=== PATIENT | male | born 1935 | race Caucasian/White ===

== ENCOUNTER 2017-07-22 10:59 | Emergency (ER) | payer MEDICARE, MEDICAID ==
[~2017-07-22] VITALS: Ht 162.6 cm; Wt 59.0 kg
--- OUTSIDE RECORDS SUMMARY | 2017-07-22 11:26 | XMS REPORT | Clinical Summary ---
Author Author Admin, E Organization [employer] Address Unknown Phone Unavailable Allergies, Adverse Reactions, Alerts Allergy Name Reaction Description Start Date Severity Status Provider NKA Critical Active Trino Richardson MD Conditions or Problems Problem Name Problem Code Onset Date Status Entry Date Provider Comment Standard Description Annotate Inguinal hernia, left 550.90 Resolved Trino Richardson MD Unilateral or unspecified inguinal hernia, without mention of obstruction or gangrene (not specified as recurrent) Tobacco abuse 305.1 Inactive Víctor Payne MD Tobacco use disorder Cigarette smoker 305.1 Active Víctor Payne MD Tobacco use disorder Constipation 564.00 Active Trino Richardson MD Constipation, unspecified Transient ischemic attack 435.9 Active Víctor Payne MD Unspecified transient cerebral ischemia Chest wall pain 786.52 Resolved Trino Richardson MD Painful respiration Bronchitis 490 Resolved Víctor Payne MD Bronchitis, not specified as acute or chronic Back pain, thoracic region 724.1 Active Víctor Payne MD Pain in thoracic spine Dizziness 780.4 Active Shaji Bradshaw MD Dizziness and giddiness Carotid bruit, left 785.9 Inactive Shaji Bradshaw MD Other symptoms involving cardiovascular system Carotid bruit, right 785.9 Inactive Víctor Payne MD Other symptoms involving cardiovascular system Carotid artery disease 433.10 Active Víctor Payne MD Occlusion and stenosis of carotid artery, without mention of cerebral infarction Leukocytosis 288.60 Active Magalys Morgan RMA Leukocytosis, unspecified Hypertension, benign essential 401.1 Active Víctor Payne MD Benign essential hypertension Inguinal hernia, right 550.90 Active 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 Unilateral or unspecified inguinal hernia, without mention of obstruction or gangrene (not specified as recurrent) HEALTH MAINTENANCE EXAM V70.0 Active Víctor Payne MD Routine general medical examination at a health care facility Adjustment disorder with depressed mood 309.0 Active Víctor Payne MD Adjustment disorder with depressed mood Underweight 783.22 Active Víctor Payne MD Underweight Change in bowels 787.99 Active Tanya Tan [employer]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 Other symptoms involving digestive system COPD 496 Active Víctor Payne MD Chronic airway obstruction, not elsewhere classified Supraventricular tachycardia 427.0 Active Víctor Payne MD Paroxysmal supraventricular tachycardia Ceruminosis 380.4 Active New Castro DO Impacted cerumen Hypertension 401.9 Active New Castro DO Unspecified essential hypertension Pneumonia, right upper lobe 486 Active Víctor Payne MD Pneumonia, organism unspecified Back pain, thoracic region 724.1 Active Víctor Payne MD Pain in thoracic spine Pre-procedural laboratory examination V72.63 Active 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 HYDROCODONE-ACETAMINOPHEN 57693336247 Active Víctor Payne MD Active DEBROX 6.5 % OTIC SOLN 5 gtts effected ear(ears) q day CARBAMIDE PEROXIDE 95842686588 Active New Castro DO Active AMLODIPINE BESYLATE 5 MG TABS 1 tablet by mouth daily AMLODIPINE BESYLATE 68847814889 Active New Castro DO Active DOK PLUS 50-8.6 MG ORAL TABS 1 tab twice daily SENNOSIDES-DOCUSATE SODIUM 29842476687 No Longer Active New Castro DO Active DULCOLAX 5 MG ORAL TBEC 1-2 tab hs BISACODYL 81438811404 No Longer Active Víctor Payne MD Active COLACE 100 MG ORAL CAPS 1-2 tab daily no more then 4 DOCUSATE SODIUM 11720119455 No Longer Active Víctor Payne MD Active TYLENOL 325 MG ORAL TABS 1 tab every 4-6 hrs as needed for pain ACETAMINOPHEN 51782766251 No Longer Active Víctor Payne MD Active ASPIRIN 325 MG ORAL TBEC 1 daily ASPIRIN 21768670966 No Longer Active Víctor Payne MD Active SERTRALINE HCL 50 MG TABS 1 daily for depressed mood SERTRALINE HCL 54534778337 No Longer Active Víctor Payne MD Active METOPROLOL TARTRATE 25 MG ORAL TABS 1 tablet twice a day METOPROLOL TARTRATE 69418673463 No Longer Active Trino Richardson MD Active ASPIRIN 81 MG ORAL TABS 2 po qd ASPIRIN 30966255182 No Longer Active Trino Richardson MD Active MECLIZINE HCL 25 MG TAB one 4 times a day as needed for dizziness MECLIZINE HCL 40468526333 No Longer Active Víctor Payne MD Active HYDROCODONE-ACETAMINOPHEN 5-325 MG TABS 1/2 to 1 every 4 hours as needed for back pain HYDROCODONE-ACETAMINOPHEN 76471319694 No Longer Active Víctor Payne MD Active LEVAQUIN 750 MG TABS 1 po qd x 7 days LEVOFLOXACIN 28578122561 No Longer Active Víctor Payne MD Active LIPITOR 10 MG TAB one tablet daily at bedtime ATORVASTATIN CALCIUM 53408900247 No Longer Active Víctor Payne MD Active PLAVIX 75 MG TABS 1 tablet by mouth daily to prevent stroke 11/29 CLOPIDOGREL BISULFATE 76703692074 No Longer Active Víctor Payne MD Active ASPIRIN 325 MG TABS 1 TAB 2X ADAY ASPIRIN 02615487920 No Longer Active France Cohen RN Active PLAVIX 75 MG TABS 1 tablet by mouth daily to prevent stroke 11/29 PLAVIX 75 MG TABS 684493 CLOPIDOGREL BISULFATE Inactive LIPITOR 10 MG TAB one tablet daily at bedtime LIPITOR 10 MG TAB 530875 ATORVASTATIN CALCIUM Inactive LEVAQUIN 750 MG TABS 1 po qd x 7 days LEVAQUIN 750 MG TABS 411238 LEVOFLOXACIN Inactive HYDROCODONE-ACETAMINOPHEN 5-325 MG TABS 1/2 to 1 every 4 hours as needed for back pain HYDROCODONE-ACETAMINOPHEN 5-325 MG TABS 165858 HYDROCODONE-ACETAMINOPHEN Inactive MECLIZINE HCL 25 MG TAB one 4 times a day as needed for dizziness MECLIZINE HCL 25 MG TAB 822263 MECLIZINE HCL Inactive ASPIRIN 81 MG ORAL TABS 2 po qd ASPIRIN 81 MG ORAL TABS 736116 ASPIRIN Inactive METOPROLOL TARTRATE 25 MG ORAL TABS 1 tablet twice a day METOPROLOL TARTRATE 25 MG ORAL TABS 384901 METOPROLOL TARTRATE Inactive SERTRALINE HCL 50 MG TABS 1 daily for depressed mood SERTRALINE HCL 50 MG TABS 337879 SERTRALINE HCL Inactive ASPIRIN 325 MG ORAL TBEC 1 daily ASPIRIN 325 MG ORAL TBEC 318861 ASPIRIN Inactive TYLENOL 325 MG ORAL TABS 1 tab every 4-6 hrs as needed for pain TYLENOL 325 MG ORAL TABS 497180 ACETAMINOPHEN Inactive COLACE 100 MG ORAL CAPS 1-2 tab daily no more then 4 COLACE 100 MG ORAL CAPS 3857921 DOCUSATE SODIUM Inactive DULCOLAX 5 MG ORAL TBEC 1-2 tab hs DULCOLAX 5 MG ORAL TBEC BISACODYL Inactive DOK PLUS 50-8.6 MG ORAL TABS 1 tab twice daily DOK PLUS 50-8.6 MG ORAL TABS 080814 SENNOSIDES-DOCUSATE SODIUM Inactive Immunizations Vaccine Administration Date Value Standard Description pneumococcal immunization administered Pneumovax 23 [CVX33] pneumococcal polysaccharide vaccine, 23 valent Vital Signs Date Name Value Unit Range Description blood pressure, diastolic 73 mm[Hg] BP beauchamp blood pressure, systolic 136 mm[Hg] BP sys pulse rate E&M 65 /min Heart rate temperature E&M 96.9 [degF] Body temperature weight E&M 139.5 [lb_av] Weight Measured blood pressure, diastolic 88 mm[Hg] BP beauchamp blood pressure, systolic 176 mm[Hg] BP sys height E&M 65 [in_us] Bdy height pulse rate E&M 79 /min Heart rate temperature E&M 96.9 [degF] Body temperature weight E&M 134 [lb_av] Weight Measured blood pressure, diastolic 72 mm[Hg] BP beauchamp blood pressure, systolic 137 mm[Hg] BP sys height E&M 6.5 [in_us] Bdy height pulse rate E&M 81 /min Heart rate temperature E&M 96.9 [degF] Body temperature weight E&M 131.5 [lb_av] Weight Measured blood pressure, diastolic 72 mm[Hg] BP beauchamp blood pressure, systolic 136 mm[Hg] BP sys height E&M 6.5 [in_us] Bdy height pulse rate E&M 74 /min Heart rate temperature E&M 97.0 [degF] Body temperature weight E&M 131.5 [lb_av] Weight Measured blood pressure, diastolic 78 mm[Hg] BP beauchamp blood pressure, systolic 150 mm[Hg] BP sys height E&M 65.5 [in_us] Bdy height pulse rate E&M 81 /min Heart rate temperature E&M 97.5 [degF] Body temperature weight E&M 132 [lb_av] Weight Measured Diagnostic Results Date Name Value Unit Range Description Lab Report: CBC, Comp. Metabolic Panel - Chemistry sodium, serum 139 mmol/L 060-983 9606/05/19 carbon dioxide, venous blood 31.9 mmol/L 21.0-32.0 potassium, serum 5.2 mmol/L 3.5-5.2 chloride, serum 105 mmol/L 98-107 blood glucose 97 mg/dL 65-110 urea nitrogen, blood 21 mg/dL 7-18 creatinine, serum 1.22 mg/dL 0.55-1.30 alanine aminotransferase (SGPT), serum 22 U/L 12-78 aspartate aminotransferase (SGOT), serum 17 U/L 15-37 calcium, serum 9.4 mg/dL 8.5-10.1 bilirubin, serum, total 0.30 mg/dL 0.00-1.00 Lab Report: CBC, Comp. Metabolic Panel - Hematology leukocyte count, blood 8.4 10^3/MM^3 10*3/mm3 4.6-10.2 erythrocyte (RBC) count 4.45 10^6/MM^3 10*6/mm3 4.50-6.50 hemoglobin, blood 14.2 g/dL 14.0-18.0 hematocrit, blood 42.7 % 40.0-54.0 mean corpuscular volume, RBC 96 fL 80-97 mean corpuscular hemoglobin, RBC 32.0 pg 27.0-31.2 mean corpuscular hemoglobin concentration, RBC 33.3 G/DL % 31.8- 35.4 red blood cell distribution width 14.1 % 11.6-14.8 platelet count 261 10^3/MM^3 10*3/mm3 142-424 Lab Report: Thyroid Stimulating Hormone (L) - Chemistry TSH 0.50 m[iU]/mL 0.36-3.74 Encounters Code Encounter Date Provider Facility CPT-22390 Level 3 Est. Patient 10:30:37 CDT New Castro DO [facility] CPT-58475 Level 4 Est. Patient 15:40:13 CDT Víctor Payne MD [facility] CPT-96304 Level 3 Est. Patient 16:47:27 CDT Tanya Tan APRN [facility] CPT-75216 Level 3 Est. Patient 10:46:48 CDT Víctor Payne MD [facility] CPT-76824 Level 3 Est. Patient 15:45:17 CDT Trino Richardson MD [facility] CPT-35378 Level 4 New Patient 15:41:12 CDT Trino Richardson MD [facility] CPT-58914 Level 3 Est. 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 Patient 11:54:04 SWEEP PRESS OPERATOR Víctor Payne MD [facility] CPT-90977 Level 3 Est. Patient 15:21:08 SWEEP PRESS OPERATOR Shaji Bradshaw MD [facility] CPT-27450 Level 3 Est. Patient 16:54:23 CDT Víctor Payne MD [facility] CPT-19904 Level 3 Est. Patient 16:10:50 CDT Víctor Payne MD [facility] CPT-93683 Level 4 Est. Patient 14:48:01 CDT Víctor Payne MD [facility] CPT-23060 Level 2 New Patient 14:23:38 SWEEP PRESS OPERATOR Víctor Payne MD [facility] Procedures Code Procedure Name Date Entry Date Standard Description CPT-TCMM Transitional Care Mgmt-Moderate 10:53:28 CDT CPT-14840 Chest 2V Frontal and Lat - XRAY USE ONLY 10:27:29 CDT CPT-04973 Chest 2V Frontal and Lat - XRAY USE ONLY 16:00:05 CDT CPT-G0438 Initial Annual Wellness Exam 10:02:47 CDT CPT-15198 Abd compl w upright 15:47:17 CDT CPT-89408 Venipuncture Draw Fee 10:41:53 SWEEP PRESS OPERATOR CPT-34699 Chest 2V Frontal and Lat 16:22:38 CDT CPT-G0008 Administration of Influenza Virus Vaccine 14:20:57 CDT CPT-57924 Fluzone High-Dose Intramuscular Suspension 14:20:56 CDT CPT-40104 Postop F/U Visit 16:24:54 SWEEP PRESS OPERATOR CPT-OV Office Visit 13:26:00 SWEEP PRESS OPERATOR CPT-73418 Administration 2+ single or combination vaccines inc oral 10:08:59 CDT CPT-95761 Administration single or combination vaccine inc oral 10 :08:59 CDT CPT-61436 Pneumovax 10:08:59 CDT CPT-44727 Influenza High Dose age 65+ 10:08:59 CDT
--- OUTSIDE RECORDS SUMMARY | 2017-07-22 11:27 | XMS REPORT | Clinical Summary ---
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 Unilateral or unspecified inguinal hernia, without mention of obstruction or gangrene (not specified as recurrent) HEALTH MAINTENANCE EXAM V70.0 Active Víctor Payne MD Routine general medical examination at a health care facility Adjustment disorder with depressed mood 309.0 Active Víctor Payne MD Adjustment disorder with depressed mood Underweight 783.22 Active Víctor Payne MD Underweight Change in bowels 787.99 Active Tayna Tan GLASS WASHER Other symptoms involving digestive system COPD 496 Active Vítcor Payne MD Chronic airway obstruction, not elsewhere classified Supraventricular tachycardia 427.0 Active Víctor Payne MD Paroxysmal supraventricular tachycardia Bronchitis ICD-490 Inactive Víctor Payne MD 2015 Inguinal hernia, left ICD-550.90 Inactive Trino Richardson MD Chest wall pain ICD-786.52 Inactive Trino Richardson MD Medication List Medication Instructions Start Date Stop Date Generic Name NDC Status Provider Patient Instruction DOK PLUS 50-8.6 MG ORAL TABS 1 tab twice daily SENNOSIDES- DOCUSATE SODIUM 18477684186 Active Víctor Payne MD Active DULCOLAX 5 MG ORAL TBEC 1-2 tab hs BISACODYL 99557594953 No Longer Active Víctor Payne MD Active COLACE 100 MG ORAL CAPS 1-2 tab daily no more then 4 DOCUSATE SODIUM 86185205471 No Longer Active Víctor Payne MD Active TYLENOL 325 MG ORAL TABS 1 tab every 4-6 hrs as needed for pain ACETAMINOPHEN 32156601503 No Longer Active Víctor Payne MD Active ASPIRIN 325 MG ORAL TBEC 1 daily ASPIRIN 61236304486 No Longer Active Víctor Payne MD Active SERTRALINE HCL 50 MG TABS 1 daily for depressed mood SERTRALINE HCL 38208893821 No Longer Active Víctor Payne MD Active METOPROLOL TARTRATE 25 MG ORAL TABS 1 tablet twice a day METOPROLOL TARTRATE 81358564053 No Longer Active Trino Richardson MD Active ASPIRIN 81 MG ORAL TABS 2 po qd ASPIRIN 19491495018 No Longer Active Trino Richardson MD Active MECLIZINE HCL 25 MG TAB one 4 times a day as needed for dizziness MECLIZINE HCL 54464682975 No Longer Active Víctor Payne MD Active HYDROCODONE-ACETAMINOPHEN 5-325 MG TABS 1/2 to 1 every 4 hours as needed for back pain HYDROCODONE-ACETAMINOPHEN 92959498589 No Longer Active Víctor Payne MD Active LEVAQUIN 750 MG TABS 1 po qd x 7 days LEVOFLOXACIN 06583606987 No Longer Active Víctor Payne MD Active LIPITOR 10 MG TAB one tablet daily at bedtime ATORVASTATIN CALCIUM 57693327637 No Longer Active Víctor Payne MD Active PLAVIX 75 MG TABS 1 tablet by mouth daily to prevent stroke 11/29 CLOPIDOGREL BISULFATE 67033082410 No Longer Active Víctor Payne MD Active ASPIRIN 325 MG TABS 1 TAB 2X ADAY ASPIRIN 73697406376 No Longer Active France Cohen RN Active PLAVIX 75 MG TABS 1 tablet by mouth daily to prevent stroke 11/29 PLAVIX 75 MG TABS 51420569440 CLOPIDOGREL BISULFATE Inactive LIPITOR 10 MG TAB one tablet daily at bedtime LIPITOR 10 MG TAB 242166 ATORVASTATIN CALCIUM Inactive LEVAQUIN 750 MG TABS 1 po qd x 7 days LEVAQUIN 750 MG TABS 042938 LEVOFLOXACIN Inactive HYDROCODONE-ACETAMINOPHEN 5-325 MG TABS 1/2 to 1 every 4 hours as needed for back pain HYDROCODONE-ACETAMINOPHEN 5-325 MG TABS 938354 HYDROCODONE-ACETAMINOPHEN Inactive MECLIZINE HCL 25 MG TAB one 4 times a day as needed for dizziness MECLIZINE HCL 25 MG TAB 669985 MECLIZINE HCL Inactive ASPIRIN 81 MG ORAL TABS 2 po qd ASPIRIN 81 MG ORAL TABS ASPIRIN Inactive METOPROLOL TARTRATE 25 MG ORAL TABS 1 tablet twice a day METOPROLOL TARTRATE 25 MG ORAL TABS 093774 METOPROLOL TARTRATE Inactive SERTRALINE HCL 50 MG TABS 1 daily for depressed mood SERTRALINE HCL 50 MG TABS 540210 SERTRALINE HCL Inactive ASPIRIN 325 MG ORAL TBEC 1 daily ASPIRIN 325 MG ORAL TBEC 278052 ASPIRIN Inactive TYLENOL 325 MG ORAL TABS 1 tab every 4-6 hrs as needed for pain TYLENOL 325 MG ORAL TABS 103743 ACETAMINOPHEN Inactive COLACE 100 MG ORAL CAPS 1-2 tab daily no more then 4 COLACE 100 MG ORAL CAPS 0708261 DOCUSATE SODIUM Inactive DULCOLAX 5 MG ORAL TBEC 1-2 tab hs DULCOLAX 5 MG ORAL TBEC BISACODYL Inactive Immunizations Vaccine Administration Date Value Standard Description pneumococcal immunization administered Pneumovax 23 [CVX33] pneumococcal polysaccharide vaccine, 23 valent Vital Signs Date Name Value Unit Range Description blood pressure, diastolic - 8462-4 72 mm[Hg] BP beauchamp blood pressure, systolic - 8480-6 137 mm[Hg] BP sys height E&M - 8302-2 6.5 [in_us] Bdy height pulse rate E&M - 8867-4 81 /min Heart rate temperature E&M 96.9 [degF] Body temperature weight E&M - 3141-9 131.5 [lb_av] Weight Measured blood pressure, diastolic - 8462-4 72 mm[Hg] BP beauchamp blood pressure, systolic - 8480-6 136 mm[Hg] BP sys height E&M - 8302-2 6.5 [in_us] Bdy height pulse rate E&M - 8867-4 74 /min Heart rate temperature E&M 97.0 [degF] Body temperature weight E&M - 3141-9 131.5 [lb_av] Weight Measured blood pressure, diastolic - 8462-4 78 mm[Hg] BP beauchamp blood pressure, systolic - 8480-6 150 mm[Hg] BP sys height E&M - 8302-2 65.5 [in_us] Bdy height pulse rate E&M - 8867-4 81 /min Heart rate temperature E&M 97.5 [degF] Body temperature weight E&M - 3141-9 132 [lb_av] Weight Measured blood pressure, diastolic - 8462-4 70 mm[Hg] BP beauchamp blood pressure, systolic - 8480-6 135 mm[Hg] BP sys height E&M - 8302-2 65.5 [in_us] Bdy height pulse rate E&M - 8867-4 65 /min Heart rate temperature E&M 97.3 [degF] Body temperature weight E&M - 3141-9 133.5 [lb_av] Weight Measured Diagnostic Results Date Name Value Unit Range Description Lab Report: CBC, Comp. Metabolic Panel - Chemistry sodium, serum 139 mmol/L 588-995 5596/05/19 carbon dioxide, venous blood 31.9 mmol/L 21.0-32.0 [...] 0.36-3.74 Encounters Code Encounter Date Provider Facility CPT-55544 Level 4 Est. Patient 15:40:13 CDT Víctor Payne MD [facility] CPT-10927 Level 3 Est. Patient 16:47:27 CDT Tanya Tan APRN [facility] CPT-91814 Level 3 Est. Patient 10:46:48 CDT Víctor Payne MD [facility] CPT-30517 Level 3 Est. Patient 15:45:17 CDT Trino Richardson MD [facility] CPT-91217 Level 4 New Patient 15:41:12 CDT Trino Richardson MD [facility] CPT-67056 Level 3 Est. Patient 09:44:56 REVIEW CONSULTANT Víctor Payne MD [facility] CPT-74383 Level 4 Est. Patient 11:54:04 REVIEW CONSULTANT Víctor Payne MD [facility] CPT-40980 Level 3 Est. Patient 15:21:08 REVIEW CONSULTANT Shaji Bradshaw MD [facility] CPT-25023 Level 3 Est. Patient 16:54:23 CDT Víctor Payne MD [facility] CPT-89380 Level 3 Est. Patient 16:10:50 CDT Víctor Payne MD [facility] CPT-00685 Level 4 Est. Patient 14:48:01 CDT Víctor Payne MD [facility] CPT-87789 Level 2 New Patient 14:23:38 REVIEW CONSULTANT Víctor Payne MD [facility] Procedures Code Procedure Name Date Entry Date Standard Description CPT-48574 Chest 2V Frontal and Lat - XRAY USE ONLY 16:00:05 CDT CPT-G0438 Initial Annual Wellness Exam 10:02:47 CDT CPT-16661 Abd compl w upright 15:47:17 CDT CPT-10420 Venipuncture Draw Fee 10:41:53 REVIEW CONSULTANT CPT-00369 Chest 2V Frontal and Lat 16:22:38 CDT CPT-G0008 Administration of Influenza Virus Vaccine 14:20:57 CDT CPT-00326 Fluzone High-Dose Intramuscular Suspension 14:20:56 CDT CPT-42569 Postop F/U Visit 16:24:54 REVIEW CONSULTANT CPT-OV Office Visit 13:26:00 REVIEW CONSULTANT CPT-69989 Administration 2+ single or combination vaccines inc oral 10:08:59 CDT CPT-14501 Administration single or combination vaccine inc oral 10 :08:59 CDT CPT-47963 Pneumovax 10:08:59 CDT CPT-85783 Influenza High Dose age 65+ 10:08:59 CDT
--- OUTSIDE RECORDS SUMMARY | 2017-07-22 11:27 | XMS REPORT | Clinical Summary ---
Author Author Admin, E Organization [employer] Address Unknown Phone Unavailable Allergies, Adverse Reactions, [...] hypertension Inguinal hernia, right 550.90 Active Erwinguy Salasjanet CONTROL CABINET ASSEMBLER Unilateral or unspecified inguinal hernia, without mention of obstruction or gangrene (not specified as recurrent) HEALTH MAINTENANCE EXAM V70.0 Active Víctor Payne MD Routine general medical examination at a health care facility Adjustment disorder with depressed mood 309.0 Active Víctor Payne MD Adjustment disorder with depressed mood Underweight 783.22 Active Víctor Payne MD Underweight Change in bowels 787.99 Active Tanya CONTROL CABINET ASSEMBLER Other symptoms involving digestive system Inguinal hernia, left ICD-550.90 Inactive Trino Richardson MD Chest wall pain ICD-786.52 Inactive Trino Richardson MD Bronchitis ICD-490 Inactive Víctor Payne MD 2015 Medication List Medication Instructions Start Date Stop Date Generic Name NDC Status Provider Patient Instruction DULCOLAX 5 MG ORAL TBEC 1-2 tab hs BISACODYL 80568464256 Active DANIEL Chase Active COLACE 100 MG ORAL CAPS 1-2 tab daily no more then 4 DOCUSATE SODIUM 62274542997 Active DANIEL Chase Active TYLENOL 325 MG ORAL TABS 1 tab every 4-6 hrs as needed for pain ACETAMINOPHEN 39995315370 Active DANIEL Chase Active SERTRALINE HCL 50 MG TABS 1 daily for depressed mood SERTRALINE HCL 65021889396 No Longer Active Víctor Payne MD Active METOPROLOL TARTRATE 25 MG ORAL TABS 1 tablet twice a day METOPROLOL TARTRATE 72082908354 No Longer Active Trino Richardson MD Active ASPIRIN 325 MG ORAL TBEC 1 daily ASPIRIN 96022985729 Active Trino Richardson MD Active ASPIRIN 81 MG ORAL TABS 2 po qd ASPIRIN 73543004842 No Longer Active Trino Richardson MD Active MECLIZINE HCL 25 MG TAB one 4 times a day as needed for dizziness MECLIZINE HCL 76768019787 No Longer Active Víctor Payne MD Active HYDROCODONE-ACETAMINOPHEN 5-325 MG TABS 1/2 to 1 every 4 hours as needed for back pain HYDROCODONE-ACETAMINOPHEN 58487249669 No Longer Active Víctor Payne MD Active LEVAQUIN 750 MG TABS 1 po qd x 7 days LEVOFLOXACIN 46401322507 No Longer Active Víctor Payne MD Active LIPITOR 10 MG TAB one tablet daily at bedtime ATORVASTATIN CALCIUM 75748576129 No Longer Active Víctor Payne MD Active PLAVIX 75 MG TABS 1 tablet by mouth daily to prevent stroke 11/29 CLOPIDOGREL BISULFATE 76245960625 No Longer Active Víctor Payne MD Active ASPIRIN 325 MG TABS 1 TAB 2X ADAY ASPIRIN 63377279230 No Longer Active France Cohen RN Active PLAVIX 75 MG TABS 1 tablet by mouth daily to prevent stroke 11/29 PLAVIX 75 MG TABS 16518615248 CLOPIDOGREL BISULFATE Inactive LIPITOR 10 MG TAB one tablet daily at bedtime LIPITOR 10 MG TAB 385282 ATORVASTATIN CALCIUM Inactive LEVAQUIN 750 MG TABS 1 po qd x 7 days LEVAQUIN 750 MG TABS 830785 LEVOFLOXACIN Inactive HYDROCODONE-ACETAMINOPHEN 5-325 MG TABS 1/2 to 1 every 4 hours as needed for back pain HYDROCODONE-ACETAMINOPHEN 5-325 MG TABS 757506 HYDROCODONE-ACETAMINOPHEN Inactive MECLIZINE HCL 25 MG TAB one 4 times a day as needed for dizziness MECLIZINE HCL 25 MG TAB 758682 MECLIZINE HCL Inactive ASPIRIN 81 MG ORAL TABS 2 po qd ASPIRIN 81 MG ORAL TABS ASPIRIN Inactive METOPROLOL TARTRATE 25 MG ORAL TABS 1 tablet twice a day METOPROLOL TARTRATE 25 MG ORAL TABS 883441 METOPROLOL TARTRATE Inactive SERTRALINE HCL 50 MG TABS 1 daily for depressed mood SERTRALINE HCL 50 MG TABS 434606 SERTRALINE HCL Inactive Immunizations Vaccine Administration Date Value Standard [...] E&M - 3141-9 133.5 [lb_av] Weight Measured Encounters Code Encounter Date Provider Facility CPT-42000 Level 3 Est. Patient 16:47:27 CDT Tanya Tan APRN [facility] CPT-76493 Level 3 Est. Patient 10:46:48 CDT Víctor Payne MD [facility] CPT-45320 Level 3 Est. Patient 15:45:17 CDT Trino Richardson MD [facility] CPT-21490 Level 4 New Patient 15:41:12 CDT Trino Richardson MD [facility] CPT-47139 Level 3 Est. Patient 09:44:56 LEAF TINNER Víctor Payne MD [facility] CPT-36580 Level 4 Est. Patient 11:54:04 LEAF TINNER Víctor Payne MD [facility] CPT-71726 Level 3 Est. Patient 15:21:08 LEAF TINNER Shaji Bradshaw MD [facility] CPT-96724 Level 3 Est. Patient 16:54:23 CDT Víctor Payne MD [facility] CPT-08082 Level 3 Est. Patient 16:10:50 CDT Víctor Payne MD [facility] CPT-95366 Level 4 Est. Patient 14:48:01 CDT Víctor Payne MD [facility] CPT-14894 Level 2 New Patient 14:23:38 LEAF TINNER Víctor Payne MD [facility] Procedures Code Procedure Name Date Entry Date Standard Description CPT-G0438 Initial Annual Wellness Exam 10:02:47 CDT CPT-33457 Abd compl w upright 15:47:17 CDT CPT-35535 Venipuncture Draw Fee 10:41:53 LEAF TINNER CPT-75874 Chest 2V Frontal and Lat 16:22:38 CDT CPT-G0008 Administration of Influenza Virus Vaccine 14:20:57 CDT CPT-37917 Fluzone High-Dose Intramuscular Suspension 14:20:56 CDT CPT-68721 Postop F/U Visit 16:24:54 LEAF TINNER CPT-OV Office Visit 13:26:00 LEAF TINNER CPT-35243 Administration 2+ single or combination vaccines inc oral 10:08:59 CDT CPT-04080 Administration single or combination vaccine inc oral 10 :08:59 CDT CPT-95000 Pneumovax 10:08:59 CDT CPT-23728 Influenza High Dose age 65+ 10:08:59 CDT
--- OUTSIDE RECORDS SUMMARY | 2017-07-22 11:28 | XMS REPORT | Clinical Summary ---
Author Author Admin, E Organization [employer] Address Unknown Phone Unavailable Allergies, Adverse Reactions, [...] essential hypertension Inguinal hernia, right 550.90 Active Neelimakaro Modijosefa REGISTERED NURSE BEHAVIORAL HEALTH Unilateral or unspecified inguinal hernia, without mention of obstruction or gangrene (not specified as recurrent) HEALTH MAINTENANCE EXAM V70.0 Active Víctor Payne MD Routine general medical examination at a health care facility Adjustment disorder with depressed mood 309.0 Active Víctor Payne MD Adjustment disorder with depressed mood Underweight 783.22 Active Víctor Payne MD Underweight Change in bowels 787.99 Active Tanya Tan REGISTERED NURSE BEHAVIORAL HEALTH Other symptoms involving digestive system COPD 496 [...] Pre-procedural laboratory examination V72.63 Active Tatiana Schroeder PERINATAL EDUCATOR Pre-procedural laboratory examination Inguinal hernia, left ICD-550.90 Inactive Trino Richardson MD Chest wall pain ICD-786.52 Inactive Trino Richardson MD Bronchitis ICD-490 Inactive Víctor Payne MD 2015 Medication List Medication Instructions Start Date Stop Date Generic Name NDC Status Provider Patient Instruction TRAMADOL HCL 50 MG TABS 1/2 to 1 four times a day as needed for pain TRAMADOL HCL 39240036281 Active Víctor Payne MD Active HYDROCODONE-ACETAMINOPHEN 5-325 MG ORAL TABLET 1 four times a day as needed for pain. HYDROCODONE-ACETAMINOPHEN 08433530613 Active Víctor Payne MD Active DEBROX 6.5 % OTIC SOLN 5 gtts effected ear(ears) q day CARBAMIDE PEROXIDE 92518495806 Active New Castro DO Active AMLODIPINE BESYLATE 5 MG TABS 1 tablet by mouth daily AMLODIPINE BESYLATE 92748754983 Active New Castro DO Active DOK PLUS 50-8.6 MG ORAL TABS 1 tab twice daily SENNOSIDES-DOCUSATE SODIUM 32998776828 No Longer Active New Castro DO Active DULCOLAX 5 MG ORAL TBEC 1-2 tab hs BISACODYL 60786339690 No Longer Active Víctor Payne MD Active COLACE 100 MG ORAL CAPS 1-2 tab daily no more then 4 DOCUSATE SODIUM 68619504220 No Longer Active Víctor Payne MD Active TYLENOL 325 MG ORAL TABS 1 tab every 4-6 hrs as needed for pain ACETAMINOPHEN 45172991190 No Longer Active Víctor Payne MD Active ASPIRIN 325 MG ORAL TBEC 1 daily ASPIRIN 28271437379 No Longer Active Víctor Payne MD Active SERTRALINE HCL 50 MG TABS 1 daily for depressed mood SERTRALINE HCL 75927552028 No Longer Active Víctor Payne MD Active METOPROLOL TARTRATE 25 MG ORAL TABS 1 tablet twice a day METOPROLOL TARTRATE 84833975769 No Longer Active Trino Richardson MD Active ASPIRIN 81 MG ORAL TABS 2 po qd ASPIRIN 20229162546 No Longer Active Trino Richardson MD Active MECLIZINE HCL 25 MG TAB one 4 times a day as needed for dizziness MECLIZINE HCL 73090085870 No Longer Active Víctor Payne MD Active HYDROCODONE-ACETAMINOPHEN 5-325 MG TABS 1/2 to 1 every 4 hours as needed for back pain HYDROCODONE-ACETAMINOPHEN 99092202317 No Longer Active Víctor Payne MD Active LEVAQUIN 750 MG TABS 1 po qd x 7 days LEVOFLOXACIN 53309846745 No Longer Active Víctor Payne MD Active LIPITOR 10 MG TAB one tablet daily at bedtime ATORVASTATIN CALCIUM 37831159390 No Longer Active Víctor Payne MD Active PLAVIX 75 MG TABS 1 tablet by mouth daily to prevent stroke 11/29 CLOPIDOGREL BISULFATE 65752093091 No Longer Active Víctor Payne MD Active ASPIRIN 325 MG TABS 1 TAB 2X ADAY ASPIRIN 36022865999 No Longer Active France Cohen RN Active PLAVIX 75 MG TABS 1 tablet by mouth daily to prevent stroke 11/29 PLAVIX 75 MG TABS 804662 CLOPIDOGREL BISULFATE Inactive LIPITOR 10 MG TAB one tablet daily at bedtime LIPITOR 10 MG TAB 038106 ATORVASTATIN CALCIUM Inactive LEVAQUIN 750 MG TABS 1 po qd x 7 days LEVAQUIN 750 MG TABS 847713 LEVOFLOXACIN Inactive HYDROCODONE-ACETAMINOPHEN 5-325 MG TABS 1/2 to 1 every 4 hours as needed for back pain HYDROCODONE-ACETAMINOPHEN 5-325 MG TABS 324778 HYDROCODONE-ACETAMINOPHEN Inactive MECLIZINE HCL 25 MG TAB one 4 times a day as needed for dizziness MECLIZINE HCL 25 MG TAB 573290 MECLIZINE HCL Inactive ASPIRIN 81 MG ORAL TABS 2 po qd ASPIRIN 81 MG ORAL TABS 574049 ASPIRIN Inactive METOPROLOL TARTRATE 25 MG ORAL TABS 1 tablet twice a day METOPROLOL TARTRATE 25 MG ORAL TABS 187637 METOPROLOL TARTRATE Inactive SERTRALINE HCL 50 MG TABS 1 daily for depressed mood SERTRALINE HCL 50 MG TABS 125790 SERTRALINE HCL Inactive ASPIRIN 325 MG ORAL TBEC 1 daily ASPIRIN 325 MG ORAL TBEC 586586 ASPIRIN Inactive TYLENOL 325 MG ORAL TABS 1 tab every 4-6 hrs as needed for pain TYLENOL 325 MG ORAL TABS 482937 ACETAMINOPHEN Inactive COLACE 100 MG ORAL CAPS 1-2 tab daily no more then 4 COLACE 100 MG ORAL CAPS 4123318 DOCUSATE SODIUM Inactive DULCOLAX 5 MG ORAL TBEC 1-2 tab hs DULCOLAX 5 MG ORAL TBEC BISACODYL Inactive DOK PLUS 50-8.6 MG ORAL TABS 1 tab twice daily DOK PLUS 50-8.6 MG ORAL TABS 764018 SENNOSIDES-DOCUSATE SODIUM Inactive Immunizations Vaccine Administration Date [...] Panel - Chemistry sodium, serum 139 mmol/L 287-204 7440/05/19 carbon dioxide, venous blood 31.9 mmol/L 21.0-32.0 [...] 0.36-3.74 Encounters Code Encounter Date Provider Facility CPT-81374 Level 3 Est. Patient 10:30:37 CDT New Castro DO [facility] CPT-11551 Level 4 Est. Patient 15:40:13 CDT Víctor Payne MD [facility] CPT-68371 Level 3 Est. Patient 16:47:27 CDT Tanya Tan APRN [facility] CPT-99334 Level 3 Est. Patient 10:46:48 CDT Víctor Payne MD [facility] CPT-67837 Level 3 Est. Patient 15:45:17 CDT Trino Richardson MD [facility] CPT-99663 Level 4 New Patient 15:41:12 CDT Trino Richardson MD [facility] CPT-37042 Level 3 Est. Patient 09:44:56 CAGE CASHIER Víctor Payne MD [facility] CPT-13722 Level 4 Est. Patient 11:54:04 CAGE CASHIER Víctor Payne MD [facility] CPT-93231 Level 3 Est. Patient 15:21:08 CAGE CASHIER Shaji Bradshaw MD [facility] CPT-60143 Level 3 Est. Patient 16:54:23 CDT Víctor Payne MD [facility] CPT-14716 Level 3 Est. Patient 16:10:50 CDT Víctor Payne MD [facility] CPT-15069 Level 4 Est. Patient 14:48:01 CDT Víctor Payne MD [facility] CPT-74420 Level 2 New Patient 14:23:38 CAGE CASHIER Víctor Payne MD [facility] Procedures Code Procedure Name Date Entry Date Standard Description CPT-TCMM Transitional Care Mgmt-Moderate 10:53:28 CDT CPT-91322 Chest 2V Frontal and Lat - XRAY USE ONLY 10:27:29 CDT CPT-67517 Chest 2V Frontal and Lat - XRAY USE ONLY 16:00:05 CDT CPT-G0438 Initial Annual Wellness Exam 10:02:47 CDT CPT-97558 Abd compl w upright 15:47:17 CDT CPT-47722 Venipuncture Draw Fee 10:41:53 CAGE CASHIER CPT-14949 Chest 2V Frontal and Lat 16:22:38 CDT CPT-G0008 Administration of Influenza Virus Vaccine 14:20:57 CDT CPT-29676 Fluzone High-Dose Intramuscular Suspension 14:20:56 CDT CPT-95992 Postop F/U Visit 16:24:54 CAGE CASHIER CPT-OV Office Visit 13:26:00 CAGE CASHIER CPT-23852 Administration 2+ single or combination vaccines inc oral 10:08:59 CDT CPT-66284 Administration single or combination vaccine inc oral 10 :08:59 CDT CPT-42303 Pneumovax 10:08:59 CDT CPT-00227 Influenza High Dose age 65+ 10:08:59 CDT
--- OUTSIDE RECORDS SUMMARY | 2017-07-22 11:28 | XMS REPORT | Clinical Summary ---
Author Author Admin, E Organization [employer] Address Unknown Phone Unavailable Allergies, Adverse Reactions, [...] Inguinal hernia, right 550.90 Active Erwinguy Salasjanet OUTSIDE SALES MANAGER Unilateral or unspecified inguinal hernia, without mention of obstruction or gangrene (not specified as recurrent) HEALTH MAINTENANCE EXAM V70.0 Active Víctor Payne MD Routine general medical examination at a health care facility Adjustment disorder with depressed mood 309.0 Active Víctor Payne MD Adjustment disorder with depressed mood Underweight 783.22 Active Víctor Payne MD Underweight Change in bowels 787.99 Active Tanya OUTSIDE SALES MANAGER Other symptoms involving digestive system Inguinal hernia, left ICD-550.90 Inactive Trino Richardson MD Chest wall pain ICD-786.52 Inactive Trino Richardson MD Bronchitis ICD-490 Inactive Víctor Payne MD 2015 Medication List Medication Instructions Start Date Stop Date Generic Name NDC Status Provider Patient Instruction DULCOLAX 5 MG ORAL TBEC 1-2 tab hs BISACODYL 39087074539 Active DANIEL Chase Active COLACE 100 MG ORAL CAPS 1-2 tab daily no more then 4 DOCUSATE SODIUM 64310636901 Active DANIEL Chase Active TYLENOL 325 MG ORAL TABS 1 tab every 4-6 hrs as needed for pain ACETAMINOPHEN 47585578613 Active DANIEL Chase Active SERTRALINE HCL 50 MG TABS 1 daily for depressed mood SERTRALINE HCL 76073558746 No Longer Active Víctor Payne MD Active METOPROLOL TARTRATE 25 MG ORAL TABS 1 tablet twice a day METOPROLOL TARTRATE 11238255512 No Longer Active Trino Richardson MD Active ASPIRIN 325 MG ORAL TBEC 1 daily ASPIRIN 17927328327 Active Trino Richardson MD Active ASPIRIN 81 MG ORAL TABS 2 po qd ASPIRIN 74323046033 No Longer Active Trino Richardson MD Active MECLIZINE HCL 25 MG TAB one 4 times a day as needed for dizziness MECLIZINE HCL 96100705401 No Longer Active Víctor Payne MD Active HYDROCODONE-ACETAMINOPHEN 5-325 MG TABS 1/2 to 1 every 4 hours as needed for back pain HYDROCODONE-ACETAMINOPHEN 20980591092 No Longer Active Víctor Payne MD Active LEVAQUIN 750 MG TABS 1 po qd x 7 days LEVOFLOXACIN 30377690430 No Longer Active Víctor Payne MD Active LIPITOR 10 MG TAB one tablet daily at bedtime ATORVASTATIN CALCIUM 31516713216 No Longer Active Víctor Payne MD Active PLAVIX 75 MG TABS 1 tablet by mouth daily to prevent stroke 11/29 CLOPIDOGREL BISULFATE 01596517790 No Longer Active Víctor Payne MD Active ASPIRIN 325 MG TABS 1 TAB 2X ADAY ASPIRIN 33567407936 No Longer Active France Cohen RN Active PLAVIX 75 MG TABS 1 tablet by mouth daily to prevent stroke 11/29 PLAVIX 75 MG TABS 96612944508 CLOPIDOGREL BISULFATE Inactive LIPITOR 10 MG TAB one tablet daily at bedtime LIPITOR 10 MG TAB 690742 ATORVASTATIN CALCIUM Inactive LEVAQUIN 750 MG TABS 1 po qd x 7 days LEVAQUIN 750 MG TABS 535289 LEVOFLOXACIN Inactive HYDROCODONE-ACETAMINOPHEN 5-325 MG TABS 1/2 to 1 every 4 hours as needed for back pain HYDROCODONE-ACETAMINOPHEN 5-325 MG TABS 774313 HYDROCODONE-ACETAMINOPHEN Inactive MECLIZINE HCL 25 MG TAB one 4 times a day as needed for dizziness MECLIZINE HCL 25 MG TAB 665315 MECLIZINE HCL Inactive ASPIRIN 81 MG ORAL TABS 2 po qd ASPIRIN 81 MG ORAL TABS ASPIRIN Inactive METOPROLOL TARTRATE 25 MG ORAL TABS 1 tablet twice a day METOPROLOL TARTRATE 25 MG ORAL TABS 728091 METOPROLOL TARTRATE Inactive SERTRALINE HCL 50 MG TABS 1 daily for depressed mood SERTRALINE HCL 50 MG TABS 106149 SERTRALINE HCL Inactive Immunizations Vaccine Administration Date [...] Measured Encounters Code Encounter Date Provider Facility CPT-79422 Level 3 Est. Patient 16:47:27 CDT Tanya Tan APRN [facility] CPT-74361 Level 3 Est. Patient 10:46:48 CDT Víctor Payne MD [facility] CPT-35808 Level 3 Est. Patient 15:45:17 CDT Trino Richardson MD [facility] CPT-10921 Level 4 New Patient 15:41:12 CDT Trino Richardson MD [facility] CPT-63466 Level 3 Est. Patient 09:44:56 DIRECTOR COMPLIANCE Víctor Payne MD [facility] CPT-92412 Level 4 Est. Patient 11:54:04 DIRECTOR COMPLIANCE Víctor Payne MD [facility] CPT-76294 Level 3 Est. Patient 15:21:08 DIRECTOR COMPLIANCE Shaji Bradshaw MD [facility] CPT-25776 Level 3 Est. Patient 16:54:23 CDT Víctor Payne MD [facility] CPT-47885 Level 3 Est. Patient 16:10:50 CDT Víctor Payne MD [facility] CPT-26394 Level 4 Est. Patient 14:48:01 CDT Víctor Payne MD [facility] CPT-68466 Level 2 New Patient 14:23:38 DIRECTOR COMPLIANCE Víctor Payne MD [facility] Procedures Code Procedure Name Date Entry Date Standard Description CPT-G0438 Initial Annual Wellness Exam 10:02:47 CDT CPT-38599 Abd compl w upright 15:47:17 CDT CPT-02875 Venipuncture Draw Fee 10:41:53 DIRECTOR COMPLIANCE CPT-65202 Chest 2V Frontal and Lat 16:22:38 CDT CPT-G0008 Administration of Influenza Virus Vaccine 14:20:57 CDT CPT-66222 Fluzone High-Dose Intramuscular Suspension 14:20:56 CDT CPT-82158 Postop F/U Visit 16:24:54 DIRECTOR COMPLIANCE CPT-OV Office Visit 13:26:00 DIRECTOR COMPLIANCE CPT-31091 Administration 2+ single or combination vaccines inc oral 10:08:59 CDT CPT-65414 Administration single or combination vaccine inc oral 10 :08:59 CDT CPT-04119 Pneumovax 10:08:59 CDT CPT-09718 Influenza High Dose age 65+ 10:08:59 CDT
--- OUTSIDE RECORDS SUMMARY | 2017-07-22 11:28 | XMS REPORT | Clinical Summary ---
Author Author Admin, JEAN CLAUDE Organization [facility] Address Unknown Phone Unavailable Allergies, Adverse Reactions, [...] essential hypertension Inguinal hernia, right 550.90 Active Josr Lyjosefa ACLS SPECIALIST Unilateral or unspecified inguinal hernia, without mention of obstruction or gangrene (not specified as recurrent) Inguinal hernia, left ICD-550.90 Inactive Trino Richardson MD Chest wall pain ICD-786.52 Inactive Trino Richardson MD Bronchitis ICD-490 Inactive Víctor Payne MD 2015 Medication List Medication Instructions Start Date Stop Date Generic Name NDC Status Provider Patient Instruction METOPROLOL TARTRATE 25 MG ORAL TABS 1 tablet twice a day METOPROLOL TARTRATE 33832570571 No Longer Active Trino Richardson MD Active ASPIRIN 325 MG ORAL TBEC 1 daily ASPIRIN 32542944961 Active Trino Richardson MD Active ASPIRIN 81 MG ORAL TABS 2 po qd ASPIRIN 04858104954 No Longer Active Trino Richardson MD Active MECLIZINE HCL 25 MG TAB one 4 times a day as needed for dizziness MECLIZINE HCL 80413537626 No Longer Active Víctor Payne MD Active HYDROCODONE-ACETAMINOPHEN 5-325 MG TABS 1/2 to 1 every 4 hours as needed for back pain HYDROCODONE-ACETAMINOPHEN 80523441041 No Longer Active Víctor Payne MD Active LEVAQUIN 750 MG TABS 1 po qd x 7 days LEVOFLOXACIN 07250185966 No Longer Active Víctor Payne MD Active LIPITOR 10 MG TAB one tablet daily at bedtime ATORVASTATIN CALCIUM 73382969669 No Longer Active Víctor Payne MD Active PLAVIX 75 MG TABS 1 tablet by mouth daily to prevent stroke 11/29 CLOPIDOGREL BISULFATE 35281994762 No Longer Active Víctor Payne MD Active ASPIRIN 325 MG TABS 1 TAB 2X ADAY ASPIRIN 27260642225 No Longer Active France Cohen RN Active PLAVIX 75 MG TABS 1 tablet by mouth daily to prevent stroke 11/29 PLAVIX 75 MG TABS 996995 CLOPIDOGREL BISULFATE Inactive LIPITOR 10 MG TAB one tablet daily at bedtime LIPITOR 10 MG TAB 651268 ATORVASTATIN CALCIUM Inactive LEVAQUIN 750 MG TABS 1 po qd x 7 days LEVAQUIN 750 MG TABS 327533 LEVOFLOXACIN Inactive HYDROCODONE-ACETAMINOPHEN 5-325 MG TABS 1/2 to 1 every 4 hours as needed for back pain HYDROCODONE-ACETAMINOPHEN 5-325 MG TABS 019221 HYDROCODONE-ACETAMINOPHEN Inactive MECLIZINE HCL 25 MG TAB one 4 times a day as needed for dizziness MECLIZINE HCL 25 MG TAB 366843 MECLIZINE HCL Inactive ASPIRIN 81 MG ORAL TABS 2 po qd ASPIRIN 81 MG ORAL TABS 203223 ASPIRIN Inactive METOPROLOL TARTRATE 25 MG ORAL TABS 1 tablet twice a day METOPROLOL TARTRATE 25 MG ORAL TABS 857769 METOPROLOL TARTRATE Inactive Immunizations Vaccine Administration Date Value Standard Description pneumococcal immunization administered Pneumovax 23 [CVX33] pneumococcal polysaccharide vaccine, 23 valent Vital Signs Date Name Value Unit Range Description blood pressure, diastolic - 8462-4 67 mm[Hg] BP [place] blood pressure, systolic - 8480-6 112 mm[Hg] BP sys pulse rate E&M - 8867-4 79 /min Heart rate temperature E&M 97.4 [degF] Body temperature weight E&M - 3141-9 144.5 [lb_av] Weight Measured blood pressure, diastolic - 8462-4 60 mm[Hg] BP [place] blood pressure, systolic - 8480-6 105 mm[Hg] BP sys pulse rate E&M - 8867-4 146 /min Heart rate temperature E&M 97.6 [degF] Body temperature weight E&M - 3141-9 149 [lb_av] Weight Measured blood pressure, diastolic - 8462-4 83 mm[Hg] BP [place] blood pressure, systolic - 8480-6 145 mm[Hg] BP sys pulse rate E&M - 8867-4 80 /min Heart rate temperature E&M 98.8 [degF] Body temperature weight E&M - 3141-9 152.2 [lb_av] Weight Measured blood pressure, diastolic - 8462-4 84 mm[Hg] BP [place] blood pressure, systolic - 8480-6 175 mm[Hg] BP sys pulse rate E&M - 8867-4 73 /min Heart rate temperature E&M 96.9 [degF] Body temperature weight E&M - 3141-9 157.5 [lb_av] Weight Measured blood pressure, diastolic - 8462-4 75 mm[Hg] BP [place] blood pressure, systolic - 8480-6 128 mm[Hg] BP sys pulse rate E&M - 8867-4 77 /min Heart rate temperature E&M 96.1 [degF] Body temperature weight E&M - 3141-9 158.5 [lb_av] Weight Measured blood pressure, diastolic - 8462-4 79 mm[Hg] BP [place] blood pressure, systolic - 8480-6 157 mm[Hg] BP sys pulse rate E&M - 8867-4 90 /min Heart rate temperature E&M 98.2 [degF] Body temperature weight E&M - 3141-9 158 [lb_av] Weight Measured blood pressure, diastolic - 8462-4 67 mm[Hg] BP [place] blood pressure, systolic - 8480-6 147 mm[Hg] BP sys pulse rate E&M - 8867-4 80 /min Heart rate temperature E&M 97.0 [degF] Body temperature weight E&M - 3141-9 153.6 [lb_av] Weight Measured blood pressure, diastolic - 8462-4 78 mm[Hg] BP [place] blood pressure, systolic - 8480-6 144 mm[Hg] BP sys pulse rate E&M - 8867-4 71 /min Heart rate temperature E&M 97.5 [degF] Body temperature weight E&M - 3141-9 155.8 [lb_av] Weight Measured Diagnostic Results Date Name Value Unit Range Description Lab Report: CBC W/DIFF - Hematology leukocyte count, blood 11.3 10^3/MM^3 10*3/mm3 4.6-10.2 neutrophils as percent of blood leukocytes 65.2 % 42.2-75.2 monocytes as percent of blood leukocytes 7.7 % 1.7-9.3 lymphocytes as percent of blood leukocytes 20.2 % 20.5-51.1 erythrocyte (RBC) count 4.37 10^6/MM^3 10*6/mm3 4.69-6.13 hemoglobin, blood 13.8 g/dL 13.5-17.5 hematocrit, blood 41.2 % 41.0-53.0 mean corpuscular volume, RBC 94 fL 80-97 mean corpuscular hemoglobin, RBC 31.7 pg 27.0-31.2 mean corpuscular hemoglobin concentration, RBC 33.6 G/DL % 31.8- 35.4 red blood cell distribution width 15.8 % 11.6-14.8 platelet count 303 10^3/MM^3 10*3/mm3 074-744 3641/02/10 leukocyte count, blood 11.9 10^3/MM^3 10*3/mm3 4.6-10.2 neutrophils as percent of blood leukocytes 71.5 % 42.2-75.2 monocytes as percent of blood leukocytes 7.4 % 1.7-9.3 lymphocytes as percent of blood leukocytes 15.1 % 20.5-51.1 erythrocyte (RBC) count 3.87 10^6/MM^3 10*6/mm3 4.69-6.13 hemoglobin, blood 12.4 g/dL 13.5-17.5 hematocrit, blood 37.0 % 41.0-53.0 mean corpuscular volume, RBC 95 fL 80-97 mean corpuscular hemoglobin, RBC 31.9 pg 27.0-31.2 mean corpuscular hemoglobin concentration, RBC 33.4 G/DL % 31.8- 35.4 red blood cell distribution width 15.1 % 11.6-14.8 platelet count 261 10^3/MM^3 10*3/mm3 142-424 Lab Report: CBC, Comp. Metabolic Panel - Chemistry sodium, serum 139 mmol/L 335-885 6044/09/18 carbon dioxide, venous blood 27.6 mmol/L 21.0-32.0 potassium, serum 4.5 mmol/L 3.5-5.2 chloride, serum 104 mmol/L 98-107 blood glucose 85 mg/dL 65-110 urea nitrogen, blood 19 mg/dL 7-18 creatinine, serum 1.43 mg/dL 0.55-1.30 alanine aminotransferase (SGPT), serum 17 U/L 12-78 aspartate aminotransferase (SGOT), serum 17 U/L 15-37 calcium, serum 8.8 mg/dL 8.5-10.1 Lab Report: CBC, Comp. Metabolic Panel - Hematology leukocyte count, blood 10.9 10^3/MM^3 10*3/mm3 4.6-10.2 erythrocyte (RBC) count 4.08 10^6/MM^3 10*6/mm3 4.69-6.13 hemoglobin, blood 13.2 g/dL 13.5-17.5 hematocrit, blood 38.8 % 41.0-53.0 mean corpuscular volume, RBC 95 fL 80-97 mean corpuscular hemoglobin, RBC 32.4 pg 27.0-31.2 mean corpuscular hemoglobin concentration, RBC 34.2 G/DL % 31.8- 35.4 red blood cell distribution width 15.1 % 11.6-14.8 platelet count 297 10^3/MM^3 10*3/mm3 142-424 Lab Report: Comp. Metabolic Panel - Chemistry sodium, serum 136 mmol/L 032-512 6449/12/30 carbon dioxide, venous blood 27.9 mmol/L 21.0-32.0 potassium, serum 4.3 mmol/L 3.5-5.2 chloride, serum 100 mmol/L 98-107 blood glucose 97 mg/dL 65-110 urea nitrogen, blood 19 mg/dL 7-18 creatinine, serum 1.40 mg/dL 0.55-1.30 alanine aminotransferase (SGPT), serum 25 U/L 12-78 aspartate aminotransferase (SGOT), serum 28 U/L 15-37 calcium, serum 9.0 mg/dL 8.5-10.1 bilirubin, serum, total 0.40 mg/dL 0.00-1.00 Encounters Code Encounter Date Provider Facility CPT-12823 Level 3 Est. Patient 15:45:17 CDT Trino Richardson MD [facility] CPT-32586 Level 4 New Patient 15:41:12 CDT Trino Richardson MD [facility] CPT-28237 Level 3 Est. 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 Patient 15:21:08 J[employer]IOR HIGH [employer] TE[employer]ER Shaji Bradshaw MD [facility] CPT-77498 Level 3 Est. Patient 16:54:23 CDT Víctor Payne MD [facility] CPT-70692 Level 3 Est. Patient 16:10:50 CDT Víctor Payne MD [facility] CPT-47771 Level 4 Est. 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 TEACHER Víctor Payne MD [facility] Procedures Code Procedure Name Date Entry Date Standard Description CPT-91447 Abd compl w upright 15:47:17 CDT CPT-29950 Venipuncture Draw Fee 10:41:53 JUNIOR HIGH SCHOOL TEACHER CPT-73123 Chest 2V Frontal and Lat 16:22:38 CDT CPT-G0008 Administration of Influenza Virus Vaccine 14:20:57 CDT CPT-93395 Fluzone High-Dose Intramuscular Suspension 14:20:56 CDT CPT-80766 Postop F/U Visit 16:24:54 JUNIOR HIGH SCHOOL TEACHER CPT-OV Office Visit 13:26:00 JUNIOR HIGH S[employer]OL TEACHER CPT-77543 Administration 2+ single or combination vaccines inc oral 10:08:59 CDT CPT-38343 Administration single or combination vaccine inc oral 10 :08:59 CDT CPT-24592 Pneumovax 10:08:59 CDT CPT-17824 Influenza High Dose age 65+ 10:08:59 CDT
--- OUTSIDE RECORDS SUMMARY | 2017-07-22 11:29 | XMS REPORT | Clinical Summary ---
Author Author Admin, JEAN CLAUDE Organization [facility] Address Unknown Phone Unavailable Allergies, Adverse Reactions, Alerts Allergy Name Reaction Description Start Date Severity Status Provider No Known Allergies Geovanna Arreaga MA Conditions or Problems Problem Name Problem Code Onset Date Status Entry Date Provider Comment Standard Description Annotate Inguinal hernia, left 550.90 Active Víctor Payne MD Unilateral or unspecified inguinal hernia, without mention of obstruction or gangrene (not specified as recurrent) Tobacco abuse 305.1 Inactive Víctor Payne MD Tobacco use disorder Cigarette smoker 305.1 Active Víctor Payne MD Tobacco use disorder Constipation 564.00 Active Trino Richarsdon MD Constipation, unspecified Transient ischemic attack 435.9 Active Víctor Payne MD Unspecified transient cerebral ischemia Chest wall pain 786.52 Active Víctor Payne MD Painful respiration Bronchitis 490 Active Víctor Payne MD Bronchitis, not specified as acute or chronic Back pain, thoracic region 724.1 Active Víctor Payne MD Pain in thoracic spine Dizziness 780.4 Active Shaji Bradshaw MD Dizziness and giddiness Carotid bruit, left 785.9 Inactive Shaji Bradshaw MD Other symptoms involving cardiovascular system Carotid bruit, right 785.9 Active Víctor Payne MD Other symptoms involving cardiovascular system Leukocytosis 288.60 Active Magalys Faux RMA Leukocytosis, unspecified Medication List Medication Instructions Start Date Stop Date Generic Name NDC Status Provider Patient Instruction MECLIZINE HCL 25 MG TAB one 4 times a day as needed for dizziness MECLIZINE HCL 36732040093 Active Shaji Bradshaw MD Active HYDROCODONE-ACETAMINOPHEN 5-325 MG TABS 1/2 to 1 every 4 hours as needed for back pain HYDROCODONE-ACETAMINOPHEN 31174883093 Active Víctor Payne MD Active LEVAQUIN 750 MG TABS 1 po qd x 7 days LEVOFLOXACIN 81768575111 No Longer Active Víctor Payne MD Active ASPIRIN 81 MG ORAL TABS 2 po qd ASPIRIN 52953592020 Active Víctor Payne MD Active LIPITOR 10 MG TAB one tablet daily at bedtime ATORVASTATIN CALCIUM 14787371303 No Longer Active Víctor Payne MD Active PLAVIX 75 MG TABS 1 tablet by mouth daily to prevent stroke 11/29 CLOPIDOGREL BISULFATE 89559452523 No Longer Active Víctor Payne MD Active ASPIRIN 325 MG TABS 1 TAB 2X ADAY ASPIRIN 44952680542 No Longer Active France Cohen RN Active PLAVIX 75 MG TABS 1 tablet by mouth daily to prevent stroke 11/29 PLAVIX 75 MG TABS 599900 CLOPIDOGREL BISULFATE Inactive LIPITOR 10 MG TAB one tablet daily at bedtime LIPITOR 10 MG TAB 130240 ATORVASTATIN CALCIUM Inactive LEVAQUIN 750 MG TABS 1 po qd x 7 days LEVAQUIN 750 MG TABS 134515 LEVOFLOXACIN Inactive Immunizations Vaccine Administration Date Value Standard Description pneumococcal immunization administered Pneumovax 23 [CVX33] pneumococcal polysaccharide vaccine, 23 valent Vital Signs Date Name Value Unit Range Description blood pressure, diastolic - 8462-4 75 mm[Hg] [...] % 11.6-14.8 platelet count 303 10^3/MM^3 10*3/mm3 898-925 6657/02/10 leukocyte count, blood 11.9 10^3/MM^3 10*3/mm3 4.6-10.2 [...] Panel - Chemistry sodium, serum 139 mmol/L 909-021 0395/09/18 carbon dioxide, venous blood 27.6 mmol/L 21.0-32.0 potassium, serum 4.5 mmol/L 3.5-5.2 chloride, serum 104 mmol/L 98-107 blood glucose 85 mg/dL 65-110 urea nitrogen, blood 19 mg/dL 7-18 creatinine, serum 1.43 mg/dL 0.55-1.30 alanine aminotransferase (SGPT), serum 17 U/L -78 aspartate aminotransferase (SGOT), serum 17 U/L 15-37 calcium, serum 8.8 mg/dL 8.5-10.1 Lab Report: CBC, Comp. Metabolic Panel - Hematology mean corpuscular volume, RBC 95 fL 80-97 hematocrit, blood 38.8 % 41.0-53.0 hemoglobin, blood 13.2 g/dL 13.5-17.5 erythrocyte (RBC) count 4.08 10^6/MM^3 10*6/mm3 4.69-6.13 leukocyte count, blood 10.9 10^3/MM^3 10*3/mm3 4.6-10.2 mean corpuscular hemoglobin, RBC 32.4 pg 27.0-31.2 mean corpuscular hemoglobin concentration, RBC 34.2 G/DL % 31.8- 35.4 red blood cell distribution width 15.1 % 11.6-14.8 platelet count 297 10^3/MM^3 10*3/mm3 142-424 Lab Report: Comp. Metabolic Panel - Chemistry alanine aminotransferase (SGPT), serum 25 U/L aspartate aminotransferase (SGOT), serum 28 U/L 15-37 calcium, serum 9.0 mg/dL 8.5-10.1 bilirubin, serum, total 0.40 mg/dL 0.00-1.00 sodium, serum 136 mmol/L 918-259 5572/12/30 carbon dioxide, venous blood 27.9 mmol/L 21.0-32.0 potassium, serum 4.3 mmol/L 3.5-5.2 chloride, serum 100 mmol/L 98-107 blood glucose 97 mg/dL 65-110 urea nitrogen, blood 19 mg/dL 7-18 creatinine, serum 1.40 mg/dL 0.55-1.30 Encounters Code Encounter Date Provider Facility CPT-61695 Level 4 Est. Patient 11:54:04 ICEBOX MAN Víctor Payne MD [facility] CPT-89022 Level 3 Est. Patient 15:21:08 ICEBOX MAN Shaji Bradshaw MD [facility] CPT-75219 Level 3 Est. Patient 16:54:23 CDT Víctor Payne MD [facility] CPT-74707 Level 3 Est. Patient 16:10:50 CDT Víctor Payne MD [facility] CPT-10665 Level 4 Est. Patient 14:48:01 CDT Víctor Payne MD [facility] CPT-23886 Level 2 New Patient 14:23:38 ICEBOX MAN Víctor Payne MD [facility] Procedures Code Procedure Name Date Entry Date Standard Description CPT-59148 Venipuncture Draw Fee 10:41:53 ICEBOX MAN CPT-07827 Chest 2V Frontal and Lat 16:22:38 CDT CPT-G0008 Administration of Influenza Virus Vaccine 14:20:57 CDT CPT-99226 Fluzone High-Dose Intramuscular Suspension 14:20:56 CDT CPT-28073 Postop F/U Visit 16:24:54 ICEBOX MAN CPT-OV Office Visit 13:26:00 ICEBOX MAN CPT-91895 Administration 2+ single or combination vaccines inc oral 10:08:59 CDT CPT-97599 Administration single or combination vaccine inc oral 10 :08:59 CDT CPT-82109 Pneumovax 10:08:59 CDT CPT-60643 Influenza High Dose age 65+ 10:08:59 CDT
--- OUTSIDE RECORDS SUMMARY | 2017-07-22 11:29 | XMS REPORT | Clinical Summary ---
Author Author Admin, JEAN CLAUDE Organization [facility] Address Unknown Phone Unavailable Allergies, Adverse Reactions, Alerts Allergy Name Reaction Description Start Date Severity Status Provider No Known Allergies Naa Jimenez LPN Conditions or Problems Problem Name Problem Code [...] Víctor Payne MD Painful respiration Bronchitis 490 Resolved Víctor [...] Inguinal hernia, right 550.90 Active Josr Lyjosefa ADMINISTRATION INTERN Unilateral or unspecified inguinal hernia, without mention of obstruction or gangrene (not specified as recurrent) Bronchitis ICD-490 Inactive Víctor Payne MD 2015 Medication List Medication Instructions Start Date Stop Date Generic Name NDC Status Provider Patient Instruction METOPROLOL TARTRATE 25 MG ORAL TABS 1 tablet twice a day METOPROLOL TARTRATE 88298572345 Active Víctor Payne MD Active MECLIZINE HCL 25 MG TAB one 4 times a day as needed for dizziness MECLIZINE HCL 88533554976 No Longer Active Víctor Payne MD Active HYDROCODONE-ACETAMINOPHEN 5-325 MG TABS 1/2 to 1 every 4 hours as needed for back pain HYDROCODONE-ACETAMINOPHEN 45843402478 No Longer Active Víctor Payne MD Active LEVAQUIN 750 MG TABS 1 po qd x 7 days LEVOFLOXACIN 92686091568 No Longer Active Víctor Payne MD Active ASPIRIN 81 MG ORAL TABS 2 po qd ASPIRIN 26854256216 Active Víctor Payne MD Active LIPITOR 10 MG TAB one tablet daily at bedtime ATORVASTATIN CALCIUM 68642972287 No Longer Active Víctor Payne MD Active PLAVIX 75 MG TABS 1 tablet by mouth daily to prevent stroke 11/29 CLOPIDOGREL BISULFATE 72772867844 No Longer Active Víctor Payne MD Active ASPIRIN 325 MG TABS 1 TAB 2X ADAY ASPIRIN 46658382006 No Longer Active France Cohen RN Active PLAVIX 75 MG TABS 1 tablet by mouth daily to prevent stroke 11/29 PLAVIX 75 MG TABS 861706 CLOPIDOGREL BISULFATE Inactive LIPITOR 10 MG TAB one tablet daily at bedtime LIPITOR 10 MG TAB 728361 ATORVASTATIN CALCIUM Inactive LEVAQUIN 750 MG TABS 1 po qd x 7 days LEVAQUIN 750 MG TABS 235584 LEVOFLOXACIN Inactive HYDROCODONE-ACETAMINOPHEN 5-325 MG TABS 1/2 to 1 every 4 hours as needed for back pain HYDROCODONE-ACETAMINOPHEN 5-325 MG TABS 743965 HYDROCODONE-ACETAMINOPHEN Inactive MECLIZINE HCL 25 MG TAB one 4 times a day as needed for dizziness MECLIZINE HCL 25 MG TAB 618109 MECLIZINE HCL Inactive Immunizations Vaccine Administration Date Value Standard Description pneumococcal immunization administered Pneumovax 23 [CVX33] pneumococcal polysaccharide vaccine, 23 valent Vital Signs Date Name Value Unit Range Description blood pressure, diastolic - 8462-4 83 mm[Hg] [...] % 11.6-14.8 platelet count 303 10^3/MM^3 10*3/mm3 468-824 0557/02/10 leukocyte count, blood 11.9 10^3/MM^3 10*3/mm3 4.6-10.2 [...] Panel - Chemistry sodium, serum 139 mmol/L 985-713 1401/09/18 carbon dioxide, venous blood 27.6 mmol/L 21.0-32.0 potassium, serum 4.5 mmol/L 3.5-5.2 chloride, serum 104 mmol/L 98-107 blood glucose 85 mg/dL 65-110 urea nitrogen, blood 19 mg/dL 7-18 creatinine, serum 1.43 mg/dL 0.55-1.30 alanine aminotransferase (SGPT), serum 17 U/L - aspartate aminotransferase (SGOT), serum 17 U/L 15-37 [...] Panel - Chemistry sodium, serum 136 mmol/L 616-909 0497/12/30 carbon dioxide, venous blood 27.9 mmol/L 21.0-32.0 potassium, serum 4.3 mmol/L 3.5-5.2 chloride, serum 100 mmol/L 98-107 blood glucose 97 mg/dL 65-110 urea nitrogen, blood 19 mg/dL -18 creatinine, serum 1.40 mg/dL 0.55-1.30 alanine aminotransferase (SGPT), serum 25 U/L - aspartate aminotransferase (SGOT), serum 28 U/L 15-37 calcium, serum 9.0 mg/dL 8.5-10.1 bilirubin, serum, total 0.40 mg/dL 0.00-1.00 Encounters Code Encounter Date Provider Facility CPT-52279 Level 3 Est. Patient 09:44:56 BUSINESS ADMINISTRATION INSTRUCTOR Víctor Payne MD [facility] CPT-43033 Level 4 Est. Patient 11:54:04 BUSINESS ADMINISTRATION INSTRUCTOR Víctor Payne MD [facility] CPT-35458 Level 3 Est. Patient 15:21:08 BUSINESS ADMINISTRATION INSTRUCTOR Shaji Bradshaw MD [facility] CPT-14631 Level 3 Est. Patient 16:54:23 CDT Víctor Payne MD [facility] CPT-33301 Level 3 Est. Patient 16:10:50 CDT Víctor Payne MD [facility] CPT-99529 Level 4 Est. Patient 14:48:01 CDT Víctor Payne MD [facility] CPT-41929 Level 2 New Patient 14:23:38 BUSINESS ADMINISTRATION INSTRUCTOR Víctor Payne MD [facility] Procedures Code Procedure Name Date Entry Date Standard Description CPT-59352 Venipuncture Draw Fee 10:41:53 BUSINESS ADMINISTRATION INSTRUCTOR CPT-50414 Chest 2V Frontal and Lat 16:22:38 CDT CPT-G0008 Administration of Influenza Virus Vaccine 14:20:57 CDT CPT-02508 Fluzone High-Dose Intramuscular Suspension 14:20:56 CDT CPT-64463 Postop F/U Visit 16:24:54 BUSINESS ADMINISTRATION INSTRUCTOR CPT-OV Office Visit 13:26:00 BUSINESS ADMINISTRATION INSTRUCTOR CPT-90495 Administration 2+ single or combination vaccines inc oral 10:08:59 CDT CPT-15006 Administration single or combination vaccine inc oral 10 :08:59 CDT CPT-89046 Pneumovax 10:08:59 CDT CPT-31781 Influenza High Dose age 65+ 10:08:59 CDT
--- OUTSIDE RECORDS SUMMARY | 2017-07-22 11:29 | XMS REPORT | Clinical Summary ---
Author Author Admin, E Organization [address] Address Unknown Phone Unavailable Allergies, Adverse Reactions, [...] Inguinal hernia, right 550.90 Active Erwinguy Modijosefa SALES ORDER PROCESSOR Unilateral or unspecified inguinal hernia, without mention of obstruction or gangrene (not specified as recurrent) HEALTH MAINTENANCE EXAM V70.0 Active Víctor Payne MD Routine general medical examination at a health care facility Adjustment disorder with depressed mood 309.0 Active Víctor Payne MD Adjustment disorder with depressed mood Underweight 783.22 Active Víctor Payne MD Underweight Change in bowels 787.99 Active Tanya Tan SALES ORDER PROCESSOR Other symptoms involving digestive system COPD 496 [...] 1 tab twice daily SENNOSIDES- DOCUSATE SODIUM 59694825082 Active Víctor Payne MD Active DULCOLAX 5 MG ORAL TBEC 1-2 tab hs BISACODYL 05259685518 No Longer Active Víctor Payne MD Active COLACE 100 MG ORAL CAPS 1-2 tab daily no more then 4 DOCUSATE SODIUM 73787017110 No Longer Active Víctor Payne MD Active TYLENOL 325 MG ORAL TABS 1 tab every 4-6 hrs as needed for pain ACETAMINOPHEN 74082600153 No Longer Active Víctor Payne MD Active ASPIRIN 325 MG ORAL TBEC 1 daily ASPIRIN 24876742259 No Longer Active Víctor Payne MD Active SERTRALINE HCL 50 MG TABS 1 daily for depressed mood SERTRALINE HCL 29987438676 No Longer Active Víctor Payne MD Active METOPROLOL TARTRATE 25 MG ORAL TABS 1 tablet twice a day METOPROLOL TARTRATE 88804698213 No Longer Active Trino Richardson MD Active ASPIRIN 81 MG ORAL TABS 2 po qd ASPIRIN 94365535060 No Longer Active Trino Richardson MD Active MECLIZINE HCL 25 MG TAB one 4 times a day as needed for dizziness MECLIZINE HCL 77589571404 No Longer Active Víctor Payne MD Active HYDROCODONE-ACETAMINOPHEN 5-325 MG TABS 1/2 to 1 every 4 hours as needed for back pain HYDROCODONE-ACETAMINOPHEN 57110515794 No Longer Active Víctor Payne MD Active LEVAQUIN 750 MG TABS 1 po qd x 7 days LEVOFLOXACIN 17029617206 No Longer Active Víctor Payne MD Active LIPITOR 10 MG TAB one tablet daily at bedtime ATORVASTATIN CALCIUM 72700562024 No Longer Active Víctor Payne MD Active PLAVIX 75 MG TABS 1 tablet by mouth daily to prevent stroke 11/29 CLOPIDOGREL BISULFATE 46736159499 No Longer Active Víctor Payne MD Active ASPIRIN 325 MG TABS 1 TAB 2X ADAY ASPIRIN 88123616458 No Longer Active France Cohen RN Active PLAVIX 75 MG TABS 1 tablet by mouth daily to prevent stroke 11/29 PLAVIX 75 MG TABS 93802051462 CLOPIDOGREL BISULFATE Inactive LIPITOR 10 MG TAB one tablet daily at bedtime LIPITOR 10 MG TAB 179604 ATORVASTATIN CALCIUM Inactive LEVAQUIN 750 MG TABS 1 po qd x 7 days LEVAQUIN 750 MG TABS 021843 LEVOFLOXACIN Inactive HYDROCODONE-ACETAMINOPHEN 5-325 MG TABS 1/2 to 1 every 4 hours as needed for back pain HYDROCODONE-ACETAMINOPHEN 5-325 MG TABS 089872 HYDROCODONE-ACETAMINOPHEN Inactive MECLIZINE HCL 25 MG TAB one 4 times a day as needed for dizziness MECLIZINE HCL 25 MG TAB 989126 MECLIZINE HCL Inactive ASPIRIN 81 MG ORAL TABS 2 po qd ASPIRIN 81 MG ORAL TABS ASPIRIN Inactive METOPROLOL TARTRATE 25 MG ORAL TABS 1 tablet twice a day METOPROLOL TARTRATE 25 MG ORAL TABS 538129 METOPROLOL TARTRATE Inactive SERTRALINE HCL 50 MG TABS 1 daily for depressed mood SERTRALINE HCL 50 MG TABS 777019 SERTRALINE HCL Inactive ASPIRIN 325 MG ORAL TBEC 1 daily ASPIRIN 325 MG ORAL TBEC 466531 ASPIRIN Inactive TYLENOL 325 MG ORAL TABS 1 tab every 4-6 hrs as needed for pain TYLENOL 325 MG ORAL TABS 982171 ACETAMINOPHEN Inactive COLACE 100 MG ORAL CAPS 1-2 tab daily no more then 4 COLACE 100 MG ORAL CAPS 2996948 DOCUSATE SODIUM Inactive DULCOLAX 5 MG ORAL [...] Panel - Chemistry sodium, serum 139 mmol/L 475-798 0224/05/19 carbon dioxide, venous blood 31.9 mmol/L 21.0-32.0 [...] 0.36-3.74 Encounters Code Encounter Date Provider Facility CPT-88421 Level 4 Est. Patient 15:40:13 CDT Víctor Payne MD [facility] CPT-89845 Level 3 Est. Patient 16:47:27 CDT Tanya Tan APRN [facility] CPT-43240 Level 3 Est. Patient 10:46:48 CDT Víctor Payne MD [facility] CPT-87865 Level 3 Est. Patient 15:45:17 CDT Trino Richardson MD [facility] CPT-82961 Level 4 New Patient 15:41:12 CDT Trino Richardson MD [facility] CPT-26531 Level 3 Est. Patient 09:44:56 CREDIT AND COLLECTIONS REPRESENTATIVE Víctor Payne MD [facility] CPT-63847 Level 4 Est. Patient 11:54:04 CREDIT AND COLLECTIONS REPRESENTATIVE Víctor Payne MD [facility] CPT-22166 Level 3 Est. Patient 15:21:08 CREDIT AND COLLECTIONS REPRESENTATIVE Shaji Bradshaw MD [facility] CPT-54882 Level 3 Est. Patient 16:54:23 CDT Víctor Payne MD [facility] CPT-45870 Level 3 Est. Patient 16:10:50 CDT Víctor Payne MD [facility] CPT-84740 Level 4 Est. Patient 14:48:01 CDT Víctor Payne MD [facility] CPT-07500 Level 2 New Patient 14:23:38 CREDIT AND COLLECTIONS REPRESENTATIVE Víctor Payne MD [facility] Procedures Code Procedure Name Date Entry Date Standard Description CPT-00548 Chest 2V Frontal and Lat - XRAY USE ONLY 16:00:05 CDT CPT-G0438 Initial Annual Wellness Exam 10:02:47 CDT CPT-16726 Abd compl w upright 15:47:17 CDT CPT-55894 Venipuncture Draw Fee 10:41:53 CREDIT AND COLLECTIONS REPRESENTATIVE CPT-15782 Chest 2V Frontal and Lat 16:22:38 CDT CPT-G0008 Administration of Influenza Virus Vaccine 14:20:57 CDT CPT-10005 Fluzone High-Dose Intramuscular Suspension 14:20:56 CDT CPT-63230 Postop F/U Visit 16:24:54 CREDIT AND COLLECTIONS REPRESENTATIVE CPT-OV Office Visit 13:26:00 CREDIT AND COLLECTIONS REPRESENTATIVE CPT-30821 Administration 2+ single or combination vaccines inc oral 10:08:59 CDT CPT-04584 Administration single or combination vaccine inc oral 10 :08:59 CDT CPT-63421 Pneumovax 10:08:59 CDT CPT-49737 Influenza High Dose age 65+ 10:08:59 CDT
--- OUTSIDE RECORDS SUMMARY | 2017-07-22 11:30 | XMS REPORT | Clinical Summary ---
Author Author Admin, E Organization [employer] Address Unknown Phone Unavailable Allergies, Adverse Reactions, [...] Inguinal hernia, right 550.90 Active Erwinguy Modijosefa [employer] OFFICER Unilateral or unspecified inguinal hernia, without mention of obstruction or gangrene (not specified as recurrent) HEALTH MAINTENANCE EXAM V70.0 Active Víctor Payne MD Routine general medical examination at a health care facility Adjustment disorder with depressed mood 309.0 Active Víctor Payne MD Adjustment disorder with depressed mood Underweight 783.22 Active Víctor Payne MD Underweight Change in bowels 787.99 Active Tanya Tan [employer] Other symptoms involving digestive system COPD 496 [...] Pre-procedural laboratory examination V72.63 Active Tatiana Schroeder LEAD SLOT TECHNICIAN Pre-procedural laboratory examination Hemoptysis 786.30 Active Víctor [...] day as needed for pain TRAMADOL HCL 79524764745 Active Víctor Payne MD Active HYDROCODONE-ACETAMINOPHEN 5-325 MG ORAL TABLET 1 four times a day as needed for pain. HYDROCODONE-ACETAMINOPHEN 88103987792 Active Víctor Payne MD Active DEBROX 6.5 % OTIC SOLN 5 gtts effected ear(ears) q day CARBAMIDE PEROXIDE 81177868005 Active New Castro DO Active AMLODIPINE BESYLATE 5 MG TABS 1 tablet by mouth daily AMLODIPINE BESYLATE 15629165805 Active New Castro DO Active DOK PLUS 50-8.6 MG ORAL TABS 1 tab twice daily SENNOSIDES-DOCUSATE SODIUM 57667948845 No Longer Active New Castro DO Active DULCOLAX 5 MG ORAL TBEC 1-2 tab hs BISACODYL 58178572826 No Longer Active Víctor Payne MD Active COLACE 100 MG ORAL CAPS 1-2 tab daily no more then 4 DOCUSATE SODIUM 34067780579 No Longer Active Víctor Payne MD Active TYLENOL 325 MG ORAL TABS 1 tab every 4-6 hrs as needed for pain ACETAMINOPHEN 41821894936 No Longer Active Víctor Payne MD Active ASPIRIN 325 MG ORAL TBEC 1 daily ASPIRIN 09485014825 No Longer Active Víctor Payne MD Active SERTRALINE HCL 50 MG TABS 1 daily for depressed mood SERTRALINE HCL 70653720776 No Longer Active Víctor Payne MD Active METOPROLOL TARTRATE 25 MG ORAL TABS 1 tablet twice a day METOPROLOL TARTRATE 81348209800 No Longer Active Trino Richardson MD Active ASPIRIN 81 MG ORAL TABS 2 po qd ASPIRIN 97570103101 No Longer Active Trino Richardson MD Active MECLIZINE HCL 25 MG TAB one 4 times a day as needed for dizziness MECLIZINE HCL 43407102985 No Longer Active Víctor Payne MD Active HYDROCODONE-ACETAMINOPHEN 5-325 MG TABS 1/2 to 1 every 4 hours as needed for back pain HYDROCODONE-ACETAMINOPHEN 60614767995 No Longer Active Víctor Payne MD Active LEVAQUIN 750 MG TABS 1 po qd x 7 days LEVOFLOXACIN 22849179245 No Longer Active Víctor Payne MD Active LIPITOR 10 MG TAB one tablet daily at bedtime ATORVASTATIN CALCIUM 23561234047 No Longer Active Víctor Payne MD Active PLAVIX 75 MG TABS 1 tablet by mouth daily to prevent stroke 11/29 CLOPIDOGREL BISULFATE 71097541892 No Longer Active Víctor Payne MD Active ASPIRIN 325 MG TABS 1 TAB 2X ADAY ASPIRIN 36574310658 No Longer Active France Cohen RN Active PLAVIX 75 MG TABS 1 tablet by mouth daily to prevent stroke 11/29 PLAVIX 75 MG TABS 569739 CLOPIDOGREL BISULFATE Inactive LIPITOR 10 MG TAB one tablet daily at bedtime LIPITOR 10 MG TAB 827559 ATORVASTATIN CALCIUM Inactive LEVAQUIN 750 MG TABS 1 po qd x 7 days LEVAQUIN 750 MG TABS 231361 LEVOFLOXACIN Inactive HYDROCODONE-ACETAMINOPHEN 5-325 MG TABS 1/2 to 1 every 4 hours as needed for back pain HYDROCODONE-ACETAMINOPHEN 5-325 MG TABS 216365 HYDROCODONE-ACETAMINOPHEN Inactive MECLIZINE HCL 25 MG TAB one 4 times a day as needed for dizziness MECLIZINE HCL 25 MG TAB 013623 MECLIZINE HCL Inactive ASPIRIN 81 MG ORAL TABS 2 po qd ASPIRIN 81 MG ORAL TABS 115108 ASPIRIN Inactive METOPROLOL TARTRATE 25 MG ORAL TABS 1 tablet twice a day METOPROLOL TARTRATE 25 MG ORAL TABS 857911 METOPROLOL TARTRATE Inactive SERTRALINE HCL 50 MG TABS 1 daily for depressed mood SERTRALINE HCL 50 MG TABS 835238 SERTRALINE HCL Inactive ASPIRIN 325 MG ORAL TBEC 1 daily ASPIRIN 325 MG ORAL TBEC 337553 ASPIRIN Inactive TYLENOL 325 MG ORAL TABS 1 tab every 4-6 hrs as needed for pain TYLENOL 325 MG ORAL TABS 960763 ACETAMINOPHEN Inactive COLACE 100 MG ORAL CAPS 1-2 tab daily no more then 4 COLACE 100 MG ORAL CAPS 6012059 DOCUSATE SODIUM Inactive DULCOLAX 5 MG ORAL TBEC 1-2 tab hs DULCOLAX 5 MG ORAL TBEC BISACODYL Inactive DOK PLUS 50-8.6 MG ORAL TABS 1 tab twice daily DOK PLUS 50-8.6 MG ORAL TABS 603664 SENNOSIDES-DOCUSATE SODIUM Inactive Immunizations Vaccine Administration Date [...] Name Value Unit Range Description Lab Report: Basic Metabolic Panel - Chemistry sodium, serum 137 mmol/L 216-067 4514/10/20 potassium, serum 5.5 mmol/L 3.5-5.2 chloride, serum 104 mmol/L 98-107 carbon dioxide, venous blood 29.2 mmol/L 21.0-32.0 blood glucose 100 mg/dL 65-110 calcium, serum 8.7 mg/dL 8.5-10.1 urea nitrogen, blood 23 mg/dL 7-18 creatinine, serum 1.24 mg/dL 0.60-1.30 Lab Report: CBC, Comp. Metabolic Panel - Chemistry sodium, serum 139 mmol/L 800-125 8123/05/19 carbon dioxide, venous blood 31.9 mmol/L 21.0-32.0 [...] 0.36-3.74 Encounters Code Encounter Date Provider Facility CPT-94312 Level 3 Est. Patient 10:30:37 CDT New Castro DO [facility] CPT-56627 Level 4 Est. Patient 15:40:13 CDT Víctor Payne MD [facility] CPT-54373 Level 3 Est. Patient 16:47:27 CDT Tanya Tan APRN [facility] CPT-56574 Level 3 Est. Patient 10:46:48 CDT Víctor Payne MD [facility] CPT-11752 Level 3 Est. Patient 15:45:17 CDT Trino Richardson MD [facility] CPT-52367 Level 4 New Patient 15:41:12 CDT Trino Richardson MD [facility] CPT-68971 Level 3 Est. Patient 09:44:56 CLINICAL SCIENTIST Víctor Payne MD [facility] CPT-37910 Level 4 Est. Patient 11:54:04 CLINICAL SCIENTIST Víctor Payne MD [facility] CPT-92856 Level 3 Est. Patient 15:21:08 CLINICAL SCIENTIST Shaji Bradshaw MD [facility] CPT-02411 Level 3 Est. Patient 16:54:23 CDT Víctor Payne MD [facility] CPT-43575 Level 3 Est. Patient 16:10:50 CDT Víctor Payne MD [facility] CPT-99997 Level 4 Est. Patient 14:48:01 CDT Víctor Payne MD [facility] CPT-12793 Level 2 New Patient 14:23:38 CLINICAL SCIENTIST Víctor Payne MD [facility] Procedures Code Procedure Name Date Entry Date Standard Description CPT-TCMM Transitional Care Mgmt-Moderate 10:53:28 CDT CPT-36238 Chest 2V Frontal and Lat - XRAY USE ONLY 10:27:29 CDT CPT-38067 Chest 2V Frontal and Lat - XRAY USE ONLY 16:00:05 CDT CPT-G0438 Initial Annual Wellness Exam 10:02:47 CDT CPT-20480 Abd compl w upright 15:47:17 CDT CPT-01305 Venipuncture Draw Fee 10:41:53 CLINICAL SCIENTIST CPT-90627 Chest 2V Frontal and Lat 16:22:38 CDT CPT-G0008 Administration of Influenza Virus Vaccine 14:20:57 CDT CPT-03922 Fluzone High-Dose Intramuscular Suspension 14:20:56 CDT CPT-87139 Postop F/U Visit 16:24:54 CLINICAL SCIENTIST CPT-OV Office Visit 13:26:00 CLINICAL SCIENTIST CPT-46790 Administration 2+ single or combination vaccines inc oral 10:08:59 CDT CPT-16346 Administration single or combination vaccine inc oral 10 :08:59 CDT CPT-48814 Pneumovax 10:08:59 CDT CPT-77957 Influenza High Dose age 65+ 10:08:59 CDT
--- OUTSIDE RECORDS SUMMARY | 2017-07-22 11:30 | XMS REPORT | Clinical Summary ---
Author Author Admin, E Organization [employer] Address Unknown Phone Unavailable Allergies, Adverse Reactions, [...] Inguinal hernia, right 550.90 Active Neelimakaro Modijosefa COMMUNICATIONS PROGRAM MANAGER Unilateral or unspecified inguinal hernia, without mention of obstruction or gangrene (not specified as recurrent) HEALTH MAINTENANCE EXAM V70.0 Active Víctor Payne MD Routine general medical examination at a health care facility Adjustment disorder with depressed mood 309.0 Active Víctor Payne MD Adjustment disorder with depressed mood Underweight 783.22 Active Víctor Payne MD Underweight Change in bowels 787.99 Active Tanya Tan COMMUNICATIONS PROGRAM MANAGER Other symptoms involving digestive system COPD 496 [...] Pre-procedural laboratory examination V72.63 Active Tatiana Schroeder CRAFT MANAGER Pre-procedural laboratory examination Hemoptysis 786.30 Active Víctor Payne MD Hemoptysis, unspecified Chest wall pain ICD-786.52 Inactive Trnio Richardson MD Bronchitis ICD-490 Inactive Víctor Payne MD 2015 Inguinal hernia, left ICD-550.90 Inactive Trino Richardson MD Medication List Medication Instructions Start Date Stop Date Generic Name NDC Status Provider Patient Instruction TRAMADOL HCL 50 MG ORAL TABLET 1/2 to 1 four times a day as needed for pain TRAMADOL HCL 64820185411 Active Víctor Payne MD Active HYDROCODONE-ACETAMINOPHEN 5-325 MG ORAL TABLET 1 four times a day as needed for pain. HYDROCODONE-ACETAMINOPHEN 76169850218 No Longer Active Víctor Payne MD Active DEBROX 6.5 % OTIC SOLUTION 5 gtts effected ear(ears) q day CARBAMIDE PEROXIDE 18572129801 Active New Castro DO Active AMLODIPINE BESYLATE 5 MG ORAL TABLET 1 tablet by mouth daily AMLODIPINE BESYLATE 85967633639 Active New Castro DO Active DOK PLUS 50-8.6 MG ORAL TABLET 1 tab twice daily SENNOSIDES-DOCUSATE SODIUM 18964286552 No Longer Active New Castro DO Active DULCOLAX 5 MG ORAL TABLET DELAYED RELEASE 1-2 tab hs BISACODYL 51524320772 No Longer Active Víctor Payne MD Active COLACE 100 MG ORAL CAPSULE 1-2 tab daily no more then 4 DOCUSATE SODIUM 59015179868 No Longer Active Víctor Payne MD Active TYLENOL 325 MG ORAL TABLET 1 tab every 4-6 hrs as needed for pain ACETAMINOPHEN 79355377727 No Longer Active Víctor Payne MD Active ASPIRIN 325 MG ORAL TABLET DELAYED RELEASE 1 daily ASPIRIN 99030169308 No Longer Active Víctor Payne MD Active SERTRALINE HCL 50 MG ORAL TABLET 1 daily for depressed mood 07/26 SERTRALINE HCL 84953489756 No Longer Active Víctor Payne MD Active METOPROLOL TARTRATE 25 MG ORAL TABLET 1 tablet twice a day 06/27 METOPROLOL TARTRATE 06326467178 No Longer Active Trino Richardson MD Active ASPIRIN 81 MG ORAL TABLET 2 po qd ASPIRIN 00669425533 No Longer Active Trino Richardson MD Active MECLIZINE HCL 25 MG ORAL TABLET one 4 times a day as needed for dizziness MECLIZINE HCL 28157266544 No Longer Active Víctor Payne MD Active HYDROCODONE-ACETAMINOPHEN 5-325 MG ORAL TABLET 1/2 to 1 every 4 hours as needed for back pain HYDROCODONE-ACETAMINOPHEN 46182142417 No Longer Active Víctor Payne MD Active LEVAQUIN 750 MG ORAL TABLET 1 po qd x 7 days LEVOFLOXACIN 98718766163 No Longer Active Víctor Payne MD Active LIPITOR 10 MG ORAL TABLET one tablet daily at bedtime ATORVASTATIN CALCIUM 23157308625 No Longer Active Víctor Pyane MD Active PLAVIX 75 MG ORAL TABLET 1 tablet by mouth daily to prevent stroke CLOPIDOGREL BISULFATE 25490332179 No Longer Active Víctor Payne MD Active ASPIRIN 325 MG ORAL TABLET 1 TAB 2X ADAY ASPIRIN 60384033434 No Longer Active France Cohen RN Active PLAVIX 75 MG ORAL TABLET 1 tablet by mouth daily to prevent stroke PLAVIX 75 MG ORAL TABLET 266836 CLOPIDOGREL BISULFATE Inactive LIPITOR 10 MG ORAL TABLET one tablet daily at bedtime LIPITOR 10 MG ORAL TABLET 380606 ATORVASTATIN CALCIUM Inactive LEVAQUIN 750 MG ORAL TABLET 1 po qd x 7 days LEVAQUIN 750 MG ORAL TABLET 147033 LEVOFLOXACIN Inactive HYDROCODONE-ACETAMINOPHEN 5-325 MG ORAL TABLET 1/2 to 1 every 4 hours as needed for back pain HYDROCODONE-ACETAMINOPHEN 5-325 MG ORAL TABLET 698040 HYDROCODONE-ACETAMINOPHEN Inactive MECLIZINE HCL 25 MG ORAL TABLET one 4 times a day as needed for dizziness MECLIZINE HCL 25 MG ORAL TABLET 532657 MECLIZINE HCL Inactive ASPIRIN 81 MG ORAL TABLET 2 po qd ASPIRIN 81 MG ORAL TABLET 668965 ASPIRIN Inactive METOPROLOL TARTRATE 25 MG ORAL TABLET 1 tablet twice a day 06/27 METOPROLOL TARTRATE 25 MG ORAL TABLET 440424 METOPROLOL TARTRATE Inactive SERTRALINE HCL 50 MG ORAL TABLET 1 daily for depressed mood 07/26 SERTRALINE HCL 50 MG ORAL TABLET 739691 SERTRALINE HCL Inactive ASPIRIN 325 MG ORAL TABLET DELAYED RELEASE 1 daily ASPIRIN 325 MG ORAL TABLET DELAYED RELEASE 279497 ASPIRIN Inactive TYLENOL 325 MG ORAL TABLET 1 tab every 4-6 hrs as needed for pain TYLENOL 325 MG ORAL TABLET 126556 ACETAMINOPHEN Inactive COLACE 100 MG ORAL CAPSULE 1-2 tab daily no more then 4 COLACE 100 MG ORAL CAPSULE 4699093 DOCUSATE SODIUM Inactive DULCOLAX 5 MG ORAL TABLET DELAYED RELEASE 1-2 tab hs DULCOLAX 5 MG ORAL TABLET DELAYED RELEASE BISACODYL Inactive DOK PLUS 50-8.6 MG ORAL TABLET 1 tab twice daily DOK PLUS 50-8.6 MG ORAL TABLET 853933 SENNOSIDES-DOCUSATE SODIUM Inactive HYDROCODONE-ACETAMINOPHEN 5-325 MG ORAL TABLET 1 four times a day as needed for pain. HYDROCODONE-ACETAMINOPHEN 5-325 MG ORAL TABLET 646169 HYDROCODONE-ACETAMINOPHEN Inactive Immunizations Vaccine Administration Date Value Standard [...] Panel - Chemistry sodium, serum 137 mmol/L 962-389 8454/10/20 potassium, serum 5.5 mmol/L 3.5-5.2 chloride, serum 104 mmol/L 98-107 carbon dioxide, venous blood 29.2 mmol/L 21.0-32.0 blood glucose 100 mg/dL 65-110 calcium, serum 8.7 mg/dL 8.5-10.1 urea nitrogen, blood 23 mg/dL 7-18 creatinine, serum 1.24 mg/dL 0.60-1.30 Lab Report: CBC, Comp. Metabolic Panel - Chemistry sodium, serum 139 mmol/L 624-561 7850/05/19 carbon dioxide, venous blood 31.9 mmol/L 21.0-32.0 [...] 0.36-3.74 Encounters Code Encounter Date Provider Facility CPT-75770 Level 3 Est. Patient 10:30:37 CDT [facility] CPT-74136 Level 4 Est. Patient 15:40:13 CDT Víctor Payne MD [facility] CPT-66768 Level 3 Est. Patient 16:47:27 CDT Tanya Tan APRN [facility] CPT-05751 Level 3 Est. Patient 10:46:48 CDT Víctor Payne MD [facility] CPT-45352 Level 3 Est. Patient 15:45:17 CDT Trino Richardson MD [facility] CPT-33259 Level 4 New Patient 15:41:12 CDT Trino Richardson MD [facility] CPT-79880 Level 3 Est. Patient 09:44:56 KETTLE SKIMMER Víctor Payne MD [facility] CPT-03563 Level 4 Est. Patient 11:54:04 KETTLE SKIMMER Víctor Payne MD [facility] CPT-97986 Level 3 Est. Patient 15:21:08 KETTLE SKIMMER Shaji Bradshaw MD [facility] CPT-73623 Level 3 Est. Patient 16:54:23 CDT Víctor Payne MD [facility] CPT-87244 Level 3 Est. Patient 16:10:50 CDT Víctor Payne MD [facility] CPT-81573 Level 4 Est. Patient 14:48:01 CDT Víctor Payne MD [facility] CPT-66026 Level 2 New Patient 14:23:38 KETTLE SKIMMER Víctor Payne MD [facility] Procedures Code Procedure Name Date Entry Date Standard Description CPT-TCMM Transitional Care Mgmt-Moderate 10:53:28 CDT CPT-60760 Chest 2V Frontal and Lat - XRAY USE ONLY 10:27:29 CDT CPT-42575 Chest 2V Frontal and Lat - XRAY USE ONLY 16:00:05 CDT CPT-G0438 Initial Annual Wellness Exam 10:02:47 CDT CPT-79512 Abd compl w upright 15:47:17 CDT CPT-14020 Venipuncture Draw Fee 10:41:53 KETTLE SKIMMER CPT-25770 Chest 2V Frontal and Lat 16:22:38 CDT CPT-G0008 Administration of Influenza Virus Vaccine 14:20:57 CDT CPT-76888 Fluzone High-Dose Intramuscular Suspension 14:20:56 CDT CPT-95789 Postop F/U Visit 16:24:54 KETTLE SKIMMER CPT-OV Office Visit 13:26:00 KETTLE SKIMMER CPT-97069 Administration 2+ single or combination vaccines inc oral 10:08:59 CDT CPT-26251 Administration single or combination vaccine inc oral 10 :08:59 CDT CPT-54829 Pneumovax 10:08:59 CDT CPT-48832 Influenza High Dose age 65+ 10:08:59 CDT
--- OUTSIDE RECORDS SUMMARY | 2017-07-22 11:31 | XMS REPORT ---
Author Author [place] [employer] [facility] Medical Staff Organization [facility] Address [address] [place], [place] [address] Phone [phone] Summary purpose TRANSITION OF CARE AUTO GENERATION Chief Complaint and Reason for Visit No authorized Reason for Visit (Admitting Diagnosis) is available for this visit. Problem list No authorized problems tracked for continuity of care are available for this visit. Encounters No authorized problems tracked for encounter diagnoses are available for this visit. Medications No medications recorded for this patient visit Allergies, adverse reactions, alerts Allergen Category Ingredient Status Reaction Severity Onset No known drug allergies No known drug allergies No known drug allergies Confirmed or Verified Immunizations No immunizations recorded for this patient visit Relevant diagnostic tests and/or laboratory data RESULTS Radiology Results [id number] CAROTID DUPLEX PACs Image DATE OF EXAM: 2015 [id number] CAROTID DUPLEX SONO : RADIOLOGY REPORT DATE OF SERVICE: 03/31/15 HISTORY: Patient has carotid bruit on the left and has stroke like symptoms as well as an abnormal MRI previous to the carotid study. CAROTID DOPPLER SONOGRAM 1205 HOURS There is prominent plaque formation at the right carotid bulb and especially the origin of the right internal carotid artery. Velocities are prominently increased in the internal carotid proximally at 216 cm peak systolic with end-diastolic velocity 34 cm/sec. Mid internal carotid artery peak systolic velocity is 253 cm/sec with end-diastolic velocity 24 cm/sec and distally in the ICA on the right velocity 176 cm peak systolic with a 44 cm/sec end-diastolic velocity. These velocities and velocity ratios as well as duplex imaging suggest at least 70 to 80% and possibly higher stenosis on the right. On the left there is increased velocity in the carotid bulb and the origin of the internal carotid. In the proximal internal carotid the peak systolic velocity is 176 cm/sec with end-diastolic velocity of 67 cm/sec. In the mid internal carotid there is 140 cm/sec peak systolic velocity with end-diastolic velocity of 59 cm/sec. The findings with duplex imaging suggests 70 to 80% stenosis at least. There is antegrade flow in both vertebral arteries. 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 DO ELY Stokes/la 03/31/2015 12:45: / 03/31/2015 15:27:11 cc:Dr. Shaji De Santiago This document has been electronically Signed by: On: DATE OF EXAM: 2015 [id number] CAROTID DUPLEX SONO : RADIOLOGY REPORT DATE OF SERVICE: 03/31/15 HISTORY: Patient has carotid bruit on the left and has stroke like symptoms as well as an abnormal MRI previous to the carotid study. CAROTID DOPPLER SONOGRAM 1205 HOURS There is prominent plaque formation at the right carotid bulb and especially the origin of the right internal carotid artery. Velocities are prominently increased in the internal carotid proximally at 216 cm peak systolic with end-diastolic velocity 34 cm/sec. Mid internal carotid artery peak systolic velocity is 253 cm/sec with end-diastolic velocity 24 cm/sec and distally in the ICA on the right velocity 176 cm peak systolic with a 44 cm/sec end-diastolic velocity. These velocities and velocity ratios as well as duplex imaging suggest at least 70 to 80% and possibly higher stenosis on the right. On the left there is increased velocity in the carotid bulb and the origin of the internal carotid. In the proximal internal carotid the peak systolic velocity is 176 cm/sec with end-diastolic velocity of 67 cm/sec. In the mid internal carotid there is 140 cm/sec peak systolic velocity with end-diastolic velocity of 59 cm/sec. The findings with duplex imaging suggests 70 to 80% stenosis at least. There is antegrade flow in both vertebral arteries. 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 DO ELY Stokes/ilir 03/31/2015 12:45:03/31/2015 15:27:11 cc:Dr. Shaji De Santiago This document has been electronically Signed by: LARYR FAYE DO On: 20154:02P Result Amended on 2015-03-31 at 16:02:53. Previous status was [place]. MRI BRAIN W/WO CONT PACs Image DATE OF EXAM: 2015 MRI 0036-MRI BRAIN W/WO CONTRAST : RADIOLOGY REPORT DATE OF SERVICE: 03/31/15 HISTORY: Patient has TIA symptoms 2 weeks earlier with some dizziness. There was no fall or injury. Since then the patient is having right neck pain all over weakness and does not feel well. MRI BRAIN WITH AND WITHOUT CONTRAST 1150 HOURS Multiplanar multisequence study was performed. This exam was sent to a neuroradiologist at [facility] for consultation and I personally communicated with the neuroradiologist bender hand via telephone about the findings. Generalized atrophy is seen consistent with age related volume loss and atrophy. There are right cerebellar infarcts which are located in the distribution of the posterior inferior cerebellar artery distribution. The majority of infarcts do not show restricted diffusion and show contrast enhancement and are consistent with subacute infarcts. These also show areas of mild bright T1 signal consistent with mild hemorrhagic transformation hemorrhage. There are 2 acute areas of restricted diffusion in the posterior right cerebellum which may be small areas of more acute infarct. Patient's right vertebral artery flow void is not well identified intracranially or on the coronal T1 weighted images in the visualized upper to mid neck. This patient has neck pain and therefore vertebral artery dissection is in the differential diagnosis. Recommendation is for head and neck CTA or MRA. There is mild T2 prolongation in the cerebral white matter consistent with microvascular disease. No mass effect or midline shift is seen. 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 Majority of these appear subacute in age with 2 areas showing restricted diffusion which may therefore be acute mild hemorrhagic transformation is seen. There is poorly defined visualized cervical intracranial right vertebral flow void given neck pain consideration of vertebral dissection is possible and recommendation of CTA is given. These findings were telephoned to Dr. Payne by myself at approximately 1250 hours on 03/31/2015. Larry Faye DO /la 03/31/2015 13:30:00 / 03/31/2015 15:33:51 cc:Dr. Víctor Payne This document has been electronically Signed by: On: DATE OF EXAM: 2015 MRI 0036-MRI BRAIN W/WO CONTRAST : RADIOLOGY REPORT DATE OF SERVICE: 03/31/15 HISTORY: Patient has TIA symptoms 2 weeks earlier with some dizziness. There was no fall or injury. Since then the patient is having right neck pain all over weakness and does not feel well. MRI BRAIN WITH AND WITHOUT CONTRAST 1150 HOURS Multiplanar multisequence study was performed. This exam was sent to a neuroradiologist at [facility] for consultation and I personally communicated with the neuroradiologist bender hand via telephone about the findings. Generalized atrophy is seen consistent with age related volume loss and atrophy. There are right cerebellar infarcts which are located in the distribution of the posterior inferior cerebellar artery distribution. The majority of infarcts do not show restricted diffusion and show contrast enhancement and are consistent with subacute infarcts. These also show areas of mild bright T1 signal consistent with mild hemorrhagic transformation hemorrhage. There are 2 acute areas of restricted diffusion in the posterior right cerebellum which may be small areas of more acute infarct. Patient's right vertebral artery flow void is not well identified intracranially or on the coronal T1 weighted images in the visualized upper to mid neck. This patient has neck pain and therefore vertebral artery dissection is in the differential diagnosis. Recommendation is for head and neck CTA or MRA. There is mild T2 prolongation in the cerebral white matter consistent with microvascular disease. No mass effect or midline shift is seen. 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 Majority of these appear subacute in age with 2 areas showing restricted diffusion which may therefore be acute mild hemorrhagic transformation is seen. There is poorly defined visualized cervical intracranial right vertebral flow void given neck pain consideration of vertebral dissection is possible and recommendation of CTA is given. These findings were telephoned to Dr. Payne by myself at approximately 1250 hours on 03/31/2015. Larry Faye DO MW/ilir 03/31/2015 13:30:00 / 03/31/2015 15:33:51 cc:Dr. Víctor Payne This document has been electronically Signed by: LARRY FAYE DO On: 20154:02P Result Amended on 2015-03-31 at 16:02:51. Previous status was [place]. History of procedures Procedure Code Code Type Description Date Performed Performing Physician [id number] CPT-4 MRI BRAIN W/O & W/DYE 03-31-2015 SHAJI DE SANTIAGO 49078 CPT-4 EXTRACRANIAL STUDY 03-31-2015 SHAJI DE SANTIAGO A9579 CPT-4 BALDOMERO-BASE MR CONTRAST NOS,1ML 03-31-2015 SHAJI DE SANTIAGO Functional status No functional or cognitive status observations are available for this visit. Vital signs No authorized vital signs are available for this visit. Social history No Social History or smoking status observations were recorded for this visit. ( Unknown if ever smoked.) Treatment Plan No treatment plan text is available for this visit. Hospital discharge instructions No discharge instruction text is available for this visit.
--- OUTSIDE RECORDS SUMMARY | 2017-07-22 11:31 | XMS REPORT | Clinical Summary ---
Author Author Admin, JEAN CLAUDE Organization [facility] Address Unknown Phone Unavailable Allergies, Adverse Reactions, [...] Inguinal hernia, right 550.90 Active Josr Lyjosefa COLOR SPRAYER Unilateral or unspecified inguinal hernia, without mention of obstruction or gangrene (not specified as recurrent) Bronchitis ICD-490 Inactive Víctor Payne MD 2015 Medication List Medication Instructions Start Date Stop Date Generic Name NDC Status Provider Patient Instruction METOPROLOL TARTRATE 25 MG ORAL TABS 1 tablet twice a day METOPROLOL TARTRATE 01147915342 Active Víctor Payne MD Active MECLIZINE HCL 25 MG TAB one 4 times a day as needed for dizziness MECLIZINE HCL 57349824937 No Longer Active Víctor Payne MD Active HYDROCODONE-ACETAMINOPHEN 5-325 MG TABS 1/2 to 1 every 4 hours as needed for back pain HYDROCODONE-ACETAMINOPHEN 54787913828 No Longer Active Víctor Payne MD Active LEVAQUIN 750 MG TABS 1 po qd x 7 days LEVOFLOXACIN 16040187543 No Longer Active Víctor Payne MD Active ASPIRIN 81 MG ORAL TABS 2 po qd ASPIRIN 37766841376 Active Víctor Payne MD Active LIPITOR 10 MG TAB one tablet daily at bedtime ATORVASTATIN CALCIUM 94209970607 No Longer Active Víctor Payne MD Active PLAVIX 75 MG TABS 1 tablet by mouth daily to prevent stroke 11/29 CLOPIDOGREL BISULFATE 93364643416 No Longer Active Víctor Payne MD Active ASPIRIN 325 MG TABS 1 TAB 2X ADAY ASPIRIN 72862757491 No Longer Active France Cohen RN Active PLAVIX 75 MG TABS 1 tablet by mouth daily to prevent stroke 11/29 PLAVIX 75 MG TABS 463155 CLOPIDOGREL BISULFATE Inactive LIPITOR 10 MG TAB one tablet daily at bedtime LIPITOR 10 MG TAB 038779 ATORVASTATIN CALCIUM Inactive LEVAQUIN 750 MG TABS 1 po qd x 7 days LEVAQUIN 750 MG TABS 581098 LEVOFLOXACIN Inactive HYDROCODONE-ACETAMINOPHEN 5-325 MG TABS 1/2 to 1 every 4 hours as needed for back pain HYDROCODONE-ACETAMINOPHEN 5-325 MG TABS 254093 HYDROCODONE-ACETAMINOPHEN Inactive MECLIZINE HCL 25 MG TAB one 4 times a day as needed for dizziness MECLIZINE HCL 25 MG TAB 276735 MECLIZINE HCL Inactive Immunizations Vaccine Administration Date [...] % 11.6-14.8 platelet count 303 10^3/MM^3 10*3/mm3 854-372 7065/02/10 leukocyte count, blood 11.9 10^3/MM^3 10*3/mm3 4.6-10.2 [...] Panel - Chemistry sodium, serum 139 mmol/L 153-896 7893/09/18 carbon dioxide, venous blood 27.6 mmol/L 21.0-32.0 [...] Panel - Chemistry sodium, serum 136 mmol/L 252-450 7597/12/30 carbon dioxide, venous blood 27.9 mmol/L 21.0-32.0 [...] 0.00-1.00 Encounters Code Encounter Date Provider Facility CPT-71171 Level 3 Est. Patient 09:44:56 CHEMICAL TECHNICIAN Víctor Payne MD [facility] CPT-05992 Level 4 Est. Patient 11:54:04 CHEMICAL TECHNICIAN Víctor Payne MD [facility] CPT-18830 Level 3 Est. Patient 15:21:08 CHEMICAL TECHNICIAN Shaji Bradshaw MD [facility] CPT-10244 Level 3 Est. Patient 16:54:23 CDT Víctor Panye MD [facility] CPT-38908 Level 3 Est. Patient 16:10:50 CDT Víctor Payne MD [facility] CPT-02872 Level 4 Est. Patient 14:48:01 CDT Víctor Payne MD [facility] CPT-42427 Level 2 New Patient 14:23:38 CHEMICAL TECHNICIAN Víctor Payne MD [facility] Procedures Code Procedure Name Date Entry Date Standard Description CPT-44113 Venipuncture Draw Fee 10:41:53 CHEMICAL TECHNICIAN CPT-42178 Chest 2V Frontal and Lat 16:22:38 CDT CPT-G0008 Administration of Influenza Virus Vaccine 14:20:57 CDT CPT-99838 Fluzone High-Dose Intramuscular Suspension 14:20:56 CDT CPT-63029 Postop F/U Visit 16:24:54 CHEMICAL TECHNICIAN CPT-OV Office Visit 13:26:00 CHEMICAL TECHNICIAN CPT-88189 Administration 2+ single or combination vaccines inc oral 10:08:59 CDT CPT-43990 Administration single or combination vaccine inc oral 10 :08:59 CDT CPT-71476 Pneumovax 10:08:59 CDT CPT-24306 Influenza High Dose age 65+ 10:08:59 CDT
--- OUTSIDE RECORDS SUMMARY | 2017-07-22 11:31 | XMS REPORT | Clinical Summary ---
Author Author Admin, E Organization [employer] Address Unknown Phone Unavailable Allergies, Adverse Reactions, [...] in thoracic spine Dizziness 780.4 Active Shaji Bradshwa MD Dizziness and giddiness Carotid bruit, left [...] Inguinal hernia, right 550.90 Active Neelimakaro Modijosefa GARNETT FIXER Unilateral or unspecified inguinal hernia, without mention of obstruction or gangrene (not specified as recurrent) HEALTH MAINTENANCE EXAM V70.0 Active Víctor Payne MD Routine general medical examination at a health care facility Adjustment disorder with depressed mood 309.0 Active Víctor Payne MD Adjustment disorder with depressed mood Underweight 783.22 Active Víctor Payne MD Underweight Change in bowels 787.99 Active Tanya Tan GARNETT FIXER Other symptoms involving digestive system COPD 496 Active Víctor Payne MD Chronic airway obstruction, not elsewhere classified Supraventricular tachycardia 427.0 Active Víctor Payne MD Paroxysmal supraventricular tachycardia Inguinal hernia, left ICD-550.90 Inactive Trino Richardson MD Chest wall pain ICD-786.52 Inactive Trino Richardson MD Bronchitis ICD-490 Inactive Víctor Payne MD 2015 Medication List Medication Instructions Start Date Stop Date Generic Name NDC Status Provider Patient Instruction DOK PLUS 50-8.6 MG ORAL TABS 1 tab twice daily SENNOSIDES- DOCUSATE SODIUM 84677410942 Active Víctor Payne MD Active DULCOLAX 5 MG ORAL TBEC 1-2 tab hs BISACODYL 47324498425 No Longer Active Víctor Payne MD Active COLACE 100 MG ORAL CAPS 1-2 tab daily no more then 4 DOCUSATE SODIUM 81220811017 No Longer Active Víctor Payne MD Active TYLENOL 325 MG ORAL TABS 1 tab every 4-6 hrs as needed for pain ACETAMINOPHEN 16293747560 No Longer Active Víctor Payne MD Active ASPIRIN 325 MG ORAL TBEC 1 daily ASPIRIN 25506305900 No Longer Active Vícotr Payne MD Active SERTRALINE HCL 50 MG TABS 1 daily for depressed mood SERTRALINE HCL 40160679556 No Longer Active Víctor Payne MD Active METOPROLOL TARTRATE 25 MG ORAL TABS 1 tablet twice a day METOPROLOL TARTRATE 36751562928 No Longer Active Trino Richardson MD Active ASPIRIN 81 MG ORAL TABS 2 po qd ASPIRIN 87961367651 No Longer Active Trino Richardson MD Active MECLIZINE HCL 25 MG TAB one 4 times a day as needed for dizziness MECLIZINE HCL 34733199283 No Longer Active Víctor Payne MD Active HYDROCODONE-ACETAMINOPHEN 5-325 MG TABS 1/2 to 1 every 4 hours as needed for back pain HYDROCODONE-ACETAMINOPHEN 14799043256 No Longer Active Víctor Payne MD Active LEVAQUIN 750 MG TABS 1 po qd x 7 days LEVOFLOXACIN 29837644277 No Longer Active Víctor Payne MD Active LIPITOR 10 MG TAB one tablet daily at bedtime ATORVASTATIN CALCIUM 12967436021 No Longer Active Víctor Payne MD Active PLAVIX 75 MG TABS 1 tablet by mouth daily to prevent stroke 11/29 CLOPIDOGREL BISULFATE 09859738460 No Longer Active Víctor Payne MD Active ASPIRIN 325 MG TABS 1 TAB 2X ADAY ASPIRIN 75272011573 No Longer Active France Cohen RN Active PLAVIX 75 MG TABS 1 tablet by mouth daily to prevent stroke 11/29 PLAVIX 75 MG TABS 93028346991 CLOPIDOGREL BISULFATE Inactive LIPITOR 10 MG TAB one tablet daily at bedtime LIPITOR 10 MG TAB 655046 ATORVASTATIN CALCIUM Inactive LEVAQUIN 750 MG TABS 1 po qd x 7 days LEVAQUIN 750 MG TABS 506223 LEVOFLOXACIN Inactive HYDROCODONE-ACETAMINOPHEN 5-325 MG TABS 1/2 to 1 every 4 hours as needed for back pain HYDROCODONE-ACETAMINOPHEN 5-325 MG TABS 876326 HYDROCODONE-ACETAMINOPHEN Inactive MECLIZINE HCL 25 MG TAB one 4 times a day as needed for dizziness MECLIZINE HCL 25 MG TAB 418223 MECLIZINE HCL Inactive ASPIRIN 81 MG ORAL TABS 2 po qd ASPIRIN 81 MG ORAL TABS ASPIRIN Inactive METOPROLOL TARTRATE 25 MG ORAL TABS 1 tablet twice a day METOPROLOL TARTRATE 25 MG ORAL TABS 432023 METOPROLOL TARTRATE Inactive SERTRALINE HCL 50 MG TABS 1 daily for depressed mood SERTRALINE HCL 50 MG TABS 445713 SERTRALINE HCL Inactive ASPIRIN 325 MG ORAL TBEC 1 daily ASPIRIN 325 MG ORAL TBEC 894617 ASPIRIN Inactive TYLENOL 325 MG ORAL TABS 1 tab every 4-6 hrs as needed for pain TYLENOL 325 MG ORAL TABS 358458 ACETAMINOPHEN Inactive COLACE 100 MG ORAL CAPS 1-2 tab daily no more then 4 COLACE 100 MG ORAL CAPS 1050483 DOCUSATE SODIUM Inactive DULCOLAX 5 MG ORAL [...] Panel - Chemistry sodium, serum 139 mmol/L 399-870 5349/05/19 carbon dioxide, venous blood 31.9 mmol/L 21.0-32.0 [...] 0.36-3.74 Encounters Code Encounter Date Provider Facility CPT-66809 Level 4 Est. Patient 15:40:13 CDT Víctor Payne MD [facility] CPT-25425 Level 3 Est. Patient 16:47:27 CDT Tanya Tan APRN [facility] CPT-41748 Level 3 Est. Patient 10:46:48 CDT Víctor Payne MD [facility] CPT-21897 Level 3 Est. Patient 15:45:17 CDT Trino Richardson MD [facility] CPT-43868 Level 4 New Patient 15:41:12 CDT Trino Richardson MD [facility] CPT-34175 Level 3 Est. Patient 09:44:56 EDGE TRIMMING MACHINE OPERATOR Víctor Payne MD [facility] CPT-71875 Level 4 Est. Patient 11:54:04 EDGE TRIMMING MACHINE OPERATOR Víctor Payne MD [facility] CPT-63883 Level 3 Est. Patient 15:21:08 EDGE TRIMMING MACHINE OPERATOR Shaji Bradshaw MD [facility] CPT-78867 Level 3 Est. Patient 16:54:23 CDT Víctor Payne MD [facility] CPT-19269 Level 3 Est. Patient 16:10:50 CDT Víctor Payne MD [facility] CPT-06616 Level 4 Est. Patient 14:48:01 CDT Víctor Payne MD [facility] CPT-02033 Level 2 New Patient 14:23:38 EDGE TRIMMING MACHINE OPERATOR Víctor Payne MD [facility] Procedures Code Procedure Name Date Entry Date Standard Description CPT-25069 Chest 2V Frontal and Lat - XRAY USE ONLY 16:00:05 CDT CPT-G0438 Initial Annual Wellness Exam 10:02:47 CDT CPT-74364 Abd compl w upright 15:47:17 CDT CPT-51106 Venipuncture Draw Fee 10:41:53 EDGE TRIMMING MACHINE OPERATOR CPT-46304 Chest 2V Frontal and Lat 16:22:38 CDT CPT-G0008 Administration of Influenza Virus Vaccine 14:20:57 CDT CPT-52370 Fluzone High-Dose Intramuscular Suspension 14:20:56 CDT CPT-93957 Postop F/U Visit 16:24:54 EDGE TRIMMING MACHINE OPERATOR CPT-OV Office Visit 13:26:00 EDGE TRIMMING MACHINE OPERATOR CPT-19276 Administration 2+ single or combination vaccines inc oral 10:08:59 CDT CPT-23848 Administration single or combination vaccine inc oral 10 :08:59 CDT CPT-69329 Pneumovax 10:08:59 CDT CPT-94105 Influenza High Dose age 65+ 10:08:59 CDT
--- OUTSIDE RECORDS SUMMARY | 2017-07-22 11:32 | XMS REPORT | Clinical Summary ---
Author Author Admin, E Organization [employer] Address Unknown Phone Unavailable Allergies, Adverse Reactions, [...] Inguinal hernia, right 550.90 Active Neelimakaro Modijosefa BOAT TENDER Unilateral or unspecified inguinal hernia, without mention of obstruction or gangrene (not specified as recurrent) HEALTH MAINTENANCE EXAM V70.0 Active Víctor Payne MD Routine general medical examination at a health care facility Adjustment disorder with depressed mood 309.0 Active Víctor Payne MD Adjustment disorder with depressed mood Underweight 783.22 Active Víctor Payne MD Underweight Change in bowels 787.99 Active Tanya Tan BOAT TENDER Other symptoms involving digestive system COPD 496 [...] 1 tab twice daily SENNOSIDES- DOCUSATE SODIUM 54952760376 Active Víctor Payne MD Active DULCOLAX 5 MG ORAL TBEC 1-2 tab hs BISACODYL 64645980729 No Longer Active Víctor Payne MD Active COLACE 100 MG ORAL CAPS 1-2 tab daily no more then 4 DOCUSATE SODIUM 92120795443 No Longer Active Víctor Payne MD Active TYLENOL 325 MG ORAL TABS 1 tab every 4-6 hrs as needed for pain ACETAMINOPHEN 46925443901 No Longer Active Víctor Payne MD Active ASPIRIN 325 MG ORAL TBEC 1 daily ASPIRIN 79210752372 No Longer Active Víctor Payne MD Active SERTRALINE HCL 50 MG TABS 1 daily for depressed mood SERTRALINE HCL 14240274381 No Longer Active Víctor Payne MD Active METOPROLOL TARTRATE 25 MG ORAL TABS 1 tablet twice a day METOPROLOL TARTRATE 27563995889 No Longer Active Trino Richardson MD Active ASPIRIN 81 MG ORAL TABS 2 po qd ASPIRIN 83940050901 No Longer Active Trino Richardson MD Active MECLIZINE HCL 25 MG TAB one 4 times a day as needed for dizziness MECLIZINE HCL 40888034328 No Longer Active Víctor Payne MD Active HYDROCODONE-ACETAMINOPHEN 5-325 MG TABS 1/2 to 1 every 4 hours as needed for back pain HYDROCODONE-ACETAMINOPHEN 66637713298 No Longer Active Víctor Payne MD Active LEVAQUIN 750 MG TABS 1 po qd x 7 days LEVOFLOXACIN 29710887305 No Longer Active Víctor Payne MD Active LIPITOR 10 MG TAB one tablet daily at bedtime ATORVASTATIN CALCIUM 63490832773 No Longer Active Víctor Payne MD Active PLAVIX 75 MG TABS 1 tablet by mouth daily to prevent stroke 11/29 CLOPIDOGREL BISULFATE 18809772490 No Longer Active Víctor Payne MD Active ASPIRIN 325 MG TABS 1 TAB 2X ADAY ASPIRIN 30856378373 No Longer Active France Cohen RN Active PLAVIX 75 MG TABS 1 tablet by mouth daily to prevent stroke 11/29 PLAVIX 75 MG TABS 59552784686 CLOPIDOGREL BISULFATE Inactive LIPITOR 10 MG TAB one tablet daily at bedtime LIPITOR 10 MG TAB 452709 ATORVASTATIN CALCIUM Inactive LEVAQUIN 750 MG TABS 1 po qd x 7 days LEVAQUIN 750 MG TABS 251775 LEVOFLOXACIN Inactive HYDROCODONE-ACETAMINOPHEN 5-325 MG TABS 1/2 to 1 every 4 hours as needed for back pain HYDROCODONE-ACETAMINOPHEN 5-325 MG TABS 421275 HYDROCODONE-ACETAMINOPHEN Inactive MECLIZINE HCL 25 MG TAB one 4 times a day as needed for dizziness MECLIZINE HCL 25 MG TAB 196516 MECLIZINE HCL Inactive ASPIRIN 81 MG ORAL TABS 2 po qd ASPIRIN 81 MG ORAL TABS ASPIRIN Inactive METOPROLOL TARTRATE 25 MG ORAL TABS 1 tablet twice a day METOPROLOL TARTRATE 25 MG ORAL TABS 429012 METOPROLOL TARTRATE Inactive SERTRALINE HCL 50 MG TABS 1 daily for depressed mood SERTRALINE HCL 50 MG TABS 969702 SERTRALINE HCL Inactive ASPIRIN 325 MG ORAL TBEC 1 daily ASPIRIN 325 MG ORAL TBEC 283595 ASPIRIN Inactive TYLENOL 325 MG ORAL TABS 1 tab every 4-6 hrs as needed for pain TYLENOL 325 MG ORAL TABS 122808 ACETAMINOPHEN Inactive COLACE 100 MG ORAL CAPS 1-2 tab daily no more then 4 COLACE 100 MG ORAL CAPS 1122393 DOCUSATE SODIUM Inactive DULCOLAX 5 MG ORAL [...] Panel - Chemistry sodium, serum 139 mmol/L 723-273 4342/05/19 carbon dioxide, venous blood 31.9 mmol/L 21.0-32.0 [...] 0.36-3.74 Encounters Code Encounter Date Provider Facility CPT-62076 Level 4 Est. Patient 15:40:13 CDT Víctor Payne MD [facility] CPT-78814 Level 3 Est. Patient 16:47:27 CDT Tanya Tan APRN [facility] CPT-03675 Level 3 Est. Patient 10:46:48 CDT Víctor Payne MD [facility] CPT-83520 Level 3 Est. Patient 15:45:17 CDT Trino Richardson MD [facility] CPT-09851 Level 4 New Patient 15:41:12 CDT Trino Richardson MD [facility] CPT-65315 Level 3 Est. Patient 09:44:56 FULL TIME PARAMEDIC Víctor Payne MD [facility] CPT-37019 Level 4 Est. Patient 11:54:04 FULL TIME PARAMEDIC Víctor Payne MD [facility] CPT-90228 Level 3 Est. Patient 15:21:08 FULL TIME PARAMEDIC Shaji Bradshaw MD [facility] CPT-30116 Level 3 Est. Patient 16:54:23 CDT Víctor Payne MD [facility] CPT-66202 Level 3 Est. Patient 16:10:50 CDT Víctor Payne MD [facility] CPT-06773 Level 4 Est. Patient 14:48:01 CDT Víctor Payne MD [facility] CPT-17708 Level 2 New Patient 14:23:38 FULL TIME PARAMEDIC Víctor Payne MD [facility] Procedures Code Procedure Name Date Entry Date Standard Description CPT-78522 Chest 2V Frontal and Lat - XRAY USE ONLY 16:00:05 CDT CPT-G0438 Initial Annual Wellness Exam 10:02:47 CDT CPT-28909 Abd compl w upright 15:47:17 CDT CPT-39167 Venipuncture Draw Fee 10:41:53 FULL TIME PARAMEDIC CPT-51872 Chest 2V Frontal and Lat 16:22:38 CDT CPT-G0008 Administration of Influenza Virus Vaccine 14:20:57 CDT CPT-98652 Fluzone High-Dose Intramuscular Suspension 14:20:56 CDT CPT-67276 Postop F/U Visit 16:24:54 FULL TIME PARAMEDIC CPT-OV Office Visit 13:26:00 FULL TIME PARAMEDIC CPT-27082 Administration 2+ single or combination vaccines inc oral 10:08:59 CDT CPT-71484 Administration single or combination vaccine inc oral 10 :08:59 CDT CPT-14218 Pneumovax 10:08:59 CDT CPT-60719 Influenza High Dose age 65+ 10:08:59 CDT
--- OUTSIDE RECORDS SUMMARY | 2017-07-22 11:32 | XMS REPORT | Clinical Summary ---
Author Author Admin, E Organization [employer] Address Unknown Phone Unavailable Allergies, Adverse Reactions, [...] Inguinal hernia, right 550.90 Active Neelimakaro Modijosefa ENGAGEMENT SPECIALIST Unilateral or unspecified inguinal hernia, without mention of obstruction or gangrene (not specified as recurrent) HEALTH MAINTENANCE EXAM V70.0 Active Víctor Payne MD Routine general medical examination at a health care facility Adjustment disorder with depressed mood 309.0 Active Víctor Payne MD Adjustment disorder with depressed mood Underweight 783.22 Active Víctor Payne MD Underweight Change in bowels 787.99 Active Tanya Tan ENGAGEMENT SPECIALIST Other symptoms involving digestive system COPD 496 [...] 1 tab twice daily SENNOSIDES- DOCUSATE SODIUM 26988596196 Active Víctor Payne MD Active DULCOLAX 5 MG ORAL TBEC 1-2 tab hs BISACODYL 79496222281 No Longer Active Víctor Payne MD Active COLACE 100 MG ORAL CAPS 1-2 tab daily no more then 4 DOCUSATE SODIUM 53053049030 No Longer Active Víctor Payne MD Active TYLENOL 325 MG ORAL TABS 1 tab every 4-6 hrs as needed for pain ACETAMINOPHEN 12137284966 No Longer Active Víctor Payne MD Active ASPIRIN 325 MG ORAL TBEC 1 daily ASPIRIN 52918432573 No Longer Active Víctor Payne MD Active SERTRALINE HCL 50 MG TABS 1 daily for depressed mood SERTRALINE HCL 17742970302 No Longer Active Víctor Payne MD Active METOPROLOL TARTRATE 25 MG ORAL TABS 1 tablet twice a day METOPROLOL TARTRATE 84165779908 No Longer Active Trino Richardson MD Active ASPIRIN 81 MG ORAL TABS 2 po qd ASPIRIN 73921424291 No Longer Active Trino Richardson MD Active MECLIZINE HCL 25 MG TAB one 4 times a day as needed for dizziness MECLIZINE HCL 42194293645 No Longer Active Víctor Payne MD Active HYDROCODONE-ACETAMINOPHEN 5-325 MG TABS 1/2 to 1 every 4 hours as needed for back pain HYDROCODONE-ACETAMINOPHEN 12302301496 No Longer Active Víctor Payne MD Active LEVAQUIN 750 MG TABS 1 po qd x 7 days LEVOFLOXACIN 97634862307 No Longer Active Víctor Payne MD Active LIPITOR 10 MG TAB one tablet daily at bedtime ATORVASTATIN CALCIUM 34919213324 No Longer Active Víctor Payne MD Active PLAVIX 75 MG TABS 1 tablet by mouth daily to prevent stroke 11/29 CLOPIDOGREL BISULFATE 94406854134 No Longer Active Víctor Payne MD Active ASPIRIN 325 MG TABS 1 TAB 2X ADAY ASPIRIN 61044937793 No Longer Active France Cohen RN Active PLAVIX 75 MG TABS 1 tablet by mouth daily to prevent stroke 11/29 PLAVIX 75 MG TABS 76316461444 CLOPIDOGREL BISULFATE Inactive LIPITOR 10 MG TAB one tablet daily at bedtime LIPITOR 10 MG TAB 638278 ATORVASTATIN CALCIUM Inactive LEVAQUIN 750 MG TABS 1 po qd x 7 days LEVAQUIN 750 MG TABS 133137 LEVOFLOXACIN Inactive HYDROCODONE-ACETAMINOPHEN 5-325 MG TABS 1/2 to 1 every 4 hours as needed for back pain HYDROCODONE-ACETAMINOPHEN 5-325 MG TABS 287504 HYDROCODONE-ACETAMINOPHEN Inactive MECLIZINE HCL 25 MG TAB one 4 times a day as needed for dizziness MECLIZINE HCL 25 MG TAB 091265 MECLIZINE HCL Inactive ASPIRIN 81 MG ORAL TABS 2 po qd ASPIRIN 81 MG ORAL TABS ASPIRIN Inactive METOPROLOL TARTRATE 25 MG ORAL TABS 1 tablet twice a day METOPROLOL TARTRATE 25 MG ORAL TABS 704521 METOPROLOL TARTRATE Inactive SERTRALINE HCL 50 MG TABS 1 daily for depressed mood SERTRALINE HCL 50 MG TABS 052470 SERTRALINE HCL Inactive ASPIRIN 325 MG ORAL TBEC 1 daily ASPIRIN 325 MG ORAL TBEC 409917 ASPIRIN Inactive TYLENOL 325 MG ORAL TABS 1 tab every 4-6 hrs as needed for pain TYLENOL 325 MG ORAL TABS 822226 ACETAMINOPHEN Inactive COLACE 100 MG ORAL CAPS 1-2 tab daily no more then 4 COLACE 100 MG ORAL CAPS 3514186 DOCUSATE SODIUM Inactive DULCOLAX 5 MG ORAL [...] Panel - Chemistry sodium, serum 139 mmol/L 902-086 2977/05/19 carbon dioxide, venous blood 31.9 mmol/L 21.0-32.0 [...] 0.36-3.74 Encounters Code Encounter Date Provider Facility CPT-91431 Level 4 Est. Patient 15:40:13 CDT Víctor Pyane MD [facility] CPT-04207 Level 3 Est. Patient 16:47:27 CDT Tanya Tan APRN [facility] CPT-48569 Level 3 Est. Patient 10:46:48 CDT Víctor Payne MD [facility] CPT-30558 Level 3 Est. Patient 15:45:17 CDT Trino Richardson MD [facility] CPT-58678 Level 4 New Patient 15:41:12 CDT Trino Richardson MD [facility] CPT-95949 Level 3 Est. Patient 09:44:56 COMPUTING CONSULTANT Víctor Payne MD [facility] CPT-39998 Level 4 Est. Patient 11:54:04 COMPUTING CONSULTANT Víctor Payne MD [facility] CPT-57816 Level 3 Est. Patient 15:21:08 COMPUTING CONSULTANT Shaji Bradshaw MD [facility] CPT-64315 Level 3 Est. Patient 16:54:23 CDT Víctor Payne MD [facility] CPT-90838 Level 3 Est. Patient 16:10:50 CDT Víctor Payne MD [facility] CPT-98466 Level 4 Est. Patient 14:48:01 CDT Víctor Payne MD [facility] CPT-19072 Level 2 New Patient 14:23:38 COMPUTING CONSULTANT Víctor Payne MD [facility] Procedures Code Procedure Name Date Entry Date Standard Description CPT-30400 Chest 2V Frontal and Lat - XRAY USE ONLY 16:00:05 CDT CPT-G0438 Initial Annual Wellness Exam 10:02:47 CDT CPT-20268 Abd compl w upright 15:47:17 CDT CPT-15017 Venipuncture Draw Fee 10:41:53 COMPUTING CONSULTANT CPT-56500 Chest 2V Frontal and Lat 16:22:38 CDT CPT-G0008 Administration of Influenza Virus Vaccine 14:20:57 CDT CPT-71394 Fluzone High-Dose Intramuscular Suspension 14:20:56 CDT CPT-99272 Postop F/U Visit 16:24:54 COMPUTING CONSULTANT CPT-OV Office Visit 13:26:00 COMPUTING CONSULTANT CPT-64694 Administration 2+ single or combination vaccines inc oral 10:08:59 CDT CPT-43260 Administration single or combination vaccine inc oral 10 :08:59 CDT CPT-30206 Pneumovax 10:08:59 CDT CPT-74595 Influenza High Dose age 65+ 10:08:59 CDT
--- OUTSIDE RECORDS SUMMARY | 2017-07-22 11:33 | XMS REPORT | Clinical Summary ---
Author Author Admin, E Organization [employer] Address Unknown Phone Unavailable Allergies, Adverse Reactions, [...] Inguinal hernia, right 550.90 Active Erwinguy Modijosefa BOAT BUILDER Unilateral or unspecified inguinal hernia, without mention of obstruction or gangrene (not specified as recurrent) HEALTH MAINTENANCE EXAM V70.0 Active Víctor Payne MD Routine general medical examination at a health care facility Adjustment disorder with depressed mood 309.0 Active Víctor Payne MD Adjustment disorder with depressed mood Underweight 783.22 Active Víctor Payne MD Underweight Change in bowels 787.99 Active Tanya Tan BOAT BUILDER Other symptoms involving digestive system COPD 496 [...] Pre-procedural laboratory examination V72.63 Active Tatiana Schroeder REGULATOR INSPECTOR Pre-procedural laboratory examination Hemoptysis 786.30 Active Víctor [...] day as needed for pain TRAMADOL HCL 39329989629 Active Víctor Payne MD Active HYDROCODONE-ACETAMINOPHEN 5-325 MG ORAL TABLET 1 four times a day as needed for pain. HYDROCODONE-ACETAMINOPHEN 52344120252 Active Víctor Payne MD Active DEBROX 6.5 % OTIC SOLN 5 gtts effected ear(ears) q day CARBAMIDE PEROXIDE 77810802779 Active New Castro DO Active AMLODIPINE BESYLATE 5 MG TABS 1 tablet by mouth daily AMLODIPINE BESYLATE 95796006236 Active New Castro DO Active DOK PLUS 50-8.6 MG ORAL TABS 1 tab twice daily SENNOSIDES-DOCUSATE SODIUM 22577409767 No Longer Active New Castro DO Active DULCOLAX 5 MG ORAL TBEC 1-2 tab hs BISACODYL 05768405340 No Longer Active Víctor Payne MD Active COLACE 100 MG ORAL CAPS 1-2 tab daily no more then 4 DOCUSATE SODIUM 51359402304 No Longer Active Víctor Payne MD Active TYLENOL 325 MG ORAL TABS 1 tab every 4-6 hrs as needed for pain ACETAMINOPHEN 45391873119 No Longer Active Víctor Payne MD Active ASPIRIN 325 MG ORAL TBEC 1 daily ASPIRIN 80985972771 No Longer Active Víctor Payne MD Active SERTRALINE HCL 50 MG TABS 1 daily for depressed mood SERTRALINE HCL 25489767336 No Longer Active Víctor Payne MD Active METOPROLOL TARTRATE 25 MG ORAL TABS 1 tablet twice a day METOPROLOL TARTRATE 70091639746 No Longer Active Trino Richardson MD Active ASPIRIN 81 MG ORAL TABS 2 po qd ASPIRIN 98973566935 No Longer Active Trino Richardson MD Active MECLIZINE HCL 25 MG TAB one 4 times a day as needed for dizziness MECLIZINE HCL 39266706654 No Longer Active Víctor Payne MD Active HYDROCODONE-ACETAMINOPHEN 5-325 MG TABS 1/2 to 1 every 4 hours as needed for back pain HYDROCODONE-ACETAMINOPHEN 64311023074 No Longer Active Víctor Payne MD Active LEVAQUIN 750 MG TABS 1 po qd x 7 days LEVOFLOXACIN 94134873335 No Longer Active Víctor Payne MD Active LIPITOR 10 MG TAB one tablet daily at bedtime ATORVASTATIN CALCIUM 25425766274 No Longer Active Víctor Payne MD Active PLAVIX 75 MG TABS 1 tablet by mouth daily to prevent stroke 11/29 CLOPIDOGREL BISULFATE 00630808182 No Longer Active Víctor Payne MD Active ASPIRIN 325 MG TABS 1 TAB 2X ADAY ASPIRIN 87085041577 No Longer Active France Cohen RN Active PLAVIX 75 MG TABS 1 tablet by mouth daily to prevent stroke 11/29 PLAVIX 75 MG TABS 527728 CLOPIDOGREL BISULFATE Inactive LIPITOR 10 MG TAB one tablet daily at bedtime LIPITOR 10 MG TAB 706017 ATORVASTATIN CALCIUM Inactive LEVAQUIN 750 MG TABS 1 po qd x 7 days LEVAQUIN 750 MG TABS 231671 LEVOFLOXACIN Inactive HYDROCODONE-ACETAMINOPHEN 5-325 MG TABS 1/2 to 1 every 4 hours as needed for back pain HYDROCODONE-ACETAMINOPHEN 5-325 MG TABS 443117 HYDROCODONE-ACETAMINOPHEN Inactive MECLIZINE HCL 25 MG TAB one 4 times a day as needed for dizziness MECLIZINE HCL 25 MG TAB 811367 MECLIZINE HCL Inactive ASPIRIN 81 MG ORAL TABS 2 po qd ASPIRIN 81 MG ORAL TABS 751433 ASPIRIN Inactive METOPROLOL TARTRATE 25 MG ORAL TABS 1 tablet twice a day METOPROLOL TARTRATE 25 MG ORAL TABS 249340 METOPROLOL TARTRATE Inactive SERTRALINE HCL 50 MG TABS 1 daily for depressed mood SERTRALINE HCL 50 MG TABS 922397 SERTRALINE HCL Inactive ASPIRIN 325 MG ORAL TBEC 1 daily ASPIRIN 325 MG ORAL TBEC 577211 ASPIRIN Inactive TYLENOL 325 MG ORAL TABS 1 tab every 4-6 hrs as needed for pain TYLENOL 325 MG ORAL TABS 022641 ACETAMINOPHEN Inactive COLACE 100 MG ORAL CAPS 1-2 tab daily no more then 4 COLACE 100 MG ORAL CAPS 8538787 DOCUSATE SODIUM Inactive DULCOLAX 5 MG ORAL TBEC 1-2 tab hs DULCOLAX 5 MG ORAL TBEC BISACODYL Inactive DOK PLUS 50-8.6 MG ORAL TABS 1 tab twice daily DOK PLUS 50-8.6 MG ORAL TABS 096585 SENNOSIDES-DOCUSATE SODIUM Inactive Immunizations Vaccine Administration Date [...] Panel - Chemistry sodium, serum 139 mmol/L 764-655 6479/05/19 carbon dioxide, venous blood 31.9 mmol/L 21.0-32.0 [...] 0.36-3.74 Encounters Code Encounter Date Provider Facility CPT-51949 Level 3 Est. Patient 10:30:37 CDT New Castro DO [facility] CPT-29783 Level 4 Est. Patient 15:40:13 CDT Víctor Payne MD [facility] CPT-16154 Level 3 Est. Patient 16:47:27 CDT Tanya Tan APRN [facility] CPT-15535 Level 3 Est. Patient 10:46:48 CDT Víctor Payne MD [facility] CPT-07063 Level 3 Est. Patient 15:45:17 CDT Trino Richardson MD [facility] CPT-96627 Level 4 New Patient 15:41:12 CDT Trino Richardson MD [facility] CPT-74002 Level 3 Est. Patient 09:44:56 TRANSFUSION AIDE Víctor Payne MD [facility] CPT-11241 Level 4 Est. Patient 11:54:04 TRANSFUSION AIDE Víctor Payne MD [facility] CPT-84718 Level 3 Est. Patient 15:21:08 TRANSFUSION AIDE Shaji Bradshaw MD [facility] CPT-51370 Level 3 Est. Patient 16:54:23 CDT Víctor Payne MD [facility] CPT-66744 Level 3 Est. Patient 16:10:50 CDT Víctor Payne MD [facility] CPT-05526 Level 4 Est. Patient 14:48:01 CDT Víctor Payne MD [facility] CPT-60842 Level 2 New Patient 14:23:38 TRANSFUSION AIDE Víctor Payne MD [facility] Procedures Code Procedure Name Date Entry Date Standard Description CPT-TCMM Transitional Care Mgmt-Moderate 10:53:28 CDT CPT-89832 Chest 2V Frontal and Lat - XRAY USE ONLY 10:27:29 CDT CPT-77999 Chest 2V Frontal and Lat - XRAY USE ONLY 16:00:05 CDT CPT-G0438 Initial Annual Wellness Exam 10:02:47 CDT CPT-92566 Abd compl w upright 15:47:17 CDT CPT-54676 Venipuncture Draw Fee 10:41:53 TRANSFUSION AIDE CPT-12775 Chest 2V Frontal and Lat 16:22:38 CDT CPT-G0008 Administration of Influenza Virus Vaccine 14:20:57 CDT CPT-36345 Fluzone High-Dose Intramuscular Suspension 14:20:56 CDT CPT-50232 Postop F/U Visit 16:24:54 TRANSFUSION AIDE CPT-OV Office Visit 13:26:00 TRANSFUSION AIDE CPT-99431 Administration 2+ single or combination vaccines inc oral 10:08:59 CDT CPT-68695 Administration single or combination vaccine inc oral 10 :08:59 CDT CPT-90255 Pneumovax 10:08:59 CDT CPT-50845 Influenza High Dose age 65+ 10:08:59 CDT
--- OUTSIDE RECORDS SUMMARY | 2017-07-22 11:34 | XMS REPORT | Clinical Summary ---
Author Author Admin, JEAN CLAUDE Organization [facility] Address Unknown Phone Unavailable Allergies, [...] day as needed for dizziness MECLIZINE HCL 23633762336 Active Shaji Bradshaw MD Active HYDROCODONE-ACETAMINOPHEN 5-325 MG TABS 1/2 to 1 every 4 hours as needed for back pain HYDROCODONE-ACETAMINOPHEN 82979073637 Active Víctor Payne MD Active LEVAQUIN 750 MG TABS 1 po qd x 7 days LEVOFLOXACIN 92730991547 No Longer Active Víctor Payne MD Active ASPIRIN 81 MG ORAL TABS 2 po qd ASPIRIN 80513138221 Active Víctor Payne MD Active LIPITOR 10 MG TAB one tablet daily at bedtime ATORVASTATIN CALCIUM 74224432744 No Longer Active Víctor Payne MD Active PLAVIX 75 MG TABS 1 tablet by mouth daily to prevent stroke 11/29 CLOPIDOGREL BISULFATE 63962280095 No Longer Active Víctor Payne MD Active ASPIRIN 325 MG TABS 1 TAB 2X ADAY ASPIRIN 62327243049 No Longer Active France Cohen RN Active PLAVIX 75 MG TABS 1 tablet by mouth daily to prevent stroke 11/29 PLAVIX 75 MG TABS 862710 CLOPIDOGREL BISULFATE Inactive LIPITOR 10 MG TAB one tablet daily at bedtime LIPITOR 10 MG TAB 963890 ATORVASTATIN CALCIUM Inactive LEVAQUIN 750 MG TABS 1 po qd x 7 days LEVAQUIN 750 MG TABS 791764 LEVOFLOXACIN Inactive Immunizations Vaccine Administration Date Value [...] % 11.6-14.8 platelet count 303 10^3/MM^3 10*3/mm3 142-424 Lab Report: CBC, Comp. Metabolic Panel - Chemistry sodium, serum 139 mmol/L 866-760 7878/09/18 carbon dioxide, venous blood 27.6 mmol/L 21.0-32.0 [...] Panel - Chemistry sodium, serum 136 mmol/L 730-939 5368/12/30 carbon dioxide, venous blood 27.9 mmol/L 21.0-32.0 [...] 0.00-1.00 Encounters Code Encounter Date Provider Facility CPT-30309 Level 4 Est. Patient 11:54:04 BRIM EDGE TRIMMER Víctor Payne MD [facility] CPT-76155 Level 3 Est. Patient 15:21:08 BRIM EDGE TRIMMER Shaji Bradshaw MD [facility] CPT-78653 Level 3 Est. Patient 16:54:23 CDT Víctor Payne MD [facility] CPT-17100 Level 3 Est. Patient 16:10:50 CDT Víctor Payne MD [facility] CPT-73720 Level 4 Est. Patient 14:48:01 CDT Víctor Payne MD [facility] CPT-26262 Level 2 New Patient 14:23:38 BRIM EDGE TRIMMER Víctor Payne MD [facility] Procedures Code Procedure Name Date Entry Date Standard Description CPT-29229 Venipuncture Draw Fee 10:41:53 BRIM EDGE TRIMMER CPT-59390 Chest 2V Frontal and Lat 16:22:38 CDT CPT-G0008 Administration of Influenza Virus Vaccine 14:20:57 CDT CPT-15203 Fluzone High-Dose Intramuscular Suspension 14:20:56 CDT CPT-24540 Postop F/U Visit 16:24:54 BRIM EDGE TRIMMER CPT-OV Office Visit 13:26:00 BRIM EDGE TRIMMER CPT-74557 Administration 2+ single or combination vaccines inc oral 10:08:59 CDT CPT-50011 Administration single or combination vaccine inc oral 10 :08:59 CDT CPT-07143 Pneumovax 10:08:59 CDT CPT-82259 Influenza High Dose age 65+ 10:08:59 CDT
--- OUTSIDE RECORDS SUMMARY | 2017-07-22 11:34 | XMS REPORT | Clinical Summary ---
Author Author Admin, E Organization [employer] Address Unknown Phone Unavailable Allergies, Adverse Reactions, [...] hypertension Inguinal hernia, right 550.90 Active Josr Salsajanet SOLUTION DESIGN ENGINEER Unilateral or unspecified inguinal hernia, without mention of obstruction or gangrene (not specified as recurrent) HEALTH MAINTENANCE EXAM V70.0 Active Víctor Payne MD Routine general medical examination at a health care facility Adjustment disorder with depressed mood 309.0 Active Víctor Payne MD Adjustment disorder with depressed mood Underweight 783.22 Active Víctor Payne MD Underweight Change in bowels 787.99 Active Tanya Tan SOLUTION DESIGN ENGINEER Other symptoms involving digestive system COPD 496 Active Víctor Payne MD Chronic airway obstruction, not elsewhere classified Supraventricular tachycardia 427.0 Active Víctor Payne MD Paroxysmal supraventricular tachycardia Ceruminosis 380.4 Active New Castro DO Impacted cerumen Hypertension 401.9 Active New Castro DO Unspecified essential hypertension Inguinal hernia, left ICD-550.90 Inactive Trino Richardson MD Chest wall pain ICD-786.52 Inactive Trino Richardson MD Bronchitis ICD-490 Inactive Víctor Payne MD 2015 Medication List Medication Instructions Start Date Stop Date Generic Name NDC Status Provider Patient Instruction DEBROX 6.5 % OTIC SOLN 5 gtts effected ear(ears) q day CARBAMIDE PEROXIDE 93719244649 Active New Castro DO Active AMLODIPINE BESYLATE 5 MG TABS 1 tablet by mouth daily AMLODIPINE BESYLATE 22756221420 Active New Castro DO Active DOK PLUS 50-8.6 MG ORAL TABS 1 tab twice daily SENNOSIDES-DOCUSATE SODIUM 26862419145 No Longer Active New Castro DO Active DULCOLAX 5 MG ORAL TBEC 1-2 tab hs BISACODYL 22147173944 No Longer Active Víctor Payne MD Active COLACE 100 MG ORAL CAPS 1-2 tab daily no more then 4 DOCUSATE SODIUM 12043255529 No Longer Active Víctor Payne MD Active TYLENOL 325 MG ORAL TABS 1 tab every 4-6 hrs as needed for pain ACETAMINOPHEN 15841176205 No Longer Active Víctor Payne MD Active ASPIRIN 325 MG ORAL TBEC 1 daily ASPIRIN 27053836879 No Longer Active Víctor Payne MD Active SERTRALINE HCL 50 MG TABS 1 daily for depressed mood SERTRALINE HCL 90594745135 No Longer Active Víctor Payne MD Active METOPROLOL TARTRATE 25 MG ORAL TABS 1 tablet twice a day METOPROLOL TARTRATE 35480965862 No Longer Active Trino Richardson MD Active ASPIRIN 81 MG ORAL TABS 2 po qd ASPIRIN 60718983338 No Longer Active Trino Richardosn MD Active MECLIZINE HCL 25 MG TAB one 4 times a day as needed for dizziness MECLIZINE HCL 31809562629 No Longer Active Víctor Payne MD Active HYDROCODONE-ACETAMINOPHEN 5-325 MG TABS 1/2 to 1 every 4 hours as needed for back pain HYDROCODONE-ACETAMINOPHEN 54674311874 No Longer Active Víctor Payne MD Active LEVAQUIN 750 MG TABS 1 po qd x 7 days LEVOFLOXACIN 83767489171 No Longer Active Víctor Payne MD Active LIPITOR 10 MG TAB one tablet daily at bedtime ATORVASTATIN CALCIUM 11724294781 No Longer Active Víctor Payne MD Active PLAVIX 75 MG TABS 1 tablet by mouth daily to prevent stroke 11/29 CLOPIDOGREL BISULFATE 42459657780 No Longer Active Víctor Payne MD Active ASPIRIN 325 MG TABS 1 TAB 2X ADAY ASPIRIN 46884988719 No Longer Active France Cohen RN Active PLAVIX 75 MG TABS 1 tablet by mouth daily to prevent stroke 11/29 PLAVIX 75 MG TABS 752993 CLOPIDOGREL BISULFATE Inactive LIPITOR 10 MG TAB one tablet daily at bedtime LIPITOR 10 MG TAB 659731 ATORVASTATIN CALCIUM Inactive LEVAQUIN 750 MG TABS 1 po qd x 7 days LEVAQUIN 750 MG TABS 256961 LEVOFLOXACIN Inactive HYDROCODONE-ACETAMINOPHEN 5-325 MG TABS 1/2 to 1 every 4 hours as needed for back pain HYDROCODONE-ACETAMINOPHEN 5-325 MG TABS 930628 HYDROCODONE-ACETAMINOPHEN Inactive MECLIZINE HCL 25 MG TAB one 4 times a day as needed for dizziness MECLIZINE HCL 25 MG TAB 459247 MECLIZINE HCL Inactive ASPIRIN 81 MG ORAL TABS 2 po qd ASPIRIN 81 MG ORAL TABS ASPIRIN Inactive METOPROLOL TARTRATE 25 MG ORAL TABS 1 tablet twice a day METOPROLOL TARTRATE 25 MG ORAL TABS 104893 METOPROLOL TARTRATE Inactive SERTRALINE HCL 50 MG TABS 1 daily for depressed mood SERTRALINE HCL 50 MG TABS 888911 SERTRALINE HCL Inactive ASPIRIN 325 MG ORAL TBEC 1 daily ASPIRIN 325 MG ORAL TBEC 965514 ASPIRIN Inactive TYLENOL 325 MG ORAL TABS 1 tab every 4-6 hrs as needed for pain TYLENOL 325 MG ORAL TABS 262488 ACETAMINOPHEN Inactive COLACE 100 MG ORAL CAPS 1-2 tab daily no more then 4 COLACE 100 MG ORAL CAPS 2917689 DOCUSATE SODIUM Inactive DULCOLAX 5 MG ORAL TBEC 1-2 tab hs DULCOLAX 5 MG ORAL TBEC BISACODYL Inactive DOK PLUS 50-8.6 MG ORAL TABS 1 tab twice daily DOK PLUS 50-8.6 MG ORAL TABS 455497 SENNOSIDES-DOCUSATE SODIUM Inactive Immunizations Vaccine Administration Date Value Standard Description pneumococcal immunization administered Pneumovax 23 [CVX33] pneumococcal polysaccharide vaccine, 23 valent Vital Signs Date Name Value Unit Range Description blood pressure, diastolic 88 mm[Hg] BP beauchamp [...] Panel - Chemistry sodium, serum 139 mmol/L 925-594 4807/05/19 carbon dioxide, venous blood 31.9 mmol/L 21.0-32.0 [...] 0.36-3.74 Encounters Code Encounter Date Provider Facility CPT-49886 Level 3 Est. Patient 10:30:37 CDT New Castro DO [facility] CPT-22105 Level 4 Est. Patient 15:40:13 CDT Víctor Payne MD [facility] CPT-02121 Level 3 Est. Patient 16:47:27 CDT Tanya Tan APRN [facility] CPT-56582 Level 3 Est. Patient 10:46:48 CDT Víctor Payne MD [facility] CPT-53226 Level 3 Est. Patient 15:45:17 CDT Trion Richardson MD [facility] CPT-18269 Level 4 New Patient 15:41:12 CDT Trino Richardson MD [facility] CPT-17978 Level 3 Est. Patient 09:44:56 VIRTUAL OFFICE ASSISTANT Víctor Payne MD [facility] CPT-73042 Level 4 Est. Patient 11:54:04 VIRTUAL OFFICE ASSISTANT Víctor Payne MD [facility] CPT-00621 Level 3 Est. Patient 15:21:08 VIRTUAL OFFICE ASSISTANT Shaji Bradshaw MD [facility] CPT-34404 Level 3 Est. Patient 16:54:23 CDT Víctor Payne MD [facility] CPT-34868 Level 3 Est. Patient 16:10:50 CDT Víctor Payne MD [facility] CPT-96041 Level 4 Est. Patient 14:48:01 CDT Víctor Payne MD [facility] CPT-61720 Level 2 New Patient 14:23:38 VIRTUAL OFFICE ASSISTANT Víctor Payne MD [facility] Procedures Code Procedure Name Date Entry Date Standard Description CPT-86433 Chest 2V Frontal and Lat - XRAY USE ONLY 16:00:05 CDT CPT-G0438 Initial Annual Wellness Exam 10:02:47 CDT CPT-02422 Abd compl w upright 15:47:17 CDT CPT-76886 Venipuncture Draw Fee 10:41:53 VIRTUAL OFFICE ASSISTANT CPT-96958 Chest 2V Frontal and Lat 16:22:38 CDT CPT-G0008 Administration of Influenza Virus Vaccine 14:20:57 CDT CPT-70330 Fluzone High-Dose Intramuscular Suspension 14:20:56 CDT CPT-57657 Postop F/U Visit 16:24:54 VIRTUAL OFFICE ASSISTANT CPT-OV Office Visit 13:26:00 VIRTUAL OFFICE ASSISTANT CPT-56803 Administration 2+ single or combination vaccines inc oral 10:08:59 CDT CPT-85964 Administration single or combination vaccine inc oral 10 :08:59 CDT CPT-32221 Pneumovax 10:08:59 CDT CPT-44425 Influenza High Dose age 65+ 10:08:59 CDT
--- OUTSIDE RECORDS SUMMARY | 2017-07-22 11:34 | XMS REPORT | Clinical Summary ---
Author Author Admin, JEAN CLAUDE Organization [facility] Address Unknown Phone Unavailable Allergies, Adverse [...] Inguinal hernia, right 550.90 Active Josr Lyjosefa MORTGAGE COLLECTOR Unilateral or unspecified inguinal hernia, without mention of obstruction or gangrene (not specified as recurrent) Bronchitis ICD-490 Inactive Víctor Payne MD 2015 Medication List Medication Instructions Start Date Stop Date Generic Name NDC Status Provider Patient Instruction METOPROLOL TARTRATE 25 MG ORAL TABS 1 tablet twice a day METOPROLOL TARTRATE 86881316255 Active Víctor Payne MD Active MECLIZINE HCL 25 MG TAB one 4 times a day as needed for dizziness MECLIZINE HCL 96200301049 No Longer Active Víctor Payne MD Active HYDROCODONE-ACETAMINOPHEN 5-325 MG TABS 1/2 to 1 every 4 hours as needed for back pain HYDROCODONE-ACETAMINOPHEN 60852706004 No Longer Active Víctor Payne MD Active LEVAQUIN 750 MG TABS 1 po qd x 7 days LEVOFLOXACIN 86469960727 No Longer Active Víctor Payne MD Active ASPIRIN 81 MG ORAL TABS 2 po qd ASPIRIN 18265354972 Active Víctor Payne MD Active LIPITOR 10 MG TAB one tablet daily at bedtime ATORVASTATIN CALCIUM 89001332694 No Longer Active Víctor Payne MD Active PLAVIX 75 MG TABS 1 tablet by mouth daily to prevent stroke 11/29 CLOPIDOGREL BISULFATE 13105403394 No Longer Active Víctor Payne MD Active ASPIRIN 325 MG TABS 1 TAB 2X ADAY ASPIRIN 81827574713 No Longer Active France Cohen RN Active PLAVIX 75 MG TABS 1 tablet by mouth daily to prevent stroke 11/29 PLAVIX 75 MG TABS 980736 CLOPIDOGREL BISULFATE Inactive LIPITOR 10 MG TAB one tablet daily at bedtime LIPITOR 10 MG TAB 694427 ATORVASTATIN CALCIUM Inactive LEVAQUIN 750 MG TABS 1 po qd x 7 days LEVAQUIN 750 MG TABS 539163 LEVOFLOXACIN Inactive HYDROCODONE-ACETAMINOPHEN 5-325 MG TABS 1/2 to 1 every 4 hours as needed for back pain HYDROCODONE-ACETAMINOPHEN 5-325 MG TABS 351925 HYDROCODONE-ACETAMINOPHEN Inactive MECLIZINE HCL 25 MG TAB one 4 times a day as needed for dizziness MECLIZINE HCL 25 MG TAB 720283 MECLIZINE HCL Inactive Immunizations Vaccine Administration Date Value Standard Description pneumococcal immunization administered Pneumovax 23 [CVX33] pneumococcal polysaccharide vaccine, 23 valent Vital Signs Date Name Value Unit Range Description blood pressure, diastolic - 8462-4 84 mm[Hg] BP beauchamp blood pressure, systolic - 8480-6 175 mm[Hg] BP sys pulse rate E&M - 8867-4 73 /min Heart rate temperature E&M 96.9 [degF] Body temperature weight E&M - 3141-9 157.5 [lb_av] Weight Measured blood pressure, diastolic - 8462-4 75 mm[Hg] BP beu[place]amp blood pressure, systolic - 8480-6 128 mm[Hg] [...] % 11.6-14.8 platelet count 303 10^3/MM^3 10*3/mm3 941-855 8306/02/10 leukocyte count, blood 11.9 10^3/MM^3 10*3/mm3 4.6-10.2 [...] Panel - Chemistry sodium, serum 139 mmol/L 855-421 6746/09/18 carbon dioxide, venous blood 27.6 mmol/L 21.0-32.0 [...] Panel - Chemistry sodium, serum 136 mmol/L 561-620 6575/12/30 carbon dioxide, venous blood 27.9 mmol/L 21.0-32.0 [...] 0.00-1.00 Encounters Code Encounter Date Provider Facility CPT-82131 Level 3 Est. Patient 09:44:56 WOOD TURNER Víctor Payne MD [facility] CPT-61529 Level 4 Est. Patient 11:54:04 WOOD TURNER Víctor Payne MD [facility] CPT-31538 Level 3 Est. Patient 15:21:08 WOOD TURNER Shaji Bradshaw MD [facility] CPT-00500 Level 3 Est. Patient 16:54:23 CDT Víctor Payne MD [facility] CPT-99361 Level 3 Est. Patient 16:10:50 CDT Víctor Payne MD [facility] CPT-24335 Level 4 Est. Patient 14:48:01 CDT Víctor Payne MD [facility] CPT-00194 Level 2 New Patient 14:23:38 WOOD TURNER Víctor Payne MD [facility] Procedures Code Procedure Name Date Entry Date Standard Description CPT-88124 Venipuncture Draw Fee 10:41:53 WOOD TURNER CPT-51110 Chest 2V Frontal and Lat 16:22:38 CDT CPT-G0008 Administration of Influenza Virus Vaccine 14:20:57 CDT CPT-40713 Fluzone High-Dose Intramuscular Suspension 14:20:56 CDT CPT-14623 Postop F/U Visit 16:24:54 WOOD TURNER CPT-OV Office Visit 13:26:00 WOOD TURNER CPT-55751 Administration 2+ single or combination vaccines inc oral 10:08:59 CDT CPT-39413 Administration single or combination vaccine inc oral 10 :08:59 CDT CPT-70331 Pneumovax 10:08:59 CDT CPT-58039 Influenza High Dose age 65+ 10:08:59 CDT
--- OUTSIDE RECORDS SUMMARY | 2017-07-22 11:35 | XMS REPORT | Clinical Summary ---
Author Author Admin, E Organization [employer] Address Unknown Phone Unavailable Allergies, Adverse Reactions, [...] Inguinal hernia, right 550.90 Active Erwinguy Salasjanet ARCHIVAL STUDIES PROFESSOR Unilateral or unspecified inguinal hernia, without mention of obstruction or gangrene (not specified as recurrent) HEALTH MAINTENANCE EXAM V70.0 Active Víctor Payne MD Routine general medical examination at a health care facility Adjustment disorder with depressed mood 309.0 Active Víctor Payne MD Adjustment disorder with depressed mood Underweight 783.22 Active Víctor Payne MD Underweight Change in bowels 787.99 Active Tanya ARCHIVAL STUDIES PROFESSOR Other symptoms involving digestive system Inguinal hernia, left ICD-550.90 Inactive Trino Richardson MD Chest wall pain ICD-786.52 Inactive Trino Richardson MD Bronchitis ICD-490 Inactive Víctor Payne MD 2015 Medication List Medication Instructions Start Date Stop Date Generic Name NDC Status Provider Patient Instruction DULCOLAX 5 MG ORAL TBEC 1-2 tab hs BISACODYL 62368114614 Active DANIEL Chase Active COLACE 100 MG ORAL CAPS 1-2 tab daily no more then 4 DOCUSATE SODIUM 04847492692 Active DANIEL Chase Active TYLENOL 325 MG ORAL TABS 1 tab every 4-6 hrs as needed for pain ACETAMINOPHEN 66541420214 Active DANIEL Chase Active SERTRALINE HCL 50 MG TABS 1 daily for depressed mood SERTRALINE HCL 23028858137 No Longer Active Víctor Payne MD Active METOPROLOL TARTRATE 25 MG ORAL TABS 1 tablet twice a day METOPROLOL TARTRATE 62821622270 No Longer Active Trino Richardson MD Active ASPIRIN 325 MG ORAL TBEC 1 daily ASPIRIN 20236464508 Active Trino Richardson MD Active ASPIRIN 81 MG ORAL TABS 2 po qd ASPIRIN 52704839409 No Longer Active Trino Richardson MD Active MECLIZINE HCL 25 MG TAB one 4 times a day as needed for dizziness MECLIZINE HCL 64337331913 No Longer Active Víctor Payne MD Active HYDROCODONE-ACETAMINOPHEN 5-325 MG TABS 1/2 to 1 every 4 hours as needed for back pain HYDROCODONE-ACETAMINOPHEN 55854113938 No Longer Active Víctor Payne MD Active LEVAQUIN 750 MG TABS 1 po qd x 7 days LEVOFLOXACIN 34878392396 No Longer Active Víctor Payne MD Active LIPITOR 10 MG TAB one tablet daily at bedtime ATORVASTATIN CALCIUM 26688062085 No Longer Active Víctor Payne MD Active PLAVIX 75 MG TABS 1 tablet by mouth daily to prevent stroke 11/29 CLOPIDOGREL BISULFATE 32410055243 No Longer Active Víctor Payne MD Active ASPIRIN 325 MG TABS 1 TAB 2X ADAY ASPIRIN 38024639261 No Longer Active France Cohen RN Active PLAVIX 75 MG TABS 1 tablet by mouth daily to prevent stroke 11/29 PLAVIX 75 MG TABS 24321581636 CLOPIDOGREL BISULFATE Inactive LIPITOR 10 MG TAB one tablet daily at bedtime LIPITOR 10 MG TAB 189542 ATORVASTATIN CALCIUM Inactive LEVAQUIN 750 MG TABS 1 po qd x 7 days LEVAQUIN 750 MG TABS 327122 LEVOFLOXACIN Inactive HYDROCODONE-ACETAMINOPHEN 5-325 MG TABS 1/2 to 1 every 4 hours as needed for back pain HYDROCODONE-ACETAMINOPHEN 5-325 MG TABS 937450 HYDROCODONE-ACETAMINOPHEN Inactive MECLIZINE HCL 25 MG TAB one 4 times a day as needed for dizziness MECLIZINE HCL 25 MG TAB 103078 MECLIZINE HCL Inactive ASPIRIN 81 MG ORAL TABS 2 po qd ASPIRIN 81 MG ORAL TABS ASPIRIN Inactive METOPROLOL TARTRATE 25 MG ORAL TABS 1 tablet twice a day METOPROLOL TARTRATE 25 MG ORAL TABS 549491 METOPROLOL TARTRATE Inactive SERTRALINE HCL 50 MG TABS 1 daily for depressed mood SERTRALINE HCL 50 MG TABS 296020 SERTRALINE HCL Inactive Immunizations Vaccine Administration Date [...] Measured Encounters Code Encounter Date Provider Facility CPT-17639 Level 3 Est. Patient 16:47:27 CDT Tanya Tan APRN [facility] CPT-79744 Level 3 Est. Patient 10:46:48 CDT Víctor Payne MD [facility] CPT-70555 Level 3 Est. Patient 15:45:17 CDT Trino Richardson MD [facility] CPT-58474 Level 4 New Patient 15:41:12 CDT Trino Richardson MD [facility] CPT-62423 Level 3 Est. Patient 09:44:56 FLIGHT SERVICE SPECIALIST Víctor Payne MD [facility] CPT-19857 Level 4 Est. Patient 11:54:04 FLIGHT SERVICE SPECIALIST Víctor Payne MD [facility] CPT-06257 Level 3 Est. Patient 15:21:08 FLIGHT SERVICE SPECIALIST Shaji Bradshaw MD [facility] CPT-00717 Level 3 Est. Patient 16:54:23 CDT Víctor Payne MD [facility] CPT-25490 Level 3 Est. Patient 16:10:50 CDT Víctor Payne MD [facility] CPT-30950 Level 4 Est. Patient 14:48:01 CDT Víctor Payne MD [facility] CPT-42680 Level 2 New Patient 14:23:38 FLIGHT SERVICE SPECIALIST Víctor Payne MD [facility] Procedures Code Procedure Name Date Entry Date Standard Description CPT-G0438 Initial Annual Wellness Exam 10:02:47 CDT CPT-70800 Abd compl w upright 15:47:17 CDT CPT-93955 Venipuncture Draw Fee 10:41:53 FLIGHT SERVICE SPECIALIST CPT-50633 Chest 2V Frontal and Lat 16:22:38 CDT CPT-G0008 Administration of Influenza Virus Vaccine 14:20:57 CDT CPT-78592 Fluzone High-Dose Intramuscular Suspension 14:20:56 CDT CPT-30089 Postop F/U Visit 16:24:54 FLIGHT SERVICE SPECIALIST CPT-OV Office Visit 13:26:00 FLIGHT SERVICE SPECIALIST CPT-90528 Administration 2+ single or combination vaccines inc oral 10:08:59 CDT CPT-74848 Administration single or combination vaccine inc oral 10 :08:59 CDT CPT-93122 Pneumovax 10:08:59 CDT CPT-15969 Influenza High Dose age 65+ 10:08:59 CDT
--- OUTSIDE RECORDS SUMMARY | 2017-07-22 11:35 | XMS REPORT ---
Author Author [facility] Address [address] [place] [address] Phone [phone] Care Team Providers Care Skiing Instructor Name Role Phone GENA FOSTER MD PP [phone] GENA FOSTER MD, PP [phone] Summary purpose TRANSITION OF CARE AUTO GENERATION Chief Complaint and Reason for Visit Admit Diagnosis 1 COLONOSCOPY Problem list No authorized problems tracked for [...] visit Relevant diagnostic tests and/or laboratory data No authorized results are available for this patient visit History of procedures No procedures recorded for this patient visit. Functional status Functional Status Finding Observation Time Hearing Prob Loc none :40 Vision Problems yes :40 Vision Correct Dev glasses :40 Ambulation Asst Dev none :40 Range of Motion full :14 Muscle Strength RUE 5 ROM full resist :14 Muscle Strength RLE 4 ROM slight resist :14 Muscle Strength LUE 5 ROM full resist :14 Muscle Strength LLE 4 ROM slight resist :14 Transfers independent :14 Ambulation up ad susan :14 Balance steady :14 Bathing Assistance none :40 Eating Assistance none :40 Dressing Assistance none :40 Toileting Assistance none :40 Transfer Assistance none :40 Decline Slf Care/Mob no :40 Phys Cond Stable yes :40 Nutrition normal :14 Diet regular :14 Oral Cavity moist and intact :14 Teeth dentures :14 Dental Hygiene good :14 Abdomen Appearance flat :14 Abdomen non-tender :14 Bowel Sounds present :14 NG Tube no :14 Feeding Tube none :14 Fink no :14 Cont Bladder Irr no :14 Ostomy no :14 Stool other (specify) :14 Urination normal :14 Quality sym/unlabored :14 Cough productive :14 Secretions no :14 Breath Sounds RUL wheezes :14 Breath Sounds RML wheezes :14 Breath Sounds RLL diminished :14 Breath Sounds CAITIE wheezes :14 Breath Sounds LLL diminished :14 Airway natural :14 Chest Tube no :14 Oxygen no :45 C-PAP no :14 BI-PAP no :14 Temp >100.4 no :14 Temp <96.8 no :14 Chills with rigors no :14 HR > 90bpm no :14 Respirations > 20 no :14 Systolic <90 no :14 headache stiff neck no :14 IV Site Location Lt AC :04 IV Type peripheral [id number] IV Site Information discontinued :04 IV Site Start Attmpt 2 times :04 IV Site Jaden 20 :04 IV Site Appearance WNL :04 IV Site Color clear :04 IV Site Patent yes :04 Dressing Type occlusive :04 Nursing Note Pt to west entrance per w/c to wait for care car. Pt in good condition with all belongings intact. :15 Cognitive Status Finding Observation Time Learning Ability comprehends well : Neurological no :25 Psychological no :25 Physical no :25 Hearing no : Services Program Manager Needed no : Sign Language no : Emotional no : Vision yes : [place] no :25 Financial no :25 Vital signs Type Value Date Respiration Rate 18breaths per minute :45 Pulse 73beats per minute :45 Oxygen Saturation 97% :45 BP Systolic 115mmHg :45 BP Diastolic 68mmHg :45 Temperature 96.6F :09 Height 68inches :15 Weight 149LB :15 Social history Type Value Smoking Status CURRENT EVERY DAY SMOKER Treatment Plan No treatment plan text is available for this visit. Hospital discharge instructions Discharge Date/Time 07/03/15 1415 Accompanied By care car Relationship other (explain) Dismissal Condition good Disposition on DC home Valuables no DC Inst/Educ Give yes Exit Care Educ Given yes Med/Side Effects Rev yes PNE Vac 2015 Flu Vac 2015 Tetanus Vac unknown Diet Explained yes Follow up appt already scheduled Follow Up Appt D/T 08/02/15 1410pm
--- OUTSIDE RECORDS SUMMARY | 2017-07-22 11:35 | XMS REPORT | Clinical Summary ---
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 Unilateral or unspecified inguinal hernia, without mention of obstruction or gangrene (not specified as recurrent) HEALTH MAINTENANCE EXAM V70.0 Active Víctor Payne MD Routine general medical examination at a health care facility Adjustment disorder with depressed mood 309.0 Active Víctor Payne MD Adjustment disorder with depressed mood Underweight 783.22 Active Víctor Payne MD Underweight Change in bowels 787.99 Active Tanya Tan ENGINEERING DESIGN SUPERVISOR Other symptoms involving digestive system COPD [...] Víctor Payne MD Pain in thoracic spine Inguinal hernia, left ICD-550.90 Inactive Trino Richardson MD Chest wall pain ICD-786.52 Inactive Trino Richardson MD Bronchitis ICD-490 Inactive Víctor Payne MD 2015 Medication List Medication Instructions Start Date Stop Date Generic Name NDC Status Provider Patient Instruction DEBROX 6.5 % OTIC SOLN 5 gtts effected ear(ears) q day CARBAMIDE PEROXIDE 74127984266 Active New Castro DO Active AMLODIPINE BESYLATE 5 MG TABS 1 tablet by mouth daily AMLODIPINE BESYLATE 46526250350 Active New Castro DO Active DOK PLUS 50-8.6 MG ORAL TABS 1 tab twice daily SENNOSIDES-DOCUSATE SODIUM 87435875477 No Longer Active New Castro DO Active DULCOLAX 5 MG ORAL TBEC 1-2 tab hs BISACODYL 25510350314 No Longer Active Víctor Payne MD Active COLACE 100 MG ORAL CAPS 1-2 tab daily no more then 4 DOCUSATE SODIUM 86231886422 No Longer Active Víctor Payne MD Active TYLENOL 325 MG ORAL TABS 1 tab every 4-6 hrs as needed for pain ACETAMINOPHEN 46371541432 No Longer Active Víctor Payne MD Active ASPIRIN 325 MG ORAL TBEC 1 daily ASPIRIN 55423593446 No Longer Active Víctor Payne MD Active SERTRALINE HCL 50 MG TABS 1 daily for depressed mood SERTRALINE HCL 74028805542 No Longer Active Víctor Payne MD Active METOPROLOL TARTRATE 25 MG ORAL TABS 1 tablet twice a day METOPROLOL TARTRATE 93050052270 No Longer Active Trino Richardson MD Active ASPIRIN 81 MG ORAL TABS 2 po qd ASPIRIN 85338252453 No Longer Active Trino Richardson MD Active MECLIZINE HCL 25 MG TAB one 4 times a day as needed for dizziness MECLIZINE HCL 85788878853 No Longer Active Víctor Payne MD Active HYDROCODONE-ACETAMINOPHEN 5-325 MG TABS 1/2 to 1 every 4 hours as needed for back pain HYDROCODONE-ACETAMINOPHEN 59498505742 No Longer Active Víctor Payne MD Active LEVAQUIN 750 MG TABS 1 po qd x 7 days LEVOFLOXACIN 60455916686 No Longer Active Víctor Payne MD Active LIPITOR 10 MG TAB one tablet daily at bedtime ATORVASTATIN CALCIUM 63241086392 No Longer Active Víctor Payne MD Active PLAVIX 75 MG TABS 1 tablet by mouth daily to prevent stroke 11/29 CLOPIDOGREL BISULFATE 61094492380 No Longer Active Víctor Payne MD Active ASPIRIN 325 MG TABS 1 TAB 2X ADAY ASPIRIN 92698838036 No Longer Active France Cohen RN Active PLAVIX 75 MG TABS 1 tablet by mouth daily to prevent stroke 11/29 PLAVIX 75 MG TABS 822202 CLOPIDOGREL BISULFATE Inactive LIPITOR 10 MG TAB one tablet daily at bedtime LIPITOR 10 MG TAB 166590 ATORVASTATIN CALCIUM Inactive LEVAQUIN 750 MG TABS 1 po qd x 7 days LEVAQUIN 750 MG TABS 385525 LEVOFLOXACIN Inactive HYDROCODONE-ACETAMINOPHEN 5-325 MG TABS 1/2 to 1 every 4 hours as needed for back pain HYDROCODONE-ACETAMINOPHEN 5-325 MG TABS 026890 HYDROCODONE-ACETAMINOPHEN Inactive MECLIZINE HCL 25 MG TAB one 4 times a day as needed for dizziness MECLIZINE HCL 25 MG TAB 311693 MECLIZINE HCL Inactive ASPIRIN 81 MG ORAL TABS 2 po qd ASPIRIN 81 MG ORAL TABS 684748 ASPIRIN Inactive METOPROLOL TARTRATE 25 MG ORAL TABS 1 tablet twice a day METOPROLOL TARTRATE 25 MG ORAL TABS 013859 METOPROLOL TARTRATE Inactive SERTRALINE HCL 50 MG TABS 1 daily for depressed mood SERTRALINE HCL 50 MG TABS 087834 SERTRALINE HCL Inactive ASPIRIN 325 MG ORAL TBEC 1 daily ASPIRIN 325 MG ORAL TBEC 536639 ASPIRIN Inactive TYLENOL 325 MG ORAL TABS 1 tab every 4-6 hrs as needed for pain TYLENOL 325 MG ORAL TABS 465900 ACETAMINOPHEN Inactive COLACE 100 MG ORAL CAPS 1-2 tab daily no more then 4 COLACE 100 MG ORAL CAPS 4645631 DOCUSATE SODIUM Inactive DULCOLAX 5 MG ORAL TBEC 1-2 tab hs DULCOLAX 5 MG ORAL TBEC BISACODYL Inactive DOK PLUS 50-8.6 MG ORAL TABS 1 tab twice daily DOK PLUS 50-8.6 MG ORAL TABS 584634 SENNOSIDES-DOCUSATE SODIUM Inactive Immunizations Vaccine Administration Date [...] Panel - Chemistry sodium, serum 139 mmol/L 206-274 9722/05/19 carbon dioxide, venous blood 31.9 mmol/L 21.0-32.0 [...] 0.36-3.74 Encounters Code Encounter Date Provider Facility CPT-49648 Level 3 Est. Patient 10:30:37 CDT New Castro DO [facility] CPT-72662 Level 4 Est. Patient 15:40:13 CDT Víctor Payne MD [facility] CPT-80319 Level 3 Est. Patient 16:47:27 CDT Tanya Tan APRN [facility] CPT-48347 Level 3 Est. Patient 10:46:48 CDT Víctor Payne MD [facility] CPT-97291 Level 3 Est. Patient 15:45:17 CDT Trino Richardson MD [facility] CPT-74072 Level 4 New Patient 15:41:12 CDT Trino Richardson MD [facility] CPT-67285 Level 3 Est. Patient 09:44:56 ROOFING FOREMAN Víctor Payne MD [facility] CPT-15803 Level 4 Est. Patient 11:54:04 ROOFING FOREMAN Víctor Payne MD [facility] CPT-06829 Level 3 Est. Patient 15:21:08 ROOFING FOREMAN Shaji Bradshaw MD [facility] CPT-46131 Level 3 Est. Patient 16:54:23 CDT Víctor Payne MD [facility] CPT-53901 Level 3 Est. Patient 16:10:50 CDT Víctor Payne MD [facility] CPT-93940 Level 4 Est. Patient 14:48:01 CDT Víctor Payne MD [facility] CPT-17139 Level 2 New Patient 14:23:38 ROOFING FOREMAN Víctor Payne MD [facility] Procedures Code Procedure Name Date Entry Date Standard Description CPT-18040 Chest 2V Frontal and Lat - XRAY USE ONLY 10:27:29 CDT CPT-37332 Chest 2V Frontal and Lat - XRAY USE ONLY 16:00:05 CDT CPT-G0438 Initial Annual Wellness Exam 10:02:47 CDT CPT-23633 Abd compl w upright 15:47:17 CDT CPT-84187 Venipuncture Draw Fee 10:41:53 ROOFING FOREMAN CPT-72928 Chest 2V Frontal and Lat 16:22:38 CDT CPT-G0008 Administration of Influenza Virus Vaccine 14:20:57 CDT CPT-82510 Fluzone High-Dose Intramuscular Suspension 14:20:56 CDT CPT-58070 Postop F/U Visit 16:24:54 ROOFING FOREMAN CPT-OV Office Visit 13:26:00 ROOFING FOREMAN CPT-75009 Administration 2+ single or combination vaccines inc oral 10:08:59 CDT CPT-86558 Administration single or combination vaccine inc oral 10 :08:59 CDT CPT-76660 Pneumovax 10:08:59 CDT CPT-74312 Influenza High Dose age 65+ 10:08:59 CDT
--- OUTSIDE RECORDS SUMMARY | 2017-07-22 11:36 | XMS REPORT | Clinical Summary ---
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 Unilateral or unspecified inguinal hernia, without mention of obstruction or gangrene (not specified as recurrent) HEALTH MAINTENANCE EXAM V70.0 Active Víctor Payne MD Routine general medical examination at a health care facility Adjustment disorder with depressed mood 309.0 Active Víctor Payne MD Adjustment disorder with depressed mood Underweight 783.22 Active Víctor Payne MD Underweight Inguinal hernia, left ICD-550.90 Inactive Trino Richardson MD Chest wall pain ICD-786.52 Inactive Trino Richardson MD Bronchitis ICD-490 Inactive Víctor Payne MD 2015 Medication List Medication Instructions Start Date Stop Date Generic Name NDC Status Provider Patient Instruction SERTRALINE HCL 50 MG TABS 1 daily for depressed mood SERTRALINE HCL 09317273923 No Longer Active Víctor Payne MD Active METOPROLOL TARTRATE 25 MG ORAL TABS 1 tablet twice a day METOPROLOL TARTRATE 33756941292 No Longer Active Trino Richardson MD Active ASPIRIN 325 MG ORAL TBEC 1 daily ASPIRIN 57581457463 Active Trino Richardson MD Active ASPIRIN 81 MG ORAL TABS 2 po qd ASPIRIN 11809576251 No Longer Active Trino Richardson MD Active MECLIZINE HCL 25 MG TAB one 4 times a day as needed for dizziness MECLIZINE HCL 29397576515 No Longer Active Víctor Payne MD Active HYDROCODONE-ACETAMINOPHEN 5-325 MG TABS 1/2 to 1 every 4 hours as needed for back pain HYDROCODONE-ACETAMINOPHEN 77079181499 No Longer Active Víctor Payne MD Active LEVAQUIN 750 MG TABS 1 po qd x 7 days LEVOFLOXACIN 32957597269 No Longer Active Víctor Payne MD Active LIPITOR 10 MG TAB one tablet daily at bedtime ATORVASTATIN CALCIUM 82021268853 No Longer Active Víctor Payne MD Active PLAVIX 75 MG TABS 1 tablet by mouth daily to prevent stroke 11/29 CLOPIDOGREL BISULFATE 14178287656 No Longer Active Víctor Payne MD Active ASPIRIN 325 MG TABS 1 TAB 2X ADAY ASPIRIN 72995996746 No Longer Active France Cohen RN Active PLAVIX 75 MG TABS 1 tablet by mouth daily to prevent stroke 11/29 PLAVIX 75 MG TABS 646553 CLOPIDOGREL BISULFATE Inactive LIPITOR 10 MG TAB one tablet daily at bedtime LIPITOR 10 MG TAB 869889 ATORVASTATIN CALCIUM Inactive LEVAQUIN 750 MG TABS 1 po qd x 7 days LEVAQUIN 750 MG TABS 256025 LEVOFLOXACIN Inactive HYDROCODONE-ACETAMINOPHEN 5-325 MG TABS 1/2 to 1 every 4 hours as needed for back pain HYDROCODONE-ACETAMINOPHEN 5-325 MG TABS 172911 HYDROCODONE-ACETAMINOPHEN Inactive MECLIZINE HCL 25 MG TAB one 4 times a day as needed for dizziness MECLIZINE HCL 25 MG TAB 619635 MECLIZINE HCL Inactive ASPIRIN 81 MG ORAL TABS 2 po qd ASPIRIN 81 MG ORAL TABS ASPIRIN Inactive METOPROLOL TARTRATE 25 MG ORAL TABS 1 tablet twice a day METOPROLOL TARTRATE 25 MG ORAL TABS 833897 METOPROLOL TARTRATE Inactive SERTRALINE HCL 50 MG TABS 1 daily for depressed mood SERTRALINE HCL 50 MG TABS 925550 SERTRALINE HCL Inactive Immunizations Vaccine Administration Date Value Standard Description pneumococcal immunization administered Pneumovax 23 [CVX33] pneumococcal polysaccharide vaccine, 23 valent Vital Signs Date Name Value Unit Range Description blood pressure, diastolic - 8462-4 78 mm[Hg] [...] Measured Encounters Code Encounter Date Provider Facility CPT-45127 Level 3 Est. Patient 10:46:48 CDT Víctor Payne MD [facility] CPT-76843 Level 3 Est. Patient 15:45:17 CDT Trino Richardson MD [facility] CPT-30356 Level 4 New Patient 15:41:12 CDT Trino Richardson MD [facility] CPT-09769 Level 3 Est. Patient 09:44:56 WARDROBE ATTENDANT Víctor Payne MD [facility] CPT-68878 Level 4 Est. Patient 11:54:04 WARDROBE ATTENDANT Víctor Payne MD [facility] CPT-74825 Level 3 Est. Patient 15:21:08 WARDROBE ATTENDANT Shaji Bradshaw MD [facility] CPT-42408 Level 3 Est. Patient 16:54:23 CDT Víctor Payne MD [facility] CPT-14991 Level 3 Est. Patient 16:10:50 CDT Víctor Payne MD [facility] CPT-40913 Level 4 Est. Patient 14:48:01 CDT Víctor Payne MD [facility] CPT-61595 Level 2 New Patient 14:23:38 WARDROBE ATTENDANT Víctor Payne MD [facility] Procedures Code Procedure Name Date Entry Date Standard Description CPT-G0438 Initial Annual Wellness Exam 10:02:47 CDT CPT-84322 Abd compl w upright 15:47:17 CDT CPT-76705 Venipuncture Draw Fee 10:41:53 WARDROBE ATTENDANT CPT-04055 Chest 2V Frontal and Lat 16:22:38 CDT CPT-G0008 Administration of Influenza Virus Vaccine 14:20:57 CDT CPT-17790 Fluzone High-Dose Intramuscular Suspension 14:20:56 CDT CPT-40964 Postop F/U Visit 16:24:54 WARDROBE ATTENDANT CPT-OV Office Visit 13:26:00 WARDROBE ATTENDANT CPT-87867 Administration 2+ single or combination vaccines inc oral 10:08:59 CDT CPT-53377 Administration single or combination vaccine inc oral 10 :08:59 CDT CPT-55004 Pneumovax 10:08:59 CDT CPT-21101 Influenza High Dose age 65+ 10:08:59 CDT
--- OUTSIDE RECORDS SUMMARY | 2017-07-22 11:36 | XMS REPORT | Clinical Summary ---
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 Unilateral or unspecified inguinal hernia, without mention [...] 1 tablet twice a day METOPROLOL TARTRATE 95015748253 No Longer Active Trino Richardson MD Active ASPIRIN 325 MG ORAL TBEC 1 daily ASPIRIN 87644167930 Active Trino Richardson MD Active ASPIRIN 81 MG ORAL TABS 2 po qd ASPIRIN 61311114882 No Longer Active Trino Richardson MD Active MECLIZINE HCL 25 MG TAB one 4 times a day as needed for dizziness MECLIZINE HCL 11532647947 No Longer Active Víctor Payne MD Active HYDROCODONE-ACETAMINOPHEN 5-325 MG TABS 1/2 to 1 every 4 hours as needed for back pain HYDROCODONE-ACETAMINOPHEN 77896248947 No Longer Active Víctor Payne MD Active LEVAQUIN 750 MG TABS 1 po qd x 7 days LEVOFLOXACIN 09905965782 No Longer Active Víctor Payne MD Active LIPITOR 10 MG TAB one tablet daily at bedtime ATORVASTATIN CALCIUM 19722472949 No Longer Active Víctor Payne MD Active PLAVIX 75 MG TABS 1 tablet by mouth daily to prevent stroke 11/29 CLOPIDOGREL BISULFATE 24270874092 No Longer Active Víctor Payne MD Active ASPIRIN 325 MG TABS 1 TAB 2X ADAY ASPIRIN 64299423955 No Longer Active France Cohen RN Active PLAVIX 75 MG TABS 1 tablet by mouth daily to prevent stroke 11/29 PLAVIX 75 MG TABS 613835 CLOPIDOGREL BISULFATE Inactive LIPITOR 10 MG TAB one tablet daily at bedtime LIPITOR 10 MG TAB 214324 ATORVASTATIN CALCIUM Inactive LEVAQUIN 750 MG TABS 1 po qd x 7 days LEVAQUIN 750 MG TABS 505878 LEVOFLOXACIN Inactive HYDROCODONE-ACETAMINOPHEN 5-325 MG TABS 1/2 to 1 every 4 hours as needed for back pain HYDROCODONE-ACETAMINOPHEN 5-325 MG TABS 428424 HYDROCODONE-ACETAMINOPHEN Inactive MECLIZINE HCL 25 MG TAB one 4 times a day as needed for dizziness MECLIZINE HCL 25 MG TAB 547229 MECLIZINE HCL Inactive ASPIRIN 81 MG ORAL TABS 2 po qd ASPIRIN 81 MG ORAL TABS 565551 ASPIRIN Inactive METOPROLOL TARTRATE 25 MG ORAL TABS 1 tablet twice a day METOPROLOL TARTRATE 25 MG ORAL TABS 237629 METOPROLOL TARTRATE Inactive Immunizations Vaccine Administration Date [...] % 11.6-14.8 platelet count 303 10^3/MM^3 10*3/mm3 814-340 9492/02/10 leukocyte count, blood 11.9 10^3/MM^3 10*3/mm3 4.6-10.2 [...] Panel - Chemistry sodium, serum 139 mmol/L 274-380 7184/09/18 carbon dioxide, venous blood 27.6 mmol/L 21.0-32.0 [...] Panel - Chemistry sodium, serum 136 mmol/L 321-896 8232/12/30 carbon dioxide, venous blood 27.9 mmol/L 21.0-32.0 [...] 0.00-1.00 Encounters Code Encounter Date Provider Facility CPT-50969 Level 3 Est. Patient 15:45:17 CDT Trino Richardson MD [facility] CPT-72154 Level 4 New Patient 15:41:12 CDT Trino Richardson MD [facility] CPT-93375 Level 3 Est. Patient 09:44:56 TELEGRAPH REPEATER INSTALLER Víctor Payne MD [facility] CPT-59438 Level 4 Est. Patient 11:54:04 TELEGRAPH REPEATER INSTALLER Víctor Payne MD [facility] CPT-10361 Level 3 Est. Patient 15:21:08 TELEGRAPH REPEATER INSTALLER Shaji Bradshaw MD [facility] CPT-21291 Level 3 Est. Patient 16:54:23 CDT Víctor Payne MD [facility] CPT-06350 Level 3 Est. Patient 16:10:50 CDT Víctor Payne MD [facility] CPT-68210 Level 4 Est. Patient 14:48:01 CDT Víctor Payne MD [facility] CPT-32548 Level 2 New Patient 14:23:38 TELEGRAPH REPEATER INSTALLER Víctor Payne MD [facility] Procedures Code Procedure Name Date Entry Date Standard Description CPT-60437 Abd compl w upright 15:47:17 CDT CPT-59528 Venipuncture Draw Fee 10:41:53 TELEGRAPH REPEATER INSTALLER CPT-70049 Chest 2V Frontal and Lat 16:22:38 CDT CPT-G0008 Administration of Influenza Virus Vaccine 14:20:57 CDT CPT-02230 Fluzone High-Dose Intramuscular Suspension 14:20:56 CDT CPT-65354 Postop F/U Visit 16:24:54 TELEGRAPH REPEATER INSTALLER CPT-OV Office Visit 13:26:00 TELEGRAPH REPEATER INSTALLER CPT-86876 Administration 2+ single or combination vaccines inc oral 10:08:59 CDT CPT-06483 Administration single or combination vaccine inc oral 10 :08:59 CDT CPT-39775 Pneumovax 10:08:59 CDT CPT-74007 Influenza High Dose age 65+ 10:08:59 CDT
--- OUTSIDE RECORDS SUMMARY | 2017-07-22 11:37 | XMS REPORT | Clinical Summary ---
Author Author Admin, E Organization [employer] Address Unknown Phone Unavailable Allergies, Adverse Reactions, [...] hypertension Inguinal hernia, right 550.90 Active Neelimakaro Salasjanet COMMUNITY HEALTH NURSING DIRECTOR Unilateral or unspecified inguinal hernia, without mention of obstruction or gangrene (not specified as recurrent) HEALTH MAINTENANCE EXAM V70.0 Active Víctor Payne MD Routine general medical examination at a health care facility Adjustment disorder with depressed mood 309.0 Active Víctor Payne MD Adjustment disorder with depressed mood Underweight 783.22 Active Víctor Payne MD Underweight Change in bowels 787.99 Active Tanya Tan COMMUNITY HEALTH NURSING DIRECTOR Other symptoms involving digestive system COPD 496 [...] Pre-procedural laboratory examination V72.63 Active Tatiana Schroeder INSPECTOR OF DREDGING Pre-procedural laboratory examination Hemoptysis 786.30 Active Víctor Payne MD Hemoptysis, unspecified Chest wall pain ICD-786.52 Inactive Trino Richardson MD Inguinal hernia, left ICD-550.90 Inactive Trino Richardson MD Bronchitis ICD-490 Inactive Víctor Payne MD 2015 Medication List Medication Instructions Start Date Stop Date Generic Name NDC Status Provider Patient Instruction TRAMADOL HCL 50 MG TABS 1/2 to 1 four times a day as needed for pain TRAMADOL HCL 56057352764 Active Víctor Payne MD Active HYDROCODONE-ACETAMINOPHEN 5-325 MG ORAL TABLET 1 four times a day as needed for pain. HYDROCODONE-ACETAMINOPHEN 43639353659 No Longer Active Víctor Payne MD Active DEBROX 6.5 % OTIC SOLN 5 gtts effected ear(ears) q day CARBAMIDE PEROXIDE 30221012073 Active New Castro DO Active AMLODIPINE BESYLATE 5 MG TABS 1 tablet by mouth daily AMLODIPINE BESYLATE 94922070154 Active New Castro DO Active DOK PLUS 50-8.6 MG ORAL TABS 1 tab twice daily SENNOSIDES-DOCUSATE SODIUM 59847575655 No Longer Active New Castro DO Active DULCOLAX 5 MG ORAL TBEC 1-2 tab hs BISACODYL 03488788459 No Longer Active Víctor Payne MD Active COLACE 100 MG ORAL CAPS 1-2 tab daily no more then 4 DOCUSATE SODIUM 18393754454 No Longer Active Víctor Payne MD Active TYLENOL 325 MG ORAL TABS 1 tab every 4-6 hrs as needed for pain ACETAMINOPHEN 35629078892 No Longer Active Víctor Payne MD Active ASPIRIN 325 MG ORAL TBEC 1 daily ASPIRIN 38532428926 No Longer Active Víctor Payne MD Active SERTRALINE HCL 50 MG TABS 1 daily for depressed mood SERTRALINE HCL 89028171355 No Longer Active Víctor Payne MD Active METOPROLOL TARTRATE 25 MG ORAL TABS 1 tablet twice a day METOPROLOL TARTRATE 73511148323 No Longer Active Trino Richardson MD Active ASPIRIN 81 MG ORAL TABS 2 po qd ASPIRIN 28299971684 No Longer Active Trino Richardson MD Active MECLIZINE HCL 25 MG TAB one 4 times a day as needed for dizziness MECLIZINE HCL 98498030633 No Longer Active Víctor Payne MD Active HYDROCODONE-ACETAMINOPHEN 5-325 MG TABS 1/2 to 1 every 4 hours as needed for back pain HYDROCODONE-ACETAMINOPHEN 72714078129 No Longer Active Víctor Payne MD Active LEVAQUIN 750 MG TABS 1 po qd x 7 days LEVOFLOXACIN 52695133406 No Longer Active Víctor Payne MD Active LIPITOR 10 MG TAB one tablet daily at bedtime ATORVASTATIN CALCIUM 96044013182 No Longer Active Víctor Payne MD Active PLAVIX 75 MG TABS 1 tablet by mouth daily to prevent stroke 11/29 CLOPIDOGREL BISULFATE 67166440507 No Longer Active Víctor Payne MD Active ASPIRIN 325 MG TABS 1 TAB 2X ADAY ASPIRIN 04817499746 No Longer Active France Cohen RN Active PLAVIX 75 MG TABS 1 tablet by mouth daily to prevent stroke 11/29 PLAVIX 75 MG TABS 174348 CLOPIDOGREL BISULFATE Inactive LIPITOR 10 MG TAB one tablet daily at bedtime LIPITOR 10 MG TAB 467631 ATORVASTATIN CALCIUM Inactive LEVAQUIN 750 MG TABS 1 po qd x 7 days LEVAQUIN 750 MG TABS 547249 LEVOFLOXACIN Inactive HYDROCODONE-ACETAMINOPHEN 5-325 MG TABS 1/2 to 1 every 4 hours as needed for back pain HYDROCODONE-ACETAMINOPHEN 5-325 MG TABS 842504 HYDROCODONE-ACETAMINOPHEN Inactive MECLIZINE HCL 25 MG TAB one 4 times a day as needed for dizziness MECLIZINE HCL 25 MG TAB 360345 MECLIZINE HCL Inactive ASPIRIN 81 MG ORAL TABS 2 po qd ASPIRIN 81 MG ORAL TABS 182195 ASPIRIN Inactive METOPROLOL TARTRATE 25 MG ORAL TABS 1 tablet twice a day METOPROLOL TARTRATE 25 MG ORAL TABS 267769 METOPROLOL TARTRATE Inactive SERTRALINE HCL 50 MG TABS 1 daily for depressed mood SERTRALINE HCL 50 MG TABS 090217 SERTRALINE HCL Inactive ASPIRIN 325 MG ORAL TBEC 1 daily ASPIRIN 325 MG ORAL TBEC 556667 ASPIRIN Inactive TYLENOL 325 MG ORAL TABS 1 tab every 4-6 hrs as needed for pain TYLENOL 325 MG ORAL TABS 350086 ACETAMINOPHEN Inactive COLACE 100 MG ORAL CAPS 1-2 tab daily no more then 4 COLACE 100 MG ORAL CAPS 8717641 DOCUSATE SODIUM Inactive DULCOLAX 5 MG ORAL TBEC 1-2 tab hs DULCOLAX 5 MG ORAL TBEC BISACODYL Inactive DOK PLUS 50-8.6 MG ORAL TABS 1 tab twice daily DOK PLUS 50-8.6 MG ORAL TABS 979803 SENNOSIDES-DOCUSATE SODIUM Inactive HYDROCODONE-ACETAMINOPHEN 5-325 MG ORAL TABLET 1 four times a day as needed for pain. HYDROCODONE-ACETAMINOPHEN 5-325 MG ORAL TABLET 743185 HYDROCODONE-ACETAMINOPHEN Inactive Immunizations Vaccine Administration Date Value [...] Panel - Chemistry sodium, serum 137 mmol/L 814-057 0556/10/20 potassium, serum 5.5 mmol/L 3.5-5.2 chloride, serum 104 mmol/L 98-107 carbon dioxide, venous blood 29.2 mmol/L 21.0-32.0 blood glucose 100 mg/dL 65-110 calcium, serum 8.7 mg/dL 8.5-10.1 urea nitrogen, blood 23 mg/dL 7-18 creatinine, serum 1.24 mg/dL 0.60-1.30 Lab Report: CBC, Comp. Metabolic Panel - Chemistry carbon dioxide, venous blood 31.9 mmol/L 21.0-32.0 potassium, serum 5.2 mmol/L 3.5-5.2 chloride, serum 105 mmol/L 98-107 blood glucose 97 mg/dL 65-110 urea nitrogen, blood 21 mg/dL 7-18 creatinine, serum 1.22 mg/dL 0.55-1.30 alanine aminotransferase (SGPT), serum 22 U/L 12-78 aspartate aminotransferase (SGOT), serum 17 U/L 15-37 calcium, serum 9.4 mg/dL 8.5-10.1 bilirubin, serum, total 0.30 mg/dL 0.00-1.00 sodium, serum 139 mmol/L 136-145 Lab Report: CBC, Comp. Metabolic Panel - Hematology platelet count 261 10^3/MM^3 10*3/mm3 301-316 1739/05/19 red blood cell distribution width 14.1 % 11.6-14.8 mean corpuscular hemoglobin concentration, RBC 33.3 G/DL % 31.8- 35.4 mean corpuscular hemoglobin, RBC 32.0 pg 27.0-31.2 mean corpuscular volume, RBC 96 fL 80-97 hematocrit, blood 42.7 % 40.0-54.0 hemoglobin, blood 14.2 g/dL 14.0-18.0 erythrocyte (RBC) count 4.45 10^6/MM^3 10*6/mm3 4.50-6.50 leukocyte count, blood 8.4 10^3/MM^3 10*3/mm3 4.6-10.2 Lab Report: Thyroid Stimulating Hormone (L) - Chemistry TSH 0.50 m[iU]/mL 0.36-3.74 Encounters Code Encounter Date Provider Facility CPT-70854 Level 3 Est. Patient 10:30:37 CDT New Castro DO [facility] CPT-52863 Level 4 Est. Patient 15:40:13 CDT Víctor Payne MD [facility] CPT-71892 Level 3 Est. Patient 16:47:27 CDT Tanya Tan APRN [facility] CPT-75218 Level 3 Est. Patient 10:46:48 CDT Víctor Payne MD [facility] CPT-08266 Level 3 Est. Patient 15:45:17 CDT Trino Richardson MD [facility] CPT-35601 Level 4 New Patient 15:41:12 CDT Trino Richardson MD [facility] CPT-49277 Level 3 Est. Patient 09:44:56 SUPERVISOR BLOOD Víctor Payne MD [facility] CPT-80840 Level 4 Est. Patient 11:54:04 SUPERVISOR BLOOD Víctor Payne MD [facility] CPT-41395 Level 3 Est. Patient 15:21:08 SUPERVISOR BLOOD Shaji Bradshaw MD [facility] CPT-49425 Level 3 Est. Patient 16:54:23 CDT Víctor Payne MD [facility] CPT-99348 Level 3 Est. Patient 16:10:50 CDT Víctor Payne MD [facility] CPT-82808 Level 4 Est. Patient 14:48:01 CDT Víctor Payne MD [facility] CPT-78588 Level 2 New Patient 14:23:38 SUPERVISOR BLOOD Víctor Payne MD [facility] Procedures Code Procedure Name Date Entry Date Standard Description CPT-TCMM Transitional Care Mgmt-Moderate 10:53:28 CDT CPT-61136 Chest 2V Frontal and Lat - XRAY USE ONLY 10:27:29 CDT CPT-74244 Chest 2V Frontal and Lat - XRAY USE ONLY 16:00:05 CDT CPT-G0438 Initial Annual Wellness Exam 10:02:47 CDT CPT-09672 Abd compl w upright 15:47:17 CDT CPT-37182 Venipuncture Draw Fee 10:41:53 SUPERVISOR BLOOD CPT-67681 Chest 2V Frontal and Lat 16:22:38 CDT CPT-G0008 Administration of Influenza Virus Vaccine 14:20:57 CDT CPT-77086 Fluzone High-Dose Intramuscular Suspension 14:20:56 CDT CPT-24525 Postop F/U Visit 16:24:54 SUPERVISOR BLOOD CPT-OV Office Visit 13:26:00 SUPERVISOR BLOOD CPT-06433 Administration 2+ single or combination vaccines inc oral 10:08:59 CDT CPT-89015 Administration single or combination vaccine inc oral 10 :08:59 CDT CPT-87556 Pneumovax 10:08:59 CDT CPT-34858 Influenza High Dose age 65+ 10:08:59 CDT
--- OUTSIDE RECORDS SUMMARY | 2017-07-22 11:37 | XMS REPORT | Clinical Summary ---
Author Author Admin, JEAN CLAUDE Organization [facility] Address Unknown Phone Unavailable Allergies, Adverse Reactions, Alerts Allergy Name Reaction Description Start Date Severity Status Provider No Known Allergies Emstanley Larson RMA Conditions or Problems Problem Name Problem Code [...] Payne MD Other symptoms involving cardiovascular system Medication List Medication Instructions Start Date Stop Date Generic Name NDC Status Provider Patient Instruction MECLIZINE HCL 25 MG TAB one 4 times a day as needed for dizziness MECLIZINE HCL 80893013647 Active Shaji Bradshaw MD Active HYDROCODONE-ACETAMINOPHEN 5-325 MG TABS 1/2 to 1 every 4 hours as needed for back pain HYDROCODONE-ACETAMINOPHEN 65362667315 Active Víctor Payne MD Active LEVAQUIN 750 MG TABS 1 po qd x 7 days LEVOFLOXACIN 43913300841 No Longer Active Víctor Payne MD Active ASPIRIN 81 MG ORAL TABS 2 po qd ASPIRIN 90863108023 Active Víctor Payne MD Active LIPITOR 10 MG TAB one tablet daily at bedtime ATORVASTATIN CALCIUM 49768099318 No Longer Active Víctor Payne MD Active PLAVIX 75 MG TABS 1 tablet by mouth daily to prevent stroke 11/29 CLOPIDOGREL BISULFATE 69713349287 No Longer Active Víctor Payne MD Active ASPIRIN 325 MG TABS 1 TAB 2X ADAY ASPIRIN 34662722370 No Longer Active France Cohen RN Active PLAVIX 75 MG TABS 1 tablet by mouth daily to prevent stroke 11/29 PLAVIX 75 MG TABS 695245 CLOPIDOGREL BISULFATE Inactive LIPITOR 10 MG TAB one tablet daily at bedtime LIPITOR 10 MG TAB 452189 ATORVASTATIN CALCIUM Inactive LEVAQUIN 750 MG TABS 1 po qd x 7 days LEVAQUIN 750 MG TABS 919394 LEVOFLOXACIN Inactive Immunizations Vaccine Administration Date Value Standard Description pneumococcal immunization administered Pneumovax 23 [CVX33] pneumococcal polysaccharide vaccine, 23 valent Vital Signs Date Name Value Unit Range Description blood pressure, diastolic - 8462-4 79 mm[Hg] [...] Panel - Chemistry sodium, serum 139 mmol/L 668-091 8220/09/18 carbon dioxide, venous blood 27.6 mmol/L 21.0-32.0 [...] Panel - Chemistry sodium, serum 136 mmol/L 041-011 5001/12/30 carbon dioxide, venous blood 27.9 mmol/L 21.0-32.0 [...] 0.00-1.00 Encounters Code Encounter Date Provider Facility CPT-74612 Level 4 Est. Patient 11:54:04 AUDIT CONSULTANT Víctor Payne MD [facility] CPT-02368 Level 3 Est. Patient 15:21:08 AUDIT CONSULTANT Shaji Bradshaw MD [facility] CPT-79474 Level 3 Est. Patient 16:54:23 CDT Víctor Payne MD [facility] CPT-10806 Level 3 Est. Patient 16:10:50 CDT Víctor Payne MD [facility] CPT-89200 Level 4 Est. Patient 14:48:01 CDT Víctor Payne MD [facility] CPT-19688 Level 2 New Patient 14:23:38 AUDIT CONSULTANT Víctor Payne MD [facility] Procedures Code Procedure Name Date Entry Date Standard Description CPT-76698 Chest 2V Frontal and Lat 16:22:38 CDT CPT-G0008 Administration of Influenza Virus Vaccine 14:20:57 CDT CPT-30286 Fluzone High-Dose Intramuscular Suspension 14:20:56 CDT CPT-26527 Postop F/U Visit 16:24:54 AUDIT CONSULTANT CPT-OV Office Visit 13:26:00 AUDIT CONSULTANT CPT-74256 Administration 2+ single or combination vaccines inc oral 10:08:59 CDT CPT-33268 Administration single or combination vaccine inc oral 10 :08:59 CDT CPT-54961 Pneumovax 10:08:59 CDT CPT-34783 Influenza High Dose age 65+ 10:08:59 CDT
--- OUTSIDE RECORDS SUMMARY | 2017-07-22 11:38 | XMS REPORT | Clinical Summary ---
Author Author Admin, E Organization [employer] Address Unknown Phone Unavailable Allergies, Adverse Reactions, Alerts Allergy Name Reaction Description Start Date Severity Status Provider NKA Critical Active Trino Richardson MD Conditions or Problems Problem Name Problem Code Onset Date Status Entry Date Provider Comment Standard Description Annotate Inguinal hernia, left 550.90 Resolved Trino Richarsdon MD Unilateral or unspecified inguinal hernia, without [...] Inguinal hernia, right 550.90 Active Neelimakaro Modijosefa EMBEDDED LINUX ENGINEER Unilateral or unspecified inguinal hernia, without mention of obstruction or gangrene (not specified as recurrent) HEALTH MAINTENANCE EXAM V70.0 Active Víctor Payne MD Routine general medical examination at a health care facility Adjustment disorder with depressed mood 309.0 Active Víctor Payne MD Adjustment disorder with depressed mood Underweight 783.22 Active Víctor Payne MD Underweight Change in bowels 787.99 Active Tanya Tan EMBEDDED LINUX ENGINEER Other symptoms involving digestive system COPD 496 Active Víctor Payne MD Chronic airway obstruction, not elsewhere classified Supraventricular tachycardia 427.0 Active Víctor Payne MD Paroxysmal supraventricular tachycardia Inguinal hernia, left ICD-550.90 Inactive Trion Richardson MD Chest wall pain ICD-786.52 Inactive Trino Richardson MD Bronchitis ICD-490 Inactive Víctor Payne MD 2015 Medication List Medication Instructions Start Date Stop Date Generic Name NDC Status Provider Patient Instruction DOK PLUS 50-8.6 MG ORAL TABS 1 tab twice daily SENNOSIDES- DOCUSATE SODIUM 83876369108 Active Víctor Payne MD Active DULCOLAX 5 MG ORAL TBEC 1-2 tab hs BISACODYL 54454419242 No Longer Active Víctor Payne MD Active COLACE 100 MG ORAL CAPS 1-2 tab daily no more then 4 DOCUSATE SODIUM 00626793346 No Longer Active Víctor Payne MD Active TYLENOL 325 MG ORAL TABS 1 tab every 4-6 hrs as needed for pain ACETAMINOPHEN 68220551121 No Longer Active Víctor Payne MD Active ASPIRIN 325 MG ORAL TBEC 1 daily ASPIRIN 66300917572 No Longer Active Víctor Payne MD Active SERTRALINE HCL 50 MG TABS 1 daily for depressed mood SERTRALINE HCL 59466765340 No Longer Active Víctor Payne MD Active METOPROLOL TARTRATE 25 MG ORAL TABS 1 tablet twice a day METOPROLOL TARTRATE 22620339232 No Longer Active Trino Richardson MD Active ASPIRIN 81 MG ORAL TABS 2 po qd ASPIRIN 82037994134 No Longer Active Trino Richardson MD Active MECLIZINE HCL 25 MG TAB one 4 times a day as needed for dizziness MECLIZINE HCL 46607986346 No Longer Active Víctor Payne MD Active HYDROCODONE-ACETAMINOPHEN 5-325 MG TABS 1/2 to 1 every 4 hours as needed for back pain HYDROCODONE-ACETAMINOPHEN 53769160437 No Longer Active Víctor Payne MD Active LEVAQUIN 750 MG TABS 1 po qd x 7 days LEVOFLOXACIN 32955357557 No Longer Active Víctor Payne MD Active LIPITOR 10 MG TAB one tablet daily at bedtime ATORVASTATIN CALCIUM 54303643011 No Longer Active Víctor Payne MD Active PLAVIX 75 MG TABS 1 tablet by mouth daily to prevent stroke 11/29 CLOPIDOGREL BISULFATE 43050188361 No Longer Active Víctor Payne MD Active ASPIRIN 325 MG TABS 1 TAB 2X ADAY ASPIRIN 13182921903 No Longer Active France Cohen RN Active PLAVIX 75 MG TABS 1 tablet by mouth daily to prevent stroke 11/29 PLAVIX 75 MG TABS 14408713232 CLOPIDOGREL BISULFATE Inactive LIPITOR 10 MG TAB one tablet daily at bedtime LIPITOR 10 MG TAB 405322 ATORVASTATIN CALCIUM Inactive LEVAQUIN 750 MG TABS 1 po qd x 7 days LEVAQUIN 750 MG TABS 754046 LEVOFLOXACIN Inactive HYDROCODONE-ACETAMINOPHEN 5-325 MG TABS 1/2 to 1 every 4 hours as needed for back pain HYDROCODONE-ACETAMINOPHEN 5-325 MG TABS 130581 HYDROCODONE-ACETAMINOPHEN Inactive MECLIZINE HCL 25 MG TAB one 4 times a day as needed for dizziness MECLIZINE HCL 25 MG TAB 632171 MECLIZINE HCL Inactive ASPIRIN 81 MG ORAL TABS 2 po qd ASPIRIN 81 MG ORAL TABS ASPIRIN Inactive METOPROLOL TARTRATE 25 MG ORAL TABS 1 tablet twice a day METOPROLOL TARTRATE 25 MG ORAL TABS 007560 METOPROLOL TARTRATE Inactive SERTRALINE HCL 50 MG TABS 1 daily for depressed mood SERTRALINE HCL 50 MG TABS 874831 SERTRALINE HCL Inactive ASPIRIN 325 MG ORAL TBEC 1 daily ASPIRIN 325 MG ORAL TBEC 034334 ASPIRIN Inactive TYLENOL 325 MG ORAL TABS 1 tab every 4-6 hrs as needed for pain TYLENOL 325 MG ORAL TABS 791325 ACETAMINOPHEN Inactive COLACE 100 MG ORAL CAPS 1-2 tab daily no more then 4 COLACE 100 MG ORAL CAPS 2420058 DOCUSATE SODIUM Inactive DULCOLAX 5 MG ORAL [...] Panel - Chemistry sodium, serum 139 mmol/L 583-888 8194/05/19 carbon dioxide, venous blood 31.9 mmol/L 21.0-32.0 [...] 0.36-3.74 Encounters Code Encounter Date Provider Facility CPT-94855 Level 4 Est. Patient 15:40:13 CDT Víctor Payne MD [facility] CPT-94607 Level 3 Est. Patient 16:47:27 CDT Tanya Tan APRN [facility] CPT-45730 Level 3 Est. Patient 10:46:48 CDT Víctor Payne MD [facility] CPT-25885 Level 3 Est. Patient 15:45:17 CDT Trino Richardson MD [facility] CPT-99283 Level 4 New Patient 15:41:12 CDT Trino Richardson MD [facility] CPT-97784 Level 3 Est. Patient 09:44:56 MANUAL TRAINING TEACHER Víctor Payne MD [facility] CPT-93176 Level 4 Est. Patient 11:54:04 MANUAL TRAINING TEACHER Víctor Payne MD [facility] CPT-23198 Level 3 Est. Patient 15:21:08 MANUAL TRAINING TEACHER Shaji Bradshaw MD [facility] CPT-43859 Level 3 Est. Patient 16:54:23 CDT Víctor Payne MD [facility] CPT-43149 Level 3 Est. Patient 16:10:50 CDT Víctor Payne MD [facility] CPT-79915 Level 4 Est. Patient 14:48:01 CDT Víctor Payne MD [facility] CPT-84904 Level 2 New Patient 14:23:38 MANUAL TRAINING TEACHER Víctor Payne MD [facility] Procedures Code Procedure Name Date Entry Date Standard Description CPT-20671 Chest 2V Frontal and Lat - XRAY USE ONLY 16:00:05 CDT CPT-G0438 Initial Annual Wellness Exam 10:02:47 CDT CPT-27583 Abd compl w upright 15:47:17 CDT CPT-94744 Venipuncture Draw Fee 10:41:53 MANUAL TRAINING TEACHER CPT-82508 Chest 2V Frontal and Lat 16:22:38 CDT CPT-G0008 Administration of Influenza Virus Vaccine 14:20:57 CDT CPT-52529 Fluzone High-Dose Intramuscular Suspension 14:20:56 CDT CPT-34528 Postop F/U Visit 16:24:54 MANUAL TRAINING TEACHER CPT-OV Office Visit 13:26:00 MANUAL TRAINING TEACHER CPT-57726 Administration 2+ single or combination vaccines inc oral 10:08:59 CDT CPT-91394 Administration single or combination vaccine inc oral 10 :08:59 CDT CPT-77849 Pneumovax 10:08:59 CDT CPT-01572 Influenza High Dose age 65+ 10:08:59 CDT
--- OUTSIDE RECORDS SUMMARY | 2017-07-22 11:38 | XMS REPORT | Clinical Summary ---
Author Author Admin, E Organization [employer] Address Unknown Phone Unavailable Allergies, Adverse Reactions, [...] Inguinal hernia, right 550.90 Active Erwinguy Modijosefa MOSAICIST Unilateral or unspecified inguinal hernia, without mention of obstruction or gangrene (not specified as recurrent) HEALTH MAINTENANCE EXAM V70.0 Active Víctor Payne MD Routine general medical examination at a health care facility Adjustment disorder with depressed mood 309.0 Active Víctor Payne MD Adjustment disorder with depressed mood Underweight 783.22 Active Víctor Payne MD Underweight Change in bowels 787.99 Active Tanya Tan MOSAICIST Other symptoms involving digestive system COPD 496 [...] Pre-procedural laboratory examination V72.63 Active Tatiana Schroeder DIGITAL LEARNING PLATFORMS MANAGER Pre-procedural laboratory examination Hemoptysis 786.30 Active [...] day as needed for pain TRAMADOL HCL 72841693189 Active Víctor Payne MD Active HYDROCODONE-ACETAMINOPHEN 5-325 MG ORAL TABLET 1 four times a day as needed for pain. HYDROCODONE-ACETAMINOPHEN 54709754303 Active Víctor Payne MD Active DEBROX 6.5 % OTIC SOLN 5 gtts effected ear(ears) q day CARBAMIDE PEROXIDE 01464314107 Active New Castro DO Active AMLODIPINE BESYLATE 5 MG TABS 1 tablet by mouth daily AMLODIPINE BESYLATE 96400180913 Active New Castro DO Active DOK PLUS 50-8.6 MG ORAL TABS 1 tab twice daily SENNOSIDES-DOCUSATE SODIUM 43964764970 No Longer Active New Castro DO Active DULCOLAX 5 MG ORAL TBEC 1-2 tab hs BISACODYL 57734480140 No Longer Active Víctor Payne MD Active COLACE 100 MG ORAL CAPS 1-2 tab daily no more then 4 DOCUSATE SODIUM 39583233749 No Longer Active Víctor Payne MD Active TYLENOL 325 MG ORAL TABS 1 tab every 4-6 hrs as needed for pain ACETAMINOPHEN 24405731869 No Longer Active Víctor Payne MD Active ASPIRIN 325 MG ORAL TBEC 1 daily ASPIRIN 12655107127 No Longer Active Víctor Payne MD Active SERTRALINE HCL 50 MG TABS 1 daily for depressed mood SERTRALINE HCL 32013820986 No Longer Active Víctor Payne MD Active METOPROLOL TARTRATE 25 MG ORAL TABS 1 tablet twice a day METOPROLOL TARTRATE 11322408602 No Longer Active Trino Richardson MD Active ASPIRIN 81 MG ORAL TABS 2 po qd ASPIRIN 67084485150 No Longer Active Trino Richardson MD Active MECLIZINE HCL 25 MG TAB one 4 times a day as needed for dizziness MECLIZINE HCL 50386940609 No Longer Active Víctor Payne MD Active HYDROCODONE-ACETAMINOPHEN 5-325 MG TABS 1/2 to 1 every 4 hours as needed for back pain HYDROCODONE-ACETAMINOPHEN 34377923171 No Longer Active Víctor Payne MD Active LEVAQUIN 750 MG TABS 1 po qd x 7 days LEVOFLOXACIN 37547622588 No Longer Active Víctor Payne MD Active LIPITOR 10 MG TAB one tablet daily at bedtime ATORVASTATIN CALCIUM 95925644106 No Longer Active Víctor Payne MD Active PLAVIX 75 MG TABS 1 tablet by mouth daily to prevent stroke 11/29 CLOPIDOGREL BISULFATE 08958494041 No Longer Active Víctor Payne MD Active ASPIRIN 325 MG TABS 1 TAB 2X ADAY ASPIRIN 37359581989 No Longer Active France Cohen RN Active PLAVIX 75 MG TABS 1 tablet by mouth daily to prevent stroke 11/29 PLAVIX 75 MG TABS 650444 CLOPIDOGREL BISULFATE Inactive LIPITOR 10 MG TAB one tablet daily at bedtime LIPITOR 10 MG TAB 222072 ATORVASTATIN CALCIUM Inactive LEVAQUIN 750 MG TABS 1 po qd x 7 days LEVAQUIN 750 MG TABS 890765 LEVOFLOXACIN Inactive HYDROCODONE-ACETAMINOPHEN 5-325 MG TABS 1/2 to 1 every 4 hours as needed for back pain HYDROCODONE-ACETAMINOPHEN 5-325 MG TABS 110492 HYDROCODONE-ACETAMINOPHEN Inactive MECLIZINE HCL 25 MG TAB one 4 times a day as needed for dizziness MECLIZINE HCL 25 MG TAB 332495 MECLIZINE HCL Inactive ASPIRIN 81 MG ORAL TABS 2 po qd ASPIRIN 81 MG ORAL TABS 764880 ASPIRIN Inactive METOPROLOL TARTRATE 25 MG ORAL TABS 1 tablet twice a day METOPROLOL TARTRATE 25 MG ORAL TABS 694863 METOPROLOL TARTRATE Inactive SERTRALINE HCL 50 MG TABS 1 daily for depressed mood SERTRALINE HCL 50 MG TABS 261520 SERTRALINE HCL Inactive ASPIRIN 325 MG ORAL TBEC 1 daily ASPIRIN 325 MG ORAL TBEC 367548 ASPIRIN Inactive TYLENOL 325 MG ORAL TABS 1 tab every 4-6 hrs as needed for pain TYLENOL 325 MG ORAL TABS 211977 ACETAMINOPHEN Inactive COLACE 100 MG ORAL CAPS 1-2 tab daily no more then 4 COLACE 100 MG ORAL CAPS 0556436 DOCUSATE SODIUM Inactive DULCOLAX 5 MG ORAL TBEC 1-2 tab hs DULCOLAX 5 MG ORAL TBEC BISACODYL Inactive DOK PLUS 50-8.6 MG ORAL TABS 1 tab twice daily DOK PLUS 50-8.6 MG ORAL TABS 565889 SENNOSIDES-DOCUSATE SODIUM Inactive Immunizations Vaccine Administration Date [...] Panel - Chemistry sodium, serum 137 mmol/L 097-259 2374/10/20 potassium, serum 5.5 mmol/L 3.5-5.2 chloride, serum 104 mmol/L 98-107 carbon dioxide, venous blood 29.2 mmol/L 21.0-32.0 blood glucose 100 mg/dL 65-110 calcium, serum 8.7 mg/dL 8.5-10.1 urea nitrogen, blood 23 mg/dL 7-18 creatinine, serum 1.24 mg/dL 0.60-1.30 Lab Report: CBC, Comp. Metabolic Panel - Chemistry sodium, serum 139 mmol/L 053-021 2936/05/19 carbon dioxide, venous blood 31.9 mmol/L 21.0-32.0 [...] 0.36-3.74 Encounters Code Encounter Date Provider Facility CPT-58989 Level 3 Est. Patient 10:30:37 CDT New Castro DO [facility] CPT-05799 Level 4 Est. Patient 15:40:13 CDT Víctor Payne MD [facility] CPT-30624 Level 3 Est. Patient 16:47:27 CDT Tanya Tan APRN [facility] CPT-47548 Level 3 Est. Patient 10:46:48 CDT Víctor Payne MD [facility] CPT-76977 Level 3 Est. Patient 15:45:17 CDT Trino Richardson MD [facility] CPT-75701 Level 4 New Patient 15:41:12 CDT Trino Richardson MD [facility] CPT-27744 Level 3 Est. Patient 09:44:56 TRICHOLOGIST Víctor Payne MD [facility] CPT-84126 Level 4 Est. Patient 11:54:04 TRICHOLOGIST Víctor Payne MD [facility] CPT-95837 Level 3 Est. Patient 15:21:08 TRICHOLOGIST Shaji Bradshaw MD [facility] CPT-85445 Level 3 Est. Patient 16:54:23 CDT Víctor Payne MD [facility] CPT-40565 Level 3 Est. Patient 16:10:50 CDT Vcítor Payne MD [facility] CPT-03524 Level 4 Est. Patient 14:48:01 CDT Víctor Payne MD [facility] CPT-16512 Level 2 New Patient 14:23:38 TRICHOLOGIST Víctor Payne MD [facility] Procedures Code Procedure Name Date Entry Date Standard Description CPT-TCMM Transitional Care Mgmt-Moderate 10:53:28 CDT CPT-81956 Chest 2V Frontal and Lat - XRAY USE ONLY 10:27:29 CDT CPT-63761 Chest 2V Frontal and Lat - XRAY USE ONLY 16:00:05 CDT CPT-G0438 Initial Annual Wellness Exam 10:02:47 CDT CPT-43415 Abd compl w upright 15:47:17 CDT CPT-42594 Venipuncture Draw Fee 10:41:53 TRICHOLOGIST CPT-63625 Chest 2V Frontal and Lat 16:22:38 CDT CPT-G0008 Administration of Influenza Virus Vaccine 14:20:57 CDT CPT-16508 Fluzone High-Dose Intramuscular Suspension 14:20:56 CDT CPT-52303 Postop F/U Visit 16:24:54 TRICHOLOGIST CPT-OV Office Visit 13:26:00 TRICHOLOGIST CPT-89039 Administration 2+ single or combination vaccines inc oral 10:08:59 CDT CPT-09517 Administration single or combination vaccine inc oral 10 :08:59 CDT CPT-98309 Pneumovax 10:08:59 CDT CPT-56729 Influenza High Dose age 65+ 10:08:59 CDT
[2017-07-22 11:39] LABS: BILIRUBIN,URINE NEGATIVE (NEGATIVE); CLARITY,URINE CLEAR; COLOR,URINE YELLOW; GLUCOSE, URINE (UA) NEGATIVE (NEGATIVE); KETONES,URINE NEGATIVE (NEGATIVE); LEUKOCYTE ESTERASE ,URINE NEGATIVE (NEGATIVE); NITRITE,URINE NEGATIVE (NEGATIVE); PH,URINE 6.5 (5-9); PROTEIN,URINE NEGATIVE (NEGATIVE); UROBILINOGEN,URINE NORMAL (NORMAL)
--- OUTSIDE RECORDS SUMMARY | 2017-07-22 11:39 | XMS REPORT | Clinical Summary ---
Author Author Admin, JEAN CLAUDE Organization [facility] Address Unknown Phone Unavailable Allergies, Adverse Reactions, [...] Inguinal hernia, right 550.90 Active Josr Lyjosefa LAMP DEVELOPER Unilateral or unspecified inguinal hernia, without mention [...] 1 tablet twice a day METOPROLOL TARTRATE 01703538159 No Longer Active Trino Richardson MD Active ASPIRIN 325 MG ORAL TBEC 1 daily ASPIRIN 69285345782 Active Trino Richardson MD Active ASPIRIN 81 MG ORAL TABS 2 po qd ASPIRIN 16754593109 No Longer Active Trino Richardson MD Active MECLIZINE HCL 25 MG TAB one 4 times a day as needed for dizziness MECLIZINE HCL 88311543059 No Longer Active Víctor Payne MD Active HYDROCODONE-ACETAMINOPHEN 5-325 MG TABS 1/2 to 1 every 4 hours as needed for back pain HYDROCODONE-ACETAMINOPHEN 11549575331 No Longer Active Víctor Payne MD Active LEVAQUIN 750 MG TABS 1 po qd x 7 days LEVOFLOXACIN 91915905404 No Longer Active Víctor Payne MD Active LIPITOR 10 MG TAB one tablet daily at bedtime ATORVASTATIN CALCIUM 50102863851 No Longer Active Víctor Payne MD Active PLAVIX 75 MG TABS 1 tablet by mouth daily to prevent stroke 11/29 CLOPIDOGREL BISULFATE 79968947462 No Longer Active Víctor Payne MD Active ASPIRIN 325 MG TABS 1 TAB 2X ADAY ASPIRIN 32695514016 No Longer Active France Cohen RN Active PLAVIX 75 MG TABS 1 tablet by mouth daily to prevent stroke 11/29 PLAVIX 75 MG TABS 450851 CLOPIDOGREL BISULFATE Inactive LIPITOR 10 MG TAB one tablet daily at bedtime LIPITOR 10 MG TAB 523503 ATORVASTATIN CALCIUM Inactive LEVAQUIN 750 MG TABS 1 po qd x 7 days LEVAQUIN 750 MG TABS 545677 LEVOFLOXACIN Inactive HYDROCODONE-ACETAMINOPHEN 5-325 MG TABS 1/2 to 1 every 4 hours as needed for back pain HYDROCODONE-ACETAMINOPHEN 5-325 MG TABS 587435 HYDROCODONE-ACETAMINOPHEN Inactive MECLIZINE HCL 25 MG TAB one 4 times a day as needed for dizziness MECLIZINE HCL 25 MG TAB 728613 MECLIZINE HCL Inactive ASPIRIN 81 MG ORAL TABS 2 po qd ASPIRIN 81 MG ORAL TABS 358975 ASPIRIN Inactive METOPROLOL TARTRATE 25 MG ORAL TABS 1 tablet twice a day METOPROLOL TARTRATE 25 MG ORAL TABS 864694 METOPROLOL TARTRATE Inactive Immunizations Vaccine Administration Date Value Standard Description pneumococcal immunization administered Pneumovax 23 [CVX33] pneumococcal polysaccharide vaccine, 23 valent Vital Signs Date Name Value Unit Range Description blood pressure, diastolic - 8462-4 60 mm[Hg] [...] % 11.6-14.8 platelet count 303 10^3/MM^3 10*3/mm3 297-838 8681/02/10 leukocyte count, blood 11.9 10^3/MM^3 10*3/mm3 4.6-10.2 [...] Panel - Chemistry sodium, serum 139 mmol/L 410-593 4621/09/18 carbon dioxide, venous blood 27.6 mmol/L 21.0-32.0 [...] Panel - Chemistry sodium, serum 136 mmol/L 018-702 1637/12/30 carbon dioxide, venous blood 27.9 mmol/L 21.0-32.0 [...] 0.00-1.00 Encounters Code Encounter Date Provider Facility CPT-04114 Level 3 Est. Patient 15:45:17 CDT Trino Richardson MD [facility] CPT-29027 Level 4 New Patient 15:41:12 CDT Trino Richardson MD [facility] CPT-09246 Level 3 Est. Patient 09:44:56 VETERINARY TECHNOLOGY INSTRUCTOR Víctor Payne MD [facility] CPT-77793 Level 4 Est. Patient 11:54:04 VETERINARY TECHNOLOGY INSTRUCTOR Víctor Payne MD [facility] CPT-44832 Level 3 Est. Patient 15:21:08 VETERINARY TECHNOLOGY INSTRUCTOR Shaji Bradshaw MD [facility] CPT-15743 Level 3 Est. Patient 16:54:23 CDT Víctor Payne MD [facility] CPT-20403 Level 3 Est. Patient 16:10:50 CDT Víctor Payne MD [facility] CPT-38134 Level 4 Est. Patient 14:48:01 CDT Víctor Payne MD [facility] CPT-02460 Level 2 New Patient 14:23:38 VETERINARY TECHNOLOGY INSTRUCTOR Víctor Payne MD [facility] Procedures Code Procedure Name Date Entry Date Standard Description CPT-10664 Abd compl w upright 15:47:17 CDT CPT-60538 Venipuncture Draw Fee 10:41:53 VETERINARY TECHNOLOGY INSTRUCTOR CPT-47545 Chest 2V Frontal and Lat 16:22:38 CDT CPT-G0008 Administration of Influenza Virus Vaccine 14:20:57 CDT CPT-53152 Fluzone High-Dose Intramuscular Suspension 14:20:56 CDT CPT-99976 Postop F/U Visit 16:24:54 VETERINARY TECHNOLOGY INSTRUCTOR CPT-OV Office Visit 13:26:00 VETERINARY TECHNOLOGY INSTRUCTOR CPT-28777 Administration 2+ single or combination vaccines inc oral 10:08:59 CDT CPT-32787 Administration single or combination vaccine inc oral 10 :08:59 CDT CPT-97937 Pneumovax 10:08:59 CDT CPT-71934 Influenza High Dose age 65+ 10:08:59 CDT
--- OUTSIDE RECORDS SUMMARY | 2017-07-22 11:39 | XMS REPORT | Clinical Summary ---
Author Author Admin, E Organization [employer] Address Unknown Phone Unavailable Allergies, Adverse Reactions, [...] Richardson MD Painful respiration Bronchitis 490 Resolved Vícotr Payne MD Bronchitis, not specified as acute [...] Inguinal hernia, right 550.90 Active Josr Montoya FILTER CHANGER Unilateral or unspecified inguinal hernia, without mention of obstruction or gangrene (not specified as recurrent) HEALTH MAINTENANCE EXAM V70.0 Active Víctor Payne MD Routine general medical examination at a health care facility Adjustment disorder with depressed mood 309.0 Active Víctor Payne MD Adjustment disorder with depressed mood Inguinal hernia, left ICD-550.90 Inactive Trino Richardson MD Chest wall pain ICD-786.52 Inactive Trino Richardson MD Bronchitis ICD-490 Inactive Víctor Panye MD 2015 Medication List Medication Instructions Start Date Stop Date Generic Name NDC Status Provider Patient Instruction SERTRALINE HCL 50 MG TABS 1 daily for depressed mood SERTRALINE HCL 06694324460 Active Víctor Payne MD Active METOPROLOL TARTRATE 25 MG ORAL TABS 1 tablet twice a day METOPROLOL TARTRATE 05546136943 No Longer Active Trino Richardson MD Active ASPIRIN 325 MG ORAL TBEC 1 daily ASPIRIN 08653594973 Active Trino Richardson MD Active ASPIRIN 81 MG ORAL TABS 2 po qd ASPIRIN 22441606952 No Longer Active Trino Richardson MD Active MECLIZINE HCL 25 MG TAB one 4 times a day as needed for dizziness MECLIZINE HCL 56176761617 No Longer Active Víctor Payne MD Active HYDROCODONE-ACETAMINOPHEN 5-325 MG TABS 1/2 to 1 every 4 hours as needed for back pain HYDROCODONE-ACETAMINOPHEN 03811811559 No Longer Active Víctor Payne MD Active LEVAQUIN 750 MG TABS 1 po qd x 7 days LEVOFLOXACIN 27909868897 No Longer Active Víctor Payne MD Active LIPITOR 10 MG TAB one tablet daily at bedtime ATORVASTATIN CALCIUM 39713124265 No Longer Active Víctor Payne MD Active PLAVIX 75 MG TABS 1 tablet by mouth daily to prevent stroke 11/29 CLOPIDOGREL BISULFATE 68686312146 No Longer Active Víctor Payne MD Active ASPIRIN 325 MG TABS 1 TAB 2X ADAY ASPIRIN 06839301281 No Longer Active France Cohen RN Active PLAVIX 75 MG TABS 1 tablet by mouth daily to prevent stroke 11/29 PLAVIX 75 MG TABS 994283 CLOPIDOGREL BISULFATE Inactive LIPITOR 10 MG TAB one tablet daily at bedtime LIPITOR 10 MG TAB 370921 ATORVASTATIN CALCIUM Inactive LEVAQUIN 750 MG TABS 1 po qd x 7 days LEVAQUIN 750 MG TABS 734165 LEVOFLOXACIN Inactive HYDROCODONE-ACETAMINOPHEN 5-325 MG TABS 1/2 to 1 every 4 hours as needed for back pain HYDROCODONE-ACETAMINOPHEN 5-325 MG TABS 596292 HYDROCODONE-ACETAMINOPHEN Inactive MECLIZINE HCL 25 MG TAB one 4 times a day as needed for dizziness MECLIZINE HCL 25 MG TAB 314920 MECLIZINE HCL Inactive ASPIRIN 81 MG ORAL TABS 2 po qd ASPIRIN 81 MG ORAL TABS ASPIRIN Inactive METOPROLOL TARTRATE 25 MG ORAL TABS 1 tablet twice a day METOPROLOL TARTRATE 25 MG ORAL TABS 264185 METOPROLOL TARTRATE Inactive Immunizations Vaccine Administration Date Value Standard Description pneumococcal immunization administered Pneumovax 23 [CVX33] pneumococcal polysaccharide vaccine, 23 valent Vital Signs Date Name Value Unit Range Description blood pressure, diastolic - 8462-4 70 mm[Hg] BP beauchamp blood pressure, systolic - 8480-6 135 mm[Hg] BP sys height E&M - 8302-2 65.5 [in_us] Bdy height pulse rate E&M - 8867-4 65 /min Heart rate temperature E&M 97.3 [degF] Body temperature weight E&M - 3141-9 133.5 [lb_av] Weight Measured Encounters Code Encounter Date Provider Facility CPT-79093 Level 3 Est. Patient 15:45:17 CDT Trino Richardson MD [facility] CPT-57571 Level 4 New Patient 15:41:12 CDT Trino Richardson MD [facility] CPT-62559 Level 3 Est. Patient 09:44:56 CLINICAL SERVICES DIRECTOR Víctor Payne MD [facility] CPT-78279 Level 4 Est. Patient 11:54:04 CLINICAL SERVICES DIRECTOR Víctor Payne MD [facility] CPT-54160 Level 3 Est. Patient 15:21:08 CLINICAL SERVICES DIRECTOR Shaji Bradshaw MD [facility] CPT-37255 Level 3 Est. Patient 16:54:23 CDT Víctor Payne MD [facility] CPT-38541 Level 3 Est. Patient 16:10:50 CDT Víctor Payne MD [facility] CPT-42750 Level 4 Est. Patient 14:48:01 CDT Víctor Payne MD [facility] CPT-24924 Level 2 New Patient 14:23:38 CLINICAL SERVICES DIRECTOR Víctor Payne MD [facility] Procedures Code Procedure Name Date Entry Date Standard Description CPT-G0438 Initial Annual Wellness Exam 10:02:47 CDT CPT-72708 Abd compl w upright 15:47:17 CDT CPT-71121 Venipuncture Draw Fee 10:41:53 CLINICAL SERVICES DIRECTOR CPT-02958 Chest 2V Frontal and Lat 16:22:38 CDT CPT-G0008 Administration of Influenza Virus Vaccine 14:20:57 CDT CPT-39703 Fluzone High-Dose Intramuscular Suspension 14:20:56 CDT CPT-87029 Postop F/U Visit 16:24:54 CLINICAL SERVICES DIRECTOR CPT-OV Office Visit 13:26:00 CLINICAL SERVICES DIRECTOR CPT-01495 Administration 2+ single or combination vaccines inc oral 10:08:59 CDT CPT-13337 Administration single or combination vaccine inc oral 10 :08:59 CDT CPT-68152 Pneumovax 10:08:59 CDT CPT-20170 Influenza High Dose age 65+ 10:08:59 CDT
[2017-07-22 11:40] LABS: BASOPHILS % (AUTO) 1 % (0-10); EOSINOPHILS # (AUTO) 0.4 10^3/uL (0.0-0.3); EOSINOPHILS % (AUTO) 5 % (0-10); HEMATOCRIT 37 % (40-54); HEMOGLOBIN 12.3 G/DL (13.3-17.7); LYMPHOCYTES # (AUTO) 1.5 X 10^3 (1.0-4.0); LYMPHOCYTES % (AUTO) 17 % (12-44); MEAN CORPUSCULAR HEMOGLOBIN 31 PG (25-34); MEAN CORPUSCULAR HGB CONC 33 G/DL (32-36); MEAN CORPUSCULAR VOLUME 94 FL (80-99); MEAN PLATELET VOLUME 9.9 FL (7.4-10.4); MONOCYTES % (AUTO) 12 % (0-12); NEUTROPHILS # (AUTO) 5.7 X 10^3 (1.8-7.8); NEUTROPHILS % (AUTO) 66 % (42-75); PLATELET COUNT 232 10^3/uL (130-400); RED BLOOD COUNT 3.96 10^6/uL (4.35-5.85); RED CELL DISTRIBUTION WIDTH 13.5 % (10.0-14.5); WHITE BLOOD COUNT 8.6 10^3/uL (4.3-11.0)
--- OUTSIDE RECORDS SUMMARY | 2017-07-22 11:40 | XMS REPORT | Clinical Summary ---
Author Author Admin, JEAN CLAUDE Organization [facility] Address Unknown Phone Unavailable Allergies, Adverse [...] Inguinal hernia, right 550.90 Active Josr Lyjosefa OUTREACH LIAISON Unilateral or unspecified inguinal hernia, without mention of obstruction or gangrene (not specified as recurrent) Bronchitis ICD-490 Inactive Víctor Payne MD 2015 Medication List Medication Instructions Start Date Stop Date Generic Name NDC Status Provider Patient Instruction METOPROLOL TARTRATE 25 MG ORAL TABS 1 tablet twice a day METOPROLOL TARTRATE 23919950873 Active Víctor Payne MD Active MECLIZINE HCL 25 MG TAB one 4 times a day as needed for dizziness MECLIZINE HCL 23859616389 No Longer Active Víctor Payne MD Active HYDROCODONE-ACETAMINOPHEN 5-325 MG TABS 1/2 to 1 every 4 hours as needed for back pain HYDROCODONE-ACETAMINOPHEN 19751041521 No Longer Active Víctor Payne MD Active LEVAQUIN 750 MG TABS 1 po qd x 7 days LEVOFLOXACIN 09411205450 No Longer Active Víctor Payne MD Active ASPIRIN 81 MG ORAL TABS 2 po qd ASPIRIN 39551554118 Active Víctor Payne MD Active LIPITOR 10 MG TAB one tablet daily at bedtime ATORVASTATIN CALCIUM 68351868902 No Longer Active Víctor Payne MD Active PLAVIX 75 MG TABS 1 tablet by mouth daily to prevent stroke 11/29 CLOPIDOGREL BISULFATE 32873595658 No Longer Active Víctor Payne MD Active ASPIRIN 325 MG TABS 1 TAB 2X ADAY ASPIRIN 10328567976 No Longer Active France Cohen RN Active PLAVIX 75 MG TABS 1 tablet by mouth daily to prevent stroke 11/29 PLAVIX 75 MG TABS 601988 CLOPIDOGREL BISULFATE Inactive LIPITOR 10 MG TAB one tablet daily at bedtime LIPITOR 10 MG TAB 796899 ATORVASTATIN CALCIUM Inactive LEVAQUIN 750 MG TABS 1 po qd x 7 days LEVAQUIN 750 MG TABS 296261 LEVOFLOXACIN Inactive HYDROCODONE-ACETAMINOPHEN 5-325 MG TABS 1/2 to 1 every 4 hours as needed for back pain HYDROCODONE-ACETAMINOPHEN 5-325 MG TABS 255643 HYDROCODONE-ACETAMINOPHEN Inactive MECLIZINE HCL 25 MG TAB one 4 times a day as needed for dizziness MECLIZINE HCL 25 MG TAB 619751 MECLIZINE HCL Inactive Immunizations Vaccine Administration Date [...] % 11.6-14.8 platelet count 303 10^3/MM^3 10*3/mm3 353-223 6641/02/10 leukocyte count, blood 11.9 10^3/MM^3 10*3/mm3 4.6-10.2 [...] Panel - Chemistry sodium, serum 139 mmol/L 779-068 1935/09/18 carbon dioxide, venous blood 27.6 mmol/L 21.0-32.0 [...] Panel - Chemistry sodium, serum 136 mmol/L 383-374 6972/12/30 carbon dioxide, venous blood 27.9 mmol/L 21.0-32.0 [...] 0.00-1.00 Encounters Code Encounter Date Provider Facility CPT-73349 Level 3 Est. Patient 09:44:56 HELMET HAT SWEATBAND PUNCHER Víctor Payne MD [facility] CPT-66744 Level 4 Est. Patient 11:54:04 HELMET HAT SWEATBAND PUNCHER Víctor Payne MD [facility] CPT-37681 Level 3 Est. Patient 15:21:08 HELMET HAT SWEATBAND PUNCHER Shaji Bradshaw MD [facility] CPT-37064 Level 3 Est. Patient 16:54:23 CDT Víctor Payne MD [facility] CPT-63549 Level 3 Est. Patient 16:10:50 CDT Víctor Payne MD [facility] CPT-17695 Level 4 Est. Patient 14:48:01 CDT Víctor Payne MD [facility] CPT-19355 Level 2 New Patient 14:23:38 HELMET HAT SWEATBAND PUNCHER Víctor Payne MD [facility] Procedures Code Procedure Name Date Entry Date Standard Description CPT-32620 Venipuncture Draw Fee 10:41:53 HELMET HAT SWEATBAND PUNCHER CPT-60100 Chest 2V Frontal and Lat 16:22:38 CDT CPT-G0008 Administration of Influenza Virus Vaccine 14:20:57 CDT CPT-27544 Fluzone High-Dose Intramuscular Suspension 14:20:56 CDT CPT-19892 Postop F/U Visit 16:24:54 HELMET HAT SWEATBAND PUNCHER CPT-OV Office Visit 13:26:00 HELMET HAT SWEATBAND PUNCHER CPT-14675 Administration 2+ single or combination vaccines inc oral 10:08:59 CDT CPT-46992 Administration single or combination vaccine inc oral 10 :08:59 CDT CPT-58282 Pneumovax 10:08:59 CDT CPT-35387 Influenza High Dose age 65+ 10:08:59 CDT
--- OUTSIDE RECORDS SUMMARY | 2017-07-22 11:40 | XMS REPORT | Clinical Summary ---
Author Author Admin, E Organization [employer] Address Unknown Phone Unavailable Allergies, Adverse Reactions, [...] Inguinal hernia, right 550.90 Active Erwinguy Modijosefa API ARCHITECT Unilateral or unspecified inguinal hernia, without mention of obstruction or gangrene (not specified as recurrent) HEALTH MAINTENANCE EXAM V70.0 Active Víctor Payne MD Routine general medical examination at a health care facility Adjustment disorder with depressed mood 309.0 Active Víctor Payne MD Adjustment disorder with depressed mood Underweight 783.22 Active Víctor Payne MD Underweight Change in bowels 787.99 Active Tanya Tan API ARCHITECT Other symptoms involving digestive system COPD 496 [...] Pre-procedural laboratory examination V72.63 Active Tatiana Schroeder WEATHERIZATION DIRECTOR Pre-procedural laboratory examination Hemoptysis 786.30 Active Víctor [...] day as needed for pain TRAMADOL HCL 78868498718 Active Víctor Payne MD Active HYDROCODONE-ACETAMINOPHEN 5-325 MG ORAL TABLET 1 four times a day as needed for pain. HYDROCODONE-ACETAMINOPHEN 46432423105 No Longer Active Víctor Payne MD Active DEBROX 6.5 % OTIC SOLUTION 5 gtts effected ear(ears) q day CARBAMIDE PEROXIDE 56599765206 Active New Castro DO Active AMLODIPINE BESYLATE 5 MG ORAL TABLET 1 tablet by mouth daily AMLODIPINE BESYLATE 07270271157 Active New Castro DO Active DOK PLUS 50-8.6 MG ORAL TABLET 1 tab twice daily SENNOSIDES-DOCUSATE SODIUM 84999184216 No Longer Active New Castro DO Active DULCOLAX 5 MG ORAL TABLET DELAYED RELEASE 1-2 tab hs BISACODYL 24048297179 No Longer Active Víctor Payne MD Active COLACE 100 MG ORAL CAPSULE 1-2 tab daily no more then 4 DOCUSATE SODIUM 97754394579 No Longer Active Víctor Payne MD Active TYLENOL 325 MG ORAL TABLET 1 tab every 4-6 hrs as needed for pain ACETAMINOPHEN 97642103624 No Longer Active Víctor Payne MD Active ASPIRIN 325 MG ORAL TABLET DELAYED RELEASE 1 daily ASPIRIN 14718123201 No Longer Active Víctor Payne MD Active SERTRALINE HCL 50 MG ORAL TABLET 1 daily for depressed mood 07/26 SERTRALINE HCL 36400502033 No Longer Active Víctor Payne MD Active METOPROLOL TARTRATE 25 MG ORAL TABLET 1 tablet twice a day 06/27 METOPROLOL TARTRATE 44310283079 No Longer Active Trino Richardson MD Active ASPIRIN 81 MG ORAL TABLET 2 po qd ASPIRIN 54346602279 No Longer Active Trino Richardson MD Active MECLIZINE HCL 25 MG ORAL TABLET one 4 times a day as needed for dizziness MECLIZINE HCL 54607358653 No Longer Active Víctor Payne MD Active HYDROCODONE-ACETAMINOPHEN 5-325 MG ORAL TABLET 1/2 to 1 every 4 hours as needed for back pain HYDROCODONE-ACETAMINOPHEN 86200359874 No Longer Active Víctor Payne MD Active LEVAQUIN 750 MG ORAL TABLET 1 po qd x 7 days LEVOFLOXACIN 55909175165 No Longer Active Víctor Payne MD Active LIPITOR 10 MG ORAL TABLET one tablet daily at bedtime ATORVASTATIN CALCIUM 19878456479 No Longer Active Víctor Payne MD Active PLAVIX 75 MG ORAL TABLET 1 tablet by mouth daily to prevent stroke CLOPIDOGREL BISULFATE 69284200976 No Longer Active Víctor Payne MD Active ASPIRIN 325 MG ORAL TABLET 1 TAB 2X ADAY ASPIRIN 20596447596 No Longer Active France Cohen RN Active PLAVIX 75 MG ORAL TABLET 1 tablet by mouth daily to prevent stroke PLAVIX 75 MG ORAL TABLET 427417 CLOPIDOGREL BISULFATE Inactive LIPITOR 10 MG ORAL TABLET one tablet daily at bedtime LIPITOR 10 MG ORAL TABLET 573025 ATORVASTATIN CALCIUM Inactive LEVAQUIN 750 MG ORAL TABLET 1 po qd x 7 days LEVAQUIN 750 MG ORAL TABLET 077466 LEVOFLOXACIN Inactive HYDROCODONE-ACETAMINOPHEN 5-325 MG ORAL TABLET 1/2 to 1 every 4 hours as needed for back pain HYDROCODONE-ACETAMINOPHEN 5-325 MG ORAL TABLET 113739 HYDROCODONE-ACETAMINOPHEN Inactive MECLIZINE HCL 25 MG ORAL TABLET one 4 times a day as needed for dizziness MECLIZINE HCL 25 MG ORAL TABLET 643866 MECLIZINE HCL Inactive ASPIRIN 81 MG ORAL TABLET 2 po qd ASPIRIN 81 MG ORAL TABLET 362286 ASPIRIN Inactive METOPROLOL TARTRATE 25 MG ORAL TABLET 1 tablet twice a day 06/27 METOPROLOL TARTRATE 25 MG ORAL TABLET 686181 METOPROLOL TARTRATE Inactive SERTRALINE HCL 50 MG ORAL TABLET 1 daily for depressed mood 07/26 SERTRALINE HCL 50 MG ORAL TABLET 206364 SERTRALINE HCL Inactive ASPIRIN 325 MG ORAL TABLET DELAYED RELEASE 1 daily ASPIRIN 325 MG ORAL TABLET DELAYED RELEASE 236217 ASPIRIN Inactive TYLENOL 325 MG ORAL TABLET 1 tab every 4-6 hrs as needed for pain TYLENOL 325 MG ORAL TABLET 897689 ACETAMINOPHEN Inactive COLACE 100 MG ORAL CAPSULE 1-2 tab daily no more then 4 COLACE 100 MG ORAL CAPSULE 6461650 DOCUSATE SODIUM Inactive DULCOLAX 5 MG ORAL TABLET DELAYED RELEASE 1-2 tab hs DULCOLAX 5 MG ORAL TABLET DELAYED RELEASE BISACODYL Inactive DOK PLUS 50-8.6 MG ORAL TABLET 1 tab twice daily DOK PLUS 50-8.6 MG ORAL TABLET 801847 SENNOSIDES-DOCUSATE SODIUM Inactive HYDROCODONE-ACETAMINOPHEN 5-325 MG ORAL TABLET 1 four times a day as needed for pain. HYDROCODONE-ACETAMINOPHEN 5-325 MG ORAL TABLET 735468 HYDROCODONE-ACETAMINOPHEN Inactive Immunizations Vaccine Administration Date Value [...] Panel - Chemistry sodium, serum 137 mmol/L 195-251 3832/10/20 potassium, serum 5.5 mmol/L 3.5-5.2 chloride, serum 104 mmol/L 98-107 carbon dioxide, venous blood 29.2 mmol/L 21.0-32.0 blood glucose 100 mg/dL 65-110 calcium, serum 8.7 mg/dL 8.5-10.1 urea nitrogen, blood 23 mg/dL 7-18 creatinine, serum 1.24 mg/dL 0.60-1.30 Lab Report: CBC, Comp. Metabolic Panel - Chemistry sodium, serum 139 mmol/L 928-640 0195/05/19 carbon dioxide, venous blood 31.9 mmol/L 21.0-32.0 [...] 0.36-3.74 Encounters Code Encounter Date Provider Facility CPT-22150 Level 3 Est. Patient 10:30:37 CDT [facility] CPT-11279 Level 4 Est. Patient 15:40:13 CDT Víctor Payne MD [facility] CPT-95839 Level 3 Est. Patient 16:47:27 CDT Tanya Tan APRN [facility] CPT-18451 Level 3 Est. Patient 10:46:48 CDT Víctor Payne MD [facility] CPT-88240 Level 3 Est. Patient 15:45:17 CDT Trino Richardson MD [facility] CPT-15646 Level 4 New Patient 15:41:12 CDT Trino Richardson MD [facility] CPT-69273 Level 3 Est. Patient 09:44:56 MANAGER OF ADMINISTRATION Víctor Payne MD [facility] CPT-40229 Level 4 Est. Patient 11:54:04 MANAGER OF ADMINISTRATION Víctor Payne MD [facility] CPT-91695 Level 3 Est. Patient 15:21:08 MANAGER OF ADMINISTRATION Shaji Bradshaw MD [facility] CPT-89448 Level 3 Est. Patient 16:54:23 CDT Víctor Payne MD [facility] CPT-47405 Level 3 Est. Patient 16:10:50 CDT Víctor aPyne MD [facility] CPT-68303 Level 4 Est. Patient 14:48:01 CDT Víctor Payne MD [facility] CPT-13530 Level 2 New Patient 14:23:38 MANAGER OF ADMINISTRATION Víctor Payne MD [facility] Procedures Code Procedure Name Date Entry Date Standard Description CPT-TCMM Transitional Care Mgmt-Moderate 10:53:28 CDT CPT-89213 Chest 2V Frontal and Lat - XRAY USE ONLY 10:27:29 CDT CPT-66564 Chest 2V Frontal and Lat - XRAY USE ONLY 16:00:05 CDT CPT-G0438 Initial Annual Wellness Exam 10:02:47 CDT CPT-42837 Abd compl w upright 15:47:17 CDT CPT-00498 Venipuncture Draw Fee 10:41:53 MANAGER OF ADMINISTRATION CPT-38587 Chest 2V Frontal and Lat 16:22:38 CDT CPT-G0008 Administration of Influenza Virus Vaccine 14:20:57 CDT CPT-37615 Fluzone High-Dose Intramuscular Suspension 14:20:56 CDT CPT-59992 Postop F/U Visit 16:24:54 MANAGER OF ADMINISTRATION CPT-OV Office Visit 13:26:00 MANAGER OF ADMINISTRATION CPT-89575 Administration 2+ single or combination vaccines inc oral 10:08:59 CDT CPT-83255 Administration single or combination vaccine inc oral 10 :08:59 CDT CPT-37924 Pneumovax 10:08:59 CDT CPT-50627 Influenza High Dose age 65+ 10:08:59 CDT
--- OUTSIDE RECORDS SUMMARY | 2017-07-22 11:41 | XMS REPORT | Clinical Summary ---
Author Author Admin, JEA NCLAUDE Organization [facility] Address Unknown Phone Unavailable Allergies, Adverse Reactions, Alerts Allergy Name Reaction Description Start Date Severity Status Provider No Known Allergies Em Larson RMA Conditions or Problems Problem Name Problem Code Onset Date Status Entry Date Provider Comment Standard Description Annotate Inguinal hernia, left 550.90 Active Víctor Payne MD Unilateral or unspecified inguinal hernia, without mention of obstruction or gangrene (not specified as recurrent) Tobacco abuse 305.1 Active Víctor Payne MD Tobacco use [...] Dizziness and giddiness Carotid bruit, left 785.9 Active Shaji Bradshaw MD Other symptoms involving cardiovascular system Medication List Medication Instructions Start Date Stop Date Generic Name [facility] Status Provider Patient Instruction MECLIZINE HCL 25 MG TAB one 4 times a day as needed for dizziness MECLIZINE HCL 28498766490 Active Shaji Bradshaw MD Active HYDROCODONE-ACETAMINOPHEN 5-325 MG TABS 1/2 to 1 every 4 hours as needed for back pain HYDROCODONE-ACETAMINOPHEN 57235626077 Active Víctor Payne MD Active LEVAQUIN 750 MG TABS 1 po qd x 7 days LEVOFLOXACIN 18199898992 No Longer Active Víctor Payne MD Active ASPIRIN 81 MG ORAL TABS 2 po qd ASPIRIN 33519550715 Active Víctor Payne MD Active LIPITOR 10 MG TAB one tablet daily at bedtime ATORVASTATIN CALCIUM 17318823274 No Longer Active Víctor Payne MD Active PLAVIX 75 MG TABS 1 tablet by mouth daily to prevent stroke 11/29 CLOPIDOGREL BISULFATE 85903143519 No Longer Active Víctor Payne MD Active ASPIRIN 325 MG TABS 1 TAB 2X ADAY ASPIRIN 46833432833 No Longer Active France Cohen RN Active PLAVIX 75 MG TABS 1 tablet by mouth daily to prevent stroke 11/29 PLAVIX 75 MG TABS 561022 CLOPIDOGREL BISULFATE Inactive LIPITOR 10 MG TAB one tablet daily at bedtime LIPITOR 10 MG TAB 003216 ATORVASTATIN CALCIUM Inactive LEVAQUIN 750 MG TABS 1 po qd x 7 days LEVAQUIN 750 MG TABS 585127 LEVOFLOXACIN Inactive Immunizations Vaccine Administration Date Value [...] Panel - Chemistry sodium, serum 139 mmol/L 739-454 4565/09/18 carbon dioxide, venous blood 27.6 mmol/L 21.0-32.0 [...] 11.6-14.8 platelet count 297 10^3/MM^3 10*3/mm3 142-424 Encounters Code Encounter Date Provider Facility CPT-28248 Level 3 Est. Patient 15:21:08 POLISHING MACHINE TENDER Shaji Bradshaw MD [facility] CPT-35471 Level 3 Est. Patient 16:54:23 CDT Víctor Payne MD [facility] CPT-42714 Level 3 Est. Patient 16:10:50 CDT Víctor Payne MD [facility] CPT-93139 Level 4 Est. Patient 14:48:01 CDT Víctor Pyane MD [facility] CPT-14382 Level 2 New Patient 14:23:38 POLISHING MACHINE TENDER Víctor Payne MD [facility] Procedures Code Procedure Name Date Entry Date Standard Description CPT-46974 Chest 2V Frontal and Lat 16:22:38 CDT CPT-G0008 Administration of Influenza Virus Vaccine 14:20:57 CDT CPT-09689 Fluzone High-Dose Intramuscular Suspension 14:20:56 CDT CPT-57500 Postop F/U Visit 16:24:54 POLISHING MACHINE TENDER CPT-OV Office Visit 13:26:00 POLISHING MACHINE TENDER CPT-48008 Administration 2+ single or combination vaccines inc oral 10:08:59 CDT CPT-72769 Administration single or combination vaccine inc oral 10 :08:59 CDT CPT-67556 Pneumovax 10:08:59 CDT CPT-93622 Influenza High Dose age 65+ 10:08:59 CDT
--- OUTSIDE RECORDS SUMMARY | 2017-07-22 11:41 | XMS REPORT | Clinical Summary ---
Author Author Admin, JEAN CLAUDE Organization [facility] Address Unknown Phone Unavailable Allergies, Adverse Reactions, Alerts Allergy Name Reaction Description Start Date Severity Status Provider No Known Allergies JANELLE Peterson Critical Active Trino iRchardson MD Conditions or Problems Problem Name Problem [...] Back pain, thoracic region 724.1 Active Víctor aPyne MD Pain in thoracic spine Dizziness 780.4 [...] Inguinal hernia, right 550.90 Active Erwinguy Modijosefa COMPUTER NUMERICAL CONTROL GRINDER Unilateral or unspecified inguinal hernia, without mention [...] 1 tablet twice a day METOPROLOL TARTRATE 07984094037 No Longer Active Trino Richardson MD Active ASPIRIN 325 MG ORAL TBEC 1 daily ASPIRIN 29453861056 Active Trino Richardson MD Active ASPIRIN 81 MG ORAL TABS 2 po qd ASPIRIN 20381742768 No Longer Active Trino Richardson MD Active MECLIZINE HCL 25 MG TAB one 4 times a day as needed for dizziness MECLIZINE HCL 90366162840 No Longer Active Víctor Payne MD Active HYDROCODONE-ACETAMINOPHEN 5-325 MG TABS 1/2 to 1 every 4 hours as needed for back pain HYDROCODONE-ACETAMINOPHEN 14246018740 No Longer Active Víctor Payne MD Active LEVAQUIN 750 MG TABS 1 po qd x 7 days LEVOFLOXACIN 78397907388 No Longer Active Víctor Payne MD Active LIPITOR 10 MG TAB one tablet daily at bedtime ATORVASTATIN CALCIUM 01301093998 No Longer Active Víctor Payne MD Active PLAVIX 75 MG TABS 1 tablet by mouth daily to prevent stroke 11/29 CLOPIDOGREL BISULFATE 00007642870 No Longer Active Víctor Payne MD Active ASPIRIN 325 MG TABS 1 TAB 2X ADAY ASPIRIN 19201898875 No Longer Active France Cohen RN Active PLAVIX 75 MG TABS 1 tablet by mouth daily to prevent stroke 11/29 PLAVIX 75 MG TABS 044673 CLOPIDOGREL BISULFATE Inactive LIPITOR 10 MG TAB one tablet daily at bedtime LIPITOR 10 MG TAB 610081 ATORVASTATIN CALCIUM Inactive LEVAQUIN 750 MG TABS 1 po qd x 7 days LEVAQUIN 750 MG TABS 877458 LEVOFLOXACIN Inactive HYDROCODONE-ACETAMINOPHEN 5-325 MG TABS 1/2 to 1 every 4 hours as needed for back pain HYDROCODONE-ACETAMINOPHEN 5-325 MG TABS 727220 HYDROCODONE-ACETAMINOPHEN Inactive MECLIZINE HCL 25 MG TAB one 4 times a day as needed for dizziness MECLIZINE HCL 25 MG TAB 399074 MECLIZINE HCL Inactive ASPIRIN 81 MG ORAL TABS 2 po qd ASPIRIN 81 MG ORAL TABS 089002 ASPIRIN Inactive METOPROLOL TARTRATE 25 MG ORAL TABS 1 tablet twice a day METOPROLOL TARTRATE 25 MG ORAL TABS 629916 METOPROLOL TARTRATE Inactive Immunizations Vaccine Administration Date [...] % 11.6-14.8 platelet count 303 10^3/MM^3 10*3/mm3 405-179 5544/02/10 leukocyte count, blood 11.9 10^3/MM^3 10*3/mm3 4.6-10.2 [...] Panel - Chemistry sodium, serum 139 mmol/L 868-889 9114/09/18 carbon dioxide, venous blood 27.6 mmol/L 21.0-32.0 [...] Panel - Chemistry sodium, serum 136 mmol/L 553-257 9415/12/30 carbon dioxide, venous blood 27.9 mmol/L 21.0-32.0 [...] 0.00-1.00 Encounters Code Encounter Date Provider Facility CPT-48553 Level 3 Est. Patient 15:45:17 CDT Trino Richardson MD [facility] CPT-38692 Level 4 New Patient 15:41:12 CDT Trino Richardson MD [facility] CPT-69618 Level 3 Est. Patient 09:44:56 POLYSOMNOGRAPH TECH Víctor Payne MD [facility] CPT-83596 Level 4 Est. Patient 11:54:04 POLYSOMNOGRAPH TECH Víctor Payne MD [facility] CPT-82808 Level 3 Est. Patient 15:21:08 POLYSOMNOGRAPH TECH Shaji Bradshaw MD [facility] CPT-81507 Level 3 Est. Patient 16:54:23 CDT Víctor Payne MD [facility] CPT-74831 Level 3 Est. Patient 16:10:50 CDT Víctor Payne MD [facility] CPT-84903 Level 4 Est. Patient 14:48:01 CDT Víctor Payne MD [facility] CPT-26503 Level 2 New Patient 14:23:38 POLYSOMNOGRAPH TECH Víctor Payne MD [facility] Procedures Code Procedure Name Date Entry Date Standard Description CPT-20121 Abd compl w upright 15:47:17 CDT CPT-18845 Venipuncture Draw Fee 10:41:53 POLYSOMNOGRAPH TECH CPT-60714 Chest 2V Frontal and Lat 16:22:38 CDT CPT-G0008 Administration of Influenza Virus Vaccine 14:20:57 CDT CPT-10000 Fluzone High-Dose Intramuscular Suspension 14:20:56 CDT CPT-74437 Postop F/U Visit 16:24:54 POLYSOMNOGRAPH TECH CPT-OV Office Visit 13:26:00 POLYSOMNOGRAPH TECH CPT-45655 Administration 2+ single or combination vaccines inc oral 10:08:59 CDT CPT-68892 Administration single or combination vaccine inc oral 10 :08:59 CDT CPT-55316 Pneumovax 10:08:59 CDT CPT-15768 Influenza High Dose age 65+ 10:08:59 CDT
--- OUTSIDE RECORDS SUMMARY | 2017-07-22 11:41 | XMS REPORT | Clinical Summary ---
Author Author Admin, E Organization [employer] Address Unknown Phone Unavailable Allergies, Adverse Reactions, [...] Inguinal hernia, right 550.90 Active Josr Montoya RADIO PRESENTER Unilateral or unspecified inguinal hernia, without mention [...] 1 daily for depressed mood SERTRALINE HCL 52369021133 Active Víctor Payne MD Active METOPROLOL TARTRATE 25 MG ORAL TABS 1 tablet twice a day METOPROLOL TARTRATE 26481282284 No Longer Active Trino Richardson MD Active ASPIRIN 325 MG ORAL TBEC 1 daily ASPIRIN 80767213058 Active rTino Richardson MD Active ASPIRIN 81 MG ORAL TABS 2 po qd ASPIRIN 46237758921 No Longer Active Trino Richardson MD Active MECLIZINE HCL 25 MG TAB one 4 times a day as needed for dizziness MECLIZINE HCL 23175363016 No Longer Active Víctor Payne MD Active HYDROCODONE-ACETAMINOPHEN 5-325 MG TABS 1/2 to 1 every 4 hours as needed for back pain HYDROCODONE-ACETAMINOPHEN 74626656642 No Longer Active Víctor Payne MD Active LEVAQUIN 750 MG TABS 1 po qd x 7 days LEVOFLOXACIN 12960162526 No Longer Active Víctor Payne MD Active LIPITOR 10 MG TAB one tablet daily at bedtime ATORVASTATIN CALCIUM 27271237889 No Longer Active Víctor Payne MD Active PLAVIX 75 MG TABS 1 tablet by mouth daily to prevent stroke 11/29 CLOPIDOGREL BISULFATE 70505825082 No Longer Active Víctor Payne MD Active ASPIRIN 325 MG TABS 1 TAB 2X ADAY ASPIRIN 63381754256 No Longer Active France Cohen RN Active PLAVIX 75 MG TABS 1 tablet by mouth daily to prevent stroke 11/29 PLAVIX 75 MG TABS 333543 CLOPIDOGREL BISULFATE Inactive LIPITOR 10 MG TAB one tablet daily at bedtime LIPITOR 10 MG TAB 511366 ATORVASTATIN CALCIUM Inactive LEVAQUIN 750 MG TABS 1 po qd x 7 days LEVAQUIN 750 MG TABS 016103 LEVOFLOXACIN Inactive HYDROCODONE-ACETAMINOPHEN 5-325 MG TABS 1/2 to 1 every 4 hours as needed for back pain HYDROCODONE-ACETAMINOPHEN 5-325 MG TABS 140564 HYDROCODONE-ACETAMINOPHEN Inactive MECLIZINE HCL 25 MG TAB one 4 times a day as needed for dizziness MECLIZINE HCL 25 MG TAB 068296 MECLIZINE HCL Inactive ASPIRIN 81 MG ORAL TABS 2 po qd ASPIRIN 81 MG ORAL TABS ASPIRIN Inactive METOPROLOL TARTRATE 25 MG ORAL TABS 1 tablet twice a day METOPROLOL TARTRATE 25 MG ORAL TABS 560732 METOPROLOL TARTRATE Inactive Immunizations Vaccine Administration Date [...] E&M - 3141-9 133.5 [lb_av] Weight Measured blood pressure, diastolic - [...] E&M - 3141-9 158 [lb_av] Weight Measured Diagnostic Results Date Name [...] % 11.6-14.8 platelet count 303 10^3/MM^3 10*3/mm3 310-396 0901/02/10 leukocyte count, blood 11.9 10^3/MM^3 10*3/mm3 4.6-10.2 [...] count 261 10^3/MM^3 10*3/mm3 142-424 Lab Report: Comp. Metabolic Panel - Chemistry sodium, serum 136 mmol/L 370-755 8006/12/30 carbon dioxide, venous blood 27.9 mmol/L 21.0-32.0 [...] 0.00-1.00 Encounters Code Encounter Date Provider Facility CPT-50294 Level 3 Est. Patient 15:45:17 CDT Trino Richardson MD [facility] CPT-33936 Level 4 New Patient 15:41:12 CDT Trino Richardson MD [facility] CPT-15396 Level 3 Est. Patient 09:44:56 CONTINUOUS IMPROVEMENT DIRECTOR Víctor Payne MD [facility] CPT-99836 Level 4 Est. Patient 11:54:04 CONTINUOUS IMPROVEMENT DIRECTOR Víctor Payne MD [facility] CPT-61743 Level 3 Est. Patient 15:21:08 CONTINUOUS IMPROVEMENT DIRECTOR Shaji Bradshaw MD [facility] CPT-39660 Level 3 Est. Patient 16:54:23 CDT Víctor Payne MD [facility] CPT-55221 Level 3 Est. Patient 16:10:50 CDT Víctor Payne MD [facility] CPT-09004 Level 4 Est. Patient 14:48:01 CDT Víctor Payne MD [facility] CPT-04612 Level 2 New Patient 14:23:38 CONTINUOUS IMPROVEMENT DIRECTOR Víctor Payne MD [facility] Procedures Code Procedure Name Date Entry Date Standard Description CPT-G0438 Initial Annual Wellness Exam 10:02:47 CDT CPT-41973 Abd compl w upright 15:47:17 CDT CPT-31667 Venipuncture Draw Fee 10:41:53 CONTINUOUS IMPROVEMENT DIRECTOR CPT-05541 Chest 2V Frontal and Lat 16:22:38 CDT CPT-G0008 Administration of Influenza Virus Vaccine 14:20:57 CDT CPT-36742 Fluzone High-Dose Intramuscular Suspension 14:20:56 CDT CPT-27373 Postop F/U Visit 16:24:54 CONTINUOUS IMPROVEMENT DIRECTOR CPT-OV Office Visit 13:26:00 CONTINUOUS IMPROVEMENT DIRECTOR CPT-90743 Administration 2+ single or combination vaccines inc oral 10:08:59 CDT CPT-22062 Administration single or combination vaccine inc oral 10 :08:59 CDT CPT-62807 Pneumovax 10:08:59 CDT CPT-14726 Influenza High Dose age 65+ 10:08:59 CDT
--- OUTSIDE RECORDS SUMMARY | 2017-07-22 11:41 | XMS REPORT ---
Author Author JIGNESHTolerx [facility] Medical Staff Organization [facility] Address [address] [place], [place] [address] Phone [phone] Summary purpose TRANSITION OF CARE AUTO GENERATION Chief Complaint and Reason for Visit Admit Diagnosis 1 RIGHT INGUINAL HERNIA REPAIR Problem list No authorized problems tracked for [...] Finding Observation Time Hearing Prob Loc none :35 Vision Problems yes :35 Vision Correct Dev glasses :35 Ambulation Asst Dev none :35 Range of Motion full :19 Muscle Strength RUE 5 ROM full resist :19 Muscle Strength RLE 4 ROM slight resist :19 Muscle Strength LUE 5 ROM full resist :19 Muscle Strength LLE 4 ROM slight resist 39-80-438474:19 Transfers independent 69-80-367199:19 Ambulation up ad susan 81-18-550763:19 Balance steady :19 Bathing Assistance none :35 Eating Assistance none :35 Dressing Assistance none :35 Toileting Assistance none :35 Transfer Assistance none :35 Decline Slf Care/Mob no :35 Phys Cond Stable yes :35 Nutrition normal :19 Diet regular 54-49-380113:19 Oral Cavity moist and intact 36-19-213575:19 Teeth dentures 15-52-868719:19 Dental Hygiene good 35-48-203679:19 Abdomen Appearance flat 29-94-158556:19 Abdomen non-tender 96-13-703533:19 Bowel Sounds present 62-80-070790:19 NG Tube no 20-53-149097:19 Feeding Tube none 48-00-436447:19 Fink no 80-23-982098:19 Cont Bladder Irr no 78-80-781732:19 Ostomy no 44-85-974223:19 Stool other (specify) Comment: 0 noted 13-91-856684:19 Urination normal 12-78-572407:19 Quality sym/unlabored 26-66-557147:19 Cough productive 41-86-781941:19 Secretions no 25-43-918992:19 Breath Sounds RUL wheezes 51-10-999149:19 Breath Sounds RML wheezes 72-25-626682:19 Breath Sounds RLL wheezes 08-04-041893:19 Breath Sounds CAITIE wheezes 61-59-150453:19 Breath Sounds LLL wheezes 58-87-072865:19 Airway natural 81-84-495240:19 Chest Tube no 17-91-667922:19 Oxygen no 39-94-583148:45 C-PAP no 62-18-675774:19 BI-PAP no 37-93-165333:19 Temp >100.4 no 81-67-247500:19 Temp <96.8 no 01-82-457522:19 Chills with rigors no 00-50-268065:19 HR > 90bpm no 38-59-048471:19 Respirations > 20 no 80-25-380580:19 Systolic <90 no 03-65-229249:19 headache stiff neck no 28-96-060938:19 IV Site Location Lt AC 98-18-859814:45 IV Type peripheral 55-39-939978:45 IV Site Information discontinued 78-24-163371:45 IV Site Start Attmpt 1 times 03-37-058384:45 IV Site Jaden 20 57-44-155953:45 IV Site Appearance WNL 57-85-308451:45 IV Site Color clear :45 IV Site Patent yes :45 Dressing Type occlusive :45 Nursing Note Pt leaves unit 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 Pt in good condition with all belongings intact. :05 Cognitive Status Finding Observation Time Oriented To Date 5 Yes :[address] 5 Yes :35 Name 3 Objects 3 Yes :35 Name Object in Rm 2 Yes :35 Recall 3 Objects 3 Yes :35 Repeats a Phrase 1 Yes :35 Follows Verbal Direc 3 Yes :35 Follows Written Dire 1 Yes :35 Write a Sentance 1 Yes :35 Draw an Object 1 Yes :35 Mini Mental Total 25 points :35 Less than 20 Phys yes :35 Learning Ability comprehends well :22 Neurological no 56-80-457881:22 Psychological no 51-59-970031:22 Physical no 21-59-501307:22 Hearing no :22 College Specialist Needed no :22 Sign Language no :22 Emotional no :22 Vision yes :22 Laguage no :22 Financial no :22 Vital signs Type Value Date Respiration Rate 22breaths per minute :45 Pulse 79beats per minute :45 Oxygen Saturation 96% :45 BP Systolic 121mmHg :45 BP Diastolic 52mmHg :45 Temperature 98.2F :56 Height 68inches :45 Weight 149LB 41-95-912480:45 Social history Type Value Smoking Status CURRENT EVERY DAY SMOKER Treatment Plan No treatment plan text is available for this visit. Hospital discharge instructions Discharge Date/Time 06/22/15 1705 Accompanied By kiko Relationship other (explain) Dismissal Condition good Disposition on DC home Valuables no DC Inst/Educ Give yes Exit Care Educ Given yes Med/Side Effects Rev yes PNE Vac 2015 Flu Vac 2015 Tetanus Vac unknown Diet Explained yes Follow up appt already scheduled Follow Up Appt D/T 07/17/15 2:20pm
--- OUTSIDE RECORDS SUMMARY | 2017-07-22 11:42 | XMS REPORT | Clinical Summary ---
Author Author Admin, JEAN CLAUDE Organization [facility] Address Unknown Phone Unavailable Allergies, Adverse [...] Instructions Start Date Stop Date Generic Name [facility] Status Provider Patient Instruction MECLIZINE HCL 25 MG TAB one 4 times a day as needed for dizziness MECLIZINE HCL 06202007026 Active Shaji Bradshaw MD Active HYDROCODONE-ACETAMINOPHEN 5-325 MG TABS 1/2 to 1 every 4 hours as needed for back pain HYDROCODONE-ACETAMINOPHEN 07117495547 Active Víctor Payne MD Active LEVAQUIN 750 MG TABS 1 po qd x 7 days LEVOFLOXACIN 10209207416 No Longer Active Víctor Payne MD Active ASPIRIN 81 MG ORAL TABS 2 po qd ASPIRIN 87853757550 Active Víctor Payne MD Active LIPITOR 10 MG TAB one tablet daily at bedtime ATORVASTATIN CALCIUM 48874821059 No Longer Active Víctor Payne MD Active PLAVIX 75 MG TABS 1 tablet by mouth daily to prevent stroke 11/29 CLOPIDOGREL BISULFATE 60591406259 No Longer Active Víctor Payne MD Active ASPIRIN 325 MG TABS 1 TAB 2X ADAY ASPIRIN 37444562212 No Longer Active France Cohen RN Active PLAVIX 75 MG TABS 1 tablet by mouth daily to prevent stroke 11/29 PLAVIX 75 MG TABS 562057 CLOPIDOGREL BISULFATE Inactive LIPITOR 10 MG TAB one tablet daily at bedtime LIPITOR 10 MG TAB 644477 ATORVASTATIN CALCIUM Inactive LEVAQUIN 750 MG TABS 1 po qd x 7 days LEVAQUIN 750 MG TABS 066196 LEVOFLOXACIN Inactive Immunizations Vaccine Administration Date Value [...] Panel - Chemistry sodium, serum 139 mmol/L 289-620 5415/09/18 carbon dioxide, venous blood 27.6 mmol/L 21.0-32.0 [...] 142-424 Encounters Code Encounter Date Provider Facility CPT-05413 Level 3 Est. Patient 15:21:08 RETAIL SPECIAL EVENT ASSOCIATE Shaji Bradshaw MD [facility] CPT-87929 Level 3 Est. Patient 16:54:23 CDT Víctor Payne MD [facility] CPT-64520 Level 3 Est. Patient 16:10:50 CDT Víctor Payne MD [facility] CPT-44998 Level 4 Est. Patient 14:48:01 CDT Víctor Payne MD [facility] CPT-30009 Level 2 New Patient 14:23:38 RETAIL SPECIAL EVENT ASSOCIATE Víctor Payne MD [facility] Procedures Code Procedure Name Date Entry Date Standard Description CPT-43769 Chest 2V Frontal and Lat 16:22:38 CDT CPT-G0008 Administration of Influenza Virus Vaccine 14:20:57 CDT CPT-83810 Fluzone High-Dose Intramuscular Suspension 14:20:56 CDT CPT-09761 Postop F/U Visit 16:24:54 RETAIL SPECIAL EVENT ASSOCIATE CPT-OV Office Visit 13:26:00 RETAIL SPECIAL EVENT ASSOCIATE CPT-87857 Administration 2+ single or combination vaccines inc oral 10:08:59 CDT CPT-22723 Administration single or combination vaccine inc oral 10 :08:59 CDT CPT-53608 Pneumovax 10:08:59 CDT CPT-05293 Influenza High Dose age 65+ 10:08:59 CDT
--- OUTSIDE RECORDS SUMMARY | 2017-07-22 11:42 | XMS REPORT | Clinical Summary ---
Author Author Admin, E Organization [employer] Address Unknown Phone Unavailable Allergies, Adverse Reactions, [...] Inguinal hernia, right 550.90 Active Neelimakaro Modijosefa HYGIENE TEACHER Unilateral or unspecified inguinal hernia, without mention of obstruction or gangrene (not specified as recurrent) HEALTH MAINTENANCE EXAM V70.0 Active Víctor Payne MD Routine general medical examination at a health care facility Adjustment disorder with depressed mood 309.0 Active Víctor Payne MD Adjustment disorder with depressed mood Underweight 783.22 Active Víctor Payne MD Underweight Change in bowels 787.99 Active Tanya Tan HYGIENE TEACHER Other symptoms involving digestive system COPD 496 [...] 1 tab twice daily SENNOSIDES- DOCUSATE SODIUM 02894637451 Active Víctor Payne MD Active DULCOLAX 5 MG ORAL TBEC 1-2 tab hs BISACODYL 15044837902 No Longer Active Víctor Payne MD Active COLACE 100 MG ORAL CAPS 1-2 tab daily no more then 4 DOCUSATE SODIUM 19796740343 No Longer Active Víctor Payne MD Active TYLENOL 325 MG ORAL TABS 1 tab every 4-6 hrs as needed for pain ACETAMINOPHEN 31155867172 No Longer Active Víctor Payne MD Active ASPIRIN 325 MG ORAL TBEC 1 daily ASPIRIN 70098656131 No Longer Active Víctor Payne MD Active SERTRALINE HCL 50 MG TABS 1 daily for depressed mood SERTRALINE HCL 63067280022 No Longer Active Víctor Payne MD Active METOPROLOL TARTRATE 25 MG ORAL TABS 1 tablet twice a day METOPROLOL TARTRATE 78838814410 No Longer Active Trino Richardson MD Active ASPIRIN 81 MG ORAL TABS 2 po qd ASPIRIN 83621126094 No Longer Active Trino Richardson MD Active MECLIZINE HCL 25 MG TAB one 4 times a day as needed for dizziness MECLIZINE HCL 59449326547 No Longer Active Víctor Payne MD Active HYDROCODONE-ACETAMINOPHEN 5-325 MG TABS 1/2 to 1 every 4 hours as needed for back pain HYDROCODONE-ACETAMINOPHEN 28786525353 No Longer Active Víctor Payne MD Active LEVAQUIN 750 MG TABS 1 po qd x 7 days LEVOFLOXACIN 61089337750 No Longer Active Víctor Payne MD Active LIPITOR 10 MG TAB one tablet daily at bedtime ATORVASTATIN CALCIUM 22175180545 No Longer Active Víctor Payne MD Active PLAVIX 75 MG TABS 1 tablet by mouth daily to prevent stroke 11/29 CLOPIDOGREL BISULFATE 34098662044 No Longer Active Víctor Payne MD Active ASPIRIN 325 MG TABS 1 TAB 2X ADAY ASPIRIN 12910599841 No Longer Active France Cohen RN Active PLAVIX 75 MG TABS 1 tablet by mouth daily to prevent stroke 11/29 PLAVIX 75 MG TABS 20651898327 CLOPIDOGREL BISULFATE Inactive LIPITOR 10 MG TAB one tablet daily at bedtime LIPITOR 10 MG TAB 222509 ATORVASTATIN CALCIUM Inactive LEVAQUIN 750 MG TABS 1 po qd x 7 days LEVAQUIN 750 MG TABS 408686 LEVOFLOXACIN Inactive HYDROCODONE-ACETAMINOPHEN 5-325 MG TABS 1/2 to 1 every 4 hours as needed for back pain HYDROCODONE-ACETAMINOPHEN 5-325 MG TABS 245414 HYDROCODONE-ACETAMINOPHEN Inactive MECLIZINE HCL 25 MG TAB one 4 times a day as needed for dizziness MECLIZINE HCL 25 MG TAB 766298 MECLIZINE HCL Inactive ASPIRIN 81 MG ORAL TABS 2 po qd ASPIRIN 81 MG ORAL TABS ASPIRIN Inactive METOPROLOL TARTRATE 25 MG ORAL TABS 1 tablet twice a day METOPROLOL TARTRATE 25 MG ORAL TABS 262542 METOPROLOL TARTRATE Inactive SERTRALINE HCL 50 MG TABS 1 daily for depressed mood SERTRALINE HCL 50 MG TABS 255733 SERTRALINE HCL Inactive ASPIRIN 325 MG ORAL TBEC 1 daily ASPIRIN 325 MG ORAL TBEC 085235 ASPIRIN Inactive TYLENOL 325 MG ORAL TABS 1 tab every 4-6 hrs as needed for pain TYLENOL 325 MG ORAL TABS 287124 ACETAMINOPHEN Inactive COLACE 100 MG ORAL CAPS 1-2 tab daily no more then 4 COLACE 100 MG ORAL CAPS 7398804 DOCUSATE SODIUM Inactive DULCOLAX 5 MG ORAL [...] Panel - Chemistry sodium, serum 139 mmol/L 702-649 1329/05/19 carbon dioxide, venous blood 31.9 mmol/L 21.0-32.0 [...] 0.36-3.74 Encounters Code Encounter Date Provider Facility CPT-57270 Level 4 Est. Patient 15:40:13 CDT Víctor Payne MD [facility] CPT-62571 Level 3 Est. Patient 16:47:27 CDT Tanya Tan APRN [facility] CPT-20890 Level 3 Est. Patient 10:46:48 CDT Víctor Payne MD [facility] CPT-62938 Level 3 Est. Patient 15:45:17 CDT Trino Richardson MD [facility] CPT-18041 Level 4 New Patient 15:41:12 CDT Trino Richardson MD [facility] CPT-73716 Level 3 Est. Patient 09:44:56 FENCE MAKING MACHINE OPERATOR Víctor Payne MD [facility] CPT-23624 Level 4 Est. Patient 11:54:04 FENCE MAKING MACHINE OPERATOR Víctor Payne MD [facility] CPT-87990 Level 3 Est. Patient 15:21:08 FENCE MAKING MACHINE OPERATOR Shaji Bradshaw MD [facility] CPT-30118 Level 3 Est. Patient 16:54:23 CDT Víctor Payne MD [facility] CPT-84689 Level 3 Est. Patient 16:10:50 CDT Víctor Payne MD [facility] CPT-37127 Level 4 Est. Patient 14:48:01 CDT Víctor Payne MD [facility] CPT-31897 Level 2 New Patient 14:23:38 FENCE MAKING MACHINE OPERATOR Víctor Payne MD [facility] Procedures Code Procedure Name Date Entry Date Standard Description CPT-47110 Chest 2V Frontal and Lat - XRAY USE ONLY 16:00:05 CDT CPT-G0438 Initial Annual Wellness Exam 10:02:47 CDT CPT-74041 Abd compl w upright 15:47:17 CDT CPT-44992 Venipuncture Draw Fee 10:41:53 FENCE MAKING MACHINE OPERATOR CPT-19321 Chest 2V Frontal and Lat 16:22:38 CDT CPT-G0008 Administration of Influenza Virus Vaccine 14:20:57 CDT CPT-58888 Fluzone High-Dose Intramuscular Suspension 14:20:56 CDT CPT-84192 Postop F/U Visit 16:24:54 FENCE MAKING MACHINE OPERATOR CPT-OV Office Visit 13:26:00 FENCE MAKING MACHINE OPERATOR CPT-50136 Administration 2+ single or combination vaccines inc oral 10:08:59 CDT CPT-28127 Administration single or combination vaccine inc oral 10 :08:59 CDT CPT-57503 Pneumovax 10:08:59 CDT CPT-53908 Influenza High Dose age 65+ 10:08:59 CDT
--- OUTSIDE RECORDS SUMMARY | 2017-07-22 11:43 | XMS REPORT | Clinical Summary ---
Author Author Admin, E Organization [employer] Address Unknown Phone Unavailable Allergies, Adverse Reactions, [...] Inguinal hernia, right 550.90 Active Erwinguy Salasjanet [employer]ER Unilateral or unspecified inguinal hernia, without mention of obstruction or gangrene (not specified as recurrent) HEALTH MAINTENANCE EXAM V70.0 Active Víctor Payne MD Routine general medical examination at a health care facility Adjustment disorder with depressed mood 309.0 Active Víctor Payne MD Adjustment disorder with depressed mood Underweight 783.22 Active Víctor Payne MD Underweight Change in bowels 787.99 Active 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 Other symptoms involving digestive system Inguinal hernia, left ICD-550.90 Inactive Trino Richardson MD Chest wall pain ICD-786.52 Inactive Trino Richardson MD Bronchitis ICD-490 Inactive Víctor Payne MD 2015 Medication List Medication Instructions Start Date Stop Date Generic Name NDC Status Provider Patient Instruction DULCOLAX 5 MG ORAL TBEC 1-2 tab hs BISACODYL 56843201482 Active DANIEL Chase Active COLACE 100 MG ORAL CAPS 1-2 tab daily no more then 4 DOCUSATE SODIUM 86674843697 Active DANIEL Chase Active TYLENOL 325 MG ORAL TABS 1 tab every 4-6 hrs as needed for pain ACETAMINOPHEN 50486108360 Active DANIEL Chase Active SERTRALINE HCL 50 MG TABS 1 daily for depressed mood SERTRALINE HCL 17824993787 No Longer Active Víctor Payne MD Active METOPROLOL TARTRATE 25 MG ORAL TABS 1 tablet twice a day METOPROLOL TARTRATE 59922609834 No Longer Active Trino Richardson MD Active ASPIRIN 325 MG ORAL TBEC 1 daily ASPIRIN 62287127553 Active Trino Richardson MD Active ASPIRIN 81 MG ORAL TABS 2 po qd ASPIRIN 22687442728 No Longer Active Trino Richardson MD Active MECLIZINE HCL 25 MG TAB one 4 times a day as needed for dizziness MECLIZINE HCL 61660465255 No Longer Active Víctor Payne MD Active HYDROCODONE-ACETAMINOPHEN 5-325 MG TABS 1/2 to 1 every 4 hours as needed for back pain HYDROCODONE-ACETAMINOPHEN 57214510704 No Longer Active Víctor Payne MD Active LEVAQUIN 750 MG TABS 1 po qd x 7 days LEVOFLOXACIN 26681290646 No Longer Active Víctor Payne MD Active LIPITOR 10 MG TAB one tablet daily at bedtime ATORVASTATIN CALCIUM 03776445738 No Longer Active Víctor Payne MD Active PLAVIX 75 MG TABS 1 tablet by mouth daily to prevent stroke 11/29 CLOPIDOGREL BISULFATE 01349953311 No Longer Active Víctor Payne MD Active ASPIRIN 325 MG TABS 1 TAB 2X ADAY ASPIRIN 17091905228 No Longer Active France Cohen RN Active PLAVIX 75 MG TABS 1 tablet by mouth daily to prevent stroke 11/29 PLAVIX 75 MG TABS 67640661725 CLOPIDOGREL BISULFATE Inactive LIPITOR 10 MG TAB one tablet daily at bedtime LIPITOR 10 MG TAB 762617 ATORVASTATIN CALCIUM Inactive LEVAQUIN 750 MG TABS 1 po qd x 7 days LEVAQUIN 750 MG TABS 964862 LEVOFLOXACIN Inactive HYDROCODONE-ACETAMINOPHEN 5-325 MG TABS 1/2 to 1 every 4 hours as needed for back pain HYDROCODONE-ACETAMINOPHEN 5-325 MG TABS 818433 HYDROCODONE-ACETAMINOPHEN Inactive MECLIZINE HCL 25 MG TAB one 4 times a day as needed for dizziness MECLIZINE HCL 25 MG TAB 527555 MECLIZINE HCL Inactive ASPIRIN 81 MG ORAL TABS 2 po qd ASPIRIN 81 MG ORAL TABS ASPIRIN Inactive METOPROLOL TARTRATE 25 MG ORAL TABS 1 tablet twice a day METOPROLOL TARTRATE 25 MG ORAL TABS 181362 METOPROLOL TARTRATE Inactive SERTRALINE HCL 50 MG TABS 1 daily for depressed mood SERTRALINE HCL 50 MG TABS 624687 SERTRALINE HCL Inactive Immunizations Vaccine Administration Date [...] Measured Encounters Code Encounter Date Provider Facility CPT-26105 Level 3 Est. Patient 16:47:27 CDT Tanya Tan APRN [facility] CPT-51098 Level 3 Est. Patient 10:46:48 CDT Víctor Payne MD [facility] CPT-21713 Level 3 Est. Patient 15:45:17 CDT Trino Richardson MD [facility] CPT-78047 Level 4 New Patient 15:41:12 CDT Trino Richardson MD [facility] CPT-36838 Level 3 Est. Patient 09:44:56 TRACK EQUIPMENT OPERATOR Víctor Payne MD [facility] CPT-14688 Level 4 Est. Patient 11:54:04 TRACK EQUIPMENT OPERATOR Víctor Payne MD [facility] CPT-31038 Level 3 Est. Patient 15:21:08 TRACK EQUIPMENT OPERATOR Shaji Bradshaw MD [facility] CPT-83178 Level 3 Est. Patient 16:54:23 CDT Víctor Payne MD [facility] CPT-89173 Level 3 Est. Patient 16:10:50 CDT Víctor Payne MD [facility] CPT-62196 Level 4 Est. Patient 14:48:01 CDT Víctor Payne MD [facility] CPT-13627 Level 2 New Patient 14:23:38 TRACK EQUIPMENT OPERATOR Víctor Payne MD [facility] Procedures Code Procedure Name Date Entry Date Standard Description CPT-G0438 Initial Annual Wellness Exam 10:02:47 CDT CPT-55857 Abd compl w upright 15:47:17 CDT CPT-65774 Venipuncture Draw Fee 10:41:53 TRACK EQUIPMENT OPERATOR CPT-63804 Chest 2V Frontal and Lat 16:22:38 CDT CPT-G0008 Administration of Influenza Virus Vaccine 14:20:57 CDT CPT-24171 Fluzone High-Dose Intramuscular Suspension 14:20:56 CDT CPT-37170 Postop F/U Visit 16:24:54 TRACK EQUIPMENT OPERATOR CPT-OV Office Visit 13:26:00 TRACK EQUIPMENT OPERATOR CPT-27002 Administration 2+ single or combination vaccines inc oral 10:08:59 CDT CPT-12488 Administration single or combination vaccine inc oral 10 :08:59 CDT CPT-16658 Pneumovax 10:08:59 CDT CPT-65380 Influenza High Dose age 65+ 10:08:59 CDT
--- OUTSIDE RECORDS SUMMARY | 2017-07-22 11:43 | XMS REPORT | Clinical Summary ---
Author Author Admin, JEAN CLAUDE Organization [facility] Address Unknown Phone Unavailable Allergies, Adverse [...] day as needed for dizziness MECLIZINE HCL 14721061480 Active Shaji Bradshaw MD Active HYDROCODONE-ACETAMINOPHEN 5-325 MG TABS 1/2 to 1 every 4 hours as needed for back pain HYDROCODONE-ACETAMINOPHEN 64709659270 Active Víctor Payne MD Active LEVAQUIN 750 MG TABS 1 po qd x 7 days LEVOFLOXACIN 65011857600 No Longer Active Víctor Payne MD Active ASPIRIN 81 MG ORAL TABS 2 po qd ASPIRIN 32142610450 Active Víctor Payne MD Active LIPITOR 10 MG TAB one tablet daily at bedtime ATORVASTATIN CALCIUM 87307273418 No Longer Active Víctor Payne MD Active PLAVIX 75 MG TABS 1 tablet by mouth daily to prevent stroke 11/29 CLOPIDOGREL BISULFATE 58305293802 No Longer Active Víctor Payne MD Active ASPIRIN 325 MG TABS 1 TAB 2X ADAY ASPIRIN 39536908825 No Longer Active France Cohen RN Active PLAVIX 75 MG TABS 1 tablet by mouth daily to prevent stroke 11/29 PLAVIX 75 MG TABS 744637 CLOPIDOGREL BISULFATE Inactive LIPITOR 10 MG TAB one tablet daily at bedtime LIPITOR 10 MG TAB 989950 ATORVASTATIN CALCIUM Inactive LEVAQUIN 750 MG TABS 1 po qd x 7 days LEVAQUIN 750 MG TABS 757369 LEVOFLOXACIN Inactive Immunizations Vaccine Administration Date Value [...] Panel - Chemistry sodium, serum 139 mmol/L 904-866 8610/09/18 carbon dioxide, venous blood 27.6 mmol/L 21.0-32.0 [...] Panel - Chemistry sodium, serum 136 mmol/L 081-116 3257/12/30 carbon dioxide, venous blood 27.9 mmol/L 21.0-32.0 [...] 0.00-1.00 Encounters Code Encounter Date Provider Facility CPT-50279 Level 4 Est. Patient 11:54:04 RN CLINICAL REVIEW Víctor Payne MD [facility] CPT-97110 Level 3 Est. Patient 15:21:08 RN CLINICAL REVIEW Shaji Bradshaw MD [facility] CPT-41638 Level 3 Est. Patient 16:54:23 CDT Víctor Payne MD [facility] CPT-71291 Level 3 Est. Patient 16:10:50 CDT Víctor Payne MD [facility] CPT-46818 Level 4 Est. Patient 14:48:01 CDT Víctor Payne MD [facility] CPT-82853 Level 2 New Patient 14:23:38 RN CLINICAL REVIEW Víctor Payne MD [facility] Procedures Code Procedure Name Date Entry Date Standard Description CPT-79453 Chest 2V Frontal and Lat 16:22:38 CDT CPT-G0008 Administration of Influenza Virus Vaccine 14:20:57 CDT CPT-35631 Fluzone High-Dose Intramuscular Suspension 14:20:56 CDT CPT-91703 Postop F/U Visit 16:24:54 RN CLINICAL REVIEW CPT-OV Office Visit 13:26:00 RN CLINICAL REVIEW CPT-38894 Administration 2+ single or combination vaccines inc oral 10:08:59 CDT CPT-36280 Administration single or combination vaccine inc oral 10 :08:59 CDT CPT-60356 Pneumovax 10:08:59 CDT CPT-03545 Influenza High Dose age 65+ 10:08:59 CDT
--- OUTSIDE RECORDS SUMMARY | 2017-07-22 11:43 | XMS REPORT | Clinical Summary ---
Author Author Admin, E Organization [employer] Address Unknown Phone Unavailable Allergies, Adverse Reactions, [...] Inguinal hernia, right 550.[address] MANAGER Unilateral or unspecified inguinal hernia, without mention of obstruction or gangrene (not specified as recurrent) HEALTH MAINTENANCE EXAM V70.0 Active Víctor Payne MD Routine general medical examination at a health care facility Adjustment disorder with depressed mood 309.0 Active Víctor Payne MD Adjustment disorder with depressed mood Underweight 783.22 Active Víctor Payne MD Underweight Change in bowels 787.[address] MANAGER Other symptoms involving digestive system COPD [...] 1 tab twice daily SENNOSIDES- DOCUSATE SODIUM 23537076953 Active Víctor Payne MD Active DULCOLAX 5 MG ORAL TBEC 1-2 tab hs BISACODYL 98189931501 No Longer Active Víctor Payne MD Active COLACE 100 MG ORAL CAPS 1-2 tab daily no more then 4 DOCUSATE SODIUM 07373338335 No Longer Active Víctor Payne MD Active TYLENOL 325 MG ORAL TABS 1 tab every 4-6 hrs as needed for pain ACETAMINOPHEN 34244694742 No Longer Active Víctor Payne MD Active ASPIRIN 325 MG ORAL TBEC 1 daily ASPIRIN 29355327344 No Longer Active Víctor Payne MD Active SERTRALINE HCL 50 MG TABS 1 daily for depressed mood SERTRALINE HCL 73464933891 No Longer Active Víctor Payne MD Active METOPROLOL TARTRATE 25 MG ORAL TABS 1 tablet twice a day METOPROLOL TARTRATE 85105930912 No Longer Active Trino Richardson MD Active ASPIRIN 81 MG ORAL TABS 2 po qd ASPIRIN 90809483826 No Longer Active Trino Richardson MD Active MECLIZINE HCL 25 MG TAB one 4 times a day as needed for dizziness MECLIZINE HCL 86056589038 No Longer Active Víctor Payne MD Active HYDROCODONE-ACETAMINOPHEN 5-325 MG TABS 1/2 to 1 every 4 hours as needed for back pain HYDROCODONE-ACETAMINOPHEN 05291433807 No Longer Active Víctor Payne MD Active LEVAQUIN 750 MG TABS 1 po qd x 7 days LEVOFLOXACIN 00222119921 No Longer Active Víctor Payne MD Active LIPITOR 10 MG TAB one tablet daily at bedtime ATORVASTATIN CALCIUM 40905412981 No Longer Active Víctor Payne MD Active PLAVIX 75 MG TABS 1 tablet by mouth daily to prevent stroke 11/29 CLOPIDOGREL BISULFATE 97265006366 No Longer Active Víctor Payne MD Active ASPIRIN 325 MG TABS 1 TAB 2X ADAY ASPIRIN 63565404839 No Longer Active France Cohen RN Active PLAVIX 75 MG TABS 1 tablet by mouth daily to prevent stroke 11/29 PLAVIX 75 MG TABS 75778518449 CLOPIDOGREL BISULFATE Inactive LIPITOR 10 MG TAB one tablet daily at bedtime LIPITOR 10 MG TAB 087588 ATORVASTATIN CALCIUM Inactive LEVAQUIN 750 MG TABS 1 po qd x 7 days LEVAQUIN 750 MG TABS 664291 LEVOFLOXACIN Inactive HYDROCODONE-ACETAMINOPHEN 5-325 MG TABS 1/2 to 1 every 4 hours as needed for back pain HYDROCODONE-ACETAMINOPHEN 5-325 MG TABS 533782 HYDROCODONE-ACETAMINOPHEN Inactive MECLIZINE HCL 25 MG TAB one 4 times a day as needed for dizziness MECLIZINE HCL 25 MG TAB 436275 MECLIZINE HCL Inactive ASPIRIN 81 MG ORAL TABS 2 po qd ASPIRIN 81 MG ORAL TABS ASPIRIN Inactive METOPROLOL TARTRATE 25 MG ORAL TABS 1 tablet twice a day METOPROLOL TARTRATE 25 MG ORAL TABS 753124 METOPROLOL TARTRATE Inactive SERTRALINE HCL 50 MG TABS 1 daily for depressed mood SERTRALINE HCL 50 MG TABS 490405 SERTRALINE HCL Inactive ASPIRIN 325 MG ORAL TBEC 1 daily ASPIRIN 325 MG ORAL TBEC 380346 ASPIRIN Inactive TYLENOL 325 MG ORAL TABS 1 tab every 4-6 hrs as needed for pain TYLENOL 325 MG ORAL TABS 941077 ACETAMINOPHEN Inactive COLACE 100 MG ORAL CAPS 1-2 tab daily no more then 4 COLACE 100 MG ORAL CAPS 9776583 DOCUSATE SODIUM Inactive DULCOLAX 5 MG ORAL [...] Panel - Chemistry sodium, serum 139 mmol/L 738-332 9144/05/19 carbon dioxide, venous blood 31.9 mmol/L 21.0-32.0 [...] 0.36-3.74 Encounters Code Encounter Date Provider Facility CPT-55508 Level 4 Est. Patient 15:40:13 CDT Víctor Payne MD [facility] CPT-64399 Level 3 Est. Patient 16:47:27 CDT Tanya Tan APRN [facility] CPT-47355 Level 3 Est. Patient 10:46:48 CDT Víctor Payne MD [facility] CPT-29704 Level 3 Est. Patient 15:45:17 CDT Trino Richardson MD [facility] CPT-08478 Level 4 New Patient 15:41:12 CDT Trino Richardson MD [facility] CPT-45417 Level 3 Est. Patient 09:44:56 PORCELAIN ENAMELING SUPERVISOR Víctor Payne MD [facility] CPT-28350 Level 4 Est. Patient 11:54:04 PORCELAIN ENAMELING SUPERVISOR Víctor Payne MD [facility] CPT-18913 Level 3 Est. Patient 15:21:08 PORCELAIN ENAMELING SUPERVISOR Shaji Bradshaw MD [facility] CPT-87589 Level 3 Est. Patient 16:54:23 CDT Víctor Payne MD [facility] CPT-04719 Level 3 Est. Patient 16:10:50 CDT Víctor Payne MD [facility] CPT-17168 Level 4 Est. Patient 14:48:01 CDT Víctor Payne MD [facility] CPT-74977 Level 2 New Patient 14:23:38 PORCELAIN ENAMELING SUPERVISOR Víctor Payne MD [facility] Procedures Code Procedure Name Date Entry Date Standard Description CPT-31401 Chest 2V Frontal and Lat - XRAY USE ONLY 16:00:05 CDT CPT-G0438 Initial Annual Wellness Exam 10:02:47 CDT CPT-60652 Abd compl w upright 15:47:17 CDT CPT-56958 Venipuncture Draw Fee 10:41:53 PORCELAIN ENAMELING SUPERVISOR CPT-35204 Chest 2V Frontal and Lat 16:22:38 CDT CPT-G0008 Administration of Influenza Virus Vaccine 14:20:57 CDT CPT-16027 Fluzone High-Dose Intramuscular Suspension 14:20:56 CDT CPT-17564 Postop F/U Visit 16:24:54 PORCELAIN ENAMELING SUPERVISOR CPT-OV Office Visit 13:26:00 PORCELAIN ENAMELING SUPERVISOR CPT-63786 Administration 2+ single or combination vaccines inc oral 10:08:59 CDT CPT-15061 Administration single or combination vaccine inc oral 10 :08:59 CDT CPT-95698 Pneumovax 10:08:59 CDT CPT-30589 Influenza High Dose age 65+ 10:08:59 CDT
--- OUTSIDE RECORDS SUMMARY | 2017-07-22 11:44 | XMS REPORT | Clinical Summary ---
Author Author Admin, E Organization [employer] Address Unknown Phone Unavailable Allergies, Adverse Reactions, [...] Inguinal hernia, right 550.90 Active Erwinguy Salasjanet CONSTRUCTION SCHEDULER Unilateral or unspecified inguinal hernia, without mention of obstruction or gangrene (not specified as recurrent) HEALTH MAINTENANCE EXAM V70.0 Active Víctor Payne MD Routine general medical examination at a health care facility Adjustment disorder with depressed mood 309.0 Active Víctor Payne MD Adjustment disorder with depressed mood Underweight 783.22 Active Víctor Payne MD Underweight Change in bowels 787.99 Active Tanya CONSTRUCTION SCHEDULER Other symptoms involving digestive system Inguinal hernia, left ICD-550.90 Inactive Trino Richardson MD Chest wall pain ICD-786.52 Inactive Trino Richardson MD Bronchitis ICD-490 Inactive Víctor Payne MD 2015 Medication List Medication Instructions Start Date Stop Date Generic Name NDC Status Provider Patient Instruction DULCOLAX 5 MG ORAL TBEC 1-2 tab hs BISACODYL 09783886655 Active DANIEL Chase Active COLACE 100 MG ORAL CAPS 1-2 tab daily no more then 4 DOCUSATE SODIUM 78051817669 Active DANIEL Chase Active TYLENOL 325 MG ORAL TABS 1 tab every 4-6 hrs as needed for pain ACETAMINOPHEN 22409184626 Active DANIEL Chase Active SERTRALINE HCL 50 MG TABS 1 daily for depressed mood SERTRALINE HCL 94285983697 No Longer Active Víctor Payne MD Active METOPROLOL TARTRATE 25 MG ORAL TABS 1 tablet twice a day METOPROLOL TARTRATE 81673768741 No Longer Active Trino Richardson MD Active ASPIRIN 325 MG ORAL TBEC 1 daily ASPIRIN 37963353316 Active Trino Richardson MD Active ASPIRIN 81 MG ORAL TABS 2 po qd ASPIRIN 32592398215 No Longer Active Trino Richardson MD Active MECLIZINE HCL 25 MG TAB one 4 times a day as needed for dizziness MECLIZINE HCL 04774450282 No Longer Active Víctor Payne MD Active HYDROCODONE-ACETAMINOPHEN 5-325 MG TABS 1/2 to 1 every 4 hours as needed for back pain HYDROCODONE-ACETAMINOPHEN 89765723236 No Longer Active Víctor Payne MD Active LEVAQUIN 750 MG TABS 1 po qd x 7 days LEVOFLOXACIN 03987925643 No Longer Active Víctor Payne MD Active LIPITOR 10 MG TAB one tablet daily at bedtime ATORVASTATIN CALCIUM 97817458251 No Longer Active Víctor Payne MD Active PLAVIX 75 MG TABS 1 tablet by mouth daily to prevent stroke 11/29 CLOPIDOGREL BISULFATE 83014340696 No Longer Active Víctor Payne MD Active ASPIRIN 325 MG TABS 1 TAB 2X ADAY ASPIRIN 99132042734 No Longer Active France Cohen RN Active PLAVIX 75 MG TABS 1 tablet by mouth daily to prevent stroke 11/29 PLAVIX 75 MG TABS 24821677884 CLOPIDOGREL BISULFATE Inactive LIPITOR 10 MG TAB one tablet daily at bedtime LIPITOR 10 MG TAB 428116 ATORVASTATIN CALCIUM Inactive LEVAQUIN 750 MG TABS 1 po qd x 7 days LEVAQUIN 750 MG TABS 691476 LEVOFLOXACIN Inactive HYDROCODONE-ACETAMINOPHEN 5-325 MG TABS 1/2 to 1 every 4 hours as needed for back pain HYDROCODONE-ACETAMINOPHEN 5-325 MG TABS 011654 HYDROCODONE-ACETAMINOPHEN Inactive MECLIZINE HCL 25 MG TAB one 4 times a day as needed for dizziness MECLIZINE HCL 25 MG TAB 154003 MECLIZINE HCL Inactive ASPIRIN 81 MG ORAL TABS 2 po qd ASPIRIN 81 MG ORAL TABS ASPIRIN Inactive METOPROLOL TARTRATE 25 MG ORAL TABS 1 tablet twice a day METOPROLOL TARTRATE 25 MG ORAL TABS 293237 METOPROLOL TARTRATE Inactive SERTRALINE HCL 50 MG TABS 1 daily for depressed mood SERTRALINE HCL 50 MG TABS 859869 SERTRALINE HCL Inactive Immunizations Vaccine Administration Date [...] Measured Encounters Code Encounter Date Provider Facility CPT-39982 Level 3 Est. Patient 16:47:27 CDT Tanya Tan APRN [facility] CPT-59907 Level 3 Est. Patient 10:46:48 CDT Víctor Payne MD [facility] CPT-65429 Level 3 Est. Patient 15:45:17 CDT Trino Richardson MD [facility] CPT-18299 Level 4 New Patient 15:41:12 CDT Trino Richardson MD [facility] CPT-42563 Level 3 Est. Patient 09:44:56 AIR BAG CURER Víctor Payne MD [facility] CPT-27620 Level 4 Est. Patient 11:54:04 AIR BAG CURER Víctor Payne MD [facility] CPT-18506 Level 3 Est. Patient 15:21:08 AIR BAG CURER Shaji Bradshaw MD [facility] CPT-68179 Level 3 Est. Patient 16:54:23 CDT Víctor Payne MD [facility] CPT-53879 Level 3 Est. Patient 16:10:50 CDT Víctor Payne MD [facility] CPT-06642 Level 4 Est. Patient 14:48:01 CDT Víctor Payne MD [facility] CPT-45775 Level 2 New Patient 14:23:38 AIR BAG CURER Víctor Payne MD [facility] Procedures Code Procedure Name Date Entry Date Standard Description CPT-G0438 Initial Annual Wellness Exam 10:02:47 CDT CPT-17451 Abd compl w upright 15:47:17 CDT CPT-84299 Venipuncture Draw Fee 10:41:53 AIR BAG CURER CPT-25023 Chest 2V Frontal and Lat 16:22:38 CDT CPT-G0008 Administration of Influenza Virus Vaccine 14:20:57 CDT CPT-32983 Fluzone High-Dose Intramuscular Suspension 14:20:56 CDT CPT-32481 Postop F/U Visit 16:24:54 AIR BAG CURER CPT-OV Office Visit 13:26:00 AIR BAG CURER CPT-40082 Administration 2+ single or combination vaccines inc oral 10:08:59 CDT CPT-83390 Administration single or combination vaccine inc oral 10 :08:59 CDT CPT-46015 Pneumovax 10:08:59 CDT CPT-83997 Influenza High Dose age 65+ 10:08:59 CDT
--- OUTSIDE RECORDS SUMMARY | 2017-07-22 11:44 | XMS REPORT | Clinical Summary ---
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 Unilateral or unspecified inguinal hernia, without [...] 1 tablet twice a day METOPROLOL TARTRATE 86311409554 No Longer Active Trino Richardson MD Active ASPIRIN 325 MG ORAL TBEC 1 daily ASPIRIN 70156269261 Active Trino Richardson MD Active ASPIRIN 81 MG ORAL TABS 2 po qd ASPIRIN 24818646806 No Longer Active Trino Richardson MD Active MECLIZINE HCL 25 MG TAB one 4 times a day as needed for dizziness MECLIZINE HCL 10833158726 No Longer Active Víctor Payne MD Active HYDROCODONE-ACETAMINOPHEN 5-325 MG TABS 1/2 to 1 every 4 hours as needed for back pain HYDROCODONE-ACETAMINOPHEN 79116244366 No Longer Active Víctor Payne MD Active LEVAQUIN 750 MG TABS 1 po qd x 7 days LEVOFLOXACIN 12683017636 No Longer Active Víctor Payne MD Active LIPITOR 10 MG TAB one tablet daily at bedtime ATORVASTATIN CALCIUM 21122119872 No Longer Active Víctor Payne MD Active PLAVIX 75 MG TABS 1 tablet by mouth daily to prevent stroke 11/29 CLOPIDOGREL BISULFATE 77671051546 No Longer Active Víctor Payne MD Active ASPIRIN 325 MG TABS 1 TAB 2X ADAY ASPIRIN 61190074297 No Longer Active France Cohen RN Active PLAVIX 75 MG TABS 1 tablet by mouth daily to prevent stroke 11/29 PLAVIX 75 MG TABS 665225 CLOPIDOGREL BISULFATE Inactive LIPITOR 10 MG TAB one tablet daily at bedtime LIPITOR 10 MG TAB 062614 ATORVASTATIN CALCIUM Inactive LEVAQUIN 750 MG TABS 1 po qd x 7 days LEVAQUIN 750 MG TABS 846452 LEVOFLOXACIN Inactive HYDROCODONE-ACETAMINOPHEN 5-325 MG TABS 1/2 to 1 every 4 hours as needed for back pain HYDROCODONE-ACETAMINOPHEN 5-325 MG TABS 134003 HYDROCODONE-ACETAMINOPHEN Inactive MECLIZINE HCL 25 MG TAB one 4 times a day as needed for dizziness MECLIZINE HCL 25 MG TAB 693930 MECLIZINE HCL Inactive ASPIRIN 81 MG ORAL TABS 2 po qd ASPIRIN 81 MG ORAL TABS 160376 ASPIRIN Inactive METOPROLOL TARTRATE 25 MG ORAL TABS 1 tablet twice a day METOPROLOL TARTRATE 25 MG ORAL TABS 042080 METOPROLOL TARTRATE Inactive Immunizations Vaccine Administration Date [...] % 11.6-14.8 platelet count 303 10^3/MM^3 10*3/mm3 098-369 0246/02/10 leukocyte count, blood 11.9 10^3/MM^3 10*3/mm3 4.6-10.2 [...] Panel - Chemistry sodium, serum 139 mmol/L 604-718 3265/09/18 carbon dioxide, venous blood 27.6 mmol/L 21.0-32.0 [...] Panel - Chemistry sodium, serum 136 mmol/L 592-317 5016/12/30 carbon dioxide, venous blood 27.9 mmol/L 21.0-32.0 [...] 0.00-1.00 Encounters Code Encounter Date Provider Facility CPT-34451 Level 3 Est. Patient 15:45:17 CDT Trino Richardson MD [facility] CPT-57819 Level 4 New Patient 15:41:12 CDT Trino Richardson MD [facility] CPT-71832 Level 3 Est. Patient 09:44:56 MANAGER DENTAL Víctor Payne MD [facility] CPT-01816 Level 4 Est. Patient 11:54:04 MANAGER DENTAL Víctor Payne MD [facility] CPT-53250 Level 3 Est. Patient 15:21:08 MANAGER DENTAL Shaji Bradshaw MD [facility] CPT-75572 Level 3 Est. Patient 16:54:23 CDT Víctor Payne MD [facility] CPT-28879 Level 3 Est. Patient 16:10:50 CDT Víctor Payne MD [facility] CPT-44024 Level 4 Est. Patient 14:48:01 CDT Víctor Payne MD [facility] CPT-32961 Level 2 New Patient 14:23:38 MANAGER DENTAL Víctor Payne MD [facility] Procedures Code Procedure Name Date Entry Date Standard Description CPT-45299 Abd compl w upright 15:47:17 CDT CPT-80745 Venipuncture Draw Fee 10:41:53 MANAGER DENTAL CPT-75918 Chest 2V Frontal and Lat 16:22:38 CDT CPT-G0008 Administration of Influenza Virus Vaccine 14:20:57 CDT CPT-90371 Fluzone High-Dose Intramuscular Suspension 14:20:56 CDT CPT-32960 Postop F/U Visit 16:24:54 MANAGER DENTAL CPT-OV Office Visit 13:26:00 MANAGER DENTAL CPT-19678 Administration 2+ single or combination vaccines inc oral 10:08:59 CDT CPT-26844 Administration single or combination vaccine inc oral 10 :08:59 CDT CPT-94046 Pneumovax 10:08:59 CDT CPT-15772 Influenza High Dose age 65+ 10:08:59 CDT
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
--- OUTSIDE RECORDS SUMMARY | 2017-07-22 11:45 | XMS REPORT | Clinical Summary ---
Author Author Admin, E Organization [employer] Address Unknown Phone Unavailable Allergies, Adverse [...] hypertension Inguinal hernia, right 550.90 Active Josr Salasjanet PLASMA PROCESSOR Unilateral or unspecified inguinal hernia, without mention of obstruction or gangrene (not specified as recurrent) HEALTH MAINTENANCE EXAM V70.0 Active Víctor Payne MD Routine general medical examination at a health care facility Adjustment disorder with depressed mood 309.0 Active Víctor Payne MD Adjustment disorder with depressed mood Underweight 783.22 Active Víctor Payne MD Underweight Change in bowels 787.99 Active Tanya Tan PLASMA PROCESSOR Other symptoms involving digestive system COPD [...] gtts effected ear(ears) q day CARBAMIDE PEROXIDE 68388743793 Active New aCstro DO Active AMLODIPINE BESYLATE 5 MG TABS 1 tablet by mouth daily AMLODIPINE BESYLATE 33477740956 Active New Castro DO Active DOK PLUS 50-8.6 MG ORAL TABS 1 tab twice daily SENNOSIDES-DOCUSATE SODIUM 02510632147 No Longer Active New Castro DO Active DULCOLAX 5 MG ORAL TBEC 1-2 tab hs BISACODYL 89186911595 No Longer Active Víctor Payne MD Active COLACE 100 MG ORAL CAPS 1-2 tab daily no more then 4 DOCUSATE SODIUM 59379793999 No Longer Active Víctor Payne MD Active TYLENOL 325 MG ORAL TABS 1 tab every 4-6 hrs as needed for pain ACETAMINOPHEN 71607553021 No Longer Active Víctor Payne MD Active ASPIRIN 325 MG ORAL TBEC 1 daily ASPIRIN 94660256660 No Longer Active Víctor Payne MD Active SERTRALINE HCL 50 MG TABS 1 daily for depressed mood SERTRALINE HCL 90815456335 No Longer Active Víctor Payne MD Active METOPROLOL TARTRATE 25 MG ORAL TABS 1 tablet twice a day METOPROLOL TARTRATE 50786523095 No Longer Active Trino Richardson MD Active ASPIRIN 81 MG ORAL TABS 2 po qd ASPIRIN 16618415886 No Longer Active Trino Richardson MD Active MECLIZINE HCL 25 MG TAB one 4 times a day as needed for dizziness MECLIZINE HCL 41401647887 No Longer Active Víctor Payne MD Active HYDROCODONE-ACETAMINOPHEN 5-325 MG TABS 1/2 to 1 every 4 hours as needed for back pain HYDROCODONE-ACETAMINOPHEN 33038356174 No Longer Active Víctor Payne MD Active LEVAQUIN 750 MG TABS 1 po qd x 7 days LEVOFLOXACIN 05940083217 No Longer Active Víctor Payne MD Active LIPITOR 10 MG TAB one tablet daily at bedtime ATORVASTATIN CALCIUM 61606647593 No Longer Active Víctor Payne MD Active PLAVIX 75 MG TABS 1 tablet by mouth daily to prevent stroke 11/29 CLOPIDOGREL BISULFATE 86355220082 No Longer Active Víctor Payne MD Active ASPIRIN 325 MG TABS 1 TAB 2X ADAY ASPIRIN 88569925746 No Longer Active France Cohen RN Active PLAVIX 75 MG TABS 1 tablet by mouth daily to prevent stroke 11/29 PLAVIX 75 MG TABS 012565 CLOPIDOGREL BISULFATE Inactive LIPITOR 10 MG TAB one tablet daily at bedtime LIPITOR 10 MG TAB 926285 ATORVASTATIN CALCIUM Inactive LEVAQUIN 750 MG TABS 1 po qd x 7 days LEVAQUIN 750 MG TABS 036246 LEVOFLOXACIN Inactive HYDROCODONE-ACETAMINOPHEN 5-325 MG TABS 1/2 to 1 every 4 hours as needed for back pain HYDROCODONE-ACETAMINOPHEN 5-325 MG TABS 155227 HYDROCODONE-ACETAMINOPHEN Inactive MECLIZINE HCL 25 MG TAB one 4 times a day as needed for dizziness MECLIZINE HCL 25 MG TAB 031934 MECLIZINE HCL Inactive ASPIRIN 81 MG ORAL TABS 2 po qd ASPIRIN 81 MG ORAL TABS 271835 ASPIRIN Inactive METOPROLOL TARTRATE 25 MG ORAL TABS 1 tablet twice a day METOPROLOL TARTRATE 25 MG ORAL TABS 741018 METOPROLOL TARTRATE Inactive SERTRALINE HCL 50 MG TABS 1 daily for depressed mood SERTRALINE HCL 50 MG TABS 731033 SERTRALINE HCL Inactive ASPIRIN 325 MG ORAL TBEC 1 daily ASPIRIN 325 MG ORAL TBEC 313770 ASPIRIN Inactive TYLENOL 325 MG ORAL TABS 1 tab every 4-6 hrs as needed for pain TYLENOL 325 MG ORAL TABS 144437 ACETAMINOPHEN Inactive COLACE 100 MG ORAL CAPS 1-2 tab daily no more then 4 COLACE 100 MG ORAL CAPS 7553336 DOCUSATE SODIUM Inactive DULCOLAX 5 MG ORAL TBEC 1-2 tab hs DULCOLAX 5 MG ORAL TBEC BISACODYL Inactive DOK PLUS 50-8.6 MG ORAL TABS 1 tab twice daily DOK PLUS 50-8.6 MG ORAL TABS 640685 SENNOSIDES-DOCUSATE SODIUM Inactive Immunizations Vaccine Administration Date [...] Panel - Chemistry sodium, serum 139 mmol/L 963-621 6264/05/19 carbon dioxide, venous blood 31.9 mmol/L 21.0-32.0 [...] Panel - Hematology mean corpuscular volume, RBC 96 fL 80-97 hematocrit, blood 42.7 % 40.0-54.0 hemoglobin, blood 14.2 g/dL 14.0-18.0 erythrocyte (RBC) count 4.45 10^6/MM^3 10*6/mm3 4.50-6.50 leukocyte count, blood 8.4 10^3/MM^3 10*3/mm3 4.6-10.2 mean corpuscular hemoglobin, RBC 32.0 pg 27.0-31.2 mean corpuscular hemoglobin concentration, RBC 33.3 G/DL % 31.8- 35.4 red blood cell distribution width 14.1 % 11.6-14.8 platelet count 261 10^3/MM^3 10*3/mm3 142-424 Lab Report: Thyroid Stimulating Hormone (L) - Chemistry TSH 0.50 m[iU]/mL 0.36-3.74 Encounters Code Encounter Date Provider Facility CPT-62600 Level 3 Est. Patient 10:30:37 CDT New Castro DO [facility] CPT-12980 Level 4 Est. Patient 15:40:13 CDT Víctor Payne MD [facility] CPT-87754 Level 3 Est. Patient 16:47:27 CDT Tanya Tan APRN [facility] CPT-81698 Level 3 Est. Patient 10:46:48 CDT Víctor Payne MD [facility] CPT-27762 Level 3 Est. Patient 15:45:17 CDT Trino Richardson MD [facility] CPT-31675 Level 4 New Patient 15:41:12 CDT Trino Richardson MD [facility] CPT-68429 Level 3 Est. Patient 09:44:56 TILE SHADER Víctor Payne MD [facility] CPT-88316 Level 4 Est. Patient 11:54:04 TILE SHADER Víctor Payne MD [facility] CPT-11040 Level 3 Est. Patient 15:21:08 TILE SHADER Shaji Bradshaw MD [facility] CPT-44691 Level 3 Est. Patient 16:54:23 CDT Víctor Payne MD [facility] CPT-90407 Level 3 Est. Patient 16:10:50 CDT Víctor Payne MD [facility] CPT-88749 Level 4 Est. Patient 14:48:01 CDT Víctor Payne MD [facility] CPT-91784 Level 2 New Patient 14:23:38 TILE SHADER Víctor Payne MD [facility] Procedures Code Procedure Name Date Entry Date Standard Description CPT-65766 Chest 2V Frontal and Lat - XRAY USE ONLY 16:00:05 CDT CPT-G0438 Initial Annual Wellness Exam 10:02:47 CDT CPT-43901 Abd compl w upright 15:47:17 CDT CPT-97424 Venipuncture Draw Fee 10:41:53 TILE SHADER CPT-81337 Chest 2V Frontal and Lat 16:22:38 CDT CPT-G0008 Administration of Influenza Virus Vaccine 14:20:57 CDT CPT-26290 Fluzone High-Dose Intramuscular Suspension 14:20:56 CDT CPT-12821 Postop F/U Visit 16:24:54 TILE SHADER CPT-OV Office Visit 13:26:00 TILE SHADER CPT-46235 Administration 2+ single or combination vaccines inc oral 10:08:59 CDT CPT-79324 Administration single or combination vaccine inc oral 10 :08:59 CDT CPT-89129 Pneumovax 10:08:59 CDT CPT-60176 Influenza High Dose age 65+ 10:08:59 CDT
--- OUTSIDE RECORDS SUMMARY | 2017-07-22 11:46 | XMS REPORT ---
Author Author [email or web address] [facility] Medical Staff Organization [facility] Address [address] [place], [place] [address] Phone [phone] Summary purpose TRANSITION OF CARE AUTO GENERATION [...] Muscle Strength LLE 4 ROM slight resist 87-52-902639:19 Transfers independent 10-29-078294:19 Ambulation up ad susan 03-28-968054:19 Balance steady :19 Bathing Assistance none :35 Eating Assistance none :35 Dressing Assistance none :35 Toileting Assistance none :35 Transfer Assistance none :35 Decline Slf Care/Mob no :35 Phys Cond Stable yes :35 Nutrition normal :19 Diet regular 36-10-669309:19 Oral Cavity moist and intact 95-77-053541:19 Teeth dentures 22-25-327991:19 Dental Hygiene good 24-36-596471:19 Abdomen Appearance flat 65-26-972136:19 Abdomen non-tender 31-24-203705:19 Bowel Sounds present 32-34-375420:19 NG Tube no 88-39-986714:19 Feeding Tube none 50-83-164707:19 Fink no 89-88-363800:19 Cont Bladder Irr no 51-36-100717:19 Ostomy no 65-48-474993:19 Stool other (specify) Comment: 0 noted 52-36-794550:19 Urination normal 60-97-529983:19 Quality sym/unlabored 51-44-395864:19 Cough productive 52-33-003719:19 Secretions no 57-18-204248:19 Breath Sounds RUL wheezes 11-03-531999:19 Breath Sounds RML wheezes 57-84-385064:19 Breath Sounds RLL wheezes 53-13-309761:19 Breath Sounds CAITIE wheezes 48-60-924437:19 Breath Sounds LLL wheezes 13-02-731999:19 Airway natural 09-35-378660:19 Chest Tube no 51-21-961392:19 Oxygen no 52-28-883851:45 C-PAP no 56-73-267915:19 BI-PAP no 02-32-970309:19 Temp >100.4 no 50-76-261137:19 Temp <96.8 no 37-50-443011:19 Chills with rigors no 03-64-956497:19 HR > 90bpm no 90-34-359856:19 Respirations > 20 no 19-01-811411:19 Systolic <90 no 58-95-601151:19 headache stiff neck no 97-96-917126:19 IV Site Location Lt AC 17-39-610038:45 IV Type peripheral 86-04-230339:45 IV Site Information discontinued 19-17-057377:45 IV Site Start Attmpt 1 times 89-19-447666:45 IV Site Jaden 20 45-15-651417:45 IV Site Appearance WNL 00-80-762184:45 IV Site Color clear :45 IV Site Patent yes :45 Dressing Type occlusive :45 Nursing Note Pt leaves unit per w/c 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 Pt in good condition with all belongings [...] Learning Ability comprehends well :22 Neurological no 99-19-684511:22 Psychological no 92-52-953055:22 Physical no 94-79-141555:22 Hearing no :22 Outside B2[employer] Sales Needed no :22 Sign Language no :22 Emotional no :22 Vision yes :22 Laguage no :22 Financial no :22 Vital signs Type Value Date Respiration Rate 22breaths per minute :45 Pulse 79beats per minute :45 Oxygen Saturation 96% :45 BP Systolic 121mmHg :45 BP Diastolic 52mmHg :45 Temperature 98.2F :56 Height 68inches :45 Weight 149LB 33-34-693391:45 Social history Type Value Smoking Status CURRENT [...]
--- OUTSIDE RECORDS SUMMARY | 2017-07-22 11:46 | XMS REPORT | Clinical Summary ---
Author Author Admin, E Organization [employer] Address Unknown Phone Unavailable Allergies, Adverse Reactions, [...] Inguinal hernia, right 550.90 Active Josr Montoya RETORT FORKER Unilateral or unspecified inguinal hernia, without mention of obstruction or gangrene (not specified as recurrent) HEALTH MAINTENANCE EXAM V70.0 Active Víctor Payne MD Routine general medical examination at a health care facility Adjustment disorder with depressed mood 309.0 Active Víctor Payne MD Adjustment disorder with depressed mood Underweight 783.22 Active Víctor Payne MD Underweight Chest wall pain ICD-786.52 Inactive Trino Richardson MD Inguinal hernia, left ICD-550.90 Inactive Trino Richardson MD Bronchitis ICD-490 Inactive Víctor Payne MD 2015 Medication List Medication Instructions Start Date Stop Date Generic Name NDC Status Provider Patient Instruction SERTRALINE HCL 50 MG TABS 1 daily for depressed mood SERTRALINE HCL 03592939356 No Longer Active Víctor Payne MD Active METOPROLOL TARTRATE 25 MG ORAL TABS 1 tablet twice a day METOPROLOL TARTRATE 59375313017 No Longer Active Trino Richardson MD Active ASPIRIN 325 MG ORAL TBEC 1 daily ASPIRIN 91577877185 Active Trino Richardson MD Active ASPIRIN 81 MG ORAL TABS 2 po qd ASPIRIN 52886126864 No Longer Active Trino Richardson MD Active MECLIZINE HCL 25 MG TAB one 4 times a day as needed for dizziness MECLIZINE HCL 28710115747 No Longer Active Víctor Payne MD Active HYDROCODONE-ACETAMINOPHEN 5-325 MG TABS 1/2 to 1 every 4 hours as needed for back pain HYDROCODONE-ACETAMINOPHEN 21643880673 No Longer Active Víctor Payne MD Active LEVAQUIN 750 MG TABS 1 po qd x 7 days LEVOFLOXACIN 73814991144 No Longer Active Víctor Payne MD Active LIPITOR 10 MG TAB one tablet daily at bedtime ATORVASTATIN CALCIUM 07114797913 No Longer Active Víctor Payne MD Active PLAVIX 75 MG TABS 1 tablet by mouth daily to prevent stroke 11/29 CLOPIDOGREL BISULFATE 64139901477 No Longer Active Víctor Payne MD Active ASPIRIN 325 MG TABS 1 TAB 2X ADAY ASPIRIN 51495893237 No Longer Active France Cohen RN Active PLAVIX 75 MG TABS 1 tablet by mouth daily to prevent stroke 11/29 PLAVIX 75 MG TABS 49086666910 CLOPIDOGREL BISULFATE Inactive LIPITOR 10 MG TAB one tablet daily at bedtime LIPITOR 10 MG TAB 377591 ATORVASTATIN CALCIUM Inactive LEVAQUIN 750 MG TABS 1 po qd x 7 days LEVAQUIN 750 MG TABS 157900 LEVOFLOXACIN Inactive HYDROCODONE-ACETAMINOPHEN 5-325 MG TABS 1/2 to 1 every 4 hours as needed for back pain HYDROCODONE-ACETAMINOPHEN 5-325 MG TABS 630242 HYDROCODONE-ACETAMINOPHEN Inactive MECLIZINE HCL 25 MG TAB one 4 times a day as needed for dizziness MECLIZINE HCL 25 MG TAB 070790 MECLIZINE HCL Inactive ASPIRIN 81 MG ORAL TABS 2 po qd ASPIRIN 81 MG ORAL TABS ASPIRIN Inactive METOPROLOL TARTRATE 25 MG ORAL TABS 1 tablet twice a day METOPROLOL TARTRATE 25 MG ORAL TABS 432101 METOPROLOL TARTRATE Inactive SERTRALINE HCL 50 MG TABS 1 daily for depressed mood SERTRALINE HCL 50 MG TABS 517347 SERTRALINE HCL Inactive Immunizations Vaccine Administration Date [...] Measured Encounters Code Encounter Date Provider Facility CPT-70887 Level 3 Est. Patient 10:46:48 CDT Víctor Payne MD [facility] CPT-75014 Level 3 Est. Patient 15:45:17 CDT Trino Richardson MD [facility] CPT-21755 Level 4 New Patient 15:41:12 CDT Trino Richardson MD [facility] CPT-47464 Level 3 Est. Patient 09:44:56 MEDICAL PATHOLOGIST Víctor Payne MD [facility] CPT-75471 Level 4 Est. Patient 11:54:04 MEDICAL PATHOLOGIST Víctor Payen MD [facility] CPT-31112 Level 3 Est. Patient 15:21:08 MEDICAL PATHOLOGIST Shaji Bradshaw MD [facility] CPT-21461 Level 3 Est. Patient 16:54:23 CDT Víctor Payne MD [facility] CPT-39468 Level 3 Est. Patient 16:10:50 CDT Víctor Payne MD [facility] CPT-37309 Level 4 Est. Patient 14:48:01 CDT Víctor Payne MD [facility] CPT-80741 Level 2 New Patient 14:23:38 MEDICAL PATHOLOGIST Víctor Payne MD [facility] Procedures Code Procedure Name Date Entry Date Standard Description CPT-G0438 Initial Annual Wellness Exam 10:02:47 CDT CPT-38027 Abd compl w upright 15:47:17 CDT CPT-28151 Venipuncture Draw Fee 10:41:53 MEDICAL PATHOLOGIST CPT-97363 Chest 2V Frontal and Lat 16:22:38 CDT CPT-G0008 Administration of Influenza Virus Vaccine 14:20:57 CDT CPT-82364 Fluzone High-Dose Intramuscular Suspension 14:20:56 CDT CPT-63163 Postop F/U Visit 16:24:54 MEDICAL PATHOLOGIST CPT-OV Office Visit 13:26:00 MEDICAL PATHOLOGIST CPT-00455 Administration 2+ single or combination vaccines inc oral 10:08:59 CDT CPT-16140 Administration single or combination vaccine inc oral 10 :08:59 CDT CPT-39038 Pneumovax 10:08:59 CDT CPT-43676 Influenza High Dose age 65+ 10:08:59 CDT
--- OUTSIDE RECORDS SUMMARY | 2017-07-22 11:46 | XMS REPORT | Clinical Summary ---
Author Author Admin, E Organization [employer] Address Unknown Phone Unavailable Allergies, Adverse Reactions, [...] Inguinal hernia, right 550.90 Active Erwinguy Salasjanet FISHING ROD MECHANIC Unilateral or unspecified inguinal hernia, without mention of obstruction or gangrene (not specified as recurrent) HEALTH MAINTENANCE EXAM V70.0 Active Víctor Payne MD Routine general medical examination at a health care facility Adjustment disorder with depressed mood 309.0 Active Víctor Payne MD Adjustment disorder with depressed mood Underweight 783.22 Active Víctor Payne MD Underweight Change in bowels 787.99 Active Tanya FISHING ROD MECHANIC Other symptoms involving digestive system Inguinal hernia, left ICD-550.90 Inactive Trino Richardson MD Chest wall pain ICD-786.52 Inactive Trino Richardson MD Bronchitis ICD-490 Inactive Víctor Payne MD 2015 Medication List Medication Instructions Start Date Stop Date Generic Name NDC Status Provider Patient Instruction DULCOLAX 5 MG ORAL TBEC 1-2 tab hs BISACODYL 32691386838 Active DANIEL Chase Active COLACE 100 MG ORAL CAPS 1-2 tab daily no more then 4 DOCUSATE SODIUM 38289899957 Active DANIEL Chase Active TYLENOL 325 MG ORAL TABS 1 tab every 4-6 hrs as needed for pain ACETAMINOPHEN 41405474315 Active DANIEL Chase Active SERTRALINE HCL 50 MG TABS 1 daily for depressed mood SERTRALINE HCL 80383781107 No Longer Active Víctor Payne MD Active METOPROLOL TARTRATE 25 MG ORAL TABS 1 tablet twice a day METOPROLOL TARTRATE 34225329647 No Longer Active Trino Richardson MD Active ASPIRIN 325 MG ORAL TBEC 1 daily ASPIRIN 71677726781 Active Trino Richardson MD Active ASPIRIN 81 MG ORAL TABS 2 po qd ASPIRIN 24617005917 No Longer Active Trino Richardson MD Active MECLIZINE HCL 25 MG TAB one 4 times a day as needed for dizziness MECLIZINE HCL 48745777000 No Longer Active Víctor Payne MD Active HYDROCODONE-ACETAMINOPHEN 5-325 MG TABS 1/2 to 1 every 4 hours as needed for back pain HYDROCODONE-ACETAMINOPHEN 04033666188 No Longer Active Víctor Payne MD Active LEVAQUIN 750 MG TABS 1 po qd x 7 days LEVOFLOXACIN 10477186990 No Longer Active Víctor Payne MD Active LIPITOR 10 MG TAB one tablet daily at bedtime ATORVASTATIN CALCIUM 94510795271 No Longer Active Víctor Payne MD Active PLAVIX 75 MG TABS 1 tablet by mouth daily to prevent stroke 11/29 CLOPIDOGREL BISULFATE 78429055896 No Longer Active Víctor Payne MD Active ASPIRIN 325 MG TABS 1 TAB 2X ADAY ASPIRIN 17101388509 No Longer Active France Cohen RN Active PLAVIX 75 MG TABS 1 tablet by mouth daily to prevent stroke 11/29 PLAVIX 75 MG TABS 02828529762 CLOPIDOGREL BISULFATE Inactive LIPITOR 10 MG TAB one tablet daily at bedtime LIPITOR 10 MG TAB 597909 ATORVASTATIN CALCIUM Inactive LEVAQUIN 750 MG TABS 1 po qd x 7 days LEVAQUIN 750 MG TABS 930562 LEVOFLOXACIN Inactive HYDROCODONE-ACETAMINOPHEN 5-325 MG TABS 1/2 to 1 every 4 hours as needed for back pain HYDROCODONE-ACETAMINOPHEN 5-325 MG TABS 526061 HYDROCODONE-ACETAMINOPHEN Inactive MECLIZINE HCL 25 MG TAB one 4 times a day as needed for dizziness MECLIZINE HCL 25 MG TAB 348541 MECLIZINE HCL Inactive ASPIRIN 81 MG ORAL TABS 2 po qd ASPIRIN 81 MG ORAL TABS ASPIRIN Inactive METOPROLOL TARTRATE 25 MG ORAL TABS 1 tablet twice a day METOPROLOL TARTRATE 25 MG ORAL TABS 336998 METOPROLOL TARTRATE Inactive SERTRALINE HCL 50 MG TABS 1 daily for depressed mood SERTRALINE HCL 50 MG TABS 263738 SERTRALINE HCL Inactive Immunizations Vaccine Administration Date [...] Measured Encounters Code Encounter Date Provider Facility CPT-12417 Level 3 Est. Patient 16:47:27 CDT Tanya Tan APRN [facility] CPT-24608 Level 3 Est. Patient 10:46:48 CDT Víctor Payne MD [facility] CPT-64840 Level 3 Est. Patient 15:45:17 CDT Trino Richardson MD [facility] CPT-52177 Level 4 New Patient 15:41:12 CDT Trino Richardson MD [facility] CPT-24501 Level 3 Est. Patient 09:44:56 OBSTETRICS GYN Víctor Payne MD [facility] CPT-64351 Level 4 Est. Patient 11:54:04 OBSTETRICS GYN Víctor Payne MD [facility] CPT-89708 Level 3 Est. Patient 15:21:08 OBSTETRICS GYN Shaji Bradshaw MD [facility] CPT-16410 Level 3 Est. Patient 16:54:23 CDT Víctor Payne MD [facility] CPT-62835 Level 3 Est. Patient 16:10:50 CDT Víctor Payne MD [facility] CPT-80693 Level 4 Est. Patient 14:48:01 CDT Víctor Payne MD [facility] CPT-21024 Level 2 New Patient 14:23:38 OBSTETRICS GYN Víctor Payne MD [facility] Procedures Code Procedure Name Date Entry Date Standard Description CPT-G0438 Initial Annual Wellness Exam 10:02:47 CDT CPT-91987 Abd compl w upright 15:47:17 CDT CPT-24970 Venipuncture Draw Fee 10:41:53 OBSTETRICS GYN CPT-99867 Chest 2V Frontal and Lat 16:22:38 CDT CPT-G0008 Administration of Influenza Virus Vaccine 14:20:57 CDT CPT-60448 Fluzone High-Dose Intramuscular Suspension 14:20:56 CDT CPT-40747 Postop F/U Visit 16:24:54 OBSTETRICS GYN CPT-OV Office Visit 13:26:00 OBSTETRICS GYN CPT-11321 Administration 2+ single or combination vaccines inc oral 10:08:59 CDT CPT-09855 Administration single or combination vaccine inc oral 10 :08:59 CDT CPT-53065 Pneumovax 10:08:59 CDT CPT-52798 Influenza High Dose age 65+ 10:08:59 CDT
--- OUTSIDE RECORDS SUMMARY | 2017-07-22 11:46 | XMS REPORT | Clinical Summary ---
Author Author Admin, E Organization [employer] Address Unknown Phone Unavailable Allergies, Adverse Reactions, [...] mention of cerebral infarction Leukocytosis 288.60 Active Magayls Morgan RMKristopher Leukocytosis, unspecified Hypertension, benign essential 401.1 Active Víctor Payne MD Benign essential hypertension Inguinal hernia, right 550.90 Active Erwinguy Modijosefa MASTIC MAN Unilateral or unspecified inguinal hernia, without mention of obstruction or gangrene (not specified as recurrent) HEALTH MAINTENANCE EXAM V70.0 Active Víctor Payne MD Routine general medical examination at a health care facility Adjustment disorder with depressed mood 309.0 Active Víctor Payne MD Adjustment disorder with depressed mood Underweight 783.22 Active Víctor Payne MD Underweight Change in bowels 787.99 Active Tanya Tan MASTIC MAN Other symptoms involving digestive system COPD 496 Active Víctor Payne MD Chronic airway obstruction, not elsewhere classified Supraventricular tachycardia 427.0 Active Víctor Payne MD Paroxysmal supraventricular tachycardia Chest wall pain ICD-786.52 Inactive Trino Richardson MD Inguinal hernia, left ICD-550.90 Inactive Trino Richardson MD Bronchitis ICD-490 Inactive Víctor Payne MD 2015 Medication List Medication Instructions Start Date Stop Date Generic Name NDC Status Provider Patient Instruction DOK PLUS 50-8.6 MG ORAL TABS 1 tab twice daily SENNOSIDES- DOCUSATE SODIUM 72515434632 Active Víctor Payne MD Active DULCOLAX 5 MG ORAL TBEC 1-2 tab hs BISACODYL 50923084177 No Longer Active Víctor Payne MD Active COLACE 100 MG ORAL CAPS 1-2 tab daily no more then 4 DOCUSATE SODIUM 48953795452 No Longer Active Víctor Payne MD Active TYLENOL 325 MG ORAL TABS 1 tab every 4-6 hrs as needed for pain ACETAMINOPHEN 58200991127 No Longer Active Víctor Payne MD Active ASPIRIN 325 MG ORAL TBEC 1 daily ASPIRIN 82396063738 No Longer Active Víctor Payne MD Active SERTRALINE HCL 50 MG TABS 1 daily for depressed mood SERTRALINE HCL 03941958974 No Longer Active Víctor Payne MD Active METOPROLOL TARTRATE 25 MG ORAL TABS 1 tablet twice a day METOPROLOL TARTRATE 27873704536 No Longer Active Trino Richardson MD Active ASPIRIN 81 MG ORAL TABS 2 po qd ASPIRIN 93647536922 No Longer Active Trino Richardson MD Active MECLIZINE HCL 25 MG TAB one 4 times a day as needed for dizziness MECLIZINE HCL 30581504722 No Longer Active Víctor Payne MD Active HYDROCODONE-ACETAMINOPHEN 5-325 MG TABS 1/2 to 1 every 4 hours as needed for back pain HYDROCODONE-ACETAMINOPHEN 93418754605 No Longer Active Víctor Payne MD Active LEVAQUIN 750 MG TABS 1 po qd x 7 days LEVOFLOXACIN 33871496607 No Longer Active Víctor Payne MD Active LIPITOR 10 MG TAB one tablet daily at bedtime ATORVASTATIN CALCIUM 38157373999 No Longer Active Víctor Payne MD Active PLAVIX 75 MG TABS 1 tablet by mouth daily to prevent stroke 11/29 CLOPIDOGREL BISULFATE 69561602179 No Longer Active Víctor Payne MD Active ASPIRIN 325 MG TABS 1 TAB 2X ADAY ASPIRIN 25210294514 No Longer Active France Cohen RN Active PLAVIX 75 MG TABS 1 tablet by mouth daily to prevent stroke 11/29 PLAVIX 75 MG TABS 76817973584 CLOPIDOGREL BISULFATE Inactive LIPITOR 10 MG TAB one tablet daily at bedtime LIPITOR 10 MG TAB 219463 ATORVASTATIN CALCIUM Inactive LEVAQUIN 750 MG TABS 1 po qd x 7 days LEVAQUIN 750 MG TABS 759381 LEVOFLOXACIN Inactive HYDROCODONE-ACETAMINOPHEN 5-325 MG TABS 1/2 to 1 every 4 hours as needed for back pain HYDROCODONE-ACETAMINOPHEN 5-325 MG TABS 241125 HYDROCODONE-ACETAMINOPHEN Inactive MECLIZINE HCL 25 MG TAB one 4 times a day as needed for dizziness MECLIZINE HCL 25 MG TAB 553187 MECLIZINE HCL Inactive ASPIRIN 81 MG ORAL TABS 2 po qd ASPIRIN 81 MG ORAL TABS ASPIRIN Inactive METOPROLOL TARTRATE 25 MG ORAL TABS 1 tablet twice a day METOPROLOL TARTRATE 25 MG ORAL TABS 350575 METOPROLOL TARTRATE Inactive SERTRALINE HCL 50 MG TABS 1 daily for depressed mood SERTRALINE HCL 50 MG TABS 590800 SERTRALINE HCL Inactive ASPIRIN 325 MG ORAL TBEC 1 daily ASPIRIN 325 MG ORAL TBEC 856575 ASPIRIN Inactive TYLENOL 325 MG ORAL TABS 1 tab every 4-6 hrs as needed for pain TYLENOL 325 MG ORAL TABS 661669 ACETAMINOPHEN Inactive COLACE 100 MG ORAL CAPS 1-2 tab daily no more then 4 COLACE 100 MG ORAL CAPS 0675439 DOCUSATE SODIUM Inactive DULCOLAX 5 MG ORAL [...] Panel - Chemistry sodium, serum 139 mmol/L 954-875 2118/05/19 carbon dioxide, venous blood 31.9 mmol/L 21.0-32.0 [...] 0.36-3.74 Encounters Code Encounter Date Provider Facility CPT-43929 Level 4 Est. Patient 15:40:13 CDT Víctor Payne MD [facility] CPT-82146 Level 3 Est. Patient 16:47:27 CDT Tanya Tan APRN [facility] CPT-70550 Level 3 Est. Patient 10:46:48 CDT Víctor Payne MD [facility] CPT-65311 Level 3 Est. Patient 15:45:17 CDT Trino Richardson MD [facility] CPT-30023 Level 4 New Patient 15:41:12 CDT Trino Richardson MD [facility] CPT-24066 Level 3 Est. Patient 09:44:56 TACO MAKER Víctor Payne MD [facility] CPT-21864 Level 4 Est. Patient 11:54:04 TACO MAKER Víctor Payne MD [facility] CPT-63463 Level 3 Est. Patient 15:21:08 TACO MAKER Shaji Bradshaw MD [facility] CPT-31243 Level 3 Est. Patient 16:54:23 CDT Víctor Payne MD [facility] CPT-01352 Level 3 Est. Patient 16:10:50 CDT Víctor Payne MD [facility] CPT-81465 Level 4 Est. Patient 14:48:01 CDT Víctor Payne MD [facility] CPT-21315 Level 2 New Patient 14:23:38 TACO MAKER Víctor Payne MD [facility] Procedures Code Procedure Name Date Entry Date Standard Description CPT-16887 Chest 2V Frontal and Lat - XRAY USE ONLY 16:00:05 CDT CPT-G0438 Initial Annual Wellness Exam 10:02:47 CDT CPT-30355 Abd compl w upright 15:47:17 CDT CPT-82483 Venipuncture Draw Fee 10:41:53 TACO MAKER CPT-94198 Chest 2V Frontal and Lat 16:22:38 CDT CPT-G0008 Administration of Influenza Virus Vaccine 14:20:57 CDT CPT-25639 Fluzone High-Dose Intramuscular Suspension 14:20:56 CDT CPT-59123 Postop F/U Visit 16:24:54 TACO MAKER CPT-OV Office Visit 13:26:00 TACO MAKER CPT-85067 Administration 2+ single or combination vaccines inc oral 10:08:59 CDT CPT-17351 Administration single or combination vaccine inc oral 10 :08:59 CDT CPT-86797 Pneumovax 10:08:59 CDT CPT-67031 Influenza High Dose age 65+ 10:08:59 CDT
[2017-07-22 11:47] LABS: BACTERIA,URINE NEGATIVE /HPF; RBC,URINE 0-2 /HPF; SQUAMOUS EPITHELIAL CELL,UR RARE /HPF; WBC,URINE RARE /HPF
--- OUTSIDE RECORDS SUMMARY | 2017-07-22 11:47 | XMS REPORT | Clinical Summary ---
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 Unilateral or unspecified inguinal hernia, without mention of obstruction or gangrene (not specified as recurrent) HEALTH MAINTENANCE EXAM V70.0 Active Víctor Payne MD Routine general medical examination at a health care facility Adjustment disorder with depressed mood 309.0 Active Víctor Payne MD Adjustment disorder with depressed mood Underweight 783.22 Active Víctor aPyne MD Underweight Change in bowels 787.99 Active Tanya Tan 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 Other symptoms involving digestive system COPD 496 [...] Pre-procedural laboratory examination V72.63 Active Tatiana Schroeder MANAGER MARKETING Pre-procedural laboratory examination Inguinal hernia, left ICD-550.90 Inactive Trino Richardson MD Chest wall pain ICD-786.52 Inactive Trino Richardson MD Bronchitis ICD-490 Inactive Víctor Payne MD 2015 Medication List Medication Instructions Start Date Stop Date Generic Name NDC Status Provider Patient Instruction TRAMADOL HCL 50 MG TABS 1/2 to 1 four times a day as needed for pain TRAMADOL HCL 63267568333 Active Víctor Payne MD Active HYDROCODONE-ACETAMINOPHEN 5-325 MG ORAL TABLET 1 four times a day as needed for pain. HYDROCODONE-ACETAMINOPHEN 02504848740 Active Víctor Payne MD Active DEBROX 6.5 % OTIC SOLN 5 gtts effected ear(ears) q day CARBAMIDE PEROXIDE 57621019702 Active New Castro DO Active AMLODIPINE BESYLATE 5 MG TABS 1 tablet by mouth daily AMLODIPINE BESYLATE 85111260767 Active New Castro DO Active DOK PLUS 50-8.6 MG ORAL TABS 1 tab twice daily SENNOSIDES-DOCUSATE SODIUM 01517439996 No Longer Active New Castro DO Active DULCOLAX 5 MG ORAL TBEC 1-2 tab hs BISACODYL 11252140583 No Longer Active Víctor Payne MD Active COLACE 100 MG ORAL CAPS 1-2 tab daily no more then 4 DOCUSATE SODIUM 86965258023 No Longer Active Víctor Payne MD Active TYLENOL 325 MG ORAL TABS 1 tab every 4-6 hrs as needed for pain ACETAMINOPHEN 63059398328 No Longer Active Víctor Payne MD Active ASPIRIN 325 MG ORAL TBEC 1 daily ASPIRIN 03186861350 No Longer Active Víctor Payne MD Active SERTRALINE HCL 50 MG TABS 1 daily for depressed mood SERTRALINE HCL 34851973283 No Longer Active Víctor Payne MD Active METOPROLOL TARTRATE 25 MG ORAL TABS 1 tablet twice a day METOPROLOL TARTRATE 02441721239 No Longer Active Trino Richardson MD Active ASPIRIN 81 MG ORAL TABS 2 po qd ASPIRIN 25685850952 No Longer Active Trino Richardson MD Active MECLIZINE HCL 25 MG TAB one 4 times a day as needed for dizziness MECLIZINE HCL 13333178435 No Longer Active Víctor Payne MD Active HYDROCODONE-ACETAMINOPHEN 5-325 MG TABS 1/2 to 1 every 4 hours as needed for back pain HYDROCODONE-ACETAMINOPHEN 35435317857 No Longer Active Víctor Payne MD Active LEVAQUIN 750 MG TABS 1 po qd x 7 days LEVOFLOXACIN 07394066890 No Longer Active Víctor Payne MD Active LIPITOR 10 MG TAB one tablet daily at bedtime ATORVASTATIN CALCIUM 58265065746 No Longer Active Víctor Payne MD Active PLAVIX 75 MG TABS 1 tablet by mouth daily to prevent stroke 11/29 CLOPIDOGREL BISULFATE 36871137796 No Longer Active Víctor Payne MD Active ASPIRIN 325 MG TABS 1 TAB 2X ADAY ASPIRIN 42561461803 No Longer Active France Cohen RN Active PLAVIX 75 MG TABS 1 tablet by mouth daily to prevent stroke 11/29 PLAVIX 75 MG TABS 806480 CLOPIDOGREL BISULFATE Inactive LIPITOR 10 MG TAB one tablet daily at bedtime LIPITOR 10 MG TAB 868528 ATORVASTATIN CALCIUM Inactive LEVAQUIN 750 MG TABS 1 po qd x 7 days LEVAQUIN 750 MG TABS 829887 LEVOFLOXACIN Inactive HYDROCODONE-ACETAMINOPHEN 5-325 MG TABS 1/2 to 1 every 4 hours as needed for back pain HYDROCODONE-ACETAMINOPHEN 5-325 MG TABS 273467 HYDROCODONE-ACETAMINOPHEN Inactive MECLIZINE HCL 25 MG TAB one 4 times a day as needed for dizziness MECLIZINE HCL 25 MG TAB 613859 MECLIZINE HCL Inactive ASPIRIN 81 MG ORAL TABS 2 po qd ASPIRIN 81 MG ORAL TABS 454648 ASPIRIN Inactive METOPROLOL TARTRATE 25 MG ORAL TABS 1 tablet twice a day METOPROLOL TARTRATE 25 MG ORAL TABS 309184 METOPROLOL TARTRATE Inactive SERTRALINE HCL 50 MG TABS 1 daily for depressed mood SERTRALINE HCL 50 MG TABS 603232 SERTRALINE HCL Inactive ASPIRIN 325 MG ORAL TBEC 1 daily ASPIRIN 325 MG ORAL TBEC 505852 ASPIRIN Inactive TYLENOL 325 MG ORAL TABS 1 tab every 4-6 hrs as needed for pain TYLENOL 325 MG ORAL TABS 315182 ACETAMINOPHEN Inactive COLACE 100 MG ORAL CAPS 1-2 tab daily no more then 4 COLACE 100 MG ORAL CAPS 4591679 DOCUSATE SODIUM Inactive DULCOLAX 5 MG ORAL TBEC 1-2 tab hs DULCOLAX 5 MG ORAL TBEC BISACODYL Inactive DOK PLUS 50-8.6 MG ORAL TABS 1 tab twice daily DOK PLUS 50-8.6 MG ORAL TABS 314374 SENNOSIDES-DOCUSATE SODIUM Inactive Immunizations Vaccine Administration Date [...] Panel - Chemistry sodium, serum 139 mmol/L 346-095 4643/05/19 carbon dioxide, venous blood 31.9 mmol/L 21.0-32.0 [...] 0.36-3.74 Encounters Code Encounter Date Provider Facility CPT-86210 Level 3 Est. Patient 10:30:37 CDT New Castro DO [facility] CPT-90743 Level 4 Est. Patient 15:40:13 CDT Víctor Payne MD [facility] CPT-41127 Level 3 Est. Patient 16:47:27 CDT Tanya Tan APRN [facility] CPT-51460 Level 3 Est. Patient 10:46:48 CDT Víctor Payne MD [facility] CPT-11505 Level 3 Est. Patient 15:45:17 CDT Trino Richardson MD [facility] CPT-72408 Level 4 New Patient 15:41:12 CDT Trino Richardson MD [facility] CPT-59037 Level 3 Est. Patient 09:44:56 WELFARE ANALYST Víctor Payne MD [facility] CPT-97291 Level 4 Est. Patient 11:54:04 WELFARE ANALYST Víctor Payne MD [facility] CPT-37563 Level 3 Est. Patient 15:21:08 WELFARE ANALYST Shaji Bradshaw MD [facility] CPT-47427 Level 3 Est. Patient 16:54:23 CDT Víctor Payne MD [facility] CPT-45491 Level 3 Est. Patient 16:10:50 CDT Víctor Payne MD [facility] CPT-39566 Level 4 Est. Patient 14:48:01 CDT Víctor Payne MD [facility] CPT-00775 Level 2 New Patient 14:23:38 WELFARE ANALYST Víctor Payne MD [facility] Procedures Code Procedure Name Date Entry Date Standard Description CPT-TCMM Transitional Care Mgmt-Moderate 10:53:28 CDT CPT-10547 Chest 2V Frontal and Lat - XRAY USE ONLY 10:27:29 CDT CPT-93475 Chest 2V Frontal and Lat - XRAY USE ONLY 16:00:05 CDT CPT-G0438 Initial Annual Wellness Exam 10:02:47 CDT CPT-48541 Abd compl w upright 15:47:17 CDT CPT-36105 Venipuncture Draw Fee 10:41:53 WELFARE ANALYST CPT-47878 Chest 2V Frontal and Lat 16:22:38 CDT CPT-G0008 Administration of Influenza Virus Vaccine 14:20:57 CDT CPT-58461 Fluzone High-Dose Intramuscular Suspension 14:20:56 CDT CPT-23294 Postop F/U Visit 16:24:54 WELFARE ANALYST CPT-OV Office Visit 13:26:00 WELFARE ANALYST CPT-45468 Administration 2+ single or combination vaccines inc oral 10:08:59 CDT CPT-93068 Administration single or combination vaccine inc oral 10 :08:59 CDT CPT-42181 Pneumovax 10:08:59 CDT CPT-47583 Influenza High Dose age 65+ 10:08:59 CDT
--- OUTSIDE RECORDS SUMMARY | 2017-07-22 11:47 | XMS REPORT | Clinical Summary ---
Author Author Admin, JEAN CLAUDE Organization [facility] Address Unknown Phone Unavailable Allergies, Adverse [...] Inguinal hernia, right 550.90 Active Josr Montoya HOME VISITOR Unilateral or unspecified inguinal hernia, without mention of obstruction or gangrene (not specified as recurrent) HEALTH MAINTENANCE EXAM V70.0 Active Víctor Payne MD Routine general medical examination at a health care facility Adjustment disorder with depressed mood 309.0 Active Víctor Payen MD Adjustment disorder with depressed mood Inguinal hernia, left ICD-550.90 Inactive Trino Richardson MD Chest wall pain ICD-786.52 Inactive Trino Richardson MD Bronchitis ICD-490 Inactive Víctor Payne MD 2015 Medication List Medication Instructions Start Date Stop Date Generic Name NDC Status Provider Patient Instruction SERTRALINE HCL 50 MG TABS 1 daily for depressed mood SERTRALINE HCL 22498865778 Active Víctor Payne MD Active METOPROLOL TARTRATE 25 MG ORAL TABS 1 tablet twice a day METOPROLOL TARTRATE 87486728378 No Longer Active Trino Richardson MD Active ASPIRIN 325 MG ORAL TBEC 1 daily ASPIRIN 76644176690 Active Trino Richardson MD Active ASPIRIN 81 MG ORAL TABS 2 po qd ASPIRIN 07547121757 No Longer Active Trino Richardson MD Active MECLIZINE HCL 25 MG TAB one 4 times a day as needed for dizziness MECLIZINE HCL 68747548985 No Longer Active Víctor Payne MD Active HYDROCODONE-ACETAMINOPHEN 5-325 MG TABS 1/2 to 1 every 4 hours as needed for back pain HYDROCODONE-ACETAMINOPHEN 25153923026 No Longer Active Víctor Payne MD Active LEVAQUIN 750 MG TABS 1 po qd x 7 days LEVOFLOXACIN 15418886738 No Longer Active Víctor Payne MD Active LIPITOR 10 MG TAB one tablet daily at bedtime ATORVASTATIN CALCIUM 17552193425 No Longer Active Víctor Payne MD Active PLAVIX 75 MG TABS 1 tablet by mouth daily to prevent stroke 11/29 CLOPIDOGREL BISULFATE 65985638735 No Longer Active Víctor Payne MD Active ASPIRIN 325 MG TABS 1 TAB 2X ADAY ASPIRIN 64980114443 No Longer Active France Cohen RN Active PLAVIX 75 MG TABS 1 tablet by mouth daily to prevent stroke 11/29 PLAVIX 75 MG TABS 633335 CLOPIDOGREL BISULFATE Inactive LIPITOR 10 MG TAB one tablet daily at bedtime LIPITOR 10 MG TAB 701694 ATORVASTATIN CALCIUM Inactive LEVAQUIN 750 MG TABS 1 po qd x 7 days LEVAQUIN 750 MG TABS 981041 LEVOFLOXACIN Inactive HYDROCODONE-ACETAMINOPHEN 5-325 MG TABS 1/2 to 1 every 4 hours as needed for back pain HYDROCODONE-ACETAMINOPHEN 5-325 MG TABS 224586 HYDROCODONE-ACETAMINOPHEN Inactive MECLIZINE HCL 25 MG TAB one 4 times a day as needed for dizziness MECLIZINE HCL 25 MG TAB 480105 MECLIZINE HCL Inactive ASPIRIN 81 MG ORAL TABS 2 po qd ASPIRIN 81 MG ORAL TABS ASPIRIN Inactive METOPROLOL TARTRATE 25 MG ORAL TABS 1 tablet twice a day METOPROLOL TARTRATE 25 MG ORAL TABS 855030 METOPROLOL TARTRATE Inactive Immunizations Vaccine Administration Date [...] Description Lab Report: CBC W/DIFF - Hematology mean corpuscular hemoglobin concentration, RBC 33.6 G/DL % 31.8- 35.4 mean corpuscular hemoglobin, RBC 31.7 pg 27.0-31.2 mean corpuscular volume, RBC 94 fL 80-97 hematocrit, blood 41.2 % 41.0-53.0 hemoglobin, blood 13.8 g/dL 13.5-17.5 leukocyte count, blood 11.9 10^3/MM^3 10*3/mm3 4.6-10.2 hematocrit, blood 37.0 % 41.0-53.0 mean corpuscular volume, RBC 95 fL 80-97 mean corpuscular hemoglobin, RBC 31.9 pg 27.0-31.2 mean corpuscular hemoglobin concentration, RBC 33.4 G/DL % 31.8- 35.4 red blood cell distribution width 15.1 % 11.6-14.8 platelet count 261 10^3/MM^3 10*3/mm3 583-891 8751/12/30 erythrocyte (RBC) count 4.37 10^6/MM^3 10*6/mm3 4.69-6.13 lymphocytes as percent of blood leukocytes 20.2 % 20.5-51.1 monocytes as percent of blood leukocytes 7.7 % 1.7-9.3 neutrophils as percent of blood leukocytes 65.2 % 42.2-75.2 leukocyte count, blood 11.3 10^3/MM^3 10*3/mm3 4.6-10.2 neutrophils as percent of blood leukocytes 71.5 % 42.2-75.2 monocytes as percent of blood leukocytes 7.4 % 1.7-9.3 lymphocytes as percent of blood leukocytes 15.1 % 20.5-51.1 erythrocyte (RBC) count 3.87 10^6/MM^3 10*6/mm3 4.69-6.13 hemoglobin, blood 12.4 g/dL 13.5-17.5 red blood cell distribution width 15.8 % 11.6-14.8 platelet count 303 10^3/MM^3 10*3/mm3 142-424 Lab Report: CBC, Comp. Metabolic Panel - Chemistry sodium, serum 139 mmol/L 162-191 7894/09/18 carbon dioxide, venous blood 27.6 mmol/L 21.0-32.0 [...] Panel - Chemistry sodium, serum 136 mmol/L 166-144 8147/12/30 carbon dioxide, venous blood 27.9 mmol/L 21.0-32.0 potassium, serum 4.3 mmol/L 3.5-5.2 chloride, serum 100 mmol/L 98-107 blood glucose 97 mg/dL 65-110 urea nitrogen, blood 19 mg/dL 7-18 creatinine, serum 1.40 mg/dL 0.55-1.30 alanine aminotransferase (SGPT), serum 25 U/L aspartate aminotransferase (SGOT), serum 28 U/L 15-37 calcium, serum 9.0 mg/dL 8.5-10.1 bilirubin, serum, total 0.40 mg/dL 0.00-1.00 Encounters Code Encounter Date Provider Facility CPT-83629 Level 3 Est. Patient 15:45:17 CDT Trino Richardson MD [facility] CPT-09606 Level 4 New Patient 15:41:12 CDT Trino Richardson MD [facility] CPT-24560 Level 3 Est. Patient 09:44:56 MECHANISM ASSEMBLER Víctor Payne MD [facility] CPT-81512 Level 4 Est. Patient 11:54:04 MECHANISM ASSEMBLER Víctor Payne MD [facility] CPT-84113 Level 3 Est. Patient 15:21:08 MECHANISM ASSEMBLER Shaji Bradshaw MD [facility] CPT-56769 Level 3 Est. Patient 16:54:23 CDT Víctor Payne MD [facility] CPT-95978 Level 3 Est. Patient 16:10:50 CDT Víctor Payne MD [facility] CPT-54844 Level 4 Est. Patient 14:48:01 CDT Víctor Payne MD [facility] CPT-90017 Level 2 New Patient 14:23:38 MECHANISM ASSEMBLER Víctor Payne MD [facility] Procedures Code Procedure Name Date Entry Date Standard Description CPT-G0438 Initial Annual Wellness Exam 10:02:47 CDT CPT-54430 Abd compl w upright 15:47:17 CDT CPT-63620 Venipuncture Draw Fee 10:41:53 MECHANISM ASSEMBLER CPT-08533 Chest 2V Frontal and Lat 16:22:38 CDT CPT-G0008 Administration of Influenza Virus Vaccine 14:20:57 CDT CPT-39879 Fluzone High-Dose Intramuscular Suspension 14:20:56 CDT CPT-46529 Postop F/U Visit 16:24:54 MECHANISM ASSEMBLER CPT-OV Office Visit 13:26:00 MECHANISM ASSEMBLER CPT-37828 Administration 2+ single or combination vaccines inc oral 10:08:59 CDT CPT-70388 Administration single or combination vaccine inc oral 10 :08:59 CDT CPT-92941 Pneumovax 10:08:59 CDT CPT-69551 Influenza High Dose age 65+ 10:08:59 CDT
--- OUTSIDE RECORDS SUMMARY | 2017-07-22 11:48 | XMS REPORT | Clinical Summary ---
Author Author Admin, E Organization [email or web address] Address Unknown Phone Unavailable Allergies, Adverse Reactions, [...] Inguinal hernia, right 550.90 Active Erwinguy Modijosefa BEHAVIOUR SUPPORT TEACHER Unilateral or unspecified inguinal hernia, without mention of obstruction or gangrene (not specified as recurrent) HEALTH MAINTENANCE EXAM V70.0 Active Víctor Payne MD Routine general medical examination at a health care facility Adjustment disorder with depressed mood 309.0 Active Víctor Payne MD Adjustment disorder with depressed mood Underweight 783.22 Active Víctor Payne MD Underweight Change in bowels 787.99 Active Tanya Tan BEHAVIOUR SUPPORT TEACHER Other symptoms involving digestive system COPD [...] Pre-procedural laboratory examination V72.63 Active Tatiana Schroeder PROJECT/PRODUCTION MANAGER IMAGING Pre-procedural laboratory examination Hemoptysis 786.30 Active Víctor Payne MD Hemoptysis, unspecified Inguinal hernia, left ICD-550.90 Inactive Trion Richardson MD Chest wall pain ICD-786.52 Inactive Trino Richardson MD Bronchitis ICD-490 Inactive Víctor Payne MD 2015 Medication List Medication Instructions Start Date Stop Date Generic Name NDC Status Provider Patient Instruction TRAMADOL HCL 50 MG TABS 1/2 to 1 four times a day as needed for pain TRAMADOL HCL 71978220713 Active Víctor Payne MD Active HYDROCODONE-ACETAMINOPHEN 5-325 MG ORAL TABLET 1 four times a day as needed for pain. HYDROCODONE-ACETAMINOPHEN 98377527297 Active Víctor Payne MD Active DEBROX 6.5 % OTIC SOLN 5 gtts effected ear(ears) q day CARBAMIDE PEROXIDE 70554220406 Active New Castro DO Active AMLODIPINE BESYLATE 5 MG TABS 1 tablet by mouth daily AMLODIPINE BESYLATE 16191913837 Active New Castro DO Active DOK PLUS 50-8.6 MG ORAL TABS 1 tab twice daily SENNOSIDES-DOCUSATE SODIUM 54938264587 No Longer Active New Castro DO Active DULCOLAX 5 MG ORAL TBEC 1-2 tab hs BISACODYL 49781825503 No Longer Active Víctor Payne MD Active COLACE 100 MG ORAL CAPS 1-2 tab daily no more then 4 DOCUSATE SODIUM 37576768143 No Longer Active Víctor Payne MD Active TYLENOL 325 MG ORAL TABS 1 tab every 4-6 hrs as needed for pain ACETAMINOPHEN 53489157235 No Longer Active Víctor Payne MD Active ASPIRIN 325 MG ORAL TBEC 1 daily ASPIRIN 42471083121 No Longer Active Víctor Payne MD Active SERTRALINE HCL 50 MG TABS 1 daily for depressed mood SERTRALINE HCL 29639806828 No Longer Active Víctor Payne MD Active METOPROLOL TARTRATE 25 MG ORAL TABS 1 tablet twice a day METOPROLOL TARTRATE 68389746019 No Longer Active Trino Richardson MD Active ASPIRIN 81 MG ORAL TABS 2 po qd ASPIRIN 56421548085 No Longer Active Trino Richardson MD Active MECLIZINE HCL 25 MG TAB one 4 times a day as needed for dizziness MECLIZINE HCL 02729951117 No Longer Active Víctor Payne MD Active HYDROCODONE-ACETAMINOPHEN 5-325 MG TABS 1/2 to 1 every 4 hours as needed for back pain HYDROCODONE-ACETAMINOPHEN 31269418452 No Longer Active Víctor Payne MD Active LEVAQUIN 750 MG TABS 1 po qd x 7 days LEVOFLOXACIN 17784719260 No Longer Active Víctor Payne MD Active LIPITOR 10 MG TAB one tablet daily at bedtime ATORVASTATIN CALCIUM 14355851502 No Longer Active Víctor Payne MD Active PLAVIX 75 MG TABS 1 tablet by mouth daily to prevent stroke 11/29 CLOPIDOGREL BISULFATE 39483757989 No Longer Active Víctor Payne MD Active ASPIRIN 325 MG TABS 1 TAB 2X ADAY ASPIRIN 55725411860 No Longer Active France Cohen RN Active PLAVIX 75 MG TABS 1 tablet by mouth daily to prevent stroke 11/29 PLAVIX 75 MG TABS 380022 CLOPIDOGREL BISULFATE Inactive LIPITOR 10 MG TAB one tablet daily at bedtime LIPITOR 10 MG TAB 557772 ATORVASTATIN CALCIUM Inactive LEVAQUIN 750 MG TABS 1 po qd x 7 days LEVAQUIN 750 MG TABS 500156 LEVOFLOXACIN Inactive HYDROCODONE-ACETAMINOPHEN 5-325 MG TABS 1/2 to 1 every 4 hours as needed for back pain HYDROCODONE-ACETAMINOPHEN 5-325 MG TABS 009693 HYDROCODONE-ACETAMINOPHEN Inactive MECLIZINE HCL 25 MG TAB one 4 times a day as needed for dizziness MECLIZINE HCL 25 MG TAB 653480 MECLIZINE HCL Inactive ASPIRIN 81 MG ORAL TABS 2 po qd ASPIRIN 81 MG ORAL TABS 865504 ASPIRIN Inactive METOPROLOL TARTRATE 25 MG ORAL TABS 1 tablet twice a day METOPROLOL TARTRATE 25 MG ORAL TABS 185520 METOPROLOL TARTRATE Inactive SERTRALINE HCL 50 MG TABS 1 daily for depressed mood SERTRALINE HCL 50 MG TABS 947678 SERTRALINE HCL Inactive ASPIRIN 325 MG ORAL TBEC 1 daily ASPIRIN 325 MG ORAL TBEC 110440 ASPIRIN Inactive TYLENOL 325 MG ORAL TABS 1 tab every 4-6 hrs as needed for pain TYLENOL 325 MG ORAL TABS 726625 ACETAMINOPHEN Inactive COLACE 100 MG ORAL CAPS 1-2 tab daily no more then 4 COLACE 100 MG ORAL CAPS 0304905 DOCUSATE SODIUM Inactive DULCOLAX 5 MG ORAL TBEC 1-2 tab hs DULCOLAX 5 MG ORAL TBEC BISACODYL Inactive DOK PLUS 50-8.6 MG ORAL TABS 1 tab twice daily DOK PLUS 50-8.6 MG ORAL TABS 574945 SENNOSIDES-DOCUSATE SODIUM Inactive Immunizations Vaccine Administration Date [...] Panel - Chemistry sodium, serum 139 mmol/L 462-731 7408/05/19 carbon dioxide, venous blood 31.9 mmol/L 21.0-32.0 [...] 0.36-3.74 Encounters Code Encounter Date Provider Facility CPT-36783 Level 3 Est. Patient 10:30:37 CDT New Castro DO [facility] CPT-27165 Level 4 Est. Patient 15:40:13 CDT Víctor Payne MD [facility] CPT-87066 Level 3 Est. Patient 16:47:27 CDT Tanya Tan APRN [facility] CPT-91979 Level 3 Est. Patient 10:46:48 CDT Víctor Payne MD [facility] CPT-91991 Level 3 Est. Patient 15:45:17 CDT Trino Richardson MD [facility] CPT-10911 Level 4 New Patient 15:41:12 CDT Trino Richardson MD [facility] CPT-90480 Level 3 Est. Patient 09:44:56 J2EE ARCHITECT Víctor Payne MD [facility] CPT-31120 Level 4 Est. Patient 11:54:04 J2EE ARCHITECT Víctor Payne MD [facility] CPT-22588 Level 3 Est. Patient 15:21:08 J2EE ARCHITECT Shaji Bradshaw MD [facility] CPT-88848 Level 3 Est. Patient 16:54:23 CDT Víctor Payne MD [facility] CPT-81458 Level 3 Est. Patient 16:10:50 CDT Víctor Payne MD [facility] CPT-64457 Level 4 Est. Patient 14:48:01 CDT Víctor Payne MD [facility] CPT-64292 Level 2 New Patient 14:23:38 J2EE ARCHITECT Víctor Payne MD [facility] Procedures Code Procedure Name Date Entry Date Standard Description CPT-TCMM Transitional Care Mgmt-Moderate 10:53:28 CDT CPT-18403 Chest 2V Frontal and Lat - XRAY USE ONLY 10:27:29 CDT CPT-66028 Chest 2V Frontal and Lat - XRAY USE ONLY 16:00:05 CDT CPT-G0438 Initial Annual Wellness Exam 10:02:47 CDT CPT-04422 Abd compl w upright 15:47:17 CDT CPT-31613 Venipuncture Draw Fee 10:41:53 J2EE ARCHITECT CPT-64047 Chest 2V Frontal and Lat 16:22:38 CDT CPT-G0008 Administration of Influenza Virus Vaccine 14:20:57 CDT CPT-24724 Fluzone High-Dose Intramuscular Suspension 14:20:56 CDT CPT-35991 Postop F/U Visit 16:24:54 J2EE ARCHITECT CPT-OV Office Visit 13:26:00 J2EE ARCHITECT CPT-36561 Administration 2+ single or combination vaccines inc oral 10:08:59 CDT CPT-71594 Administration single or combination vaccine inc oral 10 :08:59 CDT CPT-39167 Pneumovax 10:08:59 CDT CPT-58283 Influenza High Dose age 65+ 10:08:59 CDT
--- OUTSIDE RECORDS SUMMARY | 2017-07-22 11:48 | XMS REPORT | Clinical Summary ---
Author Author Admin, JEAN CLAUDE Organization [facility] Address Unknown Phone Unavailable Allergies, Adverse Reactions, [...] Instructions Start Date Stop Date Generic Name [facility] Status Provider Patient Instruction MECLIZINE HCL 25 MG TAB one 4 times a day as needed for dizziness MECLIZINE HCL 72776513472 Active Shaji Bradshaw MD Active HYDROCODONE-ACETAMINOPHEN 5-325 MG TABS 1/2 to 1 every 4 hours as needed for back pain HYDROCODONE-ACETAMINOPHEN 90802353272 Active Víctor Payne MD Active LEVAQUIN 750 MG TABS 1 po qd x 7 days LEVOFLOXACIN 56816579786 No Longer Active Víctor Payne MD Active ASPIRIN 81 MG ORAL TABS 2 po qd ASPIRIN 04611547443 Active Víctor Payne MD Active LIPITOR 10 MG TAB one tablet daily at bedtime ATORVASTATIN CALCIUM 22091955200 No Longer Active Víctor Payne MD Active PLAVIX 75 MG TABS 1 tablet by mouth daily to prevent stroke 11/29 CLOPIDOGREL BISULFATE 03871980286 No Longer Active Víctor Payne MD Active ASPIRIN 325 MG TABS 1 TAB 2X ADAY ASPIRIN 21707395848 No Longer Active France Cohen RN Active PLAVIX 75 MG TABS 1 tablet by mouth daily to prevent stroke 11/29 PLAVIX 75 MG TABS 074796 CLOPIDOGREL BISULFATE Inactive LIPITOR 10 MG TAB one tablet daily at bedtime LIPITOR 10 MG TAB 929921 ATORVASTATIN CALCIUM Inactive LEVAQUIN 750 MG TABS 1 po qd x 7 days LEVAQUIN 750 MG TABS 543109 LEVOFLOXACIN Inactive Immunizations Vaccine Administration Date Value [...] Panel - Chemistry sodium, serum 139 mmol/L 482-435 5210/09/18 carbon dioxide, venous blood 27.6 mmol/L 21.0-32.0 [...] Panel - Chemistry sodium, serum 136 mmol/L 481-459 5872/12/30 carbon dioxide, venous blood 27.9 mmol/L 21.0-32.0 potassium, serum 4.3 mmol/L 3.5-5.2 chloride, serum 100 mmol/L 98-107 blood glucose 97 mg/dL 65-110 urea nitrogen, blood 19 mg/dL 7-18 creatinine, serum 1.40 mg/dL 0.55-1.30 alanine aminotransferase (SGPT), serum 25 U/L aspartate aminotransferase (SGOT), serum 28 U/L 15-37 calcium, serum 9.0 mg/dL 8.5-10.1 bilirubin, serum, total 0.40 mg/dL 0.00-1.00 Encounters Code Encounter Date Provider Facility CPT-25505 Level 3 Est. Patient 15:21:08 ANIMAL CONTROL OFFICER Shaji Brdashaw MD [facility] CPT-61560 Level 3 Est. Patient 16:54:23 CDT Víctor Payne MD [facility] CPT-71753 Level 3 Est. Patient 16:10:50 CDT Víctor Payne MD [facility] CPT-17255 Level 4 Est. Patient 14:48:01 CDT Víctor Payne MD [facility] CPT-81323 Level 2 New Patient 14:23:38 ANIMAL CONTROL OFFICER Víctor Payne MD [facility] Procedures Code Procedure Name Date Entry Date Standard Description CPT-62972 Chest 2V Frontal and Lat 16:22:38 CDT CPT-G0008 Administration of Influenza Virus Vaccine 14:20:57 CDT CPT-00429 Fluzone High-Dose Intramuscular Suspension 14:20:56 CDT CPT-29490 Postop F/U Visit 16:24:54 ANIMAL CONTROL OFFICER CPT-OV Office Visit 13:26:00 ANIMAL CONTROL OFFICER CPT-97136 Administration 2+ single or combination vaccines inc oral 10:08:59 CDT CPT-85512 Administration single or combination vaccine inc oral 10 :08:59 CDT CPT-26960 Pneumovax 10:08:59 CDT CPT-33349 Influenza High Dose age 65+ 10:08:59 CDT
--- OUTSIDE RECORDS SUMMARY | 2017-07-22 11:49 | XMS REPORT | Clinical Summary ---
Author Author Admin, E Organization [employer] Address Unknown Phone Unavailable Allergies, Adverse Reactions, [...] Inguinal hernia, right 550.90 Active Erwinguy Modijosefa QUARRY PLANT CRUSHER OPERATOR Unilateral or unspecified inguinal hernia, without mention of obstruction or gangrene (not specified as recurrent) HEALTH MAINTENANCE EXAM V70.0 Active Víctor Payne MD Routine general medical examination at a health care facility Adjustment disorder with depressed mood 309.0 Active Víctor Payne MD Adjustment disorder with depressed mood Underweight 783.22 Active Víctor Payne MD Underweight Change in bowels 787.99 Active Tanya Tan QUARRY PLANT CRUSHER OPERATOR Other symptoms involving digestive system COPD 496 [...] Pre-procedural laboratory examination V72.63 Active Tatiana Schroeder BLACK BELT Pre-procedural laboratory examination Hemoptysis 786.30 Active Víctor [...] day as needed for pain TRAMADOL HCL 24410937317 Active Víctor Payne MD Active HYDROCODONE-ACETAMINOPHEN 5-325 MG ORAL TABLET 1 four times a day as needed for pain. HYDROCODONE-ACETAMINOPHEN 01327783721 Active Víctor Payne MD Active DEBROX 6.5 % OTIC SOLN 5 gtts effected ear(ears) q day CARBAMIDE PEROXIDE 11565813174 Active New Castro DO Active AMLODIPINE BESYLATE 5 MG TABS 1 tablet by mouth daily AMLODIPINE BESYLATE 97482455736 Active New Castro DO Active DOK PLUS 50-8.6 MG ORAL TABS 1 tab twice daily SENNOSIDES-DOCUSATE SODIUM 65484131637 No Longer Active New Castro DO Active DULCOLAX 5 MG ORAL TBEC 1-2 tab hs BISACODYL 36075039277 No Longer Active Víctor Payne MD Active COLACE 100 MG ORAL CAPS 1-2 tab daily no more then 4 DOCUSATE SODIUM 39751187189 No Longer Active Víctor Payne MD Active TYLENOL 325 MG ORAL TABS 1 tab every 4-6 hrs as needed for pain ACETAMINOPHEN 76935498584 No Longer Active Víctor Payne MD Active ASPIRIN 325 MG ORAL TBEC 1 daily ASPIRIN 93983554583 No Longer Active Víctor Payne MD Active SERTRALINE HCL 50 MG TABS 1 daily for depressed mood SERTRALINE HCL 13402443250 No Longer Active Víctor Payne MD Active METOPROLOL TARTRATE 25 MG ORAL TABS 1 tablet twice a day METOPROLOL TARTRATE 59532878200 No Longer Active Trino Richardson MD Active ASPIRIN 81 MG ORAL TABS 2 po qd ASPIRIN 70914281062 No Longer Active Trino Richardson MD Active MECLIZINE HCL 25 MG TAB one 4 times a day as needed for dizziness MECLIZINE HCL 75671016690 No Longer Active Víctor Payne MD Active HYDROCODONE-ACETAMINOPHEN 5-325 MG TABS 1/2 to 1 every 4 hours as needed for back pain HYDROCODONE-ACETAMINOPHEN 95950400527 No Longer Active Víctor Payne MD Active LEVAQUIN 750 MG TABS 1 po qd x 7 days LEVOFLOXACIN 70401529650 No Longer Active Víctor Payne MD Active LIPITOR 10 MG TAB one tablet daily at bedtime ATORVASTATIN CALCIUM 71973533629 No Longer Active Víctor Payne MD Active PLAVIX 75 MG TABS 1 tablet by mouth daily to prevent stroke 11/29 CLOPIDOGREL BISULFATE 97316361772 No Longer Active Víctor Payne MD Active ASPIRIN 325 MG TABS 1 TAB 2X ADAY ASPIRIN 54714397269 No Longer Active France Cohen RN Active PLAVIX 75 MG TABS 1 tablet by mouth daily to prevent stroke 11/29 PLAVIX 75 MG TABS 244127 CLOPIDOGREL BISULFATE Inactive LIPITOR 10 MG TAB one tablet daily at bedtime LIPITOR 10 MG TAB 183769 ATORVASTATIN CALCIUM Inactive LEVAQUIN 750 MG TABS 1 po qd x 7 days LEVAQUIN 750 MG TABS 694756 LEVOFLOXACIN Inactive HYDROCODONE-ACETAMINOPHEN 5-325 MG TABS 1/2 to 1 every 4 hours as needed for back pain HYDROCODONE-ACETAMINOPHEN 5-325 MG TABS 088348 HYDROCODONE-ACETAMINOPHEN Inactive MECLIZINE HCL 25 MG TAB one 4 times a day as needed for dizziness MECLIZINE HCL 25 MG TAB 478514 MECLIZINE HCL Inactive ASPIRIN 81 MG ORAL TABS 2 po qd ASPIRIN 81 MG ORAL TABS 354991 ASPIRIN Inactive METOPROLOL TARTRATE 25 MG ORAL TABS 1 tablet twice a day METOPROLOL TARTRATE 25 MG ORAL TABS 390533 METOPROLOL TARTRATE Inactive SERTRALINE HCL 50 MG TABS 1 daily for depressed mood SERTRALINE HCL 50 MG TABS 021105 SERTRALINE HCL Inactive ASPIRIN 325 MG ORAL TBEC 1 daily ASPIRIN 325 MG ORAL TBEC 286066 ASPIRIN Inactive TYLENOL 325 MG ORAL TABS 1 tab every 4-6 hrs as needed for pain TYLENOL 325 MG ORAL TABS 955880 ACETAMINOPHEN Inactive COLACE 100 MG ORAL CAPS 1-2 tab daily no more then 4 COLACE 100 MG ORAL CAPS 1797852 DOCUSATE SODIUM Inactive DULCOLAX 5 MG ORAL TBEC 1-2 tab hs DULCOLAX 5 MG ORAL TBEC BISACODYL Inactive DOK PLUS 50-8.6 MG ORAL TABS 1 tab twice daily DOK PLUS 50-8.6 MG ORAL TABS 631929 SENNOSIDES-DOCUSATE SODIUM Inactive Immunizations Vaccine Administration Date [...] Panel - Chemistry sodium, serum 139 mmol/L 211-387 6297/05/19 carbon dioxide, venous blood 31.9 mmol/L 21.0-32.0 [...] 0.36-3.74 Encounters Code Encounter Date Provider Facility CPT-88254 Level 3 Est. Patient 10:30:37 CDT New Castro DO [facility] CPT-92848 Level 4 Est. Patient 15:40:13 CDT Víctor Payne MD [facility] CPT-61556 Level 3 Est. Patient 16:47:27 CDT Tanya Tan APRN [facility] CPT-68967 Level 3 Est. Patient 10:46:48 CDT Víctor Payne MD [facility] CPT-11894 Level 3 Est. Patient 15:45:17 CDT Trino Richardson MD [facility] CPT-93873 Level 4 New Patient 15:41:12 CDT Trino Richardson MD [facility] CPT-07266 Level 3 Est. Patient 09:44:56 SLASH TRIMMER Víctor Payne MD [facility] CPT-65011 Level 4 Est. Patient 11:54:04 SLASH TRIMMER Víctor Payne MD [facility] CPT-17118 Level 3 Est. Patient 15:21:08 SLASH TRIMMER Shaji Bradshaw MD [facility] CPT-92878 Level 3 Est. Patient 16:54:23 CDT Víctor Payne MD [facility] CPT-29906 Level 3 Est. Patient 16:10:50 CDT Víctor Payne MD [facility] CPT-03591 Level 4 Est. Patient 14:48:01 CDT Víctor Payne MD [facility] CPT-28334 Level 2 New Patient 14:23:38 SLASH TRIMMER Víctor Payne MD [facility] Procedures Code Procedure Name Date Entry Date Standard Description CPT-TCMM Transitional Care Mgmt-Moderate 10:53:28 CDT CPT-84484 Chest 2V Frontal and Lat - XRAY USE ONLY 10:27:29 CDT CPT-93559 Chest 2V Frontal and Lat - XRAY USE ONLY 16:00:05 CDT CPT-G0438 Initial Annual Wellness Exam 10:02:47 CDT CPT-53394 Abd compl w upright 15:47:17 CDT CPT-47401 Venipuncture Draw Fee 10:41:53 SLASH TRIMMER CPT-32679 Chest 2V Frontal and Lat 16:22:38 CDT CPT-G0008 Administration of Influenza Virus Vaccine 14:20:57 CDT CPT-59996 Fluzone High-Dose Intramuscular Suspension 14:20:56 CDT CPT-56165 Postop F/U Visit 16:24:54 SLASH TRIMMER CPT-OV Office Visit 13:26:00 SLASH TRIMMER CPT-53230 Administration 2+ single or combination vaccines inc oral 10:08:59 CDT CPT-34118 Administration single or combination vaccine inc oral 10 :08:59 CDT CPT-53243 Pneumovax 10:08:59 CDT CPT-15444 Influenza High Dose age 65+ 10:08:59 CDT
--- OUTSIDE RECORDS SUMMARY | 2017-07-22 11:49 | XMS REPORT | Clinical Summary ---
Author Author Admin, JEAN CLAUDE Organization [facility] Address Unknown Phone Unavailable Allergies, Adverse [...] Instructions Start Date Stop Date Generic Name [facility] Status Provider Patient Instruction MECLIZINE HCL 25 MG TAB one 4 times a day as needed for dizziness MECLIZINE HCL 29558250953 Active Shaji Bradshaw MD Active HYDROCODONE-ACETAMINOPHEN 5-325 MG TABS 1/2 to 1 every 4 hours as needed for back pain HYDROCODONE-ACETAMINOPHEN 94813959824 Active Víctor Payne MD Active LEVAQUIN 750 MG TABS 1 po qd x 7 days LEVOFLOXACIN 17309637578 No Longer Active Víctor Payne MD Active ASPIRIN 81 MG ORAL TABS 2 po qd ASPIRIN 48880149672 Active Víctor Payne MD Active LIPITOR 10 MG TAB one tablet daily at bedtime ATORVASTATIN CALCIUM 05270322084 No Longer Active Víctor Payne MD Active PLAVIX 75 MG TABS 1 tablet by mouth daily to prevent stroke 11/29 CLOPIDOGREL BISULFATE 98282026654 No Longer Active Víctor Payne MD Active ASPIRIN 325 MG TABS 1 TAB 2X ADAY ASPIRIN 89645405716 No Longer Active France Cohen RN Active PLAVIX 75 MG TABS 1 tablet by mouth daily to prevent stroke 11/29 PLAVIX 75 MG TABS 734978 CLOPIDOGREL BISULFATE Inactive LIPITOR 10 MG TAB one tablet daily at bedtime LIPITOR 10 MG TAB 287504 ATORVASTATIN CALCIUM Inactive LEVAQUIN 750 MG TABS 1 po qd x 7 days LEVAQUIN 750 MG TABS 753587 LEVOFLOXACIN Inactive Immunizations Vaccine Administration Date Value [...] Panel - Chemistry sodium, serum 139 mmol/L 172-128 6604/09/18 carbon dioxide, venous blood 27.6 mmol/L 21.0-32.0 [...] Panel - Chemistry sodium, serum 136 mmol/L 100-357 7097/12/30 carbon dioxide, venous blood 27.9 mmol/L 21.0-32.0 potassium, serum 4.3 mmol/L 3.5-5.2 chloride, serum 100 mmol/L 98-107 blood glucose 97 mg/dL 65-110 urea nitrogen, blood 19 mg/dL 7-18 creatinine, serum 1.40 mg/dL 0.55-1.30 alanine aminotransferase (SGPT), serum 25 U/L aspartate aminotransferase (SGOT), serum 28 U/L 15-37 calcium, serum 9.0 mg/dL 8.5-10.1 bilirubin, serum, total 0.40 mg/dL 0.00-1.00 Encounters Code Encounter Date Provider Facility CPT-65442 Level 3 Est. Patient 15:21:08 SHIP BOAT OR BARGE MATE Shaji Bradshaw MD [facility] CPT-01017 Level 3 Est. Patient 16:54:23 CDT Víctor Payne MD [facility] CPT-30269 Level 3 Est. Patient 16:10:50 CDT Víctor Payne MD [facility] CPT-15654 Level 4 Est. Patient 14:48:01 CDT Víctor Payne MD [facility] CPT-54195 Level 2 New Patient 14:23:38 SHIP BOAT OR BARGE MATE Víctor Payne MD [facility] Procedures Code Procedure Name Date Entry Date Standard Description CPT-35149 Chest 2V Frontal and Lat 16:22:38 CDT CPT-G0008 Administration of Influenza Virus Vaccine 14:20:57 CDT CPT-97946 Fluzone High-Dose Intramuscular Suspension 14:20:56 CDT CPT-26886 Postop F/U Visit 16:24:54 SHIP BOAT OR BARGE MATE CPT-OV Office Visit 13:26:00 SHIP BOAT OR BARGE MATE CPT-00016 Administration 2+ single or combination vaccines inc oral 10:08:59 CDT CPT-76024 Administration single or combination vaccine inc oral 10 :08:59 CDT CPT-96544 Pneumovax 10:08:59 CDT CPT-84460 Influenza High Dose age 65+ 10:08:59 CDT
--- OUTSIDE RECORDS SUMMARY | 2017-07-22 11:50 | XMS REPORT | Clinical Summary ---
Author Author Admin, E Organization [facility] [employer] Address Unknown Phone Unavailable Allergies, Adverse Reactions, [...] Inguinal hernia, right 550.90 Active Erwinguy Modijosefa REHABILITATION LIAISON Unilateral or unspecified inguinal hernia, without mention of obstruction or gangrene (not specified as recurrent) HEALTH MAINTENANCE EXAM V70.0 Active Víctor Payne MD Routine general medical examination at a health care facility Adjustment disorder with depressed mood 309.0 Active Víctor Payne MD Adjustment disorder with depressed mood Underweight 783.22 Active Víctor Payne MD Underweight Change in bowels 787.99 Active Tanya Tan REHABILITATION LIAISON Other symptoms involving digestive system COPD 496 [...] Pre-procedural laboratory examination V72.63 Active Tatiana Schroeder 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 HYDROCODONE-ACETAMINOPHEN 09355529162 No Longer Active Víctor Payne MD Active DEBROX 6.5 % OTIC SOLN 5 gtts effected ear(ears) q day CARBAMIDE PEROXIDE 90633282996 Active New Castro DO Active AMLODIPINE BESYLATE 5 MG TABS 1 tablet by mouth daily AMLODIPINE BESYLATE 37662793684 Active New Castro DO Active DOK PLUS 50-8.6 MG ORAL TABS 1 tab twice daily SENNOSIDES-DOCUSATE SODIUM 76669975167 No Longer Active New Castro DO Active DULCOLAX 5 MG ORAL TBEC 1-2 tab hs BISACODYL 47039868338 No Longer Active Víctor Payne MD Active COLACE 100 MG ORAL CAPS 1-2 tab daily no more then 4 DOCUSATE SODIUM 83094906319 No Longer Active Víctor Payne MD Active TYLENOL 325 MG ORAL TABS 1 tab every 4-6 hrs as needed for pain ACETAMINOPHEN 15827543814 No Longer Active Víctor Payne MD Active ASPIRIN 325 MG ORAL TBEC 1 daily ASPIRIN 65020814655 No Longer Active Víctor Payne MD Active SERTRALINE HCL 50 MG TABS 1 daily for depressed mood SERTRALINE HCL 95719603903 No Longer Active Víctor Payne MD Active METOPROLOL TARTRATE 25 MG ORAL TABS 1 tablet twice a day METOPROLOL TARTRATE 23008372022 No Longer Active Trino Richardson MD Active ASPIRIN 81 MG ORAL TABS 2 po qd ASPIRIN 54053870734 No Longer Active Trino Richardson MD Active MECLIZINE HCL 25 MG TAB one 4 times a day as needed for dizziness MECLIZINE HCL 71463214060 No Longer Active Víctor Payne MD Active HYDROCODONE-ACETAMINOPHEN 5-325 MG TABS 1/2 to 1 every 4 hours as needed for back pain HYDROCODONE-ACETAMINOPHEN 35209020476 No Longer Active Víctor Payne MD Active LEVAQUIN 750 MG TABS 1 po qd x 7 days LEVOFLOXACIN 30682919398 No Longer Active Víctor Payne MD Active LIPITOR 10 MG TAB one tablet daily at bedtime ATORVASTATIN CALCIUM 61957073660 No Longer Active Víctor Payne MD Active PLAVIX 75 MG TABS 1 tablet by mouth daily to prevent stroke 11/29 CLOPIDOGREL BISULFATE 27479195023 No Longer Active Víctor Payne MD Active ASPIRIN 325 MG TABS 1 TAB 2X ADAY ASPIRIN 48393737582 No Longer Active France Cohen RN Active PLAVIX 75 MG TABS 1 tablet by mouth daily to prevent stroke 11/29 PLAVIX 75 MG TABS 534595 CLOPIDOGREL BISULFATE Inactive LIPITOR 10 MG TAB one tablet daily at bedtime LIPITOR 10 MG TAB 702737 ATORVASTATIN CALCIUM Inactive LEVAQUIN 750 MG TABS 1 po qd x 7 days LEVAQUIN 750 MG TABS 847178 LEVOFLOXACIN Inactive HYDROCODONE-ACETAMINOPHEN 5-325 MG TABS 1/2 to 1 every 4 hours as needed for back pain HYDROCODONE-ACETAMINOPHEN 5-325 MG TABS 192879 HYDROCODONE-ACETAMINOPHEN Inactive MECLIZINE HCL 25 MG TAB one 4 times a day as needed for dizziness MECLIZINE HCL 25 MG TAB 838300 MECLIZINE HCL Inactive ASPIRIN 81 MG ORAL TABS 2 po qd ASPIRIN 81 MG ORAL TABS 069426 ASPIRIN Inactive METOPROLOL TARTRATE 25 MG ORAL TABS 1 tablet twice a day METOPROLOL TARTRATE 25 MG ORAL TABS 124911 METOPROLOL TARTRATE Inactive SERTRALINE HCL 50 MG TABS 1 daily for depressed mood SERTRALINE HCL 50 MG TABS 839113 SERTRALINE HCL Inactive ASPIRIN 325 MG ORAL TBEC 1 daily ASPIRIN 325 MG ORAL TBEC 824946 ASPIRIN Inactive TYLENOL 325 MG ORAL TABS 1 tab every 4-6 hrs as needed for pain TYLENOL 325 MG ORAL TABS 239551 ACETAMINOPHEN Inactive COLACE 100 MG ORAL CAPS 1-2 tab daily no more then 4 COLACE 100 MG ORAL CAPS 5969870 DOCUSATE SODIUM Inactive DULCOLAX 5 MG ORAL TBEC 1-2 tab hs DULCOLAX 5 MG ORAL TBEC BISACODYL Inactive DOK PLUS 50-8.6 MG ORAL TABS 1 tab twice daily DOK PLUS 50-8.6 MG ORAL TABS 864788 SENNOSIDES-DOCUSATE SODIUM Inactive HYDROCODONE-ACETAMINOPHEN 5-325 MG ORAL TABLET 1 four times a day as needed for pain. HYDROCODONE-ACETAMINOPHEN 5-325 MG ORAL TABLET 056317 HYDROCODONE-ACETAMINOPHEN Inactive Immunizations Vaccine Administration Date Value [...] Panel - Chemistry sodium, serum 137 mmol/L 570-578 9929/10/20 potassium, serum 5.5 mmol/L 3.5-5.2 chloride, serum 104 mmol/L 98-107 carbon dioxide, venous blood 29.2 mmol/L 21.0-32.0 blood glucose 100 mg/dL 65-110 calcium, serum 8.7 mg/dL 8.5-10.1 urea nitrogen, blood 23 mg/dL 7-18 creatinine, serum 1.24 mg/dL 0.60-1.30 Lab Report: CBC, Comp. Metabolic Panel - Chemistry sodium, serum 139 mmol/L 104-980 2251/05/19 carbon dioxide, venous blood 31.9 mmol/L 21.0-32.0 [...] 0.36-3.74 Encounters Code Encounter Date Provider Facility CPT-28459 Level 3 Est. Patient 10:30:37 CDT New Castro DO [facility] CPT-12114 Level 4 Est. Patient 15:40:13 CDT Víctor Payne MD [facility] CPT-46877 Level 3 Est. Patient 16:47:27 CDT Tanya Tan APRN [facility] CPT-59745 Level 3 Est. Patient 10:46:48 CDT Víctor Payne MD [facility] CPT-52487 Level 3 Est. Patient 15:45:17 CDT Trino Richardson MD [facility] CPT-65044 Level 4 New Patient 15:41:12 CDT Trino Richardson MD [facility] CPT-49514 Level 3 Est. Patient 09:44:56 MANAGER LINE Víctor Payne MD [facility] CPT-46807 Level 4 Est. Patient 11:54:04 MANAGER LINE Víctor Payne MD [facility] CPT-19907 Level 3 Est. Patient 15:21:08 MANAGER LINE Shaji Bradshaw MD [facility] CPT-15814 Level 3 Est. Patient 16:54:23 CDT Víctor Payne MD [facility] CPT-88371 Level 3 Est. Patient 16:10:50 CDT Víctor Payne MD [facility] CPT-71427 Level 4 Est. Patient 14:48:01 CDT Víctor Payne MD [facility] CPT-13985 Level 2 New Patient 14:23:38 MANAGER LINE Víctor Payne MD [facility] Procedures Code Procedure Name Date Entry Date Standard Description CPT-TCMM Transitional Care Mgmt-Moderate 10:53:28 CDT CPT-10094 Chest 2V Frontal and Lat - XRAY USE ONLY 10:27:29 CDT CPT-57340 Chest 2V Frontal and Lat - XRAY USE ONLY 16:00:05 CDT CPT-G0438 Initial Annual Wellness Exam 10:02:47 CDT CPT-01904 Abd compl w upright 15:47:17 CDT CPT-26757 Venipuncture Draw Fee 10:41:53 MANAGER LINE CPT-02607 Chest 2V Frontal and Lat 16:22:38 CDT CPT-G0008 Administration of Influenza Virus Vaccine 14:20:57 CDT CPT-55806 Fluzone High-Dose Intramuscular Suspension 14:20:56 CDT CPT-41172 Postop F/U Visit 16:24:54 MANAGER LINE CPT-OV Office Visit 13:26:00 MANAGER LINE CPT-74719 Administration 2+ single or combination vaccines inc oral 10:08:59 CDT CPT-33227 Administration single or combination vaccine inc oral 10 :08:59 CDT CPT-63849 Pneumovax 10:08:59 CDT CPT-20944 Influenza High Dose age 65+ 10:08:59 CDT
--- OUTSIDE RECORDS SUMMARY | 2017-07-22 11:50 | XMS REPORT | Clinical Summary ---
Author Author Admin, JEAN CLAUDE Organization [facility] Address Unknown Phone Unavailable Allergies, Adverse [...] Inguinal hernia, right 550.90 Active Josr Lyjosefa CLERK OF COURT Unilateral or unspecified inguinal hernia, without mention of obstruction or gangrene (not specified as recurrent) Bronchitis ICD-490 Inactive Víctor Payne MD 2015 Medication List Medication Instructions Start Date Stop Date Generic Name NDC Status Provider Patient Instruction METOPROLOL TARTRATE 25 MG ORAL TABS 1 tablet twice a day METOPROLOL TARTRATE 28657852117 Active Víctor Payne MD Active MECLIZINE HCL 25 MG TAB one 4 times a day as needed for dizziness MECLIZINE HCL 21216740574 No Longer Active Víctor Payne MD Active HYDROCODONE-ACETAMINOPHEN 5-325 MG TABS 1/2 to 1 every 4 hours as needed for back pain HYDROCODONE-ACETAMINOPHEN 14417825768 No Longer Active Víctor Payne MD Active LEVAQUIN 750 MG TABS 1 po qd x 7 days LEVOFLOXACIN 52222107172 No Longer Active Víctor Payne MD Active ASPIRIN 81 MG ORAL TABS 2 po qd ASPIRIN 62832664905 Active Víctor Payne MD Active LIPITOR 10 MG TAB one tablet daily at bedtime ATORVASTATIN CALCIUM 81852535346 No Longer Active Víctor Payne MD Active PLAVIX 75 MG TABS 1 tablet by mouth daily to prevent stroke 11/29 CLOPIDOGREL BISULFATE 53622492078 No Longer Active Víctor Payne MD Active ASPIRIN 325 MG TABS 1 TAB 2X ADAY ASPIRIN 06717336549 No Longer Active France Cohen RN Active PLAVIX 75 MG TABS 1 tablet by mouth daily to prevent stroke 11/29 PLAVIX 75 MG TABS 184047 CLOPIDOGREL BISULFATE Inactive LIPITOR 10 MG TAB one tablet daily at bedtime LIPITOR 10 MG TAB 223143 ATORVASTATIN CALCIUM Inactive LEVAQUIN 750 MG TABS 1 po qd x 7 days LEVAQUIN 750 MG TABS 700293 LEVOFLOXACIN Inactive HYDROCODONE-ACETAMINOPHEN 5-325 MG TABS 1/2 to 1 every 4 hours as needed for back pain HYDROCODONE-ACETAMINOPHEN 5-325 MG TABS 906304 HYDROCODONE-ACETAMINOPHEN Inactive MECLIZINE HCL 25 MG TAB one 4 times a day as needed for dizziness MECLIZINE HCL 25 MG TAB 148235 MECLIZINE HCL Inactive Immunizations Vaccine Administration Date [...] % 11.6-14.8 platelet count 303 10^3/MM^3 10*3/mm3 868-546 9957/02/10 leukocyte count, blood 11.9 10^3/MM^3 10*3/mm3 4.6-10.2 [...] Panel - Chemistry sodium, serum 139 mmol/L 370-756 0576/09/18 carbon dioxide, venous blood 27.6 mmol/L 21.0-32.0 [...] Panel - Chemistry sodium, serum 136 mmol/L 341-333 8903/12/30 carbon dioxide, venous blood 27.9 mmol/L 21.0-32.0 [...] 0.00-1.00 Encounters Code Encounter Date Provider Facility CPT-05538 Level 3 Est. Patient 09:44:56 WATER TAXI CAPTAIN Víctor Payne MD [facility] CPT-88962 Level 4 Est. Patient 11:54:04 WATER TAXI CAPTAIN Víctor Payne MD [facility] CPT-59659 Level 3 Est. Patient 15:21:08 WATER TAXI CAPTAIN Shaji Bradshaw MD [facility] CPT-42628 Level 3 Est. Patient 16:54:23 CDT Víctor Payne MD [facility] CPT-02734 Level 3 Est. Patient 16:10:50 CDT Víctor Payne MD [facility] CPT-82964 Level 4 Est. Patient 14:48:01 CDT Víctor Payne MD [facility] CPT-86635 Level 2 New Patient 14:23:38 WATER TAXI CAPTAIN Víctor Payne MD [facility] Procedures Code Procedure Name Date Entry Date Standard Description CPT-49123 Venipuncture Draw Fee 10:41:53 WATER TAXI CAPTAIN CPT-37386 Chest 2V Frontal and Lat 16:22:38 CDT CPT-G0008 Administration of Influenza Virus Vaccine 14:20:57 CDT CPT-84562 Fluzone High-Dose Intramuscular Suspension 14:20:56 CDT CPT-86727 Postop F/U Visit 16:24:54 WATER TAXI CAPTAIN CPT-OV Office Visit 13:26:00 WATER TAXI CAPTAIN CPT-55425 Administration 2+ single or combination vaccines inc oral 10:08:59 CDT CPT-94790 Administration single or combination vaccine inc oral 10 :08:59 CDT CPT-77237 Pneumovax 10:08:59 CDT CPT-50728 Influenza High Dose age 65+ 10:08:59 CDT
--- OUTSIDE RECORDS SUMMARY | 2017-07-22 11:51 | XMS REPORT | Clinical Summary ---
Author Author Admin, E Organization [employer] Address Unknown Phone Unavailable Allergies, Adverse Reactions, [...] Inguinal hernia, right 550.90 Active Erwinguy Modijosefa NURSE CASE MANAGER Unilateral or unspecified inguinal hernia, without mention of obstruction or gangrene (not specified as recurrent) HEALTH MAINTENANCE EXAM V70.0 Active Víctor Payne MD Routine general medical examination at a health care facility Adjustment disorder with depressed mood 309.0 Active Víctor Payne MD Adjustment disorder with depressed mood Underweight 783.22 Active Víctor Payne MD Underweight Change in bowels 787.99 Active Tanya Tan NURSE CASE MANAGER Other symptoms involving digestive system COPD [...] Pre-procedural laboratory examination V72.63 Active Tatiana Schroeder HEALTH AND SAFETY ADVISOR Pre-procedural laboratory examination Hemoptysis 786.30 Active Víctor [...] day as needed for pain TRAMADOL HCL 01889797233 Active Víctor Payne MD Active HYDROCODONE-ACETAMINOPHEN 5-325 MG ORAL TABLET 1 four times a day as needed for pain. HYDROCODONE-ACETAMINOPHEN 15445083675 No Longer Active Víctor Payne MD Active DEBROX 6.5 % OTIC SOLN 5 gtts effected ear(ears) q day CARBAMIDE PEROXIDE 70405867185 Active New Castro DO Active AMLODIPINE BESYLATE 5 MG TABS 1 tablet by mouth daily AMLODIPINE BESYLATE 52329307031 Active New Castro DO Active DOK PLUS 50-8.6 MG ORAL TABS 1 tab twice daily SENNOSIDES-DOCUSATE SODIUM 17291985047 No Longer Active New Castro DO Active DULCOLAX 5 MG ORAL TBEC 1-2 tab hs BISACODYL 15529791675 No Longer Active Víctor Payne MD Active COLACE 100 MG ORAL CAPS 1-2 tab daily no more then 4 DOCUSATE SODIUM 80071416206 No Longer Active Víctor Payne MD Active TYLENOL 325 MG ORAL TABS 1 tab every 4-6 hrs as needed for pain ACETAMINOPHEN 66152153207 No Longer Active Víctor Payne MD Active ASPIRIN 325 MG ORAL TBEC 1 daily ASPIRIN 01002478283 No Longer Active Víctor Payne MD Active SERTRALINE HCL 50 MG TABS 1 daily for depressed mood SERTRALINE HCL 57139526850 No Longer Active Víctor Payne MD Active METOPROLOL TARTRATE 25 MG ORAL TABS 1 tablet twice a day METOPROLOL TARTRATE 09127486448 No Longer Active Trino Richardson MD Active ASPIRIN 81 MG ORAL TABS 2 po qd ASPIRIN 23086408811 No Longer Active Trino Richardson MD Active MECLIZINE HCL 25 MG TAB one 4 times a day as needed for dizziness MECLIZINE HCL 34627488711 No Longer Active Víctor Payne MD Active HYDROCODONE-ACETAMINOPHEN 5-325 MG TABS 1/2 to 1 every 4 hours as needed for back pain HYDROCODONE-ACETAMINOPHEN 27660373629 No Longer Active Víctor Payne MD Active LEVAQUIN 750 MG TABS 1 po qd x 7 days LEVOFLOXACIN 87514976429 No Longer Active Víctor Payne MD Active LIPITOR 10 MG TAB one tablet daily at bedtime ATORVASTATIN CALCIUM 05071848129 No Longer Active Víctor Payne MD Active PLAVIX 75 MG TABS 1 tablet by mouth daily to prevent stroke 11/29 CLOPIDOGREL BISULFATE 14418492640 No Longer Active Víctor Payne MD Active ASPIRIN 325 MG TABS 1 TAB 2X ADAY ASPIRIN 20185008386 No Longer Active Fracne Cohen RN Active PLAVIX 75 MG TABS 1 tablet by mouth daily to prevent stroke 11/29 PLAVIX 75 MG TABS 533455 CLOPIDOGREL BISULFATE Inactive LIPITOR 10 MG TAB one tablet daily at bedtime LIPITOR 10 MG TAB 554489 ATORVASTATIN CALCIUM Inactive LEVAQUIN 750 MG TABS 1 po qd x 7 days LEVAQUIN 750 MG TABS 879453 LEVOFLOXACIN Inactive HYDROCODONE-ACETAMINOPHEN 5-325 MG TABS 1/2 to 1 every 4 hours as needed for back pain HYDROCODONE-ACETAMINOPHEN 5-325 MG TABS 742387 HYDROCODONE-ACETAMINOPHEN Inactive MECLIZINE HCL 25 MG TAB one 4 times a day as needed for dizziness MECLIZINE HCL 25 MG TAB 539395 MECLIZINE HCL Inactive ASPIRIN 81 MG ORAL TABS 2 po qd ASPIRIN 81 MG ORAL TABS 537150 ASPIRIN Inactive METOPROLOL TARTRATE 25 MG ORAL TABS 1 tablet twice a day METOPROLOL TARTRATE 25 MG ORAL TABS 243424 METOPROLOL TARTRATE Inactive SERTRALINE HCL 50 MG TABS 1 daily for depressed mood SERTRALINE HCL 50 MG TABS 298505 SERTRALINE HCL Inactive ASPIRIN 325 MG ORAL TBEC 1 daily ASPIRIN 325 MG ORAL TBEC 554767 ASPIRIN Inactive TYLENOL 325 MG ORAL TABS 1 tab every 4-6 hrs as needed for pain TYLENOL 325 MG ORAL TABS 955005 ACETAMINOPHEN Inactive COLACE 100 MG ORAL CAPS 1-2 tab daily no more then 4 COLACE 100 MG ORAL CAPS 1616589 DOCUSATE SODIUM Inactive DULCOLAX 5 MG ORAL TBEC 1-2 tab hs DULCOLAX 5 MG ORAL TBEC BISACODYL Inactive DOK PLUS 50-8.6 MG ORAL TABS 1 tab twice daily DOK PLUS 50-8.6 MG ORAL TABS 384664 SENNOSIDES-DOCUSATE SODIUM Inactive HYDROCODONE-ACETAMINOPHEN 5-325 MG ORAL TABLET 1 four times a day as needed for pain. HYDROCODONE-ACETAMINOPHEN 5-325 MG ORAL TABLET 833929 HYDROCODONE-ACETAMINOPHEN Inactive Immunizations Vaccine Administration Date Value [...] Panel - Chemistry sodium, serum 137 mmol/L 364-463 4061/10/20 potassium, serum 5.5 mmol/L 3.5-5.2 chloride, serum 104 mmol/L 98-107 carbon dioxide, venous blood 29.2 mmol/L 21.0-32.0 blood glucose 100 mg/dL 65-110 calcium, serum 8.7 mg/dL 8.5-10.1 urea nitrogen, blood 23 mg/dL 7-18 creatinine, serum 1.24 mg/dL 0.60-1.30 Lab Report: CBC, Comp. Metabolic Panel - Chemistry sodium, serum 139 mmol/L 841-716 3330/05/19 carbon dioxide, venous blood 31.9 mmol/L 21.0-32.0 [...] 0.36-3.74 Encounters Code Encounter Date Provider Facility CPT-44132 Level 3 Est. Patient 10:30:37 CDT New Castro DO [facility] CPT-95427 Level 4 Est. Patient 15:40:13 CDT Víctor Payne MD [facility] CPT-13762 Level 3 Est. Patient 16:47:27 CDT Tanya Tan APRN [facility] CPT-39849 Level 3 Est. Patient 10:46:48 CDT Víctor Payne MD [facility] CPT-80874 Level 3 Est. Patient 15:45:17 CDT Trino Richardson MD [facility] CPT-93201 Level 4 New Patient 15:41:12 CDT Trino Richardson MD [facility] CPT-60824 Level 3 Est. Patient 09:44:56 WHIP OPERATOR Víctor Payne MD [facility] CPT-46849 Level 4 Est. Patient 11:54:04 WHIP OPERATOR Víctor Payne MD [facility] CPT-72758 Level 3 Est. Patient 15:21:08 WHIP OPERATOR Shaji Bradshaw MD [facility] CPT-50360 Level 3 Est. Patient 16:54:23 CDT Víctor Payne MD [facility] CPT-86591 Level 3 Est. Patient 16:10:50 CDT Víctor Payne MD [facility] CPT-36227 Level 4 Est. Patient 14:48:01 CDT Víctor Payne MD [facility] CPT-26256 Level 2 New Patient 14:23:38 WHIP OPERATOR Víctor Payne MD [facility] Procedures Code Procedure Name Date Entry Date Standard Description CPT-TCMM Transitional Care Mgmt-Moderate 10:53:28 CDT CPT-73158 Chest 2V Frontal and Lat - XRAY USE ONLY 10:27:29 CDT CPT-35106 Chest 2V Frontal and Lat - XRAY USE ONLY 16:00:05 CDT CPT-G0438 Initial Annual Wellness Exam 10:02:47 CDT CPT-06405 Abd compl w upright 15:47:17 CDT CPT-44956 Venipuncture Draw Fee 10:41:53 WHIP OPERATOR CPT-17313 Chest 2V Frontal and Lat 16:22:38 CDT CPT-G0008 Administration of Influenza Virus Vaccine 14:20:57 CDT CPT-68719 Fluzone High-Dose Intramuscular Suspension 14:20:56 CDT CPT-45659 Postop F/U Visit 16:24:54 WHIP OPERATOR CPT-OV Office Visit 13:26:00 WHIP OPERATOR CPT-24484 Administration 2+ single or combination vaccines inc oral 10:08:59 CDT CPT-26162 Administration single or combination vaccine inc oral 10 :08:59 CDT CPT-27767 Pneumovax 10:08:59 CDT CPT-12328 Influenza High Dose age 65+ 10:08:59 CDT
--- OUTSIDE RECORDS SUMMARY | 2017-07-22 11:52 | XMS REPORT | Clinical Summary ---
Author Author Admin, E Organization [employer] Address Unknown Phone Unavailable Allergies, Adverse Reactions, [...] Inguinal hernia, right 550.90 Active Neelimakaro Modijosefa CLOTH OPENER HAND Unilateral or unspecified inguinal hernia, without mention of obstruction or gangrene (not specified as recurrent) HEALTH MAINTENANCE EXAM V70.0 Active Víctor Payne MD Routine general medical examination at a health care facility Adjustment disorder with depressed mood 309.0 Active Víctor Payne MD Adjustment disorder with depressed mood Underweight 783.22 Active Víctor Payne MD Underweight Change in bowels 787.99 Active Tanya Tan CLOTH OPENER HAND Other symptoms involving digestive system COPD 496 [...] 1 tab twice daily SENNOSIDES- DOCUSATE SODIUM 27165141849 Active Víctor Payne MD Active DULCOLAX 5 MG ORAL TBEC 1-2 tab hs BISACODYL 85770207636 No Longer Active Víctor Payne MD Active COLACE 100 MG ORAL CAPS 1-2 tab daily no more then 4 DOCUSATE SODIUM 41462852147 No Longer Active Víctor Payne MD Active TYLENOL 325 MG ORAL TABS 1 tab every 4-6 hrs as needed for pain ACETAMINOPHEN 17520507393 No Longer Active Víctor Payne MD Active ASPIRIN 325 MG ORAL TBEC 1 daily ASPIRIN 27937959711 No Longer Active Víctor Payne MD Active SERTRALINE HCL 50 MG TABS 1 daily for depressed mood SERTRALINE HCL 21462129936 No Longer Active Víctor Payne MD Active METOPROLOL TARTRATE 25 MG ORAL TABS 1 tablet twice a day METOPROLOL TARTRATE 95232908057 No Longer Active Trino Richardson MD Active ASPIRIN 81 MG ORAL TABS 2 po qd ASPIRIN 09028983978 No Longer Active Trino Richardson MD Active MECLIZINE HCL 25 MG TAB one 4 times a day as needed for dizziness MECLIZINE HCL 08665574196 No Longer Active Víctor Payne MD Active HYDROCODONE-ACETAMINOPHEN 5-325 MG TABS 1/2 to 1 every 4 hours as needed for back pain HYDROCODONE-ACETAMINOPHEN 03367599157 No Longer Active Víctor Payne MD Active LEVAQUIN 750 MG TABS 1 po qd x 7 days LEVOFLOXACIN 18435684567 No Longer Active Víctor Payne MD Active LIPITOR 10 MG TAB one tablet daily at bedtime ATORVASTATIN CALCIUM 21476389045 No Longer Active Víctor Payne MD Active PLAVIX 75 MG TABS 1 tablet by mouth daily to prevent stroke 11/29 CLOPIDOGREL BISULFATE 66652555430 No Longer Active Víctor Payne MD Active ASPIRIN 325 MG TABS 1 TAB 2X ADAY ASPIRIN 93244314684 No Longer Active France Cohen RN Active PLAVIX 75 MG TABS 1 tablet by mouth daily to prevent stroke 11/29 PLAVIX 75 MG TABS 95796323982 CLOPIDOGREL BISULFATE Inactive LIPITOR 10 MG TAB one tablet daily at bedtime LIPITOR 10 MG TAB 092012 ATORVASTATIN CALCIUM Inactive LEVAQUIN 750 MG TABS 1 po qd x 7 days LEVAQUIN 750 MG TABS 161687 LEVOFLOXACIN Inactive HYDROCODONE-ACETAMINOPHEN 5-325 MG TABS 1/2 to 1 every 4 hours as needed for back pain HYDROCODONE-ACETAMINOPHEN 5-325 MG TABS 205886 HYDROCODONE-ACETAMINOPHEN Inactive MECLIZINE HCL 25 MG TAB one 4 times a day as needed for dizziness MECLIZINE HCL 25 MG TAB 196337 MECLIZINE HCL Inactive ASPIRIN 81 MG ORAL TABS 2 po qd ASPIRIN 81 MG ORAL TABS ASPIRIN Inactive METOPROLOL TARTRATE 25 MG ORAL TABS 1 tablet twice a day METOPROLOL TARTRATE 25 MG ORAL TABS 709929 METOPROLOL TARTRATE Inactive SERTRALINE HCL 50 MG TABS 1 daily for depressed mood SERTRALINE HCL 50 MG TABS 358474 SERTRALINE HCL Inactive ASPIRIN 325 MG ORAL TBEC 1 daily ASPIRIN 325 MG ORAL TBEC 013275 ASPIRIN Inactive TYLENOL 325 MG ORAL TABS 1 tab every 4-6 hrs as needed for pain TYLENOL 325 MG ORAL TABS 332700 ACETAMINOPHEN Inactive COLACE 100 MG ORAL CAPS 1-2 tab daily no more then 4 COLACE 100 MG ORAL CAPS 4724307 DOCUSATE SODIUM Inactive DULCOLAX 5 MG ORAL [...] Panel - Chemistry sodium, serum 139 mmol/L 727-738 5585/05/19 carbon dioxide, venous blood 31.9 mmol/L 21.0-32.0 [...] 0.36-3.74 Encounters Code Encounter Date Provider Facility CPT-28088 Level 4 Est. Patient 15:40:13 CDT Víctor Payne MD [facility] CPT-65857 Level 3 Est. Patient 16:47:27 CDT Tanya Tan APRN [facility] CPT-26131 Level 3 Est. Patient 10:46:48 CDT Víctor Payne MD [facility] CPT-27938 Level 3 Est. Patient 15:45:17 CDT Trino Richardson MD [facility] CPT-52473 Level 4 New Patient 15:41:12 CDT Trino Richardson MD [facility] CPT-42887 Level 3 Est. Patient 09:44:56 RAMP BOSS Víctor Payne MD [facility] CPT-50808 Level 4 Est. Patient 11:54:04 RAMP BOSS Víctor Payne MD [facility] CPT-31667 Level 3 Est. Patient 15:21:08 RAMP BOSS Shaji Bradshaw MD [facility] CPT-29141 Level 3 Est. Patient 16:54:23 CDT Víctor Payne MD [facility] CPT-36975 Level 3 Est. Patient 16:10:50 CDT Víctor Payne MD [facility] CPT-14603 Level 4 Est. Patient 14:48:01 CDT Víctor Payne MD [facility] CPT-76873 Level 2 New Patient 14:23:38 RAMP BOSS Víctor Payne MD [facility] Procedures Code Procedure Name Date Entry Date Standard Description CPT-32971 Chest 2V Frontal and Lat - XRAY USE ONLY 16:00:05 CDT CPT-G0438 Initial Annual Wellness Exam 10:02:47 CDT CPT-00596 Abd compl w upright 15:47:17 CDT CPT-32715 Venipuncture Draw Fee 10:41:53 RAMP BOSS CPT-85125 Chest 2V Frontal and Lat 16:22:38 CDT CPT-G0008 Administration of Influenza Virus Vaccine 14:20:57 CDT CPT-76942 Fluzone High-Dose Intramuscular Suspension 14:20:56 CDT CPT-10089 Postop F/U Visit 16:24:54 RAMP BOSS CPT-OV Office Visit 13:26:00 RAMP BOSS CPT-36999 Administration 2+ single or combination vaccines inc oral 10:08:59 CDT CPT-35337 Administration single or combination vaccine inc oral 10 :08:59 CDT CPT-13217 Pneumovax 10:08:59 CDT CPT-92901 Influenza High Dose age 65+ 10:08:59 CDT
--- OUTSIDE RECORDS SUMMARY | 2017-07-22 11:52 | XMS REPORT | Clinical Summary ---
Author Author Admin, E Organization [employer] Address Unknown Phone Unavailable Allergies, Adverse [...] Inguinal hernia, right 550.90 Active Josr Montoya WOODEN TANK ERECTOR Unilateral or unspecified inguinal hernia, without mention [...] 1 daily for depressed mood SERTRALINE HCL 21616224432 No Longer Active Víctor Payne MD Active METOPROLOL TARTRATE 25 MG ORAL TABS 1 tablet twice a day METOPROLOL TARTRATE 73460994034 No Longer Active Trino Richardson MD Active ASPIRIN 325 MG ORAL TBEC 1 daily ASPIRIN 85106598072 Active Trino Richardson MD Active ASPIRIN 81 MG ORAL TABS 2 po qd ASPIRIN 28070159176 No Longer Active Trino Richardson MD Active MECLIZINE HCL 25 MG TAB one 4 times a day as needed for dizziness MECLIZINE HCL 80501138131 No Longer Active Víctor Payne MD Active HYDROCODONE-ACETAMINOPHEN 5-325 MG TABS 1/2 to 1 every 4 hours as needed for back pain HYDROCODONE-ACETAMINOPHEN 33105972720 No Longer Active Víctor Payne MD Active LEVAQUIN 750 MG TABS 1 po qd x 7 days LEVOFLOXACIN 02345661634 No Longer Active Víctor Payne MD Active LIPITOR 10 MG TAB one tablet daily at bedtime ATORVASTATIN CALCIUM 63128101349 No Longer Active Víctor Payne MD Active PLAVIX 75 MG TABS 1 tablet by mouth daily to prevent stroke 11/29 CLOPIDOGREL BISULFATE 54749118140 No Longer Active Víctor Payne MD Active ASPIRIN 325 MG TABS 1 TAB 2X ADAY ASPIRIN 73301195414 No Longer Active France Cohen RN Active PLAVIX 75 MG TABS 1 tablet by mouth daily to prevent stroke 11/29 PLAVIX 75 MG TABS 838047 CLOPIDOGREL BISULFATE Inactive LIPITOR 10 MG TAB one tablet daily at bedtime LIPITOR 10 MG TAB 724331 ATORVASTATIN CALCIUM Inactive LEVAQUIN 750 MG TABS 1 po qd x 7 days LEVAQUIN 750 MG TABS 477697 LEVOFLOXACIN Inactive HYDROCODONE-ACETAMINOPHEN 5-325 MG TABS 1/2 to 1 every 4 hours as needed for back pain HYDROCODONE-ACETAMINOPHEN 5-325 MG TABS 243389 HYDROCODONE-ACETAMINOPHEN Inactive MECLIZINE HCL 25 MG TAB one 4 times a day as needed for dizziness MECLIZINE HCL 25 MG TAB 112588 MECLIZINE HCL Inactive ASPIRIN 81 MG ORAL TABS 2 po qd ASPIRIN 81 MG ORAL TABS ASPIRIN Inactive METOPROLOL TARTRATE 25 MG ORAL TABS 1 tablet twice a day METOPROLOL TARTRATE 25 MG ORAL TABS 369768 METOPROLOL TARTRATE Inactive SERTRALINE HCL 50 MG TABS 1 daily for depressed mood SERTRALINE HCL 50 MG TABS 245618 SERTRALINE HCL Inactive Immunizations Vaccine Administration Date [...] Measured Encounters Code Encounter Date Provider Facility CPT-67181 Level 3 Est. Patient 10:46:48 CDT Víctor Payne MD [facility] CPT-05878 Level 3 Est. Patient 15:45:17 CDT Trino Richardson MD [facility] CPT-09372 Level 4 New Patient 15:41:12 CDT Trino Richardson MD [facility] CPT-35783 Level 3 Est. Patient 09:44:56 DATA COMMUNICATIONS SOFTWARE CONSULTANT Víctor Payne MD [facility] CPT-11657 Level 4 Est. Patient 11:54:04 DATA COMMUNICATIONS SOFTWARE CONSULTANT Víctor Payne MD [facility] CPT-63556 Level 3 Est. Patient 15:21:08 DATA COMMUNICATIONS SOFTWARE CONSULTANT Shaji Bradshaw MD [facility] CPT-75942 Level 3 Est. Patient 16:54:23 CDT Víctor Payne MD [facility] CPT-00786 Level 3 Est. Patient 16:10:50 CDT Víctor Payne MD [facility] CPT-07738 Level 4 Est. Patient 14:48:01 CDT Víctor Payne MD [facility] CPT-64550 Level 2 New Patient 14:23:38 DATA COMMUNICATIONS SOFTWARE CONSULTANT Víctor Payne MD [facility] Procedures Code Procedure Name Date Entry Date Standard Description CPT-G0438 Initial Annual Wellness Exam 10:02:47 CDT CPT-97446 Abd compl w upright 15:47:17 CDT CPT-71181 Venipuncture Draw Fee 10:41:53 DATA COMMUNICATIONS SOFTWARE CONSULTANT CPT-61889 Chest 2V Frontal and Lat 16:22:38 CDT CPT-G0008 Administration of Influenza Virus Vaccine 14:20:57 CDT CPT-21579 Fluzone High-Dose Intramuscular Suspension 14:20:56 CDT CPT-00508 Postop F/U Visit 16:24:54 DATA COMMUNICATIONS SOFTWARE CONSULTANT CPT-OV Office Visit 13:26:00 DATA COMMUNICATIONS SOFTWARE CONSULTANT CPT-56460 Administration 2+ single or combination vaccines inc oral 10:08:59 CDT CPT-24102 Administration single or combination vaccine inc oral 10 :08:59 CDT CPT-13649 Pneumovax 10:08:59 CDT CPT-11477 Influenza High Dose age 65+ 10:08:59 CDT
--- OUTSIDE RECORDS SUMMARY | 2017-07-22 11:52 | XMS REPORT | Clinical Summary ---
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 Unilateral or unspecified inguinal hernia, without mention [...] 1 daily for depressed mood SERTRALINE HCL 89263110198 Active Víctor Payne MD Active METOPROLOL TARTRATE 25 MG ORAL TABS 1 tablet twice a day METOPROLOL TARTRATE 08879657992 No Longer Active Trino Richardson MD Active ASPIRIN 325 MG ORAL TBEC 1 daily ASPIRIN 81943096523 Active Trino Richardson MD Active ASPIRIN 81 MG ORAL TABS 2 po qd ASPIRIN 05734480752 No Longer Active Trino Richardson MD Active MECLIZINE HCL 25 MG TAB one 4 times a day as needed for dizziness MECLIZINE HCL 26943277834 No Longer Active Víctor Payne MD Active HYDROCODONE-ACETAMINOPHEN 5-325 MG TABS 1/2 to 1 every 4 hours as needed for back pain HYDROCODONE-ACETAMINOPHEN 97245332572 No Longer Active Víctor Payne MD Active LEVAQUIN 750 MG TABS 1 po qd x 7 days LEVOFLOXACIN 69073652256 No Longer Active Víctor Payne MD Active LIPITOR 10 MG TAB one tablet daily at bedtime ATORVASTATIN CALCIUM 43286020439 No Longer Active Víctor Payne MD Active PLAVIX 75 MG TABS 1 tablet by mouth daily to prevent stroke 11/29 CLOPIDOGREL BISULFATE 47332548916 No Longer Active Víctor Payne MD Active ASPIRIN 325 MG TABS 1 TAB 2X ADAY ASPIRIN 11761163245 No Longer Active France Cohen RN Active PLAVIX 75 MG TABS 1 tablet by mouth daily to prevent stroke 11/29 PLAVIX 75 MG TABS 560665 CLOPIDOGREL BISULFATE Inactive LIPITOR 10 MG TAB one tablet daily at bedtime LIPITOR 10 MG TAB 047279 ATORVASTATIN CALCIUM Inactive LEVAQUIN 750 MG TABS 1 po qd x 7 days LEVAQUIN 750 MG TABS 930067 LEVOFLOXACIN Inactive HYDROCODONE-ACETAMINOPHEN 5-325 MG TABS 1/2 to 1 every 4 hours as needed for back pain HYDROCODONE-ACETAMINOPHEN 5-325 MG TABS 839539 HYDROCODONE-ACETAMINOPHEN Inactive MECLIZINE HCL 25 MG TAB one 4 times a day as needed for dizziness MECLIZINE HCL 25 MG TAB 141892 MECLIZINE HCL Inactive ASPIRIN 81 MG ORAL TABS 2 po qd ASPIRIN 81 MG ORAL TABS ASPIRIN Inactive METOPROLOL TARTRATE 25 MG ORAL TABS 1 tablet twice a day METOPROLOL TARTRATE 25 MG ORAL TABS 245050 METOPROLOL TARTRATE Inactive Immunizations Vaccine Administration Date [...] % 11.6-14.8 platelet count 303 10^3/MM^3 10*3/mm3 586-845 5149/02/10 leukocyte count, blood 11.9 10^3/MM^3 10*3/mm3 4.6-10.2 [...] Panel - Chemistry sodium, serum 139 mmol/L 796-067 3546/09/18 carbon dioxide, venous blood 27.6 mmol/L 21.0-32.0 potassium, serum 4.5 mmol/L 3.5-5.2 chloride, serum 104 mmol/L 98-107 blood glucose 85 mg/dL 65-110 urea nitrogen, blood 19 mg/dL 7-18 creatinine, serum 1.43 mg/dL 0.55-1.30 alanine aminotransferase (SGPT), serum 17 U/L aspartate aminotransferase (SGOT), serum 17 U/L 15-37 [...] Panel - Chemistry sodium, serum 136 mmol/L 444-107 0255/12/30 carbon dioxide, venous blood 27.9 mmol/L 21.0-32.0 potassium, serum 4.3 mmol/L 3.5-5.2 chloride, serum 100 mmol/L 98-107 blood glucose 97 mg/dL 65-110 urea nitrogen, blood 19 mg/dL 7-18 creatinine, serum 1.40 mg/dL 0.55-1.30 alanine aminotransferase (SGPT), serum 25 U/L aspartate aminotransferase (SGOT), serum 28 U/L - calcium, serum 9.0 mg/dL 8.5-10.1 bilirubin, serum, total 0.40 mg/dL 0.00-1.00 Encounters Code Encounter Date Provider Facility CPT-30114 Level 3 Est. Patient 15:45:17 CDT Trino Richardson MD [facility] CPT-00610 Level 4 New Patient 15:41:12 CDT Trino Richardson MD [facility] CPT-26088 Level 3 Est. Patient 09:44:56 CORPORATE TREASURY ANALYST Víctor Payne MD [facility] CPT-66221 Level 4 Est. Patient 11:54:04 CORPORATE TREASURY ANALYST Víctor Payne MD [facility] CPT-16271 Level 3 Est. Patient 15:21:08 CORPORATE TREASURY ANALYST Shaji Bradshaw MD [facility] CPT-62371 Level 3 Est. Patient 16:54:23 CDT Víctor Payne MD [facility] CPT-41804 Level 3 Est. Patient 16:10:50 CDT Víctor Payne MD [facility] CPT-62785 Level 4 Est. Patient 14:48:01 CDT Víctor Payne MD [facility] CPT-14166 Level 2 New Patient 14:23:38 CORPORATE TREASURY ANALYST Víctor Payne MD [facility] Procedures Code Procedure Name Date Entry Date Standard Description CPT-G0438 Initial Annual Wellness Exam 10:02:47 CDT CPT-89127 Abd compl w upright 15:47:17 CDT CPT-68091 Venipuncture Draw Fee 10:41:53 CORPORATE TREASURY ANALYST CPT-16817 Chest 2V Frontal and Lat 16:22:38 CDT CPT-G0008 Administration of Influenza Virus Vaccine 14:20:57 CDT CPT-19624 Fluzone High-Dose Intramuscular Suspension 14:20:56 CDT CPT-44560 Postop F/U Visit 16:24:54 CORPORATE TREASURY ANALYST CPT-OV Office Visit 13:26:00 CORPORATE TREASURY ANALYST CPT-33432 Administration 2+ single or combination vaccines inc oral 10:08:59 CDT CPT-75978 Administration single or combination vaccine inc oral 10 :08:59 CDT CPT-09398 Pneumovax 10:08:59 CDT CPT-16261 Influenza High Dose age 65+ 10:08:59 CDT
--- OUTSIDE RECORDS SUMMARY | 2017-07-22 11:53 | XMS REPORT | Clinical Summary ---
Author Author Admin, E Organization [employer] Address Unknown Phone Unavailable Allergies, Adverse Reactions, [...] Inguinal hernia, right 550.90 Active Erwinguy Modijosefa MECHANICAL FACILITIES TECHNICIAN Unilateral or unspecified inguinal hernia, without mention of obstruction or gangrene (not specified as recurrent) HEALTH MAINTENANCE EXAM V70.0 Active Víctor Payne MD Routine general medical examination at a health care facility Adjustment disorder with depressed mood 309.0 Active Víctor Payne MD Adjustment disorder with depressed mood Underweight 783.22 Active Víctor Payne MD Underweight Change in bowels 787.99 Active Tanya Tan MECHANICAL FACILITIES TECHNICIAN Other symptoms involving digestive system COPD 496 [...] Pre-procedural laboratory examination V72.63 Active Tatiana Schroeder QUARRY EXTRACTION WORKER Pre-procedural laboratory examination Hemoptysis 786.30 Active Víctor [...] day as needed for pain TRAMADOL HCL 53746822134 Active Víctor Payne MD Active HYDROCODONE-ACETAMINOPHEN 5-325 MG ORAL TABLET 1 four times a day as needed for pain. HYDROCODONE-ACETAMINOPHEN 76217817473 No Longer Active Víctor Payne MD Active DEBROX 6.5 % OTIC SOLN 5 gtts effected ear(ears) q day CARBAMIDE PEROXIDE 99512793943 Active New Castro DO Active AMLODIPINE BESYLATE 5 MG TABS 1 tablet by mouth daily AMLODIPINE BESYLATE 54883925297 Active New Castro DO Active DOK PLUS 50-8.6 MG ORAL TABS 1 tab twice daily SENNOSIDES-DOCUSATE SODIUM 69432786567 No Longer Active New Castro DO Active DULCOLAX 5 MG ORAL TBEC 1-2 tab hs BISACODYL 37903012981 No Longer Active Víctor Payne MD Active COLACE 100 MG ORAL CAPS 1-2 tab daily no more then 4 DOCUSATE SODIUM 75106339175 No Longer Active Víctor Payne MD Active TYLENOL 325 MG ORAL TABS 1 tab every 4-6 hrs as needed for pain ACETAMINOPHEN 54938585523 No Longer Active Víctor Payne MD Active ASPIRIN 325 MG ORAL TBEC 1 daily ASPIRIN 90085179656 No Longer Active Víctor Payne MD Active SERTRALINE HCL 50 MG TABS 1 daily for depressed mood SERTRALINE HCL 34814854859 No Longer Active Víctor Payne MD Active METOPROLOL TARTRATE 25 MG ORAL TABS 1 tablet twice a day METOPROLOL TARTRATE 18030379191 No Longer Active Trino Richardson MD Active ASPIRIN 81 MG ORAL TABS 2 po qd ASPIRIN 09105623416 No Longer Active Trino Richardson MD Active MECLIZINE HCL 25 MG TAB one 4 times a day as needed for dizziness MECLIZINE HCL 25040002698 No Longer Active Víctor Payne MD Active HYDROCODONE-ACETAMINOPHEN 5-325 MG TABS 1/2 to 1 every 4 hours as needed for back pain HYDROCODONE-ACETAMINOPHEN 41061334420 No Longer Active Víctor Payne MD Active LEVAQUIN 750 MG TABS 1 po qd x 7 days LEVOFLOXACIN 17471621570 No Longer Active Víctor Payne MD Active LIPITOR 10 MG TAB one tablet daily at bedtime ATORVASTATIN CALCIUM 83762411345 No Longer Active Víctor Payne MD Active PLAVIX 75 MG TABS 1 tablet by mouth daily to prevent stroke 11/29 CLOPIDOGREL BISULFATE 65656631158 No Longer Active Víctor Payne MD Active ASPIRIN 325 MG TABS 1 TAB 2X ADAY ASPIRIN 67543686029 No Longer Active France Cohen RN Active PLAVIX 75 MG TABS 1 tablet by mouth daily to prevent stroke 11/29 PLAVIX 75 MG TABS 607259 CLOPIDOGREL BISULFATE Inactive LIPITOR 10 MG TAB one tablet daily at bedtime LIPITOR 10 MG TAB 470142 ATORVASTATIN CALCIUM Inactive LEVAQUIN 750 MG TABS 1 po qd x 7 days LEVAQUIN 750 MG TABS 829288 LEVOFLOXACIN Inactive HYDROCODONE-ACETAMINOPHEN 5-325 MG TABS 1/2 to 1 every 4 hours as needed for back pain HYDROCODONE-ACETAMINOPHEN 5-325 MG TABS 427041 HYDROCODONE-ACETAMINOPHEN Inactive MECLIZINE HCL 25 MG TAB one 4 times a day as needed for dizziness MECLIZINE HCL 25 MG TAB 252636 MECLIZINE HCL Inactive ASPIRIN 81 MG ORAL TABS 2 po qd ASPIRIN 81 MG ORAL TABS 955470 ASPIRIN Inactive METOPROLOL TARTRATE 25 MG ORAL TABS 1 tablet twice a day METOPROLOL TARTRATE 25 MG ORAL TABS 443530 METOPROLOL TARTRATE Inactive SERTRALINE HCL 50 MG TABS 1 daily for depressed mood SERTRALINE HCL 50 MG TABS 896812 SERTRALINE HCL Inactive ASPIRIN 325 MG ORAL TBEC 1 daily ASPIRIN 325 MG ORAL TBEC 274055 ASPIRIN Inactive TYLENOL 325 MG ORAL TABS 1 tab every 4-6 hrs as needed for pain TYLENOL 325 MG ORAL TABS 273277 ACETAMINOPHEN Inactive COLACE 100 MG ORAL CAPS 1-2 tab daily no more then 4 COLACE 100 MG ORAL CAPS 4468164 DOCUSATE SODIUM Inactive DULCOLAX 5 MG ORAL TBEC 1-2 tab hs DULCOLAX 5 MG ORAL TBEC BISACODYL Inactive DOK PLUS 50-8.6 MG ORAL TABS 1 tab twice daily DOK PLUS 50-8.6 MG ORAL TABS 009009 SENNOSIDES-DOCUSATE SODIUM Inactive HYDROCODONE-ACETAMINOPHEN 5-325 MG ORAL TABLET 1 four times a day as needed for pain. HYDROCODONE-ACETAMINOPHEN 5-325 MG ORAL TABLET 091353 HYDROCODONE-ACETAMINOPHEN Inactive Immunizations Vaccine Administration Date Value [...] Panel - Chemistry sodium, serum 137 mmol/L 727-223 1695/10/20 potassium, serum 5.5 mmol/L 3.5-5.2 chloride, serum 104 mmol/L 98-107 carbon dioxide, venous blood 29.2 mmol/L 21.0-32.0 blood glucose 100 mg/dL 65-110 calcium, serum 8.7 mg/dL 8.5-10.1 urea nitrogen, blood 23 mg/dL 7-18 creatinine, serum 1.24 mg/dL 0.60-1.30 Lab Report: CBC, Comp. Metabolic Panel - Chemistry sodium, serum 139 mmol/L 539-330 6679/05/19 carbon dioxide, venous blood 31.9 mmol/L 21.0-32.0 [...] 0.36-3.74 Encounters Code Encounter Date Provider Facility CPT-84171 Level 3 Est. Patient 10:30:37 CDT New Castro DO [facility] CPT-86779 Level 4 Est. Patient 15:40:13 CDT Víctor Payne MD [facility] CPT-61177 Level 3 Est. Patient 16:47:27 CDT Tanya Tan APRN [facility] CPT-53425 Level 3 Est. Patient 10:46:48 CDT Víctor Payne MD [facility] CPT-78030 Level 3 Est. Patient 15:45:17 CDT Trino Richardson MD [facility] CPT-83602 Level 4 New Patient 15:41:12 CDT Trino Richardson MD [facility] CPT-19694 Level 3 Est. Patient 09:44:56 BOILER SETTER Víctor Payne MD [facility] CPT-44247 Level 4 Est. Patient 11:54:04 BOILER SETTER Víctor Payne MD [facility] CPT-10739 Level 3 Est. Patient 15:21:08 BOILER SETTER Shaji Bradshaw MD [facility] CPT-44253 Level 3 Est. Patient 16:54:23 CDT Víctor Payne MD [facility] CPT-27353 Level 3 Est. Patient 16:10:50 CDT Víctor Payne MD [facility] CPT-71519 Level 4 Est. Patient 14:48:01 CDT Víctor Payne MD [facility] CPT-23112 Level 2 New Patient 14:23:38 BOILER SETTER Víctor Payne MD [facility] Procedures Code Procedure Name Date Entry Date Standard Description CPT-TCMM Transitional Care Mgmt-Moderate 10:53:28 CDT CPT-12575 Chest 2V Frontal and Lat - XRAY USE ONLY 10:27:29 CDT CPT-74259 Chest 2V Frontal and Lat - XRAY USE ONLY 16:00:05 CDT CPT-G0438 Initial Annual Wellness Exam 10:02:47 CDT CPT-78940 Abd compl w upright 15:47:17 CDT CPT-60825 Venipuncture Draw Fee 10:41:53 BOILER SETTER CPT-94977 Chest 2V Frontal and Lat 16:22:38 CDT CPT-G0008 Administration of Influenza Virus Vaccine 14:20:57 CDT CPT-56527 Fluzone High-Dose Intramuscular Suspension 14:20:56 CDT CPT-97703 Postop F/U Visit 16:24:54 BOILER SETTER CPT-OV Office Visit 13:26:00 BOILER SETTER CPT-06407 Administration 2+ single or combination vaccines inc oral 10:08:59 CDT CPT-73320 Administration single or combination vaccine inc oral 10 :08:59 CDT CPT-05015 Pneumovax 10:08:59 CDT CPT-90269 Influenza High Dose age 65+ 10:08:59 CDT
--- OUTSIDE RECORDS SUMMARY | 2017-07-22 11:54 | XMS REPORT | Clinical Summary ---
Author Author Admin, E Organization [employer] Address Unknown Phone Unavailable Allergies, Adverse Reactions, [...] Inguinal hernia, right 550.90 Active Josr Salasjanet MARKETING RESEARCH COORDINATOR Unilateral or unspecified inguinal hernia, without mention of obstruction or gangrene (not specified as recurrent) HEALTH MAINTENANCE EXAM V70.0 Active Víctor Payne MD Routine general medical examination at a health care facility Adjustment disorder with depressed mood 309.0 Active Víctor Payne MD Adjustment disorder with depressed mood Underweight 783.22 Active Víctor Payne MD Underweight Change in bowels 787.99 Active Tanya Tan MARKETING RESEARCH COORDINATOR Other symptoms involving digestive system COPD 496 [...] gtts effected ear(ears) q day CARBAMIDE PEROXIDE 68878806124 Active New Castro DO Active AMLODIPINE BESYLATE 5 MG TABS 1 tablet by mouth daily AMLODIPINE BESYLATE 11416491631 Active New Castro DO Active DOK PLUS 50-8.6 MG ORAL TABS 1 tab twice daily SENNOSIDES-DOCUSATE SODIUM 98183319040 No Longer Active New Castro DO Active DULCOLAX 5 MG ORAL TBEC 1-2 tab hs BISACODYL 93300131706 No Longer Active Víctor Payne MD Active COLACE 100 MG ORAL CAPS 1-2 tab daily no more then 4 DOCUSATE SODIUM 09834280854 No Longer Active Víctor Payne MD Active TYLENOL 325 MG ORAL TABS 1 tab every 4-6 hrs as needed for pain ACETAMINOPHEN 93399418723 No Longer Active Víctor Payne MD Active ASPIRIN 325 MG ORAL TBEC 1 daily ASPIRIN 05972621910 No Longer Active Víctor Payne MD Active SERTRALINE HCL 50 MG TABS 1 daily for depressed mood SERTRALINE HCL 29987143437 No Longer Active Víctor Payne MD Active METOPROLOL TARTRATE 25 MG ORAL TABS 1 tablet twice a day METOPROLOL TARTRATE 95742430337 No Longer Active Trino Richardson MD Active ASPIRIN 81 MG ORAL TABS 2 po qd ASPIRIN 75549164149 No Longer Active Trino Richardson MD Active MECLIZINE HCL 25 MG TAB one 4 times a day as needed for dizziness MECLIZINE HCL 91118233985 No Longer Active Víctor Payne MD Active HYDROCODONE-ACETAMINOPHEN 5-325 MG TABS 1/2 to 1 every 4 hours as needed for back pain HYDROCODONE-ACETAMINOPHEN 42583717027 No Longer Active Víctor Payne MD Active LEVAQUIN 750 MG TABS 1 po qd x 7 days LEVOFLOXACIN 88756378972 No Longer Active Víctor Payne MD Active LIPITOR 10 MG TAB one tablet daily at bedtime ATORVASTATIN CALCIUM 76214004467 No Longer Active Víctor Payne MD Active PLAVIX 75 MG TABS 1 tablet by mouth daily to prevent stroke 11/29 CLOPIDOGREL BISULFATE 19853531061 No Longer Active Víctor Payne MD Active ASPIRIN 325 MG TABS 1 TAB 2X ADAY ASPIRIN 50893742263 No Longer Active France Cohen RN Active PLAVIX 75 MG TABS 1 tablet by mouth daily to prevent stroke 11/29 PLAVIX 75 MG TABS 301319 CLOPIDOGREL BISULFATE Inactive LIPITOR 10 MG TAB one tablet daily at bedtime LIPITOR 10 MG TAB 957886 ATORVASTATIN CALCIUM Inactive LEVAQUIN 750 MG TABS 1 po qd x 7 days LEVAQUIN 750 MG TABS 370999 LEVOFLOXACIN Inactive HYDROCODONE-ACETAMINOPHEN 5-325 MG TABS 1/2 to 1 every 4 hours as needed for back pain HYDROCODONE-ACETAMINOPHEN 5-325 MG TABS 171075 HYDROCODONE-ACETAMINOPHEN Inactive MECLIZINE HCL 25 MG TAB one 4 times a day as needed for dizziness MECLIZINE HCL 25 MG TAB 511107 MECLIZINE HCL Inactive ASPIRIN 81 MG ORAL TABS 2 po qd ASPIRIN 81 MG ORAL TABS 181218 ASPIRIN Inactive METOPROLOL TARTRATE 25 MG ORAL TABS 1 tablet twice a day METOPROLOL TARTRATE 25 MG ORAL TABS 788120 METOPROLOL TARTRATE Inactive SERTRALINE HCL 50 MG TABS 1 daily for depressed mood SERTRALINE HCL 50 MG TABS 138642 SERTRALINE HCL Inactive ASPIRIN 325 MG ORAL TBEC 1 daily ASPIRIN 325 MG ORAL TBEC 512433 ASPIRIN Inactive TYLENOL 325 MG ORAL TABS 1 tab every 4-6 hrs as needed for pain TYLENOL 325 MG ORAL TABS 629714 ACETAMINOPHEN Inactive COLACE 100 MG ORAL CAPS 1-2 tab daily no more then 4 COLACE 100 MG ORAL CAPS 8741116 DOCUSATE SODIUM Inactive DULCOLAX 5 MG ORAL TBEC 1-2 tab hs DULCOLAX 5 MG ORAL TBEC BISACODYL Inactive DOK PLUS 50-8.6 MG ORAL TABS 1 tab twice daily DOK PLUS 50-8.6 MG ORAL TABS 236066 SENNOSIDES-DOCUSATE SODIUM Inactive Immunizations Vaccine Administration Date [...] Panel - Chemistry sodium, serum 139 mmol/L 787-543 8383/05/19 carbon dioxide, venous blood 31.9 mmol/L 21.0-32.0 [...] 0.36-3.74 Encounters Code Encounter Date Provider Facility CPT-40078 Level 3 Est. Patient 10:30:37 CDT New Castro DO [facility] CPT-59125 Level 4 Est. Patient 15:40:13 CDT Víctor Payne MD [facility] CPT-88519 Level 3 Est. Patient 16:47:27 CDT Tanya Tan APRN [facility] CPT-33314 Level 3 Est. Patient 10:46:48 CDT Víctor Payne MD [facility] CPT-71129 Level 3 Est. Patient 15:45:17 CDT Trino Richardson MD [facility] CPT-26031 Level 4 New Patient 15:41:12 CDT Trino Richardson MD [facility] CPT-28769 Level 3 Est. Patient 09:44:56 EMBEDDED SYSTEMS SOFTWARE ENGINEER Víctor Payne MD [facility] CPT-87093 Level 4 Est. Patient 11:54:04 EMBEDDED SYSTEMS SOFTWARE ENGINEER Víctor Payne MD [facility] CPT-39260 Level 3 Est. Patient 15:21:08 EMBEDDED SYSTEMS SOFTWARE ENGINEER Shaji Bradshaw MD [facility] CPT-96544 Level 3 Est. Patient 16:54:23 CDT Víctor Payne MD [facility] CPT-34598 Level 3 Est. Patient 16:10:50 CDT Víctor Payne MD [facility] CPT-08254 Level 4 Est. Patient 14:48:01 CDT Víctor Payne MD [facility] CPT-80427 Level 2 New Patient 14:23:38 EMBEDDED SYSTEMS SOFTWARE ENGINEER Víctor Payne MD [facility] Procedures Code Procedure Name Date Entry Date Standard Description CPT-76629 Chest 2V Frontal and Lat - XRAY USE ONLY 16:00:05 CDT CPT-G0438 Initial Annual Wellness Exam 10:02:47 CDT CPT-29751 Abd compl w upright 15:47:17 CDT CPT-90157 Venipuncture Draw Fee 10:41:53 EMBEDDED SYSTEMS SOFTWARE ENGINEER CPT-16033 Chest 2V Frontal and Lat 16:22:38 CDT CPT-G0008 Administration of Influenza Virus Vaccine 14:20:57 CDT CPT-44226 Fluzone High-Dose Intramuscular Suspension 14:20:56 CDT CPT-80048 Postop F/U Visit 16:24:54 EMBEDDED SYSTEMS SOFTWARE ENGINEER CPT-OV Office Visit 13:26:00 EMBEDDED SYSTEMS SOFTWARE ENGINEER CPT-18646 Administration 2+ single or combination vaccines inc oral 10:08:59 CDT CPT-37956 Administration single or combination vaccine inc oral 10 :08:59 CDT CPT-90564 Pneumovax 10:08:59 CDT CPT-51249 Influenza High Dose age 65+ 10:08:59 CDT
--- OUTSIDE RECORDS SUMMARY | 2017-07-22 11:54 | XMS REPORT | Clinical Summary ---
Author Author Admin, E Organization [employer] Address Unknown Phone Unavailable Allergies, Adverse Reactions, [...] Inguinal hernia, right 550.90 Active Neelimakaro Modijosefa GREASE MAN Unilateral or unspecified inguinal hernia, without mention of obstruction or gangrene (not specified as recurrent) HEALTH MAINTENANCE EXAM V70.0 Active Víctor Payne MD Routine general medical examination at a health care facility Adjustment disorder with depressed mood 309.0 Active Víctor Payne MD Adjustment disorder with depressed mood Underweight 783.22 Active Víctor Payne MD Underweight Change in bowels 787.99 Active Tanya Tan GREASE MAN Other symptoms involving digestive system COPD [...] 1 tab twice daily SENNOSIDES- DOCUSATE SODIUM 84708107730 Active Víctor Payne MD Active DULCOLAX 5 MG ORAL TBEC 1-2 tab hs BISACODYL 08096140460 No Longer Active Víctor Payne MD Active COLACE 100 MG ORAL CAPS 1-2 tab daily no more then 4 DOCUSATE SODIUM 23727689979 No Longer Active Víctor Payne MD Active TYLENOL 325 MG ORAL TABS 1 tab every 4-6 hrs as needed for pain ACETAMINOPHEN 78269699564 No Longer Active Víctor Payne MD Active ASPIRIN 325 MG ORAL TBEC 1 daily ASPIRIN 49015717954 No Longer Active Víctor Payne MD Active SERTRALINE HCL 50 MG TABS 1 daily for depressed mood SERTRALINE HCL 06598047683 No Longer Active Víctor Payne MD Active METOPROLOL TARTRATE 25 MG ORAL TABS 1 tablet twice a day METOPROLOL TARTRATE 93547229625 No Longer Active Trino Richardson MD Active ASPIRIN 81 MG ORAL TABS 2 po qd ASPIRIN 61478906147 No Longer Active Trino Richardson MD Active MECLIZINE HCL 25 MG TAB one 4 times a day as needed for dizziness MECLIZINE HCL 84115345655 No Longer Active Víctor Payne MD Active HYDROCODONE-ACETAMINOPHEN 5-325 MG TABS 1/2 to 1 every 4 hours as needed for back pain HYDROCODONE-ACETAMINOPHEN 97953978478 No Longer Active Víctor Payne MD Active LEVAQUIN 750 MG TABS 1 po qd x 7 days LEVOFLOXACIN 42324555004 No Longer Active Víctor Payne MD Active LIPITOR 10 MG TAB one tablet daily at bedtime ATORVASTATIN CALCIUM 39727983191 No Longer Active Víctor Payne MD Active PLAVIX 75 MG TABS 1 tablet by mouth daily to prevent stroke 11/29 CLOPIDOGREL BISULFATE 02214375940 No Longer Active Víctor Payne MD Active ASPIRIN 325 MG TABS 1 TAB 2X ADAY ASPIRIN 86275920304 No Longer Active France Cohen RN Active PLAVIX 75 MG TABS 1 tablet by mouth daily to prevent stroke 11/29 PLAVIX 75 MG TABS 34964393216 CLOPIDOGREL BISULFATE Inactive LIPITOR 10 MG TAB one tablet daily at bedtime LIPITOR 10 MG TAB 690108 ATORVASTATIN CALCIUM Inactive LEVAQUIN 750 MG TABS 1 po qd x 7 days LEVAQUIN 750 MG TABS 582127 LEVOFLOXACIN Inactive HYDROCODONE-ACETAMINOPHEN 5-325 MG TABS 1/2 to 1 every 4 hours as needed for back pain HYDROCODONE-ACETAMINOPHEN 5-325 MG TABS 802010 HYDROCODONE-ACETAMINOPHEN Inactive MECLIZINE HCL 25 MG TAB one 4 times a day as needed for dizziness MECLIZINE HCL 25 MG TAB 612749 MECLIZINE HCL Inactive ASPIRIN 81 MG ORAL TABS 2 po qd ASPIRIN 81 MG ORAL TABS ASPIRIN Inactive METOPROLOL TARTRATE 25 MG ORAL TABS 1 tablet twice a day METOPROLOL TARTRATE 25 MG ORAL TABS 209711 METOPROLOL TARTRATE Inactive SERTRALINE HCL 50 MG TABS 1 daily for depressed mood SERTRALINE HCL 50 MG TABS 581598 SERTRALINE HCL Inactive ASPIRIN 325 MG ORAL TBEC 1 daily ASPIRIN 325 MG ORAL TBEC 159304 ASPIRIN Inactive TYLENOL 325 MG ORAL TABS 1 tab every 4-6 hrs as needed for pain TYLENOL 325 MG ORAL TABS 135850 ACETAMINOPHEN Inactive COLACE 100 MG ORAL CAPS 1-2 tab daily no more then 4 COLACE 100 MG ORAL CAPS 1077829 DOCUSATE SODIUM Inactive DULCOLAX 5 MG ORAL [...] Panel - Chemistry sodium, serum 139 mmol/L 367-280 9924/05/19 carbon dioxide, venous blood 31.9 mmol/L 21.0-32.0 [...] 0.36-3.74 Encounters Code Encounter Date Provider Facility CPT-21384 Level 4 Est. Patient 15:40:13 CDT Víctor Payne MD [facility] CPT-45638 Level 3 Est. Patient 16:47:27 CDT Tanya Tan APRN [facility] CPT-19771 Level 3 Est. Patient 10:46:48 CDT Víctor Payne MD [facility] CPT-36544 Level 3 Est. Patient 15:45:17 CDT Trino Richardson MD [facility] CPT-62413 Level 4 New Patient 15:41:12 CDT Trino Richardson MD [facility] CPT-73405 Level 3 Est. Patient 09:44:56 ASSEMBLER TESTER Víctor Payne MD [facility] CPT-99330 Level 4 Est. Patient 11:54:04 ASSEMBLER TESTER Víctor Payne MD [facility] CPT-21742 Level 3 Est. Patient 15:21:08 ASSEMBLER TESTER Shaji Bradshaw MD [facility] CPT-43845 Level 3 Est. Patient 16:54:23 CDT Víctor Payne MD [facility] CPT-36667 Level 3 Est. Patient 16:10:50 CDT Víctor Payne MD [facility] CPT-44227 Level 4 Est. Patient 14:48:01 CDT Víctor Payne MD [facility] CPT-53657 Level 2 New Patient 14:23:38 ASSEMBLER TESTER Víctor Payne MD [facility] Procedures Code Procedure Name Date Entry Date Standard Description CPT-70045 Chest 2V Frontal and Lat - XRAY USE ONLY 16:00:05 CDT CPT-G0438 Initial Annual Wellness Exam 10:02:47 CDT CPT-43101 Abd compl w upright 15:47:17 CDT CPT-61443 Venipuncture Draw Fee 10:41:53 ASSEMBLER TESTER CPT-87015 Chest 2V Frontal and Lat 16:22:38 CDT CPT-G0008 Administration of Influenza Virus Vaccine 14:20:57 CDT CPT-64248 Fluzone High-Dose Intramuscular Suspension 14:20:56 CDT CPT-89338 Postop F/U Visit 16:24:54 ASSEMBLER TESTER CPT-OV Office Visit 13:26:00 ASSEMBLER TESTER CPT-09859 Administration 2+ single or combination vaccines inc oral 10:08:59 CDT CPT-83291 Administration single or combination vaccine inc oral 10 :08:59 CDT CPT-99990 Pneumovax 10:08:59 CDT CPT-25106 Influenza High Dose age 65+ 10:08:59 CDT
--- OUTSIDE RECORDS SUMMARY | 2017-07-22 11:55 | XMS REPORT | Clinical Summary ---
Author Author Admin, JEAN CLAUDE Organization [facility] Address Unknown Phone Unavailable Allergies, Adverse [...] specified as recurrent) Tobacco abuse 305.1 Inactive Víctro Payne MD Tobacco use disorder Cigarette smoker 305.1 Active Víctor Payne MD Tobacco use disorder Constipation 564.00 Active Trnio Richardson MD Constipation, unspecified Transient ischemic attack [...] Inguinal hernia, right 550.90 Active Josr Lyjosefa TECHNICIAN SUPPORT ENGINEER Unilateral or unspecified inguinal hernia, without [...] 1 tablet twice a day METOPROLOL TARTRATE 92391253599 No Longer Active Trino Richardson MD Active ASPIRIN 325 MG ORAL TBEC 1 daily ASPIRIN 71904887554 Active Trino Richardson MD Active ASPIRIN 81 MG ORAL TABS 2 po qd ASPIRIN 14797346584 No Longer Active Trino Richardson MD Active MECLIZINE HCL 25 MG TAB one 4 times a day as needed for dizziness MECLIZINE HCL 98638759117 No Longer Active Víctor Payne MD Active HYDROCODONE-ACETAMINOPHEN 5-325 MG TABS 1/2 to 1 every 4 hours as needed for back pain HYDROCODONE-ACETAMINOPHEN 06522714072 No Longer Active Víctor Payne MD Active LEVAQUIN 750 MG TABS 1 po qd x 7 days LEVOFLOXACIN 58040640968 No Longer Active Víctor Payne MD Active LIPITOR 10 MG TAB one tablet daily at bedtime ATORVASTATIN CALCIUM 84036382849 No Longer Active Víctor Payne MD Active PLAVIX 75 MG TABS 1 tablet by mouth daily to prevent stroke 11/29 CLOPIDOGREL BISULFATE 39616141830 No Longer Active Víctor Payne MD Active ASPIRIN 325 MG TABS 1 TAB 2X ADAY ASPIRIN 33053380203 No Longer Active France Cohen RN Active PLAVIX 75 MG TABS 1 tablet by mouth daily to prevent stroke 11/29 PLAVIX 75 MG TABS 115305 CLOPIDOGREL BISULFATE Inactive LIPITOR 10 MG TAB one tablet daily at bedtime LIPITOR 10 MG TAB 483822 ATORVASTATIN CALCIUM Inactive LEVAQUIN 750 MG TABS 1 po qd x 7 days LEVAQUIN 750 MG TABS 866517 LEVOFLOXACIN Inactive HYDROCODONE-ACETAMINOPHEN 5-325 MG TABS 1/2 to 1 every 4 hours as needed for back pain HYDROCODONE-ACETAMINOPHEN 5-325 MG TABS 479212 HYDROCODONE-ACETAMINOPHEN Inactive MECLIZINE HCL 25 MG TAB one 4 times a day as needed for dizziness MECLIZINE HCL 25 MG TAB 592345 MECLIZINE HCL Inactive ASPIRIN 81 MG ORAL TABS 2 po qd ASPIRIN 81 MG ORAL TABS 416987 ASPIRIN Inactive METOPROLOL TARTRATE 25 MG ORAL TABS 1 tablet twice a day METOPROLOL TARTRATE 25 MG ORAL TABS 125374 METOPROLOL TARTRATE Inactive Immunizations Vaccine Administration Date [...] leukocyte count, blood 11.3 10^3/MM^3 10*3/mm3 4.6-10.2 hematocrit, blood 41.2 % 41.0-53.0 mean corpuscular volume, RBC 94 fL 80-97 mean corpuscular hemoglobin, RBC 31.7 pg 27.0-31.2 mean corpuscular hemoglobin concentration, RBC 33.6 G/DL % 31.8- 35.4 red blood cell distribution width 15.8 % 11.6-14.8 platelet count 303 10^3/MM^3 10*3/mm3 469-584 2388/02/10 leukocyte count, blood 11.9 10^3/MM^3 10*3/mm3 4.6-10.2 [...] concentration, RBC 33.4 G/DL % 31.8- 35.4 neutrophils as percent of blood leukocytes 65.2 % 42.2-75.2 monocytes as percent of blood leukocytes 7.7 % 1.7-9.3 lymphocytes as percent of blood leukocytes 20.2 % 20.5-51.1 erythrocyte (RBC) count 4.37 10^6/MM^3 10*6/mm3 4.69-6.13 hemoglobin, blood 13.8 g/dL 13.5-17.5 red blood cell distribution width 15.1 % 11.6-14.8 platelet count 261 10^3/MM^3 10*3/mm3 142-424 Lab Report: CBC, Comp. Metabolic Panel - Chemistry carbon dioxide, venous blood 27.6 mmol/L 21.0-32.0 potassium, serum 4.5 mmol/L 3.5-5.2 chloride, serum 104 mmol/L 98-107 blood glucose 85 mg/dL 65-110 urea nitrogen, blood 19 mg/dL 7-18 creatinine, serum 1.43 mg/dL 0.55-1.30 alanine aminotransferase (SGPT), serum 17 U/L 12-78 aspartate aminotransferase (SGOT), serum 17 U/L 15-37 calcium, serum 8.8 mg/dL 8.5-10.1 sodium, serum 139 mmol/L 136-145 Lab Report: CBC, Comp. Metabolic Panel - Hematology platelet count 297 10^3/MM^3 10*3/mm3 915-123 4078/09/18 red blood cell distribution width 15.1 % 11.6-14.8 mean corpuscular hemoglobin concentration, RBC 34.2 G/DL % 31.8- 35.4 mean corpuscular hemoglobin, RBC 32.4 pg 27.0-31.2 mean corpuscular volume, RBC 95 fL 80-97 hematocrit, blood 38.8 % 41.0-53.0 hemoglobin, blood 13.2 g/dL 13.5-17.5 erythrocyte (RBC) count 4.08 10^6/MM^3 10*6/mm3 4.69-6.13 leukocyte count, blood 10.9 10^3/MM^3 10*3/mm3 4.6-10.2 Lab Report: Comp. Metabolic Panel - Chemistry alanine aminotransferase (SGPT), serum 25 U/L 12-78 aspartate aminotransferase (SGOT), serum 28 U/L 15-37 calcium, serum 9.0 mg/dL 8.5-10.1 bilirubin, serum, total 0.40 mg/dL 0.00-1.00 sodium, serum 136 mmol/L 613-086 9345/12/30 carbon dioxide, venous blood 27.9 mmol/L 21.0-32.0 potassium, serum 4.3 mmol/L 3.5-5.2 chloride, serum 100 mmol/L 98-107 blood glucose 97 mg/dL 65-110 urea nitrogen, blood 19 mg/dL 7-18 creatinine, serum 1.40 mg/dL 0.55-1.30 Encounters Code Encounter Date Provider Facility CPT-64054 Level 3 Est. Patient 15:45:17 CDT Trino Richardson MD [facility] CPT-36195 Level 4 New Patient 15:41:12 CDT Trino Richardson MD [facility] CPT-46365 Level 3 Est. Patient 09:44:56 CARPET FLOOR LAYER APPRENTICE Víctor Payne MD [facility] CPT-63384 Level 4 Est. Patient 11:54:04 CARPET FLOOR LAYER APPRENTICE Víctor Payne MD [facility] CPT-81119 Level 3 Est. Patient 15:21:08 CARPET FLOOR LAYER APPRENTICE Shaji Bradshaw MD [facility] CPT-08385 Level 3 Est. Patient 16:54:23 CDT Víctor Payne MD [facility] CPT-61295 Level 3 Est. Patient 16:10:50 CDT Víctor Payne MD [facility] CPT-61542 Level 4 Est. Patient 14:48:01 CDT Víctor Payne MD [facility] CPT-09745 Level 2 New Patient 14:23:38 CARPET FLOOR LAYER APPRENTICE Víctor Payne MD [facility] Procedures Code Procedure Name Date Entry Date Standard Description CPT-17829 Abd compl w upright 15:47:17 CDT CPT-67495 Venipuncture Draw Fee 10:41:53 CARPET FLOOR LAYER APPRENTICE CPT-25302 Chest 2V Frontal and Lat 16:22:38 CDT CPT-G0008 Administration of Influenza Virus Vaccine 14:20:57 CDT CPT-62785 Fluzone High-Dose Intramuscular Suspension 14:20:56 CDT CPT-02738 Postop F/U Visit 16:24:54 CARPET FLOOR LAYER APPRENTICE CPT-OV Office Visit 13:26:00 CARPET FLOOR LAYER APPRENTICE CPT-62781 Administration 2+ single or combination vaccines inc oral 10:08:59 CDT CPT-18740 Administration single or combination vaccine inc oral 10 :08:59 CDT CPT-37654 Pneumovax 10:08:59 CDT CPT-42743 Influenza High Dose age 65+ 10:08:59 CDT
--- OUTSIDE RECORDS SUMMARY | 2017-07-22 11:55 | XMS REPORT | Clinical Summary ---
Author Author Admin, E Organization [employer] Address Unknown Phone Unavailable Allergies, Adverse Reactions, [...] Inguinal hernia, right 550.90 Active Erwinguy Salasjanet GRANT OFFICER Unilateral or unspecified inguinal hernia, without mention of obstruction or gangrene (not specified as recurrent) HEALTH MAINTENANCE EXAM V70.0 Active Víctor Payne MD Routine general medical examination at a health care facility Adjustment disorder with depressed mood 309.0 Active Víctor Payne MD Adjustment disorder with depressed mood Underweight 783.22 Active Víctor Payne MD Underweight Change in bowels 787.99 Active Tanya GRANT OFFICER Other symptoms involving digestive system Inguinal hernia, left ICD-550.90 Inactive Trino Richardson MD Chest wall pain ICD-786.52 Inactive Trino Richardson MD Bronchitis ICD-490 Inactive Víctor Payne MD 2015 Medication List Medication Instructions Start Date Stop Date Generic Name NDC Status Provider Patient Instruction DULCOLAX 5 MG ORAL TBEC 1-2 tab hs BISACODYL 70714326256 Active DANIEL Chase Active COLACE 100 MG ORAL CAPS 1-2 tab daily no more then 4 DOCUSATE SODIUM 04768061687 Active DANIEL Chase Active TYLENOL 325 MG ORAL TABS 1 tab every 4-6 hrs as needed for pain ACETAMINOPHEN 33110737387 Active DANIEL Chase Active SERTRALINE HCL 50 MG TABS 1 daily for depressed mood SERTRALINE HCL 00701390690 No Longer Active Víctor Payne MD Active METOPROLOL TARTRATE 25 MG ORAL TABS 1 tablet twice a day METOPROLOL TARTRATE 94724453520 No Longer Active Trino Richardson MD Active ASPIRIN 325 MG ORAL TBEC 1 daily ASPIRIN 83938318064 Active Trino Richardson MD Active ASPIRIN 81 MG ORAL TABS 2 po qd ASPIRIN 64342719706 No Longer Active Trino Richardson MD Active MECLIZINE HCL 25 MG TAB one 4 times a day as needed for dizziness MECLIZINE HCL 79735546197 No Longer Active Víctor Payne MD Active HYDROCODONE-ACETAMINOPHEN 5-325 MG TABS 1/2 to 1 every 4 hours as needed for back pain HYDROCODONE-ACETAMINOPHEN 94423067796 No Longer Active Víctor Payne MD Active LEVAQUIN 750 MG TABS 1 po qd x 7 days LEVOFLOXACIN 72446823136 No Longer Active Víctor Panye MD Active LIPITOR 10 MG TAB one tablet daily at bedtime ATORVASTATIN CALCIUM 01746167222 No Longer Active Víctor Payne MD Active PLAVIX 75 MG TABS 1 tablet by mouth daily to prevent stroke 11/29 CLOPIDOGREL BISULFATE 11683154827 No Longer Active Víctor Payne MD Active ASPIRIN 325 MG TABS 1 TAB 2X ADAY ASPIRIN 24485692129 No Longer Active France Cohen RN Active PLAVIX 75 MG TABS 1 tablet by mouth daily to prevent stroke 11/29 PLAVIX 75 MG TABS 94112841864 CLOPIDOGREL BISULFATE Inactive LIPITOR 10 MG TAB one tablet daily at bedtime LIPITOR 10 MG TAB 367378 ATORVASTATIN CALCIUM Inactive LEVAQUIN 750 MG TABS 1 po qd x 7 days LEVAQUIN 750 MG TABS 535744 LEVOFLOXACIN Inactive HYDROCODONE-ACETAMINOPHEN 5-325 MG TABS 1/2 to 1 every 4 hours as needed for back pain HYDROCODONE-ACETAMINOPHEN 5-325 MG TABS 642033 HYDROCODONE-ACETAMINOPHEN Inactive MECLIZINE HCL 25 MG TAB one 4 times a day as needed for dizziness MECLIZINE HCL 25 MG TAB 137627 MECLIZINE HCL Inactive ASPIRIN 81 MG ORAL TABS 2 po qd ASPIRIN 81 MG ORAL TABS ASPIRIN Inactive METOPROLOL TARTRATE 25 MG ORAL TABS 1 tablet twice a day METOPROLOL TARTRATE 25 MG ORAL TABS 951522 METOPROLOL TARTRATE Inactive SERTRALINE HCL 50 MG TABS 1 daily for depressed mood SERTRALINE HCL 50 MG TABS 921077 SERTRALINE HCL Inactive Immunizations Vaccine Administration Date [...] Measured Encounters Code Encounter Date Provider Facility CPT-02296 Level 3 Est. Patient 16:47:27 CDT Tanya Tan APRN [facility] CPT-26182 Level 3 Est. Patient 10:46:48 CDT Víctor Payne MD [facility] CPT-47858 Level 3 Est. Patient 15:45:17 CDT Trino Richardson MD [facility] CPT-24188 Level 4 New Patient 15:41:12 CDT Trino Richardson MD [facility] CPT-70477 Level 3 Est. Patient 09:44:56 HOSPITAL ATTENDANT Víctor Payne MD [facility] CPT-09353 Level 4 Est. Patient 11:54:04 HOSPITAL ATTENDANT Víctor Payne MD [facility] CPT-70767 Level 3 Est. Patient 15:21:08 HOSPITAL ATTENDANT Shaji Bradshaw MD [facility] CPT-51047 Level 3 Est. Patient 16:54:23 CDT Víctor Payne MD [facility] CPT-57364 Level 3 Est. Patient 16:10:50 CDT Víctor Payne MD [facility] CPT-14659 Level 4 Est. Patient 14:48:01 CDT Víctor Payne MD [facility] CPT-82625 Level 2 New Patient 14:23:38 HOSPITAL ATTENDANT Víctor Payne MD [facility] Procedures Code Procedure Name Date Entry Date Standard Description CPT-G0438 Initial Annual Wellness Exam 10:02:47 CDT CPT-86759 Abd compl w upright 15:47:17 CDT CPT-69055 Venipuncture Draw Fee 10:41:53 HOSPITAL ATTENDANT CPT-40016 Chest 2V Frontal and Lat 16:22:38 CDT CPT-G0008 Administration of Influenza Virus Vaccine 14:20:57 CDT CPT-83599 Fluzone High-Dose Intramuscular Suspension 14:20:56 CDT CPT-01294 Postop F/U Visit 16:24:54 HOSPITAL ATTENDANT CPT-OV Office Visit 13:26:00 HOSPITAL ATTENDANT CPT-80802 Administration 2+ single or combination vaccines inc oral 10:08:59 CDT CPT-30370 Administration single or combination vaccine inc oral 10 :08:59 CDT CPT-87210 Pneumovax 10:08:59 CDT CPT-72426 Influenza High Dose age 65+ 10:08:59 CDT
--- OUTSIDE RECORDS SUMMARY | 2017-07-22 11:56 | XMS REPORT | Clinical Summary ---
Author Author Admin, JEAN CLAUDE Organization [facility] Address Unknown Phone Unavailable Allergies, [...] Inguinal hernia, right 550.90 Active Erwinguy Modijosefa BUS STARTER Unilateral or unspecified inguinal hernia, without mention [...] 1 tablet twice a day METOPROLOL TARTRATE 57886407843 No Longer Active Trino Richardson MD Active ASPIRIN 325 MG ORAL TBEC 1 daily ASPIRIN 68203362822 Active Trino Richardson MD Active ASPIRIN 81 MG ORAL TABS 2 po qd ASPIRIN 62389039538 No Longer Active Trino Richardson MD Active MECLIZINE HCL 25 MG TAB one 4 times a day as needed for dizziness MECLIZINE HCL 04602800520 No Longer Active Víctor Payne MD Active HYDROCODONE-ACETAMINOPHEN 5-325 MG TABS 1/2 to 1 every 4 hours as needed for back pain HYDROCODONE-ACETAMINOPHEN 37047229849 No Longer Active Víctor Payne MD Active LEVAQUIN 750 MG TABS 1 po qd x 7 days LEVOFLOXACIN 73146229135 No Longer Active Víctor Payne MD Active LIPITOR 10 MG TAB one tablet daily at bedtime ATORVASTATIN CALCIUM 36829861340 No Longer Active Víctor Payne MD Active PLAVIX 75 MG TABS 1 tablet by mouth daily to prevent stroke 11/29 CLOPIDOGREL BISULFATE 88733456364 No Longer Active Víctor Payne MD Active ASPIRIN 325 MG TABS 1 TAB 2X ADAY ASPIRIN 79642311552 No Longer Active France Cohen RN Active PLAVIX 75 MG TABS 1 tablet by mouth daily to prevent stroke 11/29 PLAVIX 75 MG TABS 336136 CLOPIDOGREL BISULFATE Inactive LIPITOR 10 MG TAB one tablet daily at bedtime LIPITOR 10 MG TAB 702879 ATORVASTATIN CALCIUM Inactive LEVAQUIN 750 MG TABS 1 po qd x 7 days LEVAQUIN 750 MG TABS 609855 LEVOFLOXACIN Inactive HYDROCODONE-ACETAMINOPHEN 5-325 MG TABS 1/2 to 1 every 4 hours as needed for back pain HYDROCODONE-ACETAMINOPHEN 5-325 MG TABS 116252 HYDROCODONE-ACETAMINOPHEN Inactive MECLIZINE HCL 25 MG TAB one 4 times a day as needed for dizziness MECLIZINE HCL 25 MG TAB 513079 MECLIZINE HCL Inactive ASPIRIN 81 MG ORAL TABS 2 po qd ASPIRIN 81 MG ORAL TABS 165320 ASPIRIN Inactive METOPROLOL TARTRATE 25 MG ORAL TABS 1 tablet twice a day METOPROLOL TARTRATE 25 MG ORAL TABS 951367 METOPROLOL TARTRATE Inactive Immunizations Vaccine Administration Date [...] % 11.6-14.8 platelet count 303 10^3/MM^3 10*3/mm3 024-365 8984/02/10 leukocyte count, blood 11.9 10^3/MM^3 10*3/mm3 4.6-10.2 [...] Panel - Chemistry sodium, serum 139 mmol/L 031-463 4991/09/18 carbon dioxide, venous blood 27.6 mmol/L 21.0-32.0 [...] Panel - Chemistry sodium, serum 136 mmol/L 540-777 0581/12/30 carbon dioxide, venous blood 27.9 mmol/L 21.0-32.0 [...] 0.00-1.00 Encounters Code Encounter Date Provider Facility CPT-21949 Level 3 Est. Patient 15:45:17 CDT Trino Richardson MD [facility] CPT-78372 Level 4 New Patient 15:41:12 CDT Trino Richardson MD [facility] CPT-38626 Level 3 Est. Patient 09:44:56 WEIGHER BULKER Víctor Payne MD [facility] CPT-32624 Level 4 Est. Patient 11:54:04 WEIGHER BULKER Víctor Payne MD [facility] CPT-41257 Level 3 Est. Patient 15:21:08 WEIGHER BULKER Shaji Bradshaw MD [facility] CPT-09779 Level 3 Est. Patient 16:54:23 CDT Víctor Payne MD [facility] CPT-03740 Level 3 Est. Patient 16:10:50 CDT Víctor Payne MD [facility] CPT-53265 Level 4 Est. Patient 14:48:01 CDT Víctor Payne MD [facility] CPT-55951 Level 2 New Patient 14:23:38 WEIGHER BULKER Víctor Payne MD [facility] Procedures Code Procedure Name Date Entry Date Standard Description CPT-28725 Abd compl w upright 15:47:17 CDT CPT-77782 Venipuncture Draw Fee 10:41:53 WEIGHER BULKER CPT-06176 Chest 2V Frontal and Lat 16:22:38 CDT CPT-G0008 Administration of Influenza Virus Vaccine 14:20:57 CDT CPT-79247 Fluzone High-Dose Intramuscular Suspension 14:20:56 CDT CPT-75419 Postop F/U Visit 16:24:54 WEIGHER BULKER CPT-OV Office Visit 13:26:00 WEIGHER BULKER CPT-36153 Administration 2+ single or combination vaccines inc oral 10:08:59 CDT CPT-68904 Administration single or combination vaccine inc oral 10 :08:59 CDT CPT-21247 Pneumovax 10:08:59 CDT CPT-27429 Influenza High Dose age 65+ 10:08:59 CDT
--- OUTSIDE RECORDS SUMMARY | 2017-07-22 11:56 | XMS REPORT ---
Author Author [facility] Medical Staff Organization [facility] Address [address] [place], [place] [address] Phone [phone] Care Team Providers Care Auto Design Detailer Name Role Phone GENA FOSTER MD PP [phone] GENA FOSTER MD, PP [phone] Summary purpose TRANSITION OF CARE AUTO GENERATION [...] Location Lt AC :04 IV Type peripheral [id number] IV Site Information discontinued :04 IV Site [...] :25 Physical no :25 Hearing no : Residential Instructor Needed no : Sign Language no : [...]
--- OUTSIDE RECORDS SUMMARY | 2017-07-22 11:56 | XMS REPORT | Clinical Summary ---
Author Author Admin, E Organization [employer] Address Unknown Phone Unavailable Allergies, Adverse Reactions, [...] Inguinal hernia, right 550.90 Active Josr Salasjanet COUNSELING PROGRAM LEADER Unilateral or unspecified inguinal hernia, without mention of obstruction or gangrene (not specified as recurrent) HEALTH MAINTENANCE EXAM V70.0 Active Víctor Payne MD Routine general medical examination at a health care facility Adjustment disorder with depressed mood 309.0 Active Víctor Payne MD Adjustment disorder with depressed mood Underweight 783.22 Active Víctor Payne MD Underweight Change in bowels 787.99 Active Tanya Tan COUNSELING PROGRAM LEADER Other symptoms involving digestive system COPD 496 [...] gtts effected ear(ears) q day CARBAMIDE PEROXIDE 17415460734 Active New Castro DO Active AMLODIPINE BESYLATE 5 MG TABS 1 tablet by mouth daily AMLODIPINE BESYLATE 25587876410 Active New Castro DO Active DOK PLUS 50-8.6 MG ORAL TABS 1 tab twice daily SENNOSIDES-DOCUSATE SODIUM 66264590348 No Longer Active New Castro DO Active DULCOLAX 5 MG ORAL TBEC 1-2 tab hs BISACODYL 97968935117 No Longer Active Víctor Payne MD Active COLACE 100 MG ORAL CAPS 1-2 tab daily no more then 4 DOCUSATE SODIUM 84331514944 No Longer Active Víctor Payne MD Active TYLENOL 325 MG ORAL TABS 1 tab every 4-6 hrs as needed for pain ACETAMINOPHEN 88137860882 No Longer Active Víctor Payne MD Active ASPIRIN 325 MG ORAL TBEC 1 daily ASPIRIN 93084693365 No Longer Active Víctor Payne MD Active SERTRALINE HCL 50 MG TABS 1 daily for depressed mood SERTRALINE HCL 26204020541 No Longer Active Víctor Payne MD Active METOPROLOL TARTRATE 25 MG ORAL TABS 1 tablet twice a day METOPROLOL TARTRATE 91871577397 No Longer Active Trino Richardson MD Active ASPIRIN 81 MG ORAL TABS 2 po qd ASPIRIN 59811033608 No Longer Active Trino Richardson MD Active MECLIZINE HCL 25 MG TAB one 4 times a day as needed for dizziness MECLIZINE HCL 33497170222 No Longer Active Víctor Payne MD Active HYDROCODONE-ACETAMINOPHEN 5-325 MG TABS 1/2 to 1 every 4 hours as needed for back pain HYDROCODONE-ACETAMINOPHEN 82949852707 No Longer Active Víctor Payne MD Active LEVAQUIN 750 MG TABS 1 po qd x 7 days LEVOFLOXACIN 07986934942 No Longer Active Víctor Payne MD Active LIPITOR 10 MG TAB one tablet daily at bedtime ATORVASTATIN CALCIUM 18932218236 No Longer Active Víctor Payne MD Active PLAVIX 75 MG TABS 1 tablet by mouth daily to prevent stroke 11/29 CLOPIDOGREL BISULFATE 77284189580 No Longer Active Víctor Payne MD Active ASPIRIN 325 MG TABS 1 TAB 2X ADAY ASPIRIN 82919857938 No Longer Active France Cohen RN Active PLAVIX 75 MG TABS 1 tablet by mouth daily to prevent stroke 11/29 PLAVIX 75 MG TABS 728366 CLOPIDOGREL BISULFATE Inactive LIPITOR 10 MG TAB one tablet daily at bedtime LIPITOR 10 MG TAB 657933 ATORVASTATIN CALCIUM Inactive LEVAQUIN 750 MG TABS 1 po qd x 7 days LEVAQUIN 750 MG TABS 385030 LEVOFLOXACIN Inactive HYDROCODONE-ACETAMINOPHEN 5-325 MG TABS 1/2 to 1 every 4 hours as needed for back pain HYDROCODONE-ACETAMINOPHEN 5-325 MG TABS 399562 HYDROCODONE-ACETAMINOPHEN Inactive MECLIZINE HCL 25 MG TAB one 4 times a day as needed for dizziness MECLIZINE HCL 25 MG TAB 363623 MECLIZINE HCL Inactive ASPIRIN 81 MG ORAL TABS 2 po qd ASPIRIN 81 MG ORAL TABS ASPIRIN Inactive METOPROLOL TARTRATE 25 MG ORAL TABS 1 tablet twice a day METOPROLOL TARTRATE 25 MG ORAL TABS 971297 METOPROLOL TARTRATE Inactive SERTRALINE HCL 50 MG TABS 1 daily for depressed mood SERTRALINE HCL 50 MG TABS 582509 SERTRALINE HCL Inactive ASPIRIN 325 MG ORAL TBEC 1 daily ASPIRIN 325 MG ORAL TBEC 914627 ASPIRIN Inactive TYLENOL 325 MG ORAL TABS 1 tab every 4-6 hrs as needed for pain TYLENOL 325 MG ORAL TABS 096026 ACETAMINOPHEN Inactive COLACE 100 MG ORAL CAPS 1-2 tab daily no more then 4 COLACE 100 MG ORAL CAPS 2930537 DOCUSATE SODIUM Inactive DULCOLAX 5 MG ORAL TBEC 1-2 tab hs DULCOLAX 5 MG ORAL TBEC BISACODYL Inactive DOK PLUS 50-8.6 MG ORAL TABS 1 tab twice daily DOK PLUS 50-8.6 MG ORAL TABS 756199 SENNOSIDES-DOCUSATE SODIUM Inactive Immunizations Vaccine Administration Date [...] Panel - Chemistry sodium, serum 139 mmol/L 997-147 4017/05/19 carbon dioxide, venous blood 31.9 mmol/L 21.0-32.0 [...] 0.36-3.74 Encounters Code Encounter Date Provider Facility CPT-66938 Level 3 Est. Patient 10:30:37 CDT New Castro DO [facility] CPT-66243 Level 4 Est. Patient 15:40:13 CDT Víctor Payne MD [facility] CPT-36234 Level 3 Est. Patient 16:47:27 CDT Tanya Tan APRN [facility] CPT-52952 Level 3 Est. Patient 10:46:48 CDT Víctor Payne MD [facility] CPT-51656 Level 3 Est. Patient 15:45:17 CDT Trino Richardson MD [facility] CPT-34344 Level 4 New Patient 15:41:12 CDT Trino Richardson MD [facility] CPT-55535 Level 3 Est. Patient 09:44:56 SENIOR ACCOUNT CLERK Víctor Payne MD [facility] CPT-97198 Level 4 Est. Patient 11:54:04 SENIOR ACCOUNT CLERK Víctor Payne MD [facility] CPT-64554 Level 3 Est. Patient 15:21:08 SENIOR ACCOUNT CLERK Shaji Bradshaw MD [facility] CPT-80829 Level 3 Est. Patient 16:54:23 CDT Víctor Payne MD [facility] CPT-65764 Level 3 Est. Patient 16:10:50 CDT Víctor Payne MD [facility] CPT-98666 Level 4 Est. Patient 14:48:01 CDT Víctor Payne MD [facility] CPT-33374 Level 2 New Patient 14:23:38 SENIOR ACCOUNT CLERK Víctor Payne MD [facility] Procedures Code Procedure Name Date Entry Date Standard Description CPT-60659 Chest 2V Frontal and Lat - XRAY USE ONLY 16:00:05 CDT CPT-G0438 Initial Annual Wellness Exam 10:02:47 CDT CPT-81404 Abd compl w upright 15:47:17 CDT CPT-44450 Venipuncture Draw Fee 10:41:53 SENIOR ACCOUNT CLERK CPT-90780 Chest 2V Frontal and Lat 16:22:38 CDT CPT-G0008 Administration of Influenza Virus Vaccine 14:20:57 CDT CPT-90915 Fluzone High-Dose Intramuscular Suspension 14:20:56 CDT CPT-31847 Postop F/U Visit 16:24:54 SENIOR ACCOUNT CLERK CPT-OV Office Visit 13:26:00 SENIOR ACCOUNT CLERK CPT-56409 Administration 2+ single or combination vaccines inc oral 10:08:59 CDT CPT-15737 Administration single or combination vaccine inc oral 10 :08:59 CDT CPT-69650 Pneumovax 10:08:59 CDT CPT-87588 Influenza High Dose age 65+ 10:08:59 CDT
--- OUTSIDE RECORDS SUMMARY | 2017-07-22 11:57 | XMS REPORT | Clinical Summary ---
Author Author Admin, E Organization [employer] Address Unknown Phone Unavailable Allergies, Adverse [...] Inguinal hernia, right 550.90 Active Neelimakaro Modijosefa MAPLE SUGAR MAKER Unilateral or unspecified inguinal hernia, without mention of obstruction or gangrene (not specified as recurrent) HEALTH MAINTENANCE EXAM V70.0 Active Víctor Payne MD Routine general medical examination at a health care facility Adjustment disorder with depressed mood 309.0 Active Víctor Payne MD Adjustment disorder with depressed mood Underweight 783.22 Active Víctor Payne MD Underweight Change in bowels 787.99 Active Tanya Tan MAPLE SUGAR MAKER Other symptoms involving digestive system COPD 496 [...] 1 tab twice daily SENNOSIDES- DOCUSATE SODIUM 31587306203 Active Víctor Payne MD Active DULCOLAX 5 MG ORAL TBEC 1-2 tab hs BISACODYL 06951249862 No Longer Active Víctor Payne MD Active COLACE 100 MG ORAL CAPS 1-2 tab daily no more then 4 DOCUSATE SODIUM 40454258890 No Longer Active Víctor Payne MD Active TYLENOL 325 MG ORAL TABS 1 tab every 4-6 hrs as needed for pain ACETAMINOPHEN 26651240505 No Longer Active Víctor Payne MD Active ASPIRIN 325 MG ORAL TBEC 1 daily ASPIRIN 43980768900 No Longer Active Víctor Payne MD Active SERTRALINE HCL 50 MG TABS 1 daily for depressed mood SERTRALINE HCL 84869286938 No Longer Active Víctor Payne MD Active METOPROLOL TARTRATE 25 MG ORAL TABS 1 tablet twice a day METOPROLOL TARTRATE 48892467561 No Longer Active Trino Richardson MD Active ASPIRIN 81 MG ORAL TABS 2 po qd ASPIRIN 23414564149 No Longer Active Trino Richardson MD Active MECLIZINE HCL 25 MG TAB one 4 times a day as needed for dizziness MECLIZINE HCL 52209065937 No Longer Active Víctor Payne MD Active HYDROCODONE-ACETAMINOPHEN 5-325 MG TABS 1/2 to 1 every 4 hours as needed for back pain HYDROCODONE-ACETAMINOPHEN 23086400119 No Longer Active Víctor Payne MD Active LEVAQUIN 750 MG TABS 1 po qd x 7 days LEVOFLOXACIN 93348339819 No Longer Active Víctor Payne MD Active LIPITOR 10 MG TAB one tablet daily at bedtime ATORVASTATIN CALCIUM 89651422601 No Longer Active Víctor Payne MD Active PLAVIX 75 MG TABS 1 tablet by mouth daily to prevent stroke 11/29 CLOPIDOGREL BISULFATE 22777931899 No Longer Active Víctor Payne MD Active ASPIRIN 325 MG TABS 1 TAB 2X ADAY ASPIRIN 46754698685 No Longer Active France Cohen RN Active PLAVIX 75 MG TABS 1 tablet by mouth daily to prevent stroke 11/29 PLAVIX 75 MG TABS 28936325677 CLOPIDOGREL BISULFATE Inactive LIPITOR 10 MG TAB one tablet daily at bedtime LIPITOR 10 MG TAB 257222 ATORVASTATIN CALCIUM Inactive LEVAQUIN 750 MG TABS 1 po qd x 7 days LEVAQUIN 750 MG TABS 258858 LEVOFLOXACIN Inactive HYDROCODONE-ACETAMINOPHEN 5-325 MG TABS 1/2 to 1 every 4 hours as needed for back pain HYDROCODONE-ACETAMINOPHEN 5-325 MG TABS 674475 HYDROCODONE-ACETAMINOPHEN Inactive MECLIZINE HCL 25 MG TAB one 4 times a day as needed for dizziness MECLIZINE HCL 25 MG TAB 180883 MECLIZINE HCL Inactive ASPIRIN 81 MG ORAL TABS 2 po qd ASPIRIN 81 MG ORAL TABS ASPIRIN Inactive METOPROLOL TARTRATE 25 MG ORAL TABS 1 tablet twice a day METOPROLOL TARTRATE 25 MG ORAL TABS 424741 METOPROLOL TARTRATE Inactive SERTRALINE HCL 50 MG TABS 1 daily for depressed mood SERTRALINE HCL 50 MG TABS 892514 SERTRALINE HCL Inactive ASPIRIN 325 MG ORAL TBEC 1 daily ASPIRIN 325 MG ORAL TBEC 625263 ASPIRIN Inactive TYLENOL 325 MG ORAL TABS 1 tab every 4-6 hrs as needed for pain TYLENOL 325 MG ORAL TABS 884058 ACETAMINOPHEN Inactive COLACE 100 MG ORAL CAPS 1-2 tab daily no more then 4 COLACE 100 MG ORAL CAPS 0700240 DOCUSATE SODIUM Inactive DULCOLAX 5 MG ORAL [...] Measured Encounters Code Encounter Date Provider Facility CPT-70118 Level 4 Est. Patient 15:40:13 CDT Víctor Payne MD [facility] CPT-31870 Level 3 Est. Patient 16:47:27 CDT Tanya Tan APRN [facility] CPT-03004 Level 3 Est. Patient 10:46:48 CDT Víctor Payne MD [facility] CPT-63992 Level 3 Est. Patient 15:45:17 CDT Trino Richardson MD [facility] CPT-51109 Level 4 New Patient 15:41:12 CDT Trino Richardson MD [facility] CPT-83290 Level 3 Est. Patient 09:44:56 GYNAECOLOGICAL ONCOLOGIST Víctor Payne MD [facility] CPT-29716 Level 4 Est. Patient 11:54:04 GYNAECOLOGICAL ONCOLOGIST Víctor Payne MD [facility] CPT-18687 Level 3 Est. Patient 15:21:08 GYNAECOLOGICAL ONCOLOGIST Shaji Bradshaw MD [facility] CPT-78904 Level 3 Est. Patient 16:54:23 CDT Víctor Payne MD [facility] CPT-56603 Level 3 Est. Patient 16:10:50 CDT Víctor Payne MD [facility] CPT-44987 Level 4 Est. Patient 14:48:01 CDT Víctor Payne MD [facility] CPT-43888 Level 2 New Patient 14:23:38 GYNAECOLOGICAL ONCOLOGIST Víctor Payne MD [facility] Procedures Code Procedure Name Date Entry Date Standard Description CPT-37272 Chest 2V Frontal and Lat - XRAY USE ONLY 16:00:05 CDT CPT-G0438 Initial Annual Wellness Exam 10:02:47 CDT CPT-63312 Abd compl w upright 15:47:17 CDT CPT-23129 Venipuncture Draw Fee 10:41:53 GYNAECOLOGICAL ONCOLOGIST CPT-82816 Chest 2V Frontal and Lat 16:22:38 CDT CPT-G0008 Administration of Influenza Virus Vaccine 14:20:57 CDT CPT-67669 Fluzone High-Dose Intramuscular Suspension 14:20:56 CDT CPT-52511 Postop F/U Visit 16:24:54 GYNAECOLOGICAL ONCOLOGIST CPT-OV Office Visit 13:26:00 GYNAECOLOGICAL ONCOLOGIST CPT-74959 Administration 2+ single or combination vaccines inc oral 10:08:59 CDT CPT-21409 Administration single or combination vaccine inc oral 10 :08:59 CDT CPT-93745 Pneumovax 10:08:59 CDT CPT-27991 Influenza High Dose age 65+ 10:08:59 CDT
--- OUTSIDE RECORDS SUMMARY | 2017-07-22 11:57 | XMS REPORT | Clinical Summary ---
Author Author Admin, E Organization [employer] Address Unknown Phone Unavailable Allergies, Adverse [...] Inguinal hernia, right 550.90 Active Neelimakaro Modijosefa BULLET CHARGING MACHINE OPERATOR Unilateral or unspecified inguinal hernia, without mention of obstruction or gangrene (not specified as recurrent) HEALTH MAINTENANCE EXAM V70.0 Active Víctor Payne MD Routine general medical examination at a health care facility Adjustment disorder with depressed mood 309.0 Active Víctor Payne MD Adjustment disorder with depressed mood Underweight 783.22 Active Víctor Payne MD Underweight Change in bowels 787.99 Active Tanya Tan BULLET CHARGING MACHINE OPERATOR Other symptoms involving digestive system COPD [...] Pre-procedural laboratory examination V72.63 Active Tatiana Schroeder WINDOW GLAZIER HELPER Pre-procedural laboratory examination Inguinal hernia, left ICD-550.90 Inactive Trino Richardson MD Chest wall pain ICD-786.52 Inactive Trino Richardson MD Bronchitis ICD-490 Inactive Víctor Payne MD 2015 Medication List Medication Instructions Start Date Stop Date Generic Name NDC Status Provider Patient Instruction TRAMADOL HCL 50 MG TABS 1/2 to 1 four times a day as needed for pain TRAMADOL HCL 70876701030 Active Víctor Payne MD Active HYDROCODONE-ACETAMINOPHEN 5-325 MG ORAL TABLET 1 four times a day as needed for pain. HYDROCODONE-ACETAMINOPHEN 70792512067 Active Víctor Payne MD Active DEBROX 6.5 % OTIC SOLN 5 gtts effected ear(ears) q day CARBAMIDE PEROXIDE 98195718807 Active New Castro DO Active AMLODIPINE BESYLATE 5 MG TABS 1 tablet by mouth daily AMLODIPINE BESYLATE 57142261830 Active New Castro DO Active DOK PLUS 50-8.6 MG ORAL TABS 1 tab twice daily SENNOSIDES-DOCUSATE SODIUM 70096576730 No Longer Active New Castro DO Active DULCOLAX 5 MG ORAL TBEC 1-2 tab hs BISACODYL 00251595547 No Longer Active Víctor Payne MD Active COLACE 100 MG ORAL CAPS 1-2 tab daily no more then 4 DOCUSATE SODIUM 86911551180 No Longer Active Víctor Payne MD Active TYLENOL 325 MG ORAL TABS 1 tab every 4-6 hrs as needed for pain ACETAMINOPHEN 25592377568 No Longer Active Víctor Payne MD Active ASPIRIN 325 MG ORAL TBEC 1 daily ASPIRIN 69017395819 No Longer Active Víctor Payne MD Active SERTRALINE HCL 50 MG TABS 1 daily for depressed mood SERTRALINE HCL 07736228900 No Longer Active Víctor Payne MD Active METOPROLOL TARTRATE 25 MG ORAL TABS 1 tablet twice a day METOPROLOL TARTRATE 56557984819 No Longer Active Trino Richardson MD Active ASPIRIN 81 MG ORAL TABS 2 po qd ASPIRIN 15151831611 No Longer Active Trino Richardson MD Active MECLIZINE HCL 25 MG TAB one 4 times a day as needed for dizziness MECLIZINE HCL 42553126355 No Longer Active Víctor Payne MD Active HYDROCODONE-ACETAMINOPHEN 5-325 MG TABS 1/2 to 1 every 4 hours as needed for back pain HYDROCODONE-ACETAMINOPHEN 54452183683 No Longer Active Víctor Payne MD Active LEVAQUIN 750 MG TABS 1 po qd x 7 days LEVOFLOXACIN 42795711721 No Longer Active Víctor Payne MD Active LIPITOR 10 MG TAB one tablet daily at bedtime ATORVASTATIN CALCIUM 90193222133 No Longer Active Víctor Payne MD Active PLAVIX 75 MG TABS 1 tablet by mouth daily to prevent stroke 11/29 CLOPIDOGREL BISULFATE 21238853938 No Longer Active Víctor Payne MD Active ASPIRIN 325 MG TABS 1 TAB 2X ADAY ASPIRIN 33712047942 No Longer Active France Cohen RN Active PLAVIX 75 MG TABS 1 tablet by mouth daily to prevent stroke 11/29 PLAVIX 75 MG TABS 459688 CLOPIDOGREL BISULFATE Inactive LIPITOR 10 MG TAB one tablet daily at bedtime LIPITOR 10 MG TAB 657338 ATORVASTATIN CALCIUM Inactive LEVAQUIN 750 MG TABS 1 po qd x 7 days LEVAQUIN 750 MG TABS 262508 LEVOFLOXACIN Inactive HYDROCODONE-ACETAMINOPHEN 5-325 MG TABS 1/2 to 1 every 4 hours as needed for back pain HYDROCODONE-ACETAMINOPHEN 5-325 MG TABS 953711 HYDROCODONE-ACETAMINOPHEN Inactive MECLIZINE HCL 25 MG TAB one 4 times a day as needed for dizziness MECLIZINE HCL 25 MG TAB 512000 MECLIZINE HCL Inactive ASPIRIN 81 MG ORAL TABS 2 po qd ASPIRIN 81 MG ORAL TABS 861601 ASPIRIN Inactive METOPROLOL TARTRATE 25 MG ORAL TABS 1 tablet twice a day METOPROLOL TARTRATE 25 MG ORAL TABS 889736 METOPROLOL TARTRATE Inactive SERTRALINE HCL 50 MG TABS 1 daily for depressed mood SERTRALINE HCL 50 MG TABS 495547 SERTRALINE HCL Inactive ASPIRIN 325 MG ORAL TBEC 1 daily ASPIRIN 325 MG ORAL TBEC 243904 ASPIRIN Inactive TYLENOL 325 MG ORAL TABS 1 tab every 4-6 hrs as needed for pain TYLENOL 325 MG ORAL TABS 912127 ACETAMINOPHEN Inactive COLACE 100 MG ORAL CAPS 1-2 tab daily no more then 4 COLACE 100 MG ORAL CAPS 1605455 DOCUSATE SODIUM Inactive DULCOLAX 5 MG ORAL TBEC 1-2 tab hs DULCOLAX 5 MG ORAL TBEC BISACODYL Inactive DOK PLUS 50-8.6 MG ORAL TABS 1 tab twice daily DOK PLUS 50-8.6 MG ORAL TABS 682346 SENNOSIDES-DOCUSATE SODIUM Inactive Immunizations Vaccine Administration Date [...] Panel - Chemistry sodium, serum 139 mmol/L 383-011 3865/05/19 carbon dioxide, venous blood 31.9 mmol/L 21.0-32.0 [...] 0.36-3.74 Encounters Code Encounter Date Provider Facility CPT-08935 Level 3 Est. Patient 10:30:37 CDT New Castro DO [facility] CPT-17915 Level 4 Est. Patient 15:40:13 CDT Víctor Payne MD [facility] CPT-65161 Level 3 Est. Patient 16:47:27 CDT Tanya Tan APRN [facility] CPT-14880 Level 3 Est. Patient 10:46:48 CDT Víctor Payne MD [facility] CPT-50859 Level 3 Est. Patient 15:45:17 CDT Trino Richardson MD [facility] CPT-89149 Level 4 New Patient 15:41:12 CDT Trino Richardson MD [facility] CPT-25826 Level 3 Est. Patient 09:44:56 DEVICE SALES CONSULTANT Víctor Payne MD [facility] CPT-48107 Level 4 Est. Patient 11:54:04 DEVICE SALES CONSULTANT Víctor Payne MD [facility] CPT-30630 Level 3 Est. Patient 15:21:08 DEVICE SALES CONSULTANT Shaji Bradshaw MD [facility] CPT-87406 Level 3 Est. Patient 16:54:23 CDT Víctor Payne MD [facility] CPT-54525 Level 3 Est. Patient 16:10:50 CDT Víctor Payne MD [facility] CPT-36565 Level 4 Est. Patient 14:48:01 CDT Víctor Payne MD [facility] CPT-17861 Level 2 New Patient 14:23:38 DEVICE SALES CONSULTANT Víctor Payne MD [facility] Procedures Code Procedure Name Date Entry Date Standard Description CPT-TCMM Transitional Care Mgmt-Moderate 10:53:28 CDT CPT-64204 Chest 2V Frontal and Lat - XRAY USE ONLY 10:27:29 CDT CPT-49380 Chest 2V Frontal and Lat - XRAY USE ONLY 16:00:05 CDT CPT-G0438 Initial Annual Wellness Exam 10:02:47 CDT CPT-04395 Abd compl w upright 15:47:17 CDT CPT-32302 Venipuncture Draw Fee 10:41:53 DEVICE SALES CONSULTANT CPT-76605 Chest 2V Frontal and Lat 16:22:38 CDT CPT-G0008 Administration of Influenza Virus Vaccine 14:20:57 CDT CPT-55041 Fluzone High-Dose Intramuscular Suspension 14:20:56 CDT CPT-79650 Postop F/U Visit 16:24:54 DEVICE SALES CONSULTANT CPT-OV Office Visit 13:26:00 DEVICE SALES CONSULTANT CPT-50784 Administration 2+ single or combination vaccines inc oral 10:08:59 CDT CPT-16992 Administration single or combination vaccine inc oral 10 :08:59 CDT CPT-74930 Pneumovax 10:08:59 CDT CPT-82815 Influenza High Dose age 65+ 10:08:59 CDT
[2017-07-22 11:58] LABS: BILIRUBIN,TOTAL 0.6 MG/DL (0.1-1.0); CALCIUM 9.7 MG/DL (8.5-10.1); CREATININE SERUM 1.35 MG/DL (0.60-1.30); MAGNESIUM 2.3 MG/DL (1.8-2.4); POTASSIUM 4.3 MMOL/L (3.6-5.0); TOTAL PROTEIN 7.6 GM/DL (6.4-8.2)
--- OUTSIDE RECORDS SUMMARY | 2017-07-22 11:58 | XMS REPORT ---
Author Author KENMORE Kaiima [facility] Medical Staff Organization [facility] Address [address] [place], [place] [address] Phone [phone] Summary purpose TRANSITION OF CARE AUTO GENERATION [...] tests and/or laboratory data RESULTS Radiology Results [id number]:00 CAROTID DUPLEX PACs Image DATE OF EXAM: 2015 [id number] CAROTID DUPLEX SONO : RADIOLOGY REPORT DATE [...] described in body of report. DO ELY Stokes/wy 03/31/2015 12:45: / 03/31/2015 15:27:11 cc:Dr. Shaji Bradshaw This document has been electronically Signed by: On: DATE OF EXAM: 2015 [id number] CAROTID DUPLEX SONO : RADIOLOGY REPORT DATE [...] ELY Stokes/ilir 03/31/2015 12:45:03/31/2015 15:27:11 cc:Dr. Shaji Bradshaw This document has been electronically Signed by: LARRY FAYE DO On: 20154:02P Result Amended on 2015-03-31 at 16:02:53. Previous status was NM. MRI BRAIN W/WO CONT PACs Image DATE [...] exam was sent to a neuroradiologist at [facility] for consultation and I personally communicated with the neuroradiologist granulating blender via telephone about the findings. Generalized atrophy [...] 1250 hours on 03/31/2015. Larry Faye DO /wy 03/31/2015 13:30:00 / 03/31/2015 15:33:51 cc:Dr. Víctor [...] exam was sent to a neuroradiologist at [facility] for consultation and I personally communicated with the neuroradiologist granulating blender via telephone about the findings. Generalized atrophy [...] electronically Signed by: LARRY FAYE DO On: :02P Result Amended on 2015-03-31 at 16:02:51. Previous status was NM. History of procedures No procedures recorded for this patient visit. Functional status No functional or cognitive status [...]
--- OUTSIDE RECORDS SUMMARY | 2017-07-22 11:58 | XMS REPORT | Clinical Summary ---
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 Unilateral or unspecified inguinal hernia, without mention [...] 1 tablet twice a day METOPROLOL TARTRATE 65536975116 No Longer Active Trino Richardson MD Active ASPIRIN 325 MG ORAL TBEC 1 daily ASPIRIN 84344436311 Active Trino Richardson MD Active ASPIRIN 81 MG ORAL TABS 2 po qd ASPIRIN 27661247009 No Longer Active Trino Richardson MD Active MECLIZINE HCL 25 MG TAB one 4 times a day as needed for dizziness MECLIZINE HCL 50671450020 No Longer Active Víctor Payne MD Active HYDROCODONE-ACETAMINOPHEN 5-325 MG TABS 1/2 to 1 every 4 hours as needed for back pain HYDROCODONE-ACETAMINOPHEN 57173070320 No Longer Active Víctor Payne MD Active LEVAQUIN 750 MG TABS 1 po qd x 7 days LEVOFLOXACIN 26912303657 No Longer Active Víctor Payne MD Active LIPITOR 10 MG TAB one tablet daily at bedtime ATORVASTATIN CALCIUM 37775613614 No Longer Active Víctor Payne MD Active PLAVIX 75 MG TABS 1 tablet by mouth daily to prevent stroke 11/29 CLOPIDOGREL BISULFATE 41622696830 No Longer Active Víctor Payne MD Active ASPIRIN 325 MG TABS 1 TAB 2X ADAY ASPIRIN 01839447472 No Longer Active France Cohen RN Active PLAVIX 75 MG TABS 1 tablet by mouth daily to prevent stroke 11/29 PLAVIX 75 MG TABS 870331 CLOPIDOGREL BISULFATE Inactive LIPITOR 10 MG TAB one tablet daily at bedtime LIPITOR 10 MG TAB 462146 ATORVASTATIN CALCIUM Inactive LEVAQUIN 750 MG TABS 1 po qd x 7 days LEVAQUIN 750 MG TABS 100463 LEVOFLOXACIN Inactive HYDROCODONE-ACETAMINOPHEN 5-325 MG TABS 1/2 to 1 every 4 hours as needed for back pain HYDROCODONE-ACETAMINOPHEN 5-325 MG TABS 924039 HYDROCODONE-ACETAMINOPHEN Inactive MECLIZINE HCL 25 MG TAB one 4 times a day as needed for dizziness MECLIZINE HCL 25 MG TAB 040417 MECLIZINE HCL Inactive ASPIRIN 81 MG ORAL TABS 2 po qd ASPIRIN 81 MG ORAL TABS 271873 ASPIRIN Inactive METOPROLOL TARTRATE 25 MG ORAL TABS 1 tablet twice a day METOPROLOL TARTRATE 25 MG ORAL TABS 805226 METOPROLOL TARTRATE Inactive Immunizations Vaccine Administration Date [...] % 11.6-14.8 platelet count 303 10^3/MM^3 10*3/mm3 818-498 7569/02/10 leukocyte count, blood 11.9 10^3/MM^3 10*3/mm3 4.6-10.2 [...] Panel - Chemistry sodium, serum 139 mmol/L 161-761 0801/09/18 carbon dioxide, venous blood 27.6 mmol/L 21.0-32.0 [...] Lab Report: Comp. Metabolic Panel - Chemistry urea nitrogen, blood 19 mg/dL 7-18 creatinine, serum 1.40 mg/dL 0.55-1.30 alanine aminotransferase (SGPT), serum 25 U/L 12-78 aspartate aminotransferase (SGOT), serum 28 U/L 15-37 calcium, serum 9.0 mg/dL 8.5-10.1 bilirubin, serum, total 0.40 mg/dL 0.00-1.00 blood glucose 97 mg/dL 65-110 chloride, serum 100 mmol/L 98-107 potassium, serum 4.3 mmol/L 3.5-5.2 carbon dioxide, venous blood 27.9 mmol/L 21.0-32.0 sodium, serum 136 mmol/L 136-145 Encounters Code Encounter Date Provider Facility CPT-74724 Level 3 Est. Patient 15:45:17 CDT Trino Richardson MD [facility] CPT-15918 Level 4 New Patient 15:41:12 CDT Trino Richardson MD [facility] CPT-08550 Level 3 Est. Patient 09:44:56 WATCH SUPERVISOR Víctor Payne MD [facility] CPT-03857 Level 4 Est. Patient 11:54:04 WATCH SUPERVISOR Víctor Payne MD [facility] CPT-89117 Level 3 Est. Patient 15:21:08 WATCH SUPERVISOR Shaji Bradshaw MD [facility] CPT-32982 Level 3 Est. Patient 16:54:23 CDT Víctor Payne MD [facility] CPT-65576 Level 3 Est. Patient 16:10:50 CDT Víctor Payne MD [facility] CPT-23027 Level 4 Est. Patient 14:48:01 CDT Víctor Payne MD [facility] CPT-25185 Level 2 New Patient 14:23:38 WATCH SUPERVISOR Víctor Payne MD [facility] Procedures Code Procedure Name Date Entry Date Standard Description CPT-08630 Abd compl w upright 15:47:17 CDT CPT-50294 Venipuncture Draw Fee 10:41:53 WATCH SUPERVISOR CPT-20053 Chest 2V Frontal and Lat 16:22:38 CDT CPT-G0008 Administration of Influenza Virus Vaccine 14:20:57 CDT CPT-93014 Fluzone High-Dose Intramuscular Suspension 14:20:56 CDT CPT-43648 Postop F/U Visit 16:24:54 WATCH SUPERVISOR CPT-OV Office Visit 13:26:00 WATCH SUPERVISOR CPT-68946 Administration 2+ single or combination vaccines inc oral 10:08:59 CDT CPT-19169 Administration single or combination vaccine inc oral 10 :08:59 CDT CPT-85274 Pneumovax 10:08:59 CDT CPT-04404 Influenza High Dose age 65+ 10:08:59 CDT
--- OUTSIDE RECORDS SUMMARY | 2017-07-22 11:58 | XMS REPORT | Clinical Summary ---
Author Author Admin, E Organization [employer] Address Unknown Phone Unavailable Allergies, Adverse [...] Inguinal hernia, right 550.90 Active Neelimakaro Modijosefa BRANCHER Unilateral or unspecified inguinal hernia, without mention of obstruction or gangrene (not specified as recurrent) HEALTH MAINTENANCE EXAM V70.0 Active Víctor Payne MD Routine general medical examination at a health care facility Adjustment disorder with depressed mood 309.0 Active Víctor Payne MD Adjustment disorder with depressed mood Underweight 783.22 Active Víctor Payne MD Underweight Change in bowels 787.99 Active Tanya Tan BRANCHER Other symptoms involving digestive system COPD 496 [...] 1 tab twice daily SENNOSIDES- DOCUSATE SODIUM 52590855699 Active Víctor Payne MD Active DULCOLAX 5 MG ORAL TBEC 1-2 tab hs BISACODYL 31215070673 No Longer Active Víctor Payne MD Active COLACE 100 MG ORAL CAPS 1-2 tab daily no more then 4 DOCUSATE SODIUM 19035133266 No Longer Active Víctor Payne MD Active TYLENOL 325 MG ORAL TABS 1 tab every 4-6 hrs as needed for pain ACETAMINOPHEN 53613363954 No Longer Active Víctor Payne MD Active ASPIRIN 325 MG ORAL TBEC 1 daily ASPIRIN 05490401493 No Longer Active Víctor Payne MD Active SERTRALINE HCL 50 MG TABS 1 daily for depressed mood SERTRALINE HCL 85127249700 No Longer Active Víctor Payne MD Active METOPROLOL TARTRATE 25 MG ORAL TABS 1 tablet twice a day METOPROLOL TARTRATE 07426032264 No Longer Active Trino Richardson MD Active ASPIRIN 81 MG ORAL TABS 2 po qd ASPIRIN 55950392668 No Longer Active Trino Richardson MD Active MECLIZINE HCL 25 MG TAB one 4 times a day as needed for dizziness MECLIZINE HCL 24007907526 No Longer Active Víctor Payne MD Active HYDROCODONE-ACETAMINOPHEN 5-325 MG TABS 1/2 to 1 every 4 hours as needed for back pain HYDROCODONE-ACETAMINOPHEN 46091560653 No Longer Active Víctor Payne MD Active LEVAQUIN 750 MG TABS 1 po qd x 7 days LEVOFLOXACIN 28927628879 No Longer Active Víctor Payne MD Active LIPITOR 10 MG TAB one tablet daily at bedtime ATORVASTATIN CALCIUM 40912378230 No Longer Active Víctor Payne MD Active PLAVIX 75 MG TABS 1 tablet by mouth daily to prevent stroke 11/29 CLOPIDOGREL BISULFATE 07868937656 No Longer Active Víctor Payne MD Active ASPIRIN 325 MG TABS 1 TAB 2X ADAY ASPIRIN 59989791822 No Longer Active France Cohen RN Active PLAVIX 75 MG TABS 1 tablet by mouth daily to prevent stroke 11/29 PLAVIX 75 MG TABS 59018870264 CLOPIDOGREL BISULFATE Inactive LIPITOR 10 MG TAB one tablet daily at bedtime LIPITOR 10 MG TAB 970558 ATORVASTATIN CALCIUM Inactive LEVAQUIN 750 MG TABS 1 po qd x 7 days LEVAQUIN 750 MG TABS 531070 LEVOFLOXACIN Inactive HYDROCODONE-ACETAMINOPHEN 5-325 MG TABS 1/2 to 1 every 4 hours as needed for back pain HYDROCODONE-ACETAMINOPHEN 5-325 MG TABS 392516 HYDROCODONE-ACETAMINOPHEN Inactive MECLIZINE HCL 25 MG TAB one 4 times a day as needed for dizziness MECLIZINE HCL 25 MG TAB 274112 MECLIZINE HCL Inactive ASPIRIN 81 MG ORAL TABS 2 po qd ASPIRIN 81 MG ORAL TABS ASPIRIN Inactive METOPROLOL TARTRATE 25 MG ORAL TABS 1 tablet twice a day METOPROLOL TARTRATE 25 MG ORAL TABS 757993 METOPROLOL TARTRATE Inactive SERTRALINE HCL 50 MG TABS 1 daily for depressed mood SERTRALINE HCL 50 MG TABS 814044 SERTRALINE HCL Inactive ASPIRIN 325 MG ORAL TBEC 1 daily ASPIRIN 325 MG ORAL TBEC 124730 ASPIRIN Inactive TYLENOL 325 MG ORAL TABS 1 tab every 4-6 hrs as needed for pain TYLENOL 325 MG ORAL TABS 260533 ACETAMINOPHEN Inactive COLACE 100 MG ORAL CAPS 1-2 tab daily no more then 4 COLACE 100 MG ORAL CAPS 7764309 DOCUSATE SODIUM Inactive DULCOLAX 5 MG ORAL [...] Measured Encounters Code Encounter Date Provider Facility CPT-85488 Level 4 Est. Patient 15:40:13 CDT Víctor Payne MD [facility] CPT-79684 Level 3 Est. Patient 16:47:27 CDT Tanya Tan APRN [facility] CPT-70517 Level 3 Est. Patient 10:46:48 CDT Víctor Payne MD [facility] CPT-69558 Level 3 Est. Patient 15:45:17 CDT Trino Richardson MD [facility] CPT-19867 Level 4 New Patient 15:41:12 CDT Trino Richardson MD [facility] CPT-52408 Level 3 Est. Patient 09:44:56 DICTATING TRANSCRIBING MACHINE SERVICER Víctor Payne MD [facility] CPT-18973 Level 4 Est. Patient 11:54:04 DICTATING TRANSCRIBING MACHINE SERVICER Víctor Payne MD [facility] CPT-42950 Level 3 Est. Patient 15:21:08 DICTATING TRANSCRIBING MACHINE SERVICER Shaji Bradshaw MD [facility] CPT-55279 Level 3 Est. Patient 16:54:23 CDT Víctor Payne MD [facility] CPT-96701 Level 3 Est. Patient 16:10:50 CDT Víctor Payne MD [facility] CPT-00323 Level 4 Est. Patient 14:48:01 CDT Víctor Payne MD [facility] CPT-25595 Level 2 New Patient 14:23:38 DICTATING TRANSCRIBING MACHINE SERVICER Víctor Payne MD [facility] Procedures Code Procedure Name Date Entry Date Standard Description CPT-95256 Chest 2V Frontal and Lat - XRAY USE ONLY 16:00:05 CDT CPT-G0438 Initial Annual Wellness Exam 10:02:47 CDT CPT-58694 Abd compl w upright 15:47:17 CDT CPT-01261 Venipuncture Draw Fee 10:41:53 DICTATING TRANSCRIBING MACHINE SERVICER CPT-99886 Chest 2V Frontal and Lat 16:22:38 CDT CPT-G0008 Administration of Influenza Virus Vaccine 14:20:57 CDT CPT-65668 Fluzone High-Dose Intramuscular Suspension 14:20:56 CDT CPT-61501 Postop F/U Visit 16:24:54 DICTATING TRANSCRIBING MACHINE SERVICER CPT-OV Office Visit 13:26:00 DICTATING TRANSCRIBING MACHINE SERVICER CPT-59837 Administration 2+ single or combination vaccines inc oral 10:08:59 CDT CPT-87234 Administration single or combination vaccine inc oral 10 :08:59 CDT CPT-11641 Pneumovax 10:08:59 CDT CPT-49597 Influenza High Dose age 65+ 10:08:59 CDT
--- OUTSIDE RECORDS SUMMARY | 2017-07-22 11:59 | XMS REPORT | Continuity of Care Document ---
Author Author [facility] Organization [facility] Address Unknown Phone Unavailable Allergies Active Description Code Type Severity Reaction Onset Reported/Identified Relationship to Patient Clinical Status Yes No known drug allergies [id number] ND N/A N/A Yes No Known Medication Allergies Drug N/A N/A Medications There is no data. Problems Date Dx Coded Attending Type Code Diagnosis Diagnosed By 05/24/2015 Soren Oates I65.23 Occlusion and stenosis of bilateral carotid arteries Soren Oates 12/03/2016 Gena Foster MD H61.899 Ceruminosis 12/03/2016 Gena Foster MD I10 Hypertension 01/10/2017 Gena Foster MD J18.9 Pneumonia, right upper lobe 01/10/2017 Gena Foster MD M54.6 Back pain, thoracic region 01/10/2017 Gena Foster MD Z01.812 Pre-procedural laboratory examination 01/10/2017 Gena Foster MD R04.2 Hemoptysis Procedures Code Description [place] [address] RPR FEM HERNIA, INIT BLOCKED 06/22/2015 C1781 MESH (IMPLANTABLE) 06/22/2015 C9290 INJ, BUPIVICAINE LIPOSOME 06/22/2015 J0690 CEFAZOLIN SODIUM INJECTION 06/22/2015 J1885 TORADOL SYR 30MG/ML 06/22/2015 J2250 INJ MIDAZOLAM HYDROCHLORIDE 06/22/2015 J2405 ONDANSETRON HCL INJECTION 06/22/2015 J2704 INJ, PROPOFOL, 10 MG 06/22/2015 J3010 FENTANYL CITRATE INJECITON 06/22/2015 J7120 RINGERS LACTATE INFUSION 06/22/2015 86728 DIAGNOSTIC COLONOSCOPY 07/03/2015 J2250 INJ MIDAZOLAM HYDROCHLORIDE 07/03/2015 J2704 INJ, PROPOFOL, 10 MG 07/03/2015 J7120 RINGERS LACTATE INFUSION 07/03/2015 86565 Thromboendarterectomy, with or without patch graft; carotid, vertebral, subclavian, by neck incision Soren Oates 10/23/2015 Results There is no data. Encounters ACCT No. Visit Date/Time Discharge Status Pt. Type Provider Facility Loc./Unit Complaint [id number] 05/10/2017 11:09:05 05/10/2017 23:59:59 CLS Preadmit GENA FOSTER [facility] altered mental status [id number] 05/10/2017 01:33:00 05/10/2017 23:59:59 DIS Outpatient MARIAA VOGEL [facility] [id number] 05/07/2017 08:48:37 05/07/2017 23:59:59 CLS Preadmit [facility] status post CVA [id number] 05/01/2017 22:27:02 05/01/2017 23:59:59 DIS Outpatient NELSON LIU [facility] [id number] 05/01/2017 21:14:34 05/01/2017 23:59:59 CLS Inpatient GENA FOSTER [facility] Overflow CVA, dehydration, leukocytosis [id number] 05/01/2017 16:19:00 05/01/2017 23:59:59 CLS Emergency [facility] ED ed visit [id number] 01/10/2017 10:53:28 01/10/2017 23:59:59 CLS Preadmit CRISTIAN [facility] RAD hymoptosis and pneumonia [id number] 12/29/2016 20:45:58 12/29/2016 23:59:59 CLS Preadmit CRISTIAN GENA Dylon [facility] pneumonia, rib fractures, fall, consipation [id number] 12/29/2016 18:53:00 12/29/2016 23:59:59 CLS Emergency [facility] ED sob [id number] 12/27/2016 15:59:00 12/27/2016 23:59:59 CLS Emergency [facility] ED fall [id number] 07/31/2016 15:25:58 07/31/2016 23:59:59 CLS Preadmit ANNEMARIE ORTEGA [facility] Surgery colonoc= scopy [id number] 07/03/2015 10:58:00 07/03/2015 14:15:00 DIS Outpatient ANNEMARIE ORTEGA [facility] OPS [id number] 06/22/2015 11:28:00 06/22/2015 17:05:00 DIS Outpatient ANNEMARIE ORTEGA [facility] OPS [id number] 03/31/2015 10:39:00 03/31/2015 10:39:00 DIS Outpatient JF DE SANTIAGO [facility] RAD [id number] 05/10/2017 02:04:00 ACT GENA JEAN [facility] OBS ed visit [id number] 2016 10:57:19 2016 23:59:59 CLS Outpatient Soren Oates [id number] 07/11/2017 20:05:28 ACT Unknown Gena Foster MD [id number] 07/15/2017 12:49:35 ACT Document Registration [id number] 05/01/2015 06:36:00 05/02/2015 12:15:00 DIS Inpatient SOREN OATES [facility] 110 carotid stenosis, recent stroke
--- OUTSIDE RECORDS SUMMARY | 2017-07-22 11:59 | XMS REPORT | Clinical Summary ---
Author Author Admin, E Organization [employer] Address Unknown Phone Unavailable Allergies, Adverse Reactions, [...] Inguinal hernia, right 550.90 Active Erwinguy Modijosefa [employer]HER[employer] NURSE Unilateral or unspecified inguinal hernia, without mention of obstruction or gangrene (not specified as recurrent) HEALTH MAINTENANCE EXAM V70.0 Active Víctor Payne MD Routine general medical examination at a health care facility Adjustment disorder with depressed mood 309.0 Active Víctor Payne MD Adjustment disorder with depressed mood Underweight 783.22 Active Víctor Payne MD Underweight Change in bowels 787.99 Active Tanya Tan [employer]HER[employer] NURSE Other symptoms involving digestive system COPD 496 [...] Pre-procedural laboratory examination V72.63 Active Tatiana Schroeder [employer] Pre-procedural laboratory examination Hemoptysis 786.30 Active Víctor [...] day as needed for pain TRAMADOL HCL 34338843983 Active Víctor Payne MD Active HYDROCODONE-ACETAMINOPHEN 5-325 MG ORAL TABLET 1 four times a day as needed for pain. HYDROCODONE-ACETAMINOPHEN 81324150020 No Longer Active Víctor Payne MD Active DEBROX 6.5 % OTIC SOLUTION 5 gtts effected ear(ears) q day CARBAMIDE PEROXIDE 52375134526 Active New Castro DO Active AMLODIPINE BESYLATE 5 MG ORAL TABLET 1 tablet by mouth daily AMLODIPINE BESYLATE 81024119219 Active New Castro DO Active DOK PLUS 50-8.6 MG ORAL TABLET 1 tab twice daily SENNOSIDES-DOCUSATE SODIUM 18565340360 No Longer Active New Castro DO Active DULCOLAX 5 MG ORAL TABLET DELAYED RELEASE 1-2 tab hs BISACODYL 12432055894 No Longer Active Víctor Payne MD Active COLACE 100 MG ORAL CAPSULE 1-2 tab daily no more then 4 DOCUSATE SODIUM 20753863465 No Longer Active Víctor Payne MD Active TYLENOL 325 MG ORAL TABLET 1 tab every 4-6 hrs as needed for pain ACETAMINOPHEN 66221518027 No Longer Active Víctor Payne MD Active ASPIRIN 325 MG ORAL TABLET DELAYED RELEASE 1 daily ASPIRIN 95795199214 No Longer Active Víctor Payne MD Active SERTRALINE HCL 50 MG ORAL TABLET 1 daily for depressed mood 07/26 SERTRALINE HCL 31199582782 No Longer Active Víctor Payne MD Active METOPROLOL TARTRATE 25 MG ORAL TABLET 1 tablet twice a day 06/27 METOPROLOL TARTRATE 64598227557 No Longer Active Trino Richardson MD Active ASPIRIN 81 MG ORAL TABLET 2 po qd ASPIRIN 02614489994 No Longer Active Trino Richardson MD Active MECLIZINE HCL 25 MG ORAL TABLET one 4 times a day as needed for dizziness MECLIZINE HCL 03008815200 No Longer Active Víctor Payne MD Active HYDROCODONE-ACETAMINOPHEN 5-325 MG ORAL TABLET 1/2 to 1 every 4 hours as needed for back pain HYDROCODONE-ACETAMINOPHEN 36985261271 No Longer Active Víctor Payne MD Active LEVAQUIN 750 MG ORAL TABLET 1 po qd x 7 days LEVOFLOXACIN 41793904292 No Longer Active Víctor Payne MD Active LIPITOR 10 MG ORAL TABLET one tablet daily at bedtime ATORVASTATIN CALCIUM 98305270083 No Longer Active Víctor Payne MD Active PLAVIX 75 MG ORAL TABLET 1 tablet by mouth daily to prevent stroke CLOPIDOGREL BISULFATE 86974683806 No Longer Active Víctor Payne MD Active ASPIRIN 325 MG ORAL TABLET 1 TAB 2X ADAY ASPIRIN 18631467479 No Longer Active France Cohen RN Active PLAVIX 75 MG ORAL TABLET 1 tablet by mouth daily to prevent stroke PLAVIX 75 MG ORAL TABLET 894497 CLOPIDOGREL BISULFATE Inactive LIPITOR 10 MG ORAL TABLET one tablet daily at bedtime LIPITOR 10 MG ORAL TABLET 186019 ATORVASTATIN CALCIUM Inactive LEVAQUIN 750 MG ORAL TABLET 1 po qd x 7 days LEVAQUIN 750 MG ORAL TABLET 055738 LEVOFLOXACIN Inactive HYDROCODONE-ACETAMINOPHEN 5-325 MG ORAL TABLET 1/2 to 1 every 4 hours as needed for back pain HYDROCODONE-ACETAMINOPHEN 5-325 MG ORAL TABLET 300163 HYDROCODONE-ACETAMINOPHEN Inactive MECLIZINE HCL 25 MG ORAL TABLET one 4 times a day as needed for dizziness MECLIZINE HCL 25 MG ORAL TABLET 443149 MECLIZINE HCL Inactive ASPIRIN 81 MG ORAL TABLET 2 po qd ASPIRIN 81 MG ORAL TABLET 062390 ASPIRIN Inactive METOPROLOL TARTRATE 25 MG ORAL TABLET 1 tablet twice a day 06/27 METOPROLOL TARTRATE 25 MG ORAL TABLET 957579 METOPROLOL TARTRATE Inactive SERTRALINE HCL 50 MG ORAL TABLET 1 daily for depressed mood 07/26 SERTRALINE HCL 50 MG ORAL TABLET 549665 SERTRALINE HCL Inactive ASPIRIN 325 MG ORAL TABLET DELAYED RELEASE 1 daily ASPIRIN 325 MG ORAL TABLET DELAYED RELEASE 424126 ASPIRIN Inactive TYLENOL 325 MG ORAL TABLET 1 tab every 4-6 hrs as needed for pain TYLENOL 325 MG ORAL TABLET 083861 ACETAMINOPHEN Inactive COLACE 100 MG ORAL CAPSULE 1-2 tab daily no more then 4 COLACE 100 MG ORAL CAPSULE 4490405 DOCUSATE SODIUM Inactive DULCOLAX 5 MG ORAL TABLET DELAYED RELEASE 1-2 tab hs DULCOLAX 5 MG ORAL TABLET DELAYED RELEASE BISACODYL Inactive DOK PLUS 50-8.6 MG ORAL TABLET 1 tab twice daily DOK PLUS 50-8.6 MG ORAL TABLET 068304 SENNOSIDES-DOCUSATE SODIUM Inactive HYDROCODONE-ACETAMINOPHEN 5-325 MG ORAL TABLET 1 four times a day as needed for pain. HYDROCODONE-ACETAMINOPHEN 5-325 MG ORAL TABLET 188896 HYDROCODONE-ACETAMINOPHEN Inactive Immunizations Vaccine Administration Date Value [...] Panel - Chemistry sodium, serum 137 mmol/L 885-515 3639/10/20 potassium, serum 5.5 mmol/L 3.5-5.2 chloride, serum 104 mmol/L 98-107 carbon dioxide, venous blood 29.2 mmol/L 21.0-32.0 blood glucose 100 mg/dL 65-110 calcium, serum 8.7 mg/dL 8.5-10.1 urea nitrogen, blood 23 mg/dL 7-18 creatinine, serum 1.24 mg/dL 0.60-1.30 Lab Report: CBC, Comp. Metabolic Panel - Chemistry sodium, serum 139 mmol/L 766-222 2901/05/19 carbon dioxide, venous blood 31.9 mmol/L 21.0-32.0 [...] 0.36-3.74 Encounters Code Encounter Date Provider Facility CPT-82395 Level 3 Est. Patient 10:30:37 CDT [facility] CPT-32930 Level 4 Est. Patient 15:40:13 CDT Víctor Payne MD [facility] CPT-48862 Level 3 Est. Patient 16:47:27 CDT Tanya Tan APRN [facility] CPT-30530 Level 3 Est. Patient 10:46:48 CDT Víctor Payne MD [facility] CPT-45050 Level 3 Est. Patient 15:45:17 CDT Trino Richardson MD [facility] CPT-50906 Level 4 New Patient 15:41:12 CDT Trino Richardson MD [facility] CPT-96190 Level 3 Est. Patient 09:44:56 [employer]INDOWS SYSTEM ADMIN Víctor Payne MD [facility] CPT-91789 Level 4 Est. Patient 11:54:04 [employer]OWS [employer] ADMIN Víctor Payne MD [facility] CPT-08165 Level 3 Est. Patient 15:21:08 WINDOWS SYSTEM ADMIN Shaji Bradshaw MD [facility] CPT-06869 Level 3 Est. Patient 16:54:23 CDT Víctor Payne MD [facility] CPT-75863 Level 3 Est. Patient 16:10:50 CDT Víctor Payne MD [facility] CPT-06822 Level 4 Est. Patient 14:48:01 CDT Víctor Payne MD [facility] CPT-21933 Level 2 New Patient 14:23:38 WINDOWS SYSTEM ADMIN Víctor Payne MD [facility] Procedures Code Procedure Name Date Entry Date Standard Description CPT-TCMM Transitional Care Mgmt-Moderate 10:53:28 CDT CPT-37033 Chest 2V Frontal and Lat - XRAY USE ONLY 10:27:29 CDT CPT-39898 Chest 2V Frontal and Lat - XRAY USE ONLY 16:00:05 CDT CPT-G0438 Initial Annual Wellness Exam 10:02:47 CDT CPT-58659 Abd compl w upright 15:47:17 CDT CPT-39682 Venipuncture Draw Fee 10:41:53 WINDOWS SYSTEM ADMIN CPT-07942 Chest 2V Frontal and Lat 16:22:38 CDT CPT-G0008 Administration of Influenza Virus Vaccine 14:20:57 CDT CPT-85532 Fluzone High-Dose Intramuscular Suspension 14:20:56 CDT CPT-79537 Postop F/U Visit 16:24:54 WINDOWS SYSTEM ADMIN CPT-OV Office Visit 13:26:00 WINDOWS SYSTEM ADMIN CPT-44167 Administration 2+ single or combination vaccines inc oral 10:08:59 CDT CPT-45952 Administration single or combination vaccine inc oral 10 :08:59 CDT CPT-64585 Pneumovax 10:08:59 CDT CPT-97375 Influenza High Dose age 65+ 10:08:59 CDT
[2017-07-22 12:18] LABS: TSH (THYROID ANALYZER) 0.91 UIU/ML (0.35-4.94)
--- NOTE | 2017-07-22 12:41 | Diagnostic Imaging Report ---
PROCEDURE: CT head without contrast. TECHNIQUE: Multiple contiguous axial images were obtained through the brain without the use of intravenous contrast. INDICATION: Agitation. No prior examination available for comparison. FINDINGS: There is prominence of the ventricles and sulci. There is moderate chronic microvascular ischemic disease. There is focal cystic encephalomalacia in left frontal lobe compatible with prior CVA. No hydrocephalus. There is no midline shift. There is no intracranial mass, hemorrhage or extra-axial fluid collection. Calvarium is intact. The sinuses and mastoid air cells are clear. IMPRESSION: Atrophy and some chronic microvascular ischemic disease with previous left frontal CVA. No other acute intracranial abnormality. Dictated by: Dictated on workstation # [id number]
[2017-07-22] MEDS ORDERED: QUEtiapine 25 MG (SEROquel) TAB IMMEDIATE RELEASE PO SCH (13:00)
--- NOTE | 2017-07-22 13:11 | Diagnostic Imaging Report ---
INDICATION: Altered behavior. TIME OF EXAM: 01:05 p.m. No prior studies are available for comparison. FINDINGS: The heart size is stable. There are numerous calcified nodules throughout both lungs consistent with granulomas. No infiltrate or failure is detected. No effusion or pneumothorax is seen. IMPRESSION: No acute cardiopulmonary process is detected. Dictated by: Dictated on workstation # [id number]
[2017-07-22] MEDS ORDERED: LORazepam 0.5 MG (ATIVAN) TABLET PO ONE (13:45)
[2017-07-22] MEDS ORDERED: LORazepam INJ 2 MG/ML (ATIVAN) VIAL IVP ONE (13:45)
[2017-07-22] MEDS ORDERED: QUET25TA PO (13:56)
[2017-07-22] MEDS ORDERED: LORA-404 PO (13:56)
[2017-07-22 14:29] VITALS: BP 142/88
[2017-09-11] MEDS ORDERED: MELA5TAB14 PO (15:17)
[2017-09-11] MEDS ORDERED: QUET200T57 PO (15:17)
[2017-09-11] MEDS ORDERED: APIX5TAB PO (15:17)
[2017-09-11] MEDS ORDERED: LORA1TAB PO (15:17)
[2017-09-11] MEDS ORDERED: FURO20TA4 PO (15:17)
[2017-09-11] MEDS ORDERED: ACET325T38 PO ×2 (15:17)
[2017-09-11] MEDS ORDERED: CARB15DR OU ×2 (15:17→15:21)
[2017-09-11] MEDS ORDERED: ATOR10TA66 PO (15:17)
[2017-09-11] MEDS ORDERED: MIRT30TA6 PO (15:17)
[2017-09-11] MEDS ORDERED: AMLO5TAB2 PO (15:17)
[2017-09-11] MEDS ORDERED: MAGN400O7 PO (15:17)
[2017-09-11] MEDS ORDERED: DOCU100T2 PO (15:17)
== END 2017-07-22 14:28 | disposition home or self-care (01) ==
LOC: ER 11:07
DX: F91.1 Conduct disorder, childhood-onset type (principal); F03.90 Unspecified dementia, unspecified severity, without behavioral disturbance, psychotic disturbance, mood disturbance, and anxiety; I48.91 Unspecified atrial fibrillation; I10 Essential (primary) hypertension; Z86.73 Personal history of transient ischemic attack (TIA), and cerebral infarction without residual deficits; Z87.891 Personal history of nicotine dependence
CPT/HCPCS: 36415; 70450; 71046; 80053; 81000; 83735; 84443; 85025; 93005

== ENCOUNTER 2017-08-05 14:28 | Emergency (ER) | payer MEDICARE, MEDICAID ==
[~2017-08-05] VITALS: Ht 162.6 cm; Wt 59.0 kg
[~2017-08-05 14:28] MED LIST: LORA-404 PO; QUET25TA PO
--- OUTSIDE RECORDS SUMMARY | 2017-08-05 14:58 | XMS REPORT | Continuity of Care Document ---
Author Author [facility] Organization [facility] Address Unknown Phone Unavailable Allergies Active Description Code Type Severity Reaction Onset Reported/Identified Relationship to Patient Clinical Status Yes No known drug allergies [id number] ND N/A N/A Yes No Known Medication Allergies Drug N/A N/A Yes No Known Drug Allergies [id number] Drug Allergy Unknown N/A 07/22/2017 Medications There is no data. 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, CHILDHOOD-ONSET TYPE 07/22/2017 LYNNETTE ROCHA MD, Ot I10 ESSENTIAL (PRIMARY) HYPERTENSION 07/22/2017 LYNNETTE ROCHA MD, Ot I48.91 UNSPECIFIED ATRIAL FIBRILLATION 07/22/2017 LYNNETTE ROCHA MD, Ot Z86.73 PRSNL HX OF TIA (TIA), AND CEREB INFRC W 07/22/2017 LYNNETTE ROCHA MD, Ot Z87.891 PERSONAL HISTORY OF NICOTINE DEPENDENCE 07/24/2017 LYNNETTE ROCHA MD Ot F03.90 UNSPECIFIED DEMENTIA WITHOUT BEHAVIORAL 07/24/2017 LYNNETTE ROCHA MD Ot 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, CHILDHOOD-ONSET TYPE 07/24/2017 LYNNETTE ROCHA MD Ot I10 ESSENTIAL (PRIMARY) HYPERTENSION 07/24/2017 LYNNETTE ROCHA MD Ot I48.91 UNSPECIFIED ATRIAL FIBRILLATION 07/24/2017 LYNNETTE ROCHA MD Ot Z86.73 PRSNL HX OF TIA (TIA), AND CEREB INFRC W 07/24/2017 LYNNETTE ROCHA MD Ot Z87.891 PERSONAL HISTORY OF NICOTINE DEPENDENCE 07/28/2017 LYNNETTE ROCHA MD Ot F03.90 UNSPECIFIED DEMENTIA WITHOUT BEHAVIORAL 07/28/2017 LYNNETTE ROCHA MD Ot 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, CHILDHOOD-ONSET TYPE 07/28/2017 LYNNETTE ROCHA MD Ot I10 ESSENTIAL (PRIMARY) HYPERTENSION 07/28/2017 LYNNETTE ROCHA MD Ot I48.91 UNSPECIFIED ATRIAL FIBRILLATION 07/28/2017 LYNNETTE ROCHA MD Ot Z86.73 PRSNL HX OF TIA (TIA), AND CEREB INFRC W 07/28/2017 LYNNETTE ROCHA MD Ot Z87.891 PERSONAL HISTORY OF NICOTINE DEPENDENCE Procedures Code [place] [address] RPR FEM HERNIA, INIT BLOCKED 06/22/2015 C1781 MESH (IMPLANTABLE) 06/22/2015 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, BUPIVICAINE LIPOSOME 06/22/2015 J0690 CEFAZOLIN SODIUM INJECTION 06/22/2015 J1885 TORADOL SYR 30MG/ML 06/22/2015 J2250 INJ MIDAZOLAM HYDROCHLORIDE 06/22/2015 J2405 ONDANSETRON HCL INJECTION 06/22/2015 J2704 INJ, PROPOFOL, 10 MG 06/22/2015 J3010 FENTANYL CITRATE INJECITON 06/22/2015 J7120 RINGERS LACTATE INFUSION 06/22/2015 31748 DIAGNOSTIC COLONOSCOPY 07/03/2015 J2250 INJ MIDAZOLAM HYDROCHLORIDE 07/03/2015 J2704 INJ, PROPOFOL, 10 MG 07/03/2015 J7120 RINGERS LACTATE INFUSION 07/03/2015 62207 Thromboendarterectomy, with or without patch graft; carotid, vertebral, subclavian, by neck incision Soren Oates 10/23/2015 Results Test Result Range Complete urinalysis with reflex to culture - 07/22/17 11:13 Urine color determination YELLOW NRG Urine clarity determination CLEAR NRG Urine pH measurement by test strip 6.5 5-9 Specific gravity of urine by test strip 1.015 1.016- 1.022 Urine protein assay by test strip, semi-quantitative NEGATIVE NEGATIVE Urine glucose detection by automated test strip NEGATIVE NEGATIVE Erythrocytes detection in urine sediment by light microscopy 1+ NEGATIVE Urine ketones detection by automated test strip NEGATIVE NEGATIVE Urine nitrite detection by test strip NEGATIVE NEGATIVE Urine total bilirubin detection by test strip NEGATIVE NEGATIVE Urine urobilinogen measurement by automated test strip (mass/volume) NORMAL NORMAL Urine leukocyte esterase detection by dipstick NEGATIVE NEGATIVE Automated urine sediment erythrocyte count by microscopy (number/high power field) [HPF] NRG Automated urine sediment leukocyte count by microscopy (number/high power field ) RARE NRG Bacteria detection in urine sediment by light microscopy NEGATIVE NRG Squamous epithelial cells detection in urine sediment by light microscopy RARE NRG Crystals detection in urine sediment by light microscopy NONE NRG Casts detection in urine sediment by light microscopy PRESENT NRG Mucus detection in urine sediment by light microscopy NEGATIVE NRG Complete urinalysis with reflex to culture NO NRG Hyaline casts detection in urine sediment by light microscopy 2-5 NRG Complete blood count (CBC) with automated white blood cell (WBC) differential - 07/22/17 11:16 Blood leukocytes automated count (number/volume) 8.6 10*3/uL 4.3-11.0 Blood erythrocytes automated count (number/volume) 3.96 10*6/uL 4.35-5.85 Venous blood hemoglobin measurement (mass/volume) 12.3 g/dL 13.3-17.7 Blood hematocrit (volume fraction) 37 % 40-54 Automated erythrocyte mean corpuscular volume 94 [foz_us] 80-99 Automated erythrocyte mean corpuscular hemoglobin (mass per erythrocyte) 31 pg 25-34 Automated erythrocyte mean corpuscular hemoglobin concentration measurement ( mass/volume) 33 g/dL 32-36 Automated erythrocyte distribution width ratio 13.5 % 10.0-14.5 Automated blood platelet count (count/volume) 232 10*3/uL 130-400 Automated blood platelet mean volume measurement 9.9 [foz_us] 7.4-10.4 Automated blood neutrophils/100 leukocytes 66 % 42-75 Automated blood lymphocytes/100 leukocytes 17 % 12-44 Blood monocytes/100 leukocytes 12 % 0-12 Automated blood eosinophils/100 leukocytes 5 % 0-10 Automated blood basophils/100 leukocytes 1 % 0-10 Blood neutrophils automated count (number/volume) 5.7 10*3 1.8-7.8 Blood lymphocytes automated count (number/volume) 1.5 10*3 1.0-4.0 Blood monocytes automated count (number/volume) 1.0 10*3 0.0-1.0 Automated eosinophil count 0.4 10*3/uL 0.0-0.3 Automated blood basophil count (count/volume) 0.0 10*3/uL 0.0-0.1 Comprehensive metabolic panel - 07/22/17 11:16 Serum or plasma sodium measurement (moles/volume) 140 mmol/L 135-145 Serum or plasma potassium measurement (moles/volume) 4.3 mmol/L 3.6-5.0 Serum or plasma chloride measurement (moles/volume) 105 mmol/L 98-107 Carbon dioxide 24 mmol/L 21-32 Serum or plasma anion gap determination (moles/volume) 11 mmol/L 5-14 Serum or plasma urea nitrogen measurement (mass/volume) 32 mg/dL 7-18 Serum or plasma creatinine measurement (mass/volume) 1.35 mg/dL 0.60-1.30 Serum or plasma urea nitrogen/creatinine mass ratio 24 NRG Serum or plasma creatinine measurement with calculation of estimated glomerular filtration rate 50 NRG Serum or plasma glucose measurement (mass/volume) 93 mg/dL 70-105 Serum or plasma calcium measurement (mass/volume) 9.7 mg/dL 8.5-10.1 Serum or plasma total bilirubin measurement (mass/volume) 0.6 mg/dL 0.1-1.0 Serum or plasma alkaline phosphatase measurement (enzymatic activity/volume) 116 U/L 40-136 Serum or plasma aspartate aminotransferase measurement (enzymatic activity/ volume) 20 U/L 5-34 Serum or plasma alanine aminotransferase measurement (enzymatic activity/volume ) 19 U/L 0-55 Serum or plasma protein measurement (mass/volume) 7.6 g/dL 6.4-8.2 Serum or plasma albumin measurement (mass/volume) 4.0 g/dL 3.2-4.5 Magnesium - 07/22/17 11:16 Magnesium 2.3 mg/dL 1.8-2.4 Serum or plasma thyrotropin measurement by detection limit <=0.05 miu/l (units/ volume) - 07/22/17 11:16 Serum or plasma thyrotropin measurement by detection limit <=0.05 miu/l (units/ volume) 0.91 u[iU]/mL 0.35-4.94 Encounters ACCT No. Visit Date/Time Discharge Status Pt. Type Provider Facility Loc./Unit Complaint [id number] 05/10/2017 11:09:05 05/10/2017 23:59:59 CLS Preadmit CRISTIAN [facility] MS altered mental status [id number] 05/10/2017 01:33:00 05/10/2017 23:59:59 DIS Outpatient LELAMARIAA [facility] [id number] 05/07/2017 08:48:37 05/07/2017 23:59:59 CLS Preadmit [facility] JIGNESH MS status post CVA [id number] 05/01/2017 22:27:02 05/01/2017 23:59:59 DIS Outpatient NELSON LIU [facility] [id number] 05/01/2017 21:14:34 05/01/2017 23:59:59 CLS Inpatient CRISTIAN [facility] JIGNESH Overflow CVA, dehydration, leukocytosis [id number] 05/01/2017 16:19:00 05/01/2017 23:59:59 CLS Emergency [facility] JIGNESH ED ed visit [id number] 01/10/2017 10:53:28 01/10/2017 23:59:59 CLS Preadmit CRISTIAN [facility] RAD hymoptosis and pneumonia [id number] 12/29/2016 20:45:58 12/29/2016 23:59:59 CLS Preadmit CRISTIAN [facility] JIGNESH MS pneumonia, rib fractures, fall, consipation [id number] 12/29/2016 18:53:00 12/29/2016 23:59:59 CLS Emergency [facility] JIGNESH ED sob [id number] 12/27/2016 15:59:00 12/27/2016 23:59:59 CLS Emergency [facility] JIGNESH ED fall [id number] 07/31/2016 15:25:58 07/31/2016 23:59:59 CLS Preadmit ANNEMARIE ORTEGA [facility] Surgery colonoc= scopy [id number] 07/03/2015 10:58:00 07/03/2015 14:15:00 DIS Outpatient ANNEMARIE ROTEGA [facility] OPS [id number] 06/22/2015 11:28:00 06/22/2015 17:05:00 DIS Outpatient ANNEMARIE ORTEGA [facility] OPS [id number] 03/31/2015 10:39:00 03/31/2015 10:39:00 DIS Outpatient JF DE SANTIAGO [facility] RAD [id number] 05/10/2017 02:04:00 ACT V GENA FOSTER [facility] JIGNESH OBS ed visit [id number] 2016 10:57:19 2016 23:59:59 CLS Outpatient Soren Oates [id number] 07/11/2017 20:05:28 ACT Unknown Gena Foster MD [email or web address] 07/15/2017 12:49:35 ACT Document Registration [id number] 07/22/2017 11:07:00 07/22/2017 14:28:00 DIS Emergency JOSEFINA [place], LYNNETTE [facility] ER AGITATION [id number] 05/01/2015 06:36:00 05/02/2015 12:15:00 DIS Inpatient SOREN OATES [facility] 110 carotid stenosis, recent stroke
[2017-08-05 16:01] LABS: BASOPHILS % (AUTO) 0 % (0-10); EOSINOPHILS # (AUTO) 0.5 10^3/uL (0.0-0.3); EOSINOPHILS % (AUTO) 6 % (0-10); HEMATOCRIT 38 % (40-54); HEMOGLOBIN 12.5 G/DL (13.3-17.7); LYMPHOCYTES # (AUTO) 1.9 X 10^3 (1.0-4.0); LYMPHOCYTES % (AUTO) 21 % (12-44); MEAN CORPUSCULAR HEMOGLOBIN 31 PG (25-34); MEAN CORPUSCULAR HGB CONC 33 G/DL (32-36); MEAN CORPUSCULAR VOLUME 92 FL (80-99); MEAN PLATELET VOLUME 9.6 FL (7.4-10.4); MONOCYTES % (AUTO) 11 % (0-12); NEUTROPHILS # (AUTO) 5.8 X 10^3 (1.8-7.8); NEUTROPHILS % (AUTO) 62 % (42-75); PLATELET COUNT 249 10^3/uL (130-400); RED BLOOD COUNT 4.09 10^6/uL (4.35-5.85); RED CELL DISTRIBUTION WIDTH 13.7 % (10.0-14.5); WHITE BLOOD COUNT 9.3 10^3/uL (4.3-11.0)
[2017-08-05 16:02] LABS: BILIRUBIN,URINE NEGATIVE (NEGATIVE); CLARITY,URINE CLEAR; COLOR,URINE YELLOW; GLUCOSE, URINE (UA) NEGATIVE (NEGATIVE); KETONES,URINE NEGATIVE (NEGATIVE); LEUKOCYTE ESTERASE ,URINE NEGATIVE (NEGATIVE); NITRITE,URINE NEGATIVE (NEGATIVE); PH,URINE 6 (5-9); PROTEIN,URINE NEGATIVE (NEGATIVE); UROBILINOGEN,URINE NORMAL (NORMAL)
[2017-08-05 16:19] LABS: ALBUMIN 4.1 GM/DL (3.2-4.5); BILIRUBIN,TOTAL 0.7 MG/DL (0.1-1.0); CALCIUM 9.7 MG/DL (8.5-10.1); CREATININE SERUM 1.24 MG/DL (0.60-1.30); POTASSIUM 3.8 MMOL/L (3.6-5.0); TOTAL PROTEIN 7.7 GM/DL (6.4-8.2)
[2017-08-05 16:20] LABS: WBC,URINE RARE /HPF
--- NOTE | 2017-08-05 16:22 | Diagnostic Imaging Report ---
INDICATION: Shortness of breath. Comparison is made with prior examination from 07/22/17. FINDINGS: There is cardiomegaly. There are multiple calcified granulomas bilaterally. There is no pleural effusion or pneumothorax. Mediastinum is unremarkable. IMPRESSION: 1. No acute cardiopulmonary abnormality. 2. Cardiomegaly. Dictated by: Dictated on workstation # [id number]
--- NOTE | 2017-08-05 16:26 | Diagnostic Imaging Report ---
INDICATION: Abdominal pain. FINDINGS: The lung bases are clear. Bowel gas pattern is nonspecific. There is no free air. There are degenerative changes in the lumbar spine. IMPRESSION: Nonspecific bowel gas pattern. Dictated by: Dictated on workstation # [id number]
--- NOTE | 2017-08-05 16:39 | ED Psychosocial ---
General Chief Complaint: General Problems/Pain Stated Complaint: AGGITATION Nursing Triage Note: [facility] STAFF SILVIA STATES PT HAS BEEN MORE AGITATED LATELY AND COMBATIVE, HE BROKE THE WINDOW, TOILET, AND THE PLASTIC COVER AC UNIT. Source: patient Exam Limitations: no limitations History of Present Illness Date Seen by Provider: August 05, 2017 Time Seen by Provider: 15:17 Initial Comments This 82-year-old gentleman presents from [facility] with behavior problems. He has known dementia. He was seen 2 weeks ago for similar issues. Staff reports he is not eating or drinking well. He has been destroying property. Specifically he broke a window, damaged and air conditioning unit and stuffed puzzle pieces into its components, and broke a toilet tank cover and removed mechanisms from inside the toilet. Patient has been receiving adjusted doses of Seroquel, Haldol, and Ativan. During his last visit to the ER admission to a senior behavioral health unit was considered. However, this cannot be accomplished because patient has no DURABLE POWER OF AFTER SCHOOL TEACHER or guardian to sign for him. He is not a competent decision maker. At that time it was advised that alf administration/social work work toward obtaining a DURABLE POWER OF AFTER SCHOOL TEACHER or guardianship. It does not appear this has been accomplished yet. Patient did state he had constipation. Allergies and Home Medications Allergies Coded Allergies: No Known Drug Allergies (Unverified , 07/22/17) Home Medications Lorazepam 0.5 Mg Tablet, 0.5 MG PO UD PRN for ANXIETY One tablet in the morning, one tablet in the afternoon, and 2 tablets after supper. Prescribed by: LYNNETTE ZIEGLER on 07/22/17 1356 Quetiapine Fumarate 25 Mg Tablet, 25 MG PO HS Prescribed by: LYNNETTE ZIEGLER on 07/22/17 1356 Patient Home Medication List Home Medication List Reviewed: Yes Constitutional: no symptoms reported EENTM: other (Chronic eyelid drooping and inflammation) Respiratory: no symptoms reported Cardiovascular: see HPI Gastrointestinal: see HPI Genitourinary: no symptoms reported Musculoskeletal: no symptoms reported Skin: no symptoms reported Psychiatric/Neurological: See HPI Past Xmyunnz-Minjgg-Ylkvmi Hx Patient Social History Alcohol Use: Denies Use Recreational Drug Use: No Smoking Status: Current Everyday Smoker Type Used: Cigarettes Recent Foreign Travel: No Contact w/Someone Who Travel: No Recent Infectious Disease Expo: No Recent Hopitalizations: No Past Medical History Surgeries: Yes Vascular Surgery Cardiac: Yes Atrial Fibrillation, Hypertension Neurological: Yes Dementia, Stroke Reproductive Disorders: No Gastrointestinal: No Musculoskeletal: No Endocrine: No HEENT: No Hearing Impairment: Denies Psychosocial: Yes (Dementia with behavioral disturbances) Physical Exam Vital Signs Vital Signs - First Documented 08/05/17 15:15 Temp 97.0 Pulse 80 Resp 16 B/P (MAP) 115/72 (86) Pulse Ox 96 O2 Delivery Room Air Capillary Refill : Less Than 3 Seconds General Appearance: WD/WN, no apparent distress HEENT: PERRL/EOMI, pharynx normal, other (Lower eyelid drooping and inflammation, chronic) Neck: normal inspection Respiratory: lungs clear, normal breath sounds, no respiratory distress, no accessory muscle use Cardiovascular: regular rate, rhythm, no edema, no murmur Gastrointestinal: normal bowel sounds, non tender, soft Extremities: normal inspection, no pedal edema Neurologic/Psychiatric: 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 Patient was calm and cooperative throughout his ER visit. Case was discussed with Dr. Mott. I again advised that a guardian or DURABLE POWER OF AFTER SCHOOL TEACHER be sought for the patient as he is not a competent decision maker according to my assessment and needs a sign her to be admitted to a senior behavioral unit. Diagnostic Imaging Diagonstic Imaging: Xray Plain Films/CT/US/NM/MRI: abdomen, pelvis Comments NAME: LANNY SWAN [facility] REC#: [id number] PT STATUS: REG ER : 1935 PHYSICIAN: LYNNETTE ROCHA MD ADMIT DATE: 08/05/17/ER Signed Date of Exam: 08/05/17 ABDOMEN/KUB 1VIEW INDICATION: Abdominal pain. FINDINGS: The lung bases are clear. Bowel gas pattern is nonspecific. There is no free air. There are degenerative changes in the lumbar spine. IMPRESSION: Nonspecific bowel gas pattern. Dictated by: Dictated on workstation # [id number] Dict: 08/05/17 1619 Trans: 08/05/171653 Interpreted by: SAL JONES MD Electronically signed by: SAL JONES MD 08/05/171653 Diagonstic Imaging: Xray Plain Films/CT/US/NM/MRI: chest Comments NAME: LANNY SWAN [facility] REC#: [id number] PT STATUS: REG ER : 1935 PHYSICIAN: LYNNETTE ROCHA MD ADMIT DATE: 08/05/17/ER Signed Date of Exam: 08/05/17 CHEST 1 VIEW, AP/PA ONLY INDICATION: Shortness of breath. Comparison is made with prior examination from 07/22/17. FINDINGS: There is cardiomegaly. There are multiple calcified granulomas bilaterally. There is no pleural effusion or pneumothorax. Mediastinum is unremarkable. IMPRESSION: 1. No acute cardiopulmonary abnormality. 2. Cardiomegaly. Dictated by: Dictated on workstation # [id number] Dict: 08/05/17 1618 Trans: 08/05/171653 Interpreted by: SAL JONES MD Electronically signed by: SAL JONES MD 08/05/171653 Departure Impression Primary Impression: Agitation Additional Impressions: Dementia Qualified Codes: F03.91 - Unspecified dementia with behavioral disturbance Destructive behavior Disposition: 01 HOME, SELF-CARE Condition: Stable Departure-Patient Inst. Decision time for Depature: 16:37 Referrals: DI MOTT DO (PCP/Family) Primary Care Physician Patient Instructions: Dementia (DC) Add. Discharge Instructions: Mr. Swan has been medically cleared for discharge from the ER. Continue to work with Dr. Mott on medical management. Obtain a durable power of senior trial attorney or guardianship so that a screening for a senior behavioral health unit may be obtained. Return to care for any worsening medical concerns. All discharge instructions reviewed with patient and/or family. Voiced understanding. Copy Copies To 1: DI MOTT JOSHUA T MD August 05, 2017 16:39
[2017-08-05 17:00] VITALS: BP 142/79
[2017-09-11] MEDS ORDERED: MIRT30TA6 PO (15:17)
[2017-09-11] MEDS ORDERED: CARB15DR OU ×2 (15:17→15:21)
[2017-09-11] MEDS ORDERED: MELA5TAB14 PO (15:17)
[2017-09-11] MEDS ORDERED: DOCU100T2 PO (15:17)
[2017-09-11] MEDS ORDERED: ACET325T38 PO ×2 (15:17)
[2017-09-11] MEDS ORDERED: AMLO5TAB2 PO (15:17)
[2017-09-11] MEDS ORDERED: LORA1TAB PO (15:17)
[2017-09-11] MEDS ORDERED: QUET200T57 PO (15:17)
[2017-09-11] MEDS ORDERED: MAGN400O7 PO (15:17)
[2017-09-11] MEDS ORDERED: ATOR10TA66 PO (15:17)
[2017-09-11] MEDS ORDERED: APIX5TAB PO (15:17)
[2017-09-11] MEDS ORDERED: FURO20TA4 PO (15:17)
== END 2017-08-05 17:00 | disposition home or self-care (01) ==
LOC: EDUNIT# 14:28 → ER 14:29
DX: F03.91 Unspecified dementia, unspecified severity, with behavioral disturbance (principal); F91.9 Conduct disorder, unspecified; Z86.73 Personal history of transient ischemic attack (TIA), and cerebral infarction without residual deficits; I48.91 Unspecified atrial fibrillation; I10 Essential (primary) hypertension; F17.210 Nicotine dependence, cigarettes, uncomplicated
CPT/HCPCS: 36415; 71045; 74018; 80053; 81000; 85025

== ENCOUNTER 2017-10-15 14:20 | Emergency (ER) | payer MEDICARE ==
[~2017-10-15] VITALS: Ht 160 cm; Wt 45.4 kg
[~2017-10-15 14:20] MED LIST changes: +ACET325T38 PO; +AMLO5TAB2 PO; +APIX5TAB PO; +ATOR10TA66 PO; +AZIT250T12 PO; +CARB15DR OU; +DOCU100T2 PO; +FURO20TA4 PO; +LORA1TAB PO; +MAGN400O7 PO; +MELA5TAB14 PO; +MIRT30TA6 PO; +QUET200T57 PO; +TBR.3OO OU
--- NOTE | 2017-10-15 14:37 | ED General ---
General Stated Complaint: AMS Source of Information: Patient Exam Limitations: No Limitations History of Present Illness Date Seen by Provider: Oct 15, 2017 Time Seen by Provider: 14:24 Initial Comments The patient presents to the ER by EMS with a chief complaint per staff that he is less bright and talkative than usual. His vitals are normal for him which includes a blood pressure in the 90s. They called his primary care provider and were told to send him for evaluation to the ER. The patient denies any pain shortness of breath chest pain nausea vomiting diarrhea constipation, fevers, chills, cough, wheezing, shortness of breath, painful urination. He has an indwelling Fink catheter and he is unsure of the last time it was changed. Records do not indicate this. He answers all questions appropriately although he does have a flat affect with somewhat delayed answering. Patient is known to staff and was here about a month ago diagnosed with a pneumonia. He is also has a history of being sent to [place] for behaviors and is on some psychotropic medications for this. There are no complaints today from staff of any aggressive behaviors. Allergies and Home Medications Allergies Coded Allergies: No Known Drug Allergies (Unverified , 09/11/17) Home Medications Acetaminophen 325 Mg Tablet, 500 MG PO Q8H PRN for PAIN-MILD OR TEMPATURE, ( Reported) TAKES 2 (325MG) TABLETS Acetaminophen 325 Mg Tablet, 325 MG PO TID, (Reported) Amlodipine Besylate 5 Mg Tablet, 5 MG PO DAILY, (Reported) Apixaban 5 Mg Tablet, 5 MG PO BID, (Reported) Atorvastatin Calcium 10 Mg Tablet, 10 MG PO HS, (Reported) Azithromycin 250 Mg Tablet, 500 MG PO DAILY Prescribed by: VINCE PRECIADO on 09/15/17 1242 Carboxymethylcellulose Sodium 15 Ml Drops, 1 DROP OU Q1H PRN for DRY EYES, ( Reported) Carboxymethylcellulose Sodium 15 Ml Drops, 1 DROP OU TID, (Reported) Docusate Sodium 100 Mg Tablet, 100 MG PO BID, (Reported) Furosemide 20 Mg Tablet, 20 MG PO DAILY, (Reported) Lorazepam 1 Mg Tablet, 1 MG PO TID, (Reported) Magnesium Hydroxide 400 Mg/5 Ml Oral.susp, 30 ML PO Q12H PRN for CONSTIPATION- 7TH LINE, (Reported) Melatonin 5 Mg Tablet, 5 MG PO HS, (Reported) Mirtazapine 30 Mg Tablet, 30 MG PO HS, (Reported) Quetiapine Fumarate 200 Mg Tablet, 200 MG PO BID, (Reported) Tobramycin Sulf 3.5 Gm Oint, 0 GM OU TID APPLY TO EYES TID FOR 4 MORE DAYS Prescribed by: VINCE PRECIADO on 09/15/17 1412 Patient Home Medication List Home Medication List Reviewed: Yes Review of Systems Constitutional: No chills, No diaphoresis EENTM: No ear discharge, No ear pain Respiratory: No cough, No short of breath Cardiovascular: No chest pain, No palpitations, No syncope Gastrointestinal: No abdominal pain, No constipation, No diarrhea Genitourinary: No discharge, No dysuria; other (indwelling Fink catheter) Musculoskeletal: No back pain, No joint pain Skin: No pruritus, No rash Psychiatric/Neurological: Denies Headache, Denies Seizure Past Pcmvsmm-Qdwgbo-Uwvvic Hx Patient Social History Alcohol Use: Denies Use Recreational Drug Use: No Smoking Status: Current Everyday Smoker Type Used: Cigarettes Recent Hopitalizations: No Seasonal Allergies Seasonal Allergies: No Past Medical History Surgeries: Yes (hernia) Vascular Surgery Respiratory: Yes Pneumonia Cardiac: Yes (chf) Atrial Fibrillation, High Cholesterol, Hypertension Neurological: Yes Dementia, Stroke Reproductive Disorders: No Genitourinary: Yes (retention) Renal Failure Gastrointestinal: No Musculoskeletal: No Endocrine: No HEENT: No Hearing Impairment: Denies Cancer: No Psychosocial: Yes (Dementia with behavioral disturbances) Anxiety Integumentary: Yes Recent Skin Changes Blood Disorders: No Adverse Reaction/Blood Tranf: No Family Medical History Patient reports no known family medical history. Physical Exam Vital Signs Vital Signs - First Documented 10/15/17 10/15/17 14:31 15:06 Temp 96.8 Pulse 62 Resp 16 B/P (MAP) 98/61 (73) Pulse Ox 98 O2 Flow Rate 2.00 Capillary Refill : Height, Weight, BMI Height: 5'8.00" Weight: 130lbs. 0.2oz. 58.992363ew; 19.8 BMI Method:Estimated General Appearance: No Apparent Distress, Thin Eyes: Bilateral Eye Normal Inspection, Bilateral Eye PERRL, Bilateral Eye EOMI HEENT: PERRL/EOMI, TMs Normal, Normal ENT Inspection, Pharynx Normal; No Moist Mucous Membranes (mildly dry mucosa) Neck: Full Range of Motion, Normal Inspection, Non Tender, Supple Respiratory: Chest Non Tender, Lungs Clear, Normal Breath Sounds, No Accessory Muscle Use, No Respiratory Distress Cardiovascular: Regular Rate, Rhythm, No Edema, Normal Peripheral Pulses Gastrointestinal: Normal Bowel Sounds, Non Tender, Soft Extremity: Normal Capillary Refill, Normal Inspection Neurologic/Psychiatric: Alert, Oriented x3, Normal Mood/Affect Skin: Normal Color, Warm/Dry Progress/Results/Core Measures Suspected Sepsis SIRS Temperature: Pulse: Respiratory Rate: Laboratory Tests 10/15/17 14:20: White Blood Count 7.8 Blood Pressure / Mean: Laboratory Tests 10/15/17 14:20: Platelet Count 319 10/15/17 14:54: Creatinine 1.37H, Total Bilirubin 0.5 Results/Orders Lab Results Laboratory Tests Test 10/15/17 14:20 10/15/17 14:54 Range/Units White Blood Count 7.8 4.3-11.0 10^3/uL Red Blood Count 3.65 L 4.35-5.85 10^6/uL Hemoglobin 11.1 L 13.3-17.7 G/DL Hematocrit 33 L 40-54 % Mean Corpuscular Volume 92 80-99 FL Mean Corpuscular Hemoglobin 30 25-34 PG Mean Corpuscular Hemoglobin Concent 33 32-36 G/DL Red Cell Distribution Width 16.4 H 10.0-14.5 % Platelet Count 319 130-400 10^3/uL Mean Platelet Volume 10.3 7.4-10.4 FL Neutrophils (%) (Auto) 78 H 42-75 % Lymphocytes (%) (Auto) 12 12-44 % Monocytes (%) (Auto) 7 0-12 % Eosinophils (%) (Auto) 3 0-10 % Basophils (%) (Auto) 0 0-10 % Neutrophils # (Auto) 6.0 1.8-7.8 X 10^3 Lymphocytes # (Auto) 0.9 L 1.0-4.0 X 10^3 Monocytes # (Auto) 0.6 0.0-1.0 X 10^3 Eosinophils # (Auto) 0.2 0.0-0.3 10^3/uL Basophils # (Auto) 0.0 0.0-0.1 10^3/uL Urine Color YELLOW Urine Clarity SLIGHTLY CLOUDY Urine pH 5 5-9 Urine Specific [place] 1.015 L 1.016-1.022 Urine Protein NEGATIVE NEGATIVE Urine Glucose (UA) NEGATIVE NEGATIVE Urine Ketones NEGATIVE NEGATIVE Urine Nitrite POSITIVE H NEGATIVE Urine Bilirubin NEGATIVE NEGATIVE Urine Urobilinogen NORMAL NORMAL MG/DL Urine Leukocyte Esterase 3+ H NEGATIVE Urine RBC (Auto) 3+ H NEGATIVE Urine RBC 2-5 H /HPF Urine WBC 25-50 H /HPF Urine Crystals NONE /LPF Urine Bacteria FEW H /HPF Urine Casts NONE /LPF Urine Mucus NEGATIVE /LPF Urine Culture Indicated YES Sodium Level 141 135-145 MMOL/L Potassium Level 4.7 3.6-5.0 MMOL/L Chloride Level 105 98-107 MMOL/L Carbon Dioxide Level 27 21-32 MMOL/L Anion Gap 9 5-14 MMOL/L Blood Urea Nitrogen 36 H 7-18 MG/DL Creatinine 1.37 H 0.60-1.30 MG/DL Estimat Glomerular Filtration Rate 50 BUN/Creatinine Ratio 26 Glucose Level 81 70-105 MG/DL Calcium Level 10.0 8.5-10.1 MG/DL Magnesium Level 2.2 1.8-2.4 MG/DL Total Bilirubin 0.5 0.1-1.0 MG/DL Aspartate Amino Transf (AST/SGOT) 25 5-34 U/L Alanine Aminotransferase (ALT/SGPT) 24 0-55 U/L Alkaline Phosphatase 117 40-136 U/L Total Protein 7.5 6.4-8.2 GM/DL Albumin 3.6 3.2-4.5 GM/DL My Orders Orders - LUKASZ RUANO Cbc With Automated Diff (10/15/17 14:27) Comprehensive Metabolic Panel (10/15/17 14:27) Magnesium (10/15/17 14:27) Ua Culture If Indicated (10/15/17 14:27) Chest 1 View, Ap/Pa Only (10/15/17 14:38) Albuterol/Ipra Inhalation Soln (Duoneb I (10/15/17 14:45) Svn Small Volume Nebulizer (10/15/17 14:38) Urine Culture (10/15/17 14:20) Ceftriaxone Injection (Rocephin Injectio (10/15/17 15:30) Medications Given in ED Current Medications Medications Dose Ordered Sig/Gema Route Start Time Stop Time Status Last Admin Dose Admin Albuterol/ Ipratropium 3 ml ONCE ONCE INH 10/15/17 14:45 7/25/18 14:46 DC 10/15/17 14:59 3 ML Ceftriaxone Sodium 1000 mg/ Sodium Chloride 50 ml @ 100 mls/hr ONCE ONCE IV 10/15/17 15:30 10/15/17 15:59 DC 10/15/17 15:42 100 MLS/HR Vital Signs/I&O 10/15/17 10/15/17 14:31 15:06 Temp 96.8 Pulse 62 Resp 16 B/P (MAP) 98/61 (73) Pulse Ox 98 99 O2 Flow Rate 2.00 Capillary Refill : Progress Note #1: Time: 14:37 Progress Note Vitals are at his stated baseline. However his oxygen sats apparently were in the 88% range on [facility] air [facility] and so he was initiated on oxygen 2 L by nasal cannula. We'll get some basic labs and a chest x-ray. Don't hear anything on his lung examination so we'll give him a breathing treatment and reexamine him. 1445: We had a long discussion about goals of care and the patient still wants to be a full code even up to intubation. We discussed whether comfort cares was something he had considered and he is not interested in talking about that at this time. Progress Note #2: Time: 15:28 Progress Note Patient is not septic has no elevated white count but does have some nitrites and white blood cells in the urine which is difficult to determine whether this is new or not however the penitentiary staff know him best and are saying that he has depressed affect and decreased mentation so we'll take their word and go ahead and start treatment with Rocephin 1 g IV and he can finish this up outpatient. Best place for delirium would be in a stable home like environment or in this case, penitentiary. Plan to follow up outpatient with primary care. Diagnostic Imaging Diagonstic Imaging: Xray Plain Films/CT/US/NM/MRI: chest (2v) Comments [facility] [place] [place] NAME: LANNY SAWN [facility] REC#: [id number] PT STATUS: REG ER : 1935 PHYSICIAN: LUKASZ RUANO MD ADMIT DATE: 10/15/17/ER Draft Date of Exam:10/15/17 CHEST 1 VIEW, AP/PA ONLY INDICATION: Altered mental status. EXAMINATION: Frontal chest was obtained at 2:50 p.m. COMPARISON: 09/13/2017. FINDINGS: Heart is mildly enlarged. There are chronic appearing increased interstitial markings with some right basilar scarring and/or atelectasis. There is no overt consolidation, pneumothorax or pleural fluid. There are scattered calcified granuloma throughout both lungs. IMPRESSION: Mild cardiomegaly. Chronic appearing increased interstitial markings with some mild right basilar scarring or atelectasis. Old granulomatous changes are stable compared to the prior study. There is no new abnormality. Dictated on workstation # [id number] Dict: 10/15/17 1457 Trans: 10/15/17 1520 [facility] [id number] Interpreted by: GENA WALKER MD Electronically signed by: Reviewed: Reviewed by Me Departure Impression Primary Impression: UTI (urinary tract infection) Qualified Codes: N30.00 - Acute cystitis without hematuria Disposition: HOME, SELF-CARE Condition: Stable Departure-Patient Inst. Decision time for Depature: 16:11 Referrals: DI MOTT DO (PCP/Family) Primary Care Physician Patient Instructions: Acute Cystitis (DC) Add. Discharge Instructions: Encourage lots of oral fluids. Rocephin 1 g IV or IM daily 2 more days. Change Fink catheter tomorrow. Copy Copies To 1: DI MOTT TITUS J Oct 15, 2017 14:37
[2017-10-15 14:41] LABS: BASOPHILS % (AUTO) 0 % (0-10); EOSINOPHILS # (AUTO) 0.2 10^3/uL (0.0-0.3); EOSINOPHILS % (AUTO) 3 % (0-10); HEMATOCRIT 33 % (40-54); HEMOGLOBIN 11.1 G/DL (13.3-17.7); LYMPHOCYTES # (AUTO) 0.9 X 10^3 (1.0-4.0); LYMPHOCYTES % (AUTO) 12 % (12-44); MEAN CORPUSCULAR HEMOGLOBIN 30 PG (25-34); MEAN CORPUSCULAR HGB CONC 33 G/DL (32-36); MEAN CORPUSCULAR VOLUME 92 FL (80-99); MEAN PLATELET VOLUME 10.3 FL (7.4-10.4); MONOCYTES # (AUTO) 0.6 X 10^3 (0.0-1.0); MONOCYTES % (AUTO) 7 % (0-12); NEUTROPHILS % (AUTO) 78 % (42-75); PLATELET COUNT 319 10^3/uL (130-400); RED BLOOD COUNT 3.65 10^6/uL (4.35-5.85); RED CELL DISTRIBUTION WIDTH 16.4 % (10.0-14.5); WHITE BLOOD COUNT 7.8 10^3/uL (4.3-11.0)
[2017-10-15] MEDS ORDERED: RT-ALBUTEROL/IPRATROPIUM 3 ML (DUONEB) VIAL INH ONE (14:45)
--- OUTSIDE RECORDS SUMMARY | 2017-10-15 14:53 | XMS REPORT | Clinical Summary ---
Author Author Admin, JEAN CLAUDE Organization [facility] Address Unknown Phone Allergies, Adverse Reactions, Alerts Allergy Name Reaction Description Start Date Severity Status Provider No Known Allergies France Cohen RN Conditions or Problems Problem Name Problem Code [...] Víctor Payne MD Unspecified transient cerebral ischemia Medication List Medication Instructions Start Date Stop Date Generic Name [facility] Status Provider Patient Instruction LIPITOR 10 MG TAB one tablet daily at bedtime ATORVASTATIN CALCIUM 16038328019 Active Víctor Payne MD Active PLAVIX 75 MG TABS 1 tablet by mouth daily to prevent stroke CLOPIDOGREL BISULFATE 06728853466 Active Víctor Payne MD Active ASPIRIN 325 MG TABS 1 TAB 2X ADAY ASPIRIN 26543325632 No Longer Active France Cohen RN Active Immunizations Vaccine Administration Date Value Standard Description pneumococcal immunization administered Pneumovax 23 [CVX33] pneumococcal polysaccharide vaccine, 23 valent Vital Signs Date Name Value Unit Range Description blood pressure, diastolic 72 mm[Hg] BP beauchamp blood pressure, systolic 146 mm[Hg] BP sys height E&M 67.5 [in_us] Bdy height pulse rate E&M 73 /min Heart rate temperature E&M 96.9 [degF] Body temperature weight E&M 160.25 [lb_av] Weight Measured blood pressure, diastolic 83 mm[Hg] BP beauchamp blood pressure, systolic 163 mm[Hg] BP sys height E&M 67.5 [in_us] Bdy height pulse rate E&M 83 /min Heart rate temperature E&M 97.3 [degF] Body temperature weight E&M 157 [lb_av] Weight Measured blood pressure, diastolic 78 mm[Hg] BP beauchamp blood pressure, systolic 170 mm[Hg] BP sys height E&M 67.5 [in_us] Bdy height pulse rate E&M 71 /min Heart rate temperature E&M 95.9 [degF] Body temperature weight E&M 156.8 [lb_av] Weight Measured blood pressure, diastolic 77 mm[Hg] BP beauchamp blood pressure, systolic 129 mm[Hg] BP sys height E&M 67.5 [in_us] Bdy height pulse rate E&M 67 /min Heart rate temperature E&M 96.3 [degF] Body temperature weight E&M 158.25 [lb_av] Weight Measured Diagnostic Results Date Name Value Unit Range Description Lab Report: CBC, Comp. Metabolic Panel, Lipid Panel, Erythrocyte Sed Rate - Chemistry sodium, serum 144 mmol/L 857-795 8678/03/18 potassium, serum 4.9 mmol/L 3.5-5.2 chloride, serum 106 mmol/L 98-107 carbon dioxide, venous blood 28.7 mmol/L 21.0-32.0 blood glucose 83 mg/dL 65-110 urea nitrogen, blood 17 mg/dL 7-18 creatinine, serum 1.20 mg/dL 0.60-1.30 alanine aminotransferase (SGPT), serum 21 U/L 12-78 aspartate aminotransferase (SGOT), serum 18 U/L 15-37 alkaline phosphatase, serum 107 U/L 50-136 calcium, serum 8.9 mg/dL 8.5-10.1 bilirubin, serum, total 0.40 mg/dL 0.00-1.00 cholesterol, serum 167 mg/dL 943-299 8207/03/18 triglyceride, serum, fasting 95 mg/dL 30-200 HDL cholesterol, serum 46 mg/dL 32-96 LDL cholesterol, serum 102 mg/dL 0-130 Lab Report: CBC, Comp. Metabolic Panel, Lipid Panel, Erythrocyte Sed Rate - Hematology leukocyte count, blood 9.1 10^3/MM^3 10*3/mm3 4.6-10.2 erythrocyte (RBC) count 3.95 10^6/MM^3 10*6/mm3 4.69-6.13 hemoglobin, blood 13.2 g/dL 13.5-17.5 hematocrit, blood 38.2 % 41.0-53.0 mean corpuscular volume, RBC 97 fL 80-97 mean corpuscular hemoglobin, RBC 33.4 pg 27.0-31.2 mean corpuscular hemoglobin concentration, RBC 34.5 G/DL % 31.8- 35.4 red blood cell distribution width 15.2 % 11.6-14.8 platelet count 263 10^3/MM^3 10*3/mm3 142-424 Encounters Code Encounter Date Provider Facility CPT-78704 Level 4 Est. Patient 14:48:01 CDT Víctor Payne MD [facility] CPT-83161 Level 2 New Patient 14:23:38 VASCULAR NURSE Víctor Payne MD [facility] Procedures Code Procedure Name Date Entry Date Standard Description CPT-32241 Postop F/U Visit 16:24:54 VASCULAR NURSE CPT-OV Office Visit 13:26:00 VASCULAR NURSE CPT-91818 Administration 2+ single or combination vaccines inc oral 10:08:59 CDT CPT-84433 Administration single or combination vaccine inc oral 10 :08:59 CDT CPT-63220 Pneumovax 10:08:59 CDT CPT-56457 Influenza High Dose age 65+ 10:08:59 CDT
--- OUTSIDE RECORDS SUMMARY | 2017-10-15 14:53 | XMS REPORT | Clinical Summary ---
Author Author Admin, JEAN CLAUDE Organization [facility] Address Unknown Phone Allergies, Adverse Reactions, Alerts [...] Instructions Start Date Stop Date Generic Name [facility] Status Provider Patient Instruction LIPITOR 10 MG TAB one tablet daily at bedtime ATORVASTATIN CALCIUM 00717226271 Active Víctor Payne MD Active PLAVIX 75 MG TABS 1 tablet by mouth daily to prevent stroke CLOPIDOGREL BISULFATE 49094299710 Active Víctor Payne MD Active ASPIRIN 325 MG TABS 1 TAB 2X ADAY ASPIRIN 54541254562 No Longer Active France Cohen RN Active [...] Rate - Chemistry sodium, serum 144 mmol/L 339-176 5255/03/18 potassium, serum 4.9 mmol/L 3.5-5.2 chloride, serum [...] 0.40 mg/dL 0.00-1.00 cholesterol, serum 167 mg/dL 377-329 7713/03/18 triglyceride, serum, fasting 95 mg/dL 30-200 HDL [...] 142-424 Encounters Code Encounter Date Provider Facility CPT-65887 Level 4 Est. Patient 14:48:01 CDT Víctor Payne MD [facility] CPT-40704 Level 2 New Patient 14:23:38 POT ANNEALER Víctor Payne MD [facility] Procedures Code Procedure Name Date Entry Date Standard Description CPT-32599 Postop F/U Visit 16:24:54 POT ANNEALER CPT-OV Office Visit 13:26:00 POT ANNEALER CPT-50105 Administration 2+ single or combination vaccines inc oral 10:08:59 CDT CPT-63607 Administration single or combination vaccine inc oral 10 :08:59 CDT CPT-66322 Pneumovax 10:08:59 CDT CPT-45836 Influenza High Dose age 65+ 10:08:59 CDT
--- OUTSIDE RECORDS SUMMARY | 2017-10-15 14:53 | XMS REPORT | Clinical Summary ---
Author Author Admin, JEAN CLAUDE Organization [facility] Address Unknown Phone Allergies, Adverse Reactions, [...] Start Date Stop Date Generic Name [facility] Status Provider Patient Instruction LIPITOR 10 MG TAB one tablet daily at bedtime ATORVASTATIN CALCIUM 04391532675 Active Víctor Payne MD Active PLAVIX 75 MG TABS 1 tablet by mouth daily to prevent stroke CLOPIDOGREL BISULFATE 19255830879 Active Víctor Payne MD Active ASPIRIN 325 MG TABS 1 TAB 2X ADAY ASPIRIN 62562904150 No Longer Active France Cohen RN Active [...] Rate - Chemistry sodium, serum 144 mmol/L 532-837 1660/03/18 potassium, serum 4.9 mmol/L 3.5-5.2 chloride, serum [...] 0.40 mg/dL 0.00-1.00 cholesterol, serum 167 mg/dL 029-375 5495/03/18 triglyceride, serum, fasting 95 mg/dL 30-200 HDL [...] 142-424 Encounters Code Encounter Date Provider Facility CPT-60268 Level 4 Est. Patient 14:48:01 CDT Víctor Payne MD [facility] CPT-09779 Level 2 New Patient 14:23:38 SIDE HEMMER Víctor Payne MD [facility] Procedures Code Procedure Name Date Entry Date Standard Description CPT-72467 Postop F/U Visit 16:24:54 SIDE HEMMER CPT-OV Office Visit 13:26:00 SIDE HEMMER CPT-18435 Administration 2+ single or combination vaccines inc oral 10:08:59 CDT CPT-91500 Administration single or combination vaccine inc oral 10 :08:59 CDT CPT-74293 Pneumovax 10:08:59 CDT CPT-89616 Influenza High Dose age 65+ 10:08:59 CDT
--- OUTSIDE RECORDS SUMMARY | 2017-10-15 14:53 | XMS REPORT | Clinical Summary ---
Author Author Admin, JEAN CLAUDE Organization [facility] Address Unknown Phone Allergies, Adverse Reactions, [...] Instructions Start Date Stop Date Generic Name [facility] Status Provider Patient Instruction LIPITOR 10 MG TAB one tablet daily at bedtime ATORVASTATIN CALCIUM 74390337970 Active Víctor Payne MD Active PLAVIX 75 MG TABS 1 tablet by mouth daily to prevent stroke CLOPIDOGREL BISULFATE 53774821204 Active Víctor Payne MD Active ASPIRIN 325 MG TABS 1 TAB 2X ADAY ASPIRIN 20070561859 No Longer Active France Cohen RN Active [...] Rate - Chemistry sodium, serum 144 mmol/L 612-026 7090/03/18 potassium, serum 4.9 mmol/L 3.5-5.2 chloride, serum [...] 0.40 mg/dL 0.00-1.00 cholesterol, serum 167 mg/dL 534-841 1845/03/18 triglyceride, serum, fasting 95 mg/dL 30-200 HDL [...] 142-424 Encounters Code Encounter Date Provider Facility CPT-76925 Level 4 Est. Patient 14:48:01 CDT Víctor Payne MD [facility] CPT-74780 Level 2 New Patient 14:23:38 ASSISTANT PROFESSOR OF SOCIOLOGY Víctor Payne MD [facility] Procedures Code Procedure Name Date Entry Date Standard Description CPT-64417 Postop F/U Visit 16:24:54 ASSISTANT PROFESSOR OF SOCIOLOGY CPT-OV Office Visit 13:26:00 ASSISTANT PROFESSOR OF SOCIOLOGY CPT-78773 Administration 2+ single or combination vaccines inc oral 10:08:59 CDT CPT-33531 Administration single or combination vaccine inc oral 10 :08:59 CDT CPT-32729 Pneumovax 10:08:59 CDT CPT-19082 Influenza High Dose age 65+ 10:08:59 CDT
--- OUTSIDE RECORDS SUMMARY | 2017-10-15 14:53 | XMS REPORT | Clinical Summary ---
Author Author Admin, JEAN CLAUDE Organization [facility] Address Unknown Phone Allergies, Adverse Reactions, [...] Instructions Start Date Stop Date Generic Name [facility] Status Provider Patient Instruction LIPITOR 10 MG TAB one tablet daily at bedtime ATORVASTATIN CALCIUM 82495364894 Active Víctor Payne MD Active PLAVIX 75 MG TABS 1 tablet by mouth daily to prevent stroke CLOPIDOGREL BISULFATE 94515302174 Active Víctor Payne MD Active ASPIRIN 325 MG TABS 1 TAB 2X ADAY ASPIRIN 58865043751 No Longer Active France Cohen RN Active [...] Rate - Chemistry sodium, serum 144 mmol/L 579-289 4180/03/18 potassium, serum 4.9 mmol/L 3.5-5.2 chloride, serum [...] 0.40 mg/dL 0.00-1.00 cholesterol, serum 167 mg/dL 127-899 9426/03/18 triglyceride, serum, fasting 95 mg/dL 30-200 HDL [...] 142-424 Encounters Code Encounter Date Provider Facility CPT-02545 Level 4 Est. Patient 14:48:01 CDT Víctor Payne MD [facility] CPT-73912 Level 2 New Patient 14:23:38 FOREST PATHOLOGY ASSOCIATE PROFESSOR Víctor Payne MD [facility] Procedures Code Procedure Name Date Entry Date Standard Description CPT-91058 Postop F/U Visit 16:24:54 FOREST PATHOLOGY ASSOCIATE PROFESSOR CPT-OV Office Visit 13:26:00 FOREST PATHOLOGY ASSOCIATE PROFESSOR CPT-07638 Administration 2+ single or combination vaccines inc oral 10:08:59 CDT CPT-91454 Administration single or combination vaccine inc oral 10 :08:59 CDT CPT-05687 Pneumovax 10:08:59 CDT CPT-63913 Influenza High Dose age 65+ 10:08:59 CDT
--- OUTSIDE RECORDS SUMMARY | 2017-10-15 14:54 | XMS REPORT | Clinical Summary ---
Author Author Admin, JEAN CLAUDE Organization [facility] Address Unknown Phone Allergies, Adverse Reactions, [...] Instructions Start Date Stop Date Generic Name [facility] Status Provider Patient Instruction LIPITOR 10 MG TAB one tablet daily at bedtime ATORVASTATIN CALCIUM 34352348498 Active Víctor Payne MD Active PLAVIX 75 MG TABS 1 tablet by mouth daily to prevent stroke CLOPIDOGREL BISULFATE 24714017146 Active Víctor Payne MD Active ASPIRIN 325 MG TABS 1 TAB 2X ADAY ASPIRIN 86807406043 No Longer Active France Cohen RN Active [...] Rate - Chemistry sodium, serum 144 mmol/L 324-495 6144/03/18 potassium, serum 4.9 mmol/L 3.5-5.2 chloride, serum [...] 0.40 mg/dL 0.00-1.00 cholesterol, serum 167 mg/dL 633-272 3068/03/18 triglyceride, serum, fasting 95 mg/dL 30-200 HDL [...] 142-424 Encounters Code Encounter Date Provider Facility CPT-78691 Level 4 Est. Patient 14:48:01 CDT Víctor Payne MD [facility] CPT-86381 Level 2 New Patient 14:23:38 DIRECTOR EMERGENCY DEPARTMENT Víctor Payne MD [facility] Procedures Code Procedure Name Date Entry Date Standard Description CPT-57085 Postop F/U Visit 16:24:54 DIRECTOR EMERGENCY DEPARTMENT CPT-OV Office Visit 13:26:00 DIRECTOR EMERGENCY DEPARTMENT CPT-99031 Administration 2+ single or combination vaccines inc oral 10:08:59 CDT CPT-24913 Administration single or combination vaccine inc oral 10 :08:59 CDT CPT-23179 Pneumovax 10:08:59 CDT CPT-39875 Influenza High Dose age 65+ 10:08:59 CDT
--- OUTSIDE RECORDS SUMMARY | 2017-10-15 14:54 | XMS REPORT | Clinical Summary ---
Author Author Admin, JEAN CLAUDE Organization [facility] Address Unknown Phone Allergies, Adverse Reactions, [...] Start Date Stop Date Generic Name [facility] Status Provider Patient Instruction LIPITOR 10 MG TAB one tablet daily at bedtime ATORVASTATIN CALCIUM 14909928849 Active Víctor Payne MD Active PLAVIX 75 MG TABS 1 tablet by mouth daily to prevent stroke CLOPIDOGREL BISULFATE 47941773638 Active Víctor Payne MD Active ASPIRIN 325 MG TABS 1 TAB 2X ADAY ASPIRIN 07285782058 No Longer Active France Cohen RN Active [...] Rate - Chemistry sodium, serum 144 mmol/L 468-295 3802/03/18 potassium, serum 4.9 mmol/L 3.5-5.2 chloride, serum [...] 0.40 mg/dL 0.00-1.00 cholesterol, serum 167 mg/dL 916-707 6988/03/18 triglyceride, serum, fasting 95 mg/dL 30-200 HDL [...] 142-424 Encounters Code Encounter Date Provider Facility CPT-07173 Level 4 Est. Patient 14:48:01 CDT Víctor Payne MD [facility] CPT-60591 Level 2 New Patient 14:23:38 CALL OUT OPERATOR Víctor Payne MD [facility] Procedures Code Procedure Name Date Entry Date Standard Description CPT-26173 Postop F/U Visit 16:24:54 CALL OUT OPERATOR CPT-OV Office Visit 13:26:00 CALL OUT OPERATOR CPT-08843 Administration 2+ single or combination vaccines inc oral 10:08:59 CDT CPT-73326 Administration single or combination vaccine inc oral 10 :08:59 CDT CPT-71989 Pneumovax 10:08:59 CDT CPT-71559 Influenza High Dose age 65+ 10:08:59 CDT
--- OUTSIDE RECORDS SUMMARY | 2017-10-15 14:54 | XMS REPORT | Clinical Summary ---
Author Author Admin, JEAN CLAUDE Organization [facility] Address Unknown Phone Allergies, Adverse Reactions, Alerts [...] Instructions Start Date Stop Date Generic Name [facility] Status Provider Patient Instruction LIPITOR 10 MG TAB one tablet daily at bedtime ATORVASTATIN CALCIUM 93885053566 Active Víctor Payne MD Active PLAVIX 75 MG TABS 1 tablet by mouth daily to prevent stroke CLOPIDOGREL BISULFATE 45624065217 Active Víctor Payne MD Active ASPIRIN 325 MG TABS 1 TAB 2X ADAY ASPIRIN 27525996410 No Longer Active France Cohen RN Active [...] Rate - Chemistry sodium, serum 144 mmol/L 722-936 3446/03/18 potassium, serum 4.9 mmol/L 3.5-5.2 chloride, serum [...] 0.40 mg/dL 0.00-1.00 cholesterol, serum 167 mg/dL 487-190 7109/03/18 triglyceride, serum, fasting 95 mg/dL 30-200 HDL [...] 142-424 Encounters Code Encounter Date Provider Facility CPT-55528 Level 4 Est. 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
--- OUTSIDE RECORDS SUMMARY | 2017-10-15 14:54 | XMS REPORT | Clinical Summary ---
Author Author Admin, JEAN CLAUDE [facility] Address Unknown Phone Unavailable Allergies, Adverse [...] one tablet daily at bedtime ATORVASTATIN CALCIUM 84035960801 Active Víctor Payne MD Active PLAVIX 75 MG TABS 1 tablet by mouth daily to prevent stroke CLOPIDOGREL BISULFATE 65941749242 Active Víctor Payne MD Active ASPIRIN 325 MG TABS 1 TAB 2X ADAY ASPIRIN 86510802157 No Longer Active France Cohen RN Active [...] Rate - Chemistry sodium, serum 144 mmol/L 044-629 1733/03/18 potassium, serum 4.9 mmol/L 3.5-5.2 chloride, serum [...] 0.40 mg/dL 0.00-1.00 cholesterol, serum 167 mg/dL 808-958 0831/03/18 triglyceride, serum, fasting 95 mg/dL 30-200 HDL [...] 142-424 Encounters Code Encounter Date Provider Facility CPT-05925 Level 4 Est. 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
--- OUTSIDE RECORDS SUMMARY | 2017-10-15 14:54 | XMS REPORT | Clinical Summary ---
Author Author Admin, JEAN CLAUDE Organization [facility] Address Unknown Phone Allergies, Adverse Reactions, Alerts [...] Start Date Stop Date Generic Name [facility] Status Provider Patient Instruction LIPITOR 10 MG TAB one tablet daily at bedtime ATORVASTATIN CALCIUM 46968083692 Active Víctor Payne MD Active PLAVIX 75 MG TABS 1 tablet by mouth daily to prevent stroke CLOPIDOGREL BISULFATE 96560467637 Active Víctor Payne MD Active ASPIRIN 325 MG TABS 1 TAB 2X ADAY ASPIRIN 19626934754 No Longer Active France Cohen RN Active [...] Rate - Chemistry sodium, serum 144 mmol/L 172-851 3295/03/18 potassium, serum 4.9 mmol/L 3.5-5.2 chloride, serum [...] 0.40 mg/dL 0.00-1.00 cholesterol, serum 167 mg/dL 047-415 5809/03/18 triglyceride, serum, fasting 95 mg/dL 30-200 HDL [...] 142-424 Encounters Code Encounter Date Provider Facility CPT-22299 Level 4 Est. 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
--- OUTSIDE RECORDS SUMMARY | 2017-10-15 14:54 | XMS REPORT | Clinical Summary ---
Author Author Admin, JEAN CLAUDE [facility] Address Unknown Phone Unavailable Allergies, Adverse Reactions, [...] Instructions Start Date Stop Date Generic Name [facility] Status Provider Patient Instruction LIPITOR 10 MG TAB one tablet daily at bedtime ATORVASTATIN CALCIUM 06774473841 Active Víctor Payne MD Active PLAVIX 75 MG TABS 1 tablet by mouth daily to prevent stroke CLOPIDOGREL BISULFATE 84675036932 Active Víctor Payne MD Active ASPIRIN 325 MG TABS 1 TAB 2X ADAY ASPIRIN 33955065852 No Longer Active France Cohen RN Active [...] Rate - Chemistry sodium, serum 144 mmol/L 878-117 6527/03/18 potassium, serum 4.9 mmol/L 3.5-5.2 chloride, serum [...] 0.40 mg/dL 0.00-1.00 cholesterol, serum 167 mg/dL 938-288 7087/03/18 triglyceride, serum, fasting 95 mg/dL 30-200 HDL cholesterol, serum 46 mg/dL 32-96 LDL cholesterol, serum 102 mg/dL 0-130 Lab Report: CBC, Comp. Metabolic Panel, Lipid Panel, Erythrocyte Sed Rate - Hematology mean corpuscular volume, RBC 97 fL 80-97 hematocrit, blood 38.2 % 41.0-53.0 hemoglobin, blood 13.2 g/dL 13.5-17.5 erythrocyte (RBC) count 3.95 10^6/MM^3 10*6/mm3 4.69-6.13 leukocyte count, blood 9.1 10^3/MM^3 10*3/mm3 4.6-10.2 mean corpuscular hemoglobin, RBC 33.4 pg 27.0-31.2 mean corpuscular hemoglobin concentration, RBC 34.5 G/DL % 31.8- 35.4 red blood cell distribution width 15.2 % 11.6-14.8 platelet count 263 10^3/MM^3 10*3/mm3 142-424 Encounters Code Encounter Date Provider Facility CPT-33642 Level 4 Est. Patient 14:48:01 CDT Víctor Payne MD [facility] CPT-17467 Level 2 New Patient 14:23:38 SAFETY COUNSELOR Víctor Payne MD [facility] Procedures Code Procedure Name Date Entry Date Standard Description CPT-G0008 Administration of Influenza Virus Vaccine 14:20:57 CDT CPT-43326 Fluzone High-Dose Intramuscular Suspension 14:20:56 CDT CPT-53568 Postop F/U Visit 16:24:54 SAFETY COUNSELOR CPT-OV Office Visit 13:26:00 SAFETY COUNSELOR CPT-14920 Administration 2+ single or combination vaccines inc oral 10:08:59 CDT CPT-03744 Administration single or combination vaccine inc oral 10 :08:59 CDT CPT-02883 Pneumovax 10:08:59 CDT CPT-20219 Influenza High Dose age 65+ 10:08:59 CDT
[2017-10-15 14:59] LABS: BILIRUBIN,URINE NEGATIVE (NEGATIVE); CLARITY,URINE SLIGHTLY CLOUDY; COLOR,URINE YELLOW; GLUCOSE, URINE (UA) NEGATIVE (NEGATIVE); KETONES,URINE NEGATIVE (NEGATIVE); LEUKOCYTE ESTERASE ,URINE 3+ (NEGATIVE); NITRITE,URINE POSITIVE (NEGATIVE); PH,URINE 5 (5-9); PROTEIN,URINE NEGATIVE (NEGATIVE); UROBILINOGEN,URINE NORMAL (NORMAL)
[2017-10-15 15:17] LABS: BACTERIA,URINE FEW /HPF; WBC,URINE 25-50 /HPF
--- NOTE | 2017-10-15 15:21 | Diagnostic Imaging Report ---
INDICATION: Altered mental status. EXAMINATION: Frontal chest was obtained at 2:50 p.m. COMPARISON: 09/13/2017. FINDINGS: Heart is mildly enlarged. There are chronic appearing increased interstitial markings with some right basilar scarring and/or atelectasis. There is no overt consolidation, pneumothorax or pleural fluid. There are scattered calcified granuloma throughout both lungs. IMPRESSION: Mild cardiomegaly. Chronic appearing increased interstitial markings with some mild right basilar scarring or atelectasis. Old granulomatous changes are stable compared to the prior study. There is no new abnormality. Dictated by: Dictated on workstation # [id number]
[2017-10-15] MEDS ORDERED: cefTRIAXone INJECTION 1,000 MG in NS (IVPB) 50 ML IV ONE (15:30)
[2017-10-15 16:02] LABS: ALBUMIN 3.6 GM/DL (3.2-4.5); BILIRUBIN,TOTAL 0.5 MG/DL (0.1-1.0); CREATININE SERUM 1.37 MG/DL (0.60-1.30); MAGNESIUM 2.2 MG/DL (1.8-2.4); POTASSIUM 4.7 MMOL/L (3.6-5.0); TOTAL PROTEIN 7.5 GM/DL (6.4-8.2)
[2017-10-15 16:37] VITALS: BP 112/73
== END 2017-10-15 16:37 | disposition home or self-care (01) ==
LOC: EDUNIT# 14:20 → ER 14:21
DX: N39.0 Urinary tract infection, site not specified (principal); I48.91 Unspecified atrial fibrillation; E78.00 Pure hypercholesterolemia, unspecified; I10 Essential (primary) hypertension; F41.9 Anxiety disorder, unspecified; F03.90 Unspecified dementia, unspecified severity, without behavioral disturbance, psychotic disturbance, mood disturbance, and anxiety; F17.210 Nicotine dependence, cigarettes, uncomplicated; Z86.73 Personal history of transient ischemic attack (TIA), and cerebral infarction without residual deficits; Z87.01 Personal history of pneumonia (recurrent); Z79.01 Long term (current) use of anticoagulants
CPT/HCPCS: 36415; 71045; 80053; 81000; 83735; 85025; 87077; 87088; 87186; 94640; 96365